=== PATIENT | female | born 1940 | race Hispanic/Latino ===

== ENCOUNTER 2018-04-13 23:03 | Inpatient (IN) | payer MEDICARE, OTHER ==
[2018-04-13] MEDS ORDERED: Morphine 4 mg/ml ISec IVP STA (23:14)
--- NOTE | 2018-04-13 23:22 | ED PDOC ---
"Arrival/HPI - General Chief Complaint: Chest Pain Time Seen by Provider: 04/13/18 23:04 Historian: Patient, EMS - History of Present Illness Narrative History of Present Illness (Text): 04/13/18 23:19 77 year old female, pmh including [place]/CAD with multiple cardiac stents/htn/ hyperlipidemia/dm/copd from chronic smoker which she is on the home oxygen at home, nkda, complaining of chest pressure/tightness and shortness of breath x 20 hours. Pt. stated that she has been having anterior chest pressure, associated with tightness which is exertional, worsening tonight, no palpitation , no leg or calf swelling, no numbness or tingling, no other medical or psychological complaints. Past Medical History - Provider Review Nursing Documentation Reviewed: Yes - Infectious Disease Hx of Infectious Diseases: None - Cardiac Hx Angina: Yes Hx [place]: Yes Hx Hypertension: Yes - Pulmonary Hx Bronchitis: Yes Hx Pneumonia: Yes (presently) - HEENT Hx Cataracts: Yes Hx Glaucoma: Yes - Endocrine/Metabolic Hx Diabetes Mellitus Type 2: Yes - Hematological/Oncological Hx Anemia: Yes - Musculoskeletal/Rheumatological Hx Falls: Yes - Genitourinary/Gynecological Hx Genitourinary Disorders: Yes (incontient) - Psychiatric Hx Emotional Abuse: No Hx Physical Abuse: No Hx Substance Use: No - Surgical History Hx Appendectomy: Yes Hx Cataract Extraction: Yes Hx Coronary Stent: Yes Hx Orthopedic Surgery: Yes (bilateral knee replacement) Other/Comment: micky leblanc - Anesthesia Hx Anesthesia Reactions: No Hx Malignant Hyperthermia: No - Suicidal Assessment Feels Threatened In Home Enviroment: No Family/Social History - Physician Review Nursing Documentation Reviewed: Yes Family/Social History: Unknown Family HX Smoking Status: Former Smoker Hx Alcohol Use: No Hx Substance Use: No Allergies/Home Meds Allergies/Adverse Reactions: Allergies No Known Allergies Allergy (Verified 04/14/18 00:15) Home Medications: Home Meds Medication Instructions Recorded Confirmed Aspirin [Aspir 81] 81 mg PO DAILY 05/20/13 04/14/18 Balsalazide Disodium 1,500 mg PO TID 05/20/13 04/14/18 Calcium Carbonate/Vitamin D 1 tab PO BID 05/20/13 04/14/18 [Calcium + D 600 mg-200 Iu] Cholecalciferol [Vitamin D] 2,000 iu PO DAILY 05/20/13 04/14/18 Colestipol Hydrochloride 2 cap PO BID 05/20/13 04/14/18 [Colestipol] Isosorbide Mononitrate [Imdur] 60 mg PO DAILY 05/20/13 04/14/18 Lansoprazole 30 mg PO DAILY 05/20/13 04/14/18 Lisinopril 10 mg PO DAILY 05/20/13 04/14/18 Metformin HCl [Metformin] 1,000 mg PO BID 05/20/13 04/14/18 Metoprolol Succinate 50 mg PO BID 05/20/13 04/14/18 Multivitamin and Upakzdvn24 0.5 tab PO BID 05/20/13 04/14/18 [Centrum Silver] Simvastatin 40 mg PO DAILY 05/20/13 04/14/18 Timolol Maleate [Timolol Maleate 5 1 drop OU BID 05/20/13 04/14/18 ml] Vitamin E 1,000 cap PO DAILY 05/20/13 04/14/18 Review of Systems - Review of Systems Constitutional: absent: Fatigue, Fevers Eyes: absent: Vision Changes ENT: absent: Hearing Changes Respiratory: SOB. absent: Cough Cardiovascular: Chest Pain Gastrointestinal: absent: Abdominal Pain, Nausea, Vomiting Musculoskeletal: absent: Arthralgias, Back Pain Skin: absent: Rash, Pruritis Neurological: absent: Headache, Dizziness Psychiatric: absent: Anxiety, Depression, Suicidal Ideation Physical Exam Vital Signs Temp Pulse Resp BP Pulse Ox 04/14/18 00:41 128 H 23 146/100 H 99 04/13/18 23:20 98.6 F 130 H 25 H 158/91 H 99 - Systems Exam Head: Present: Atraumatic, Normocephalic Pupils: Present: PERRL Extroacular Muscles: Present: EOMI Conjunctiva: Present: Normal Mouth: Present: Moist Mucous Membranes Neck: Present: Normal Range of Motion Respiratory/Chest: Present: Clear to Auscultation, Good Air Exchange. No: Respiratory Distress, Accessory Muscle Use, Wheezes, Decreased Breath Sounds, Rales, Retracting, Rhonchi, Tachypneic, Tender to Palpation Cardiovascular: Present: Regular Rate and Rhythm, Normal S1, S2, Other (no pedal edema). No: Murmurs Abdomen: No: Tenderness, Distention, Peritoneal Signs, Rebound, Guarding Back: Present: Normal Inspection Upper Extremity: Present: Normal Inspection. No: Cyanosis, Edema Lower Extremity: Present: Normal Inspection. No: Edema Neurological: Present: GCS=15, CN II-XII Intact, Speech Normal Skin: Present: Warm, Dry, Normal Color. No: Rashes Psychiatric: Present: Alert, Oriented x 3, Normal Insight, Normal Concentration Medical Decision Making ED Course and Treatment: 04/13/18 23:21 Differential: ACS vs. Pneumonia vs. CHF vs. 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 Wolff, agreed on the treatment plan. 04/13/18 23:54 -EKG: Sinus Tachycardia @ 129 BPM, no ST elevation but there is ST depression on the lead V2-V4/L1, no T wave inversion. -Chest xray wet read: show there is widened mediastinum with abnormal appearance of the chest xray, CT Dissection study ordered, agreed by Dr. Wolff. -Labs are non-significant except hgb 9.3 from 11.5 which is from 2015, Mg 1.5 ( mgsu IV 1gm ordered) -BNP 1050 with no previous comparison, no pedal edema -Troponin 1st set is negative. -CT Dissection study ordered and pending result. 04/14/18 00:43 -Pt. received 2 doses of xopenex which she appears more comfortable. 04/14/18 01:41 -CT Dissection study show the following: No acute intra-abdominal or pelvic abnormality. Diffuse nodular liver contour, possible cirrhosis. Splenomegaly. Right renal cysts, unchanged. Diverticulosis. No acute diverticulitis. -No central pulmonary embolism. The distal segmental branches are limited by motion and suboptimal enhancement. Pulmonary fibrosis. New diffuse bilateral groundglass opacities which could be secondary to pulmonary edema or pneumonia. Mild nonspecific mediastinal adenopathy. 04/14/18 01:42 -IV lasix 40mg ordered given the fact she has elevated BNP and CT show possible pulmonary edema -IV solumedrol and 3rd xopenex ordered as she responding well -IV rocephine/azithromycin ordered as there is ground grass opacities with CT show possible pneumonia -Blood cultures ordered as well. -Paging Dr. Vogt for admission to telemetry. Dr. Peña is the family service aide. 04/14/18 02:00 -I spoke to Dr. Vogt about the case/labs/radiology results, agreed on the treatment and admission to his service, request to have Dr. Ansari and Dr. Peña on this case for routine consult. -I discussed with Dr. Wolff about this case and he will put in the admission, agreed on the admission and treatment plan. - Critical Care Critical Care Minutes: 45 minutes Critical Care Time: Unstable Narrative Critical Care (Text): 04/14/18 01:46 tachycardia with shortness of breath, xopenex treatment x 3 with IV solumedrol, IV lasix for possible CHF. - Lab Interpretations Lab Results: 04/13/18 23:15 04/13/18 23:15 Lab Results 04/14/18 00:55: Blood Type Pending, Antibody Screen Pending, BBK History Checked No verified bt 04/13/18 23:15: PT 11.2, INR 0.98, APTT 26.3 04/13/18 23:15: WBC 5.1 D, RBC 3.72, Hgb 9.3 L, Hct 30.5 L, MCV 82.0, MCH 25.0 , MCHC 30.5 L, RDW 15.3 H, Plt Count 144, MPV 9.5, Gran % 66.9, Lymph % (Auto) 19.2 L, Granite % (Auto) 8.6 H, Eos % (Auto) 4.9, Baso % (Auto) 0.4, Gran # 3.41, Lymph # (Auto) 1.0 L, Granite # (Auto) 0.4, Eos # (Auto) 0.3, Baso # (Auto) 0.02 04/13/18 23:15: Sodium 144, Potassium 3.9, Chloride 102, Carbon Dioxide 25, Anion Gap 21 H, BUN 15, Creatinine 1.0, Est GFR ( Amer) > 60, Est GFR ( Non-Af Amer) 54, Random Glucose 132 H, Calcium 9.4, Magnesium 1.5 L, Total Bilirubin 0.4, AST 32, ALT 23, Alkaline Phosphatase 44, Lactate Dehydrogenase 530, Total Creatine Kinase 108, Troponin I < 0.01, NT-Pro-B Natriuret Pep 1050 H , Total Protein 7.9, Albumin 4.4, Globulin 3.5, Albumin/Globulin Ratio 1.3 I have reviewed the lab results: Yes Interpretation: Abnormal lab values - RAD Interpretation Radiology Orders: 04/13/18 23:14 CHEST PORTABLE [RAD] Stat 04/13/18 23:52 ANGIOGRAPHY DISECTION PROTOCOL [CT] Stat Chest xray: CT Angiography Disection Protocol: FINDINGS: Pulmonary arteries: The pulmonary arteries are limited by suboptimal enhancement. No central pulmonary embolism. The distal segmental branches are limited by motion and suboptimal enhancement. Aorta: The aorta demonstrates severe atherosclerotic calcification. No thoracic aortic aneurysm. Lungs: Diffuse bilateral ground glass infiltrates are present. There are fibrotic changes noted in the periphery of the lungs bilaterally, unchanged. No mass. Pleural space: Unremarkable. No significant effusion. No pneumothorax. Heart: The heart demonstrates mild diffuse enlargement. Coronary artery calcifications. No significant pericardial effusion. No evidence of RV dysfunction. Bones/joints: No acute fracture. No dislocation. Soft tissues: Unremarkable. Lymph nodes: There are multiple mildly prominent mediastinal nodes. The largest benefits representative node measures 2.5 cm and the right paratracheal area. [facility] | Final Radiology Report Page 2 of 3 IMPRESSION: No central pulmonary embolism. The distal segmental branches are limited by motion and suboptimal enhancement. Pulmonary fibrosis. New diffuse bilateral groundglass opacities which could be secondary to pulmonary edema or pneumonia. Mild nonspecific mediastinal adenopathy. EXAM: CT Abdomen and Pelvis With Intravenous Contrast CLINICAL HISTORY: 77 years old, female; Pain; Abdominal pain; Chest pain; Additional info: R/O dissection TECHNIQUE: Axial computed tomography images of the abdomen and pelvis with intravenous contrast. All CT scans at this facility use one or more dose reduction techniques, viz.: automated exposure control; ma/kV adjustment per patient size (including targeted exams where dose is matched to indication; i.e. head); or iterative reconstruction technique. Coronal and sagittal reformatted images were created and reviewed. CONTRAST: 146 mL of OMNI 350 administered intravenously. COMPARISON: CT - CHEST W/O HIGH RES CHEST 2016-10-03 10:07 FINDINGS: ABDOMEN: Liver: The liver is nodular in contour raising suspicion for cirrhosis. Gallbladder and bile ducts: Mildly distended. No calcified stones. No ductal dilation. Pancreas: Unremarkable. No mass. No ductal dilation. Spleen: The spleen is enlarged measuring 13 cm. Adrenals: Unremarkable. No mass. Kidneys and ureters: The right kidney is atrophic. There are multiple right renal cysts. The left kidney is normal. No hydronephrosis. Stomach and bowel: Mild diverticulosis is present in the sigmoid and descending colon. There is no evidence of diverticulitis. There is no evidence of intestinal obstruction. PELVIS: Appendix: No appendix is specifically identified. There is no evidence of fluid collections or inflammatory stranding in the right lower quadrant. Bladder: Unremarkable. No mass. [facility] | Final Radiology Report CONFIDENTIALITY STATEMENT This report is intended only for use by the referring physician, and only in accordance with law. If you received this in error, call [phone]. Page 3 of 3 Reproductive: Unremarkable as visualized. ABDOMEN and PELVIS: Intraperitoneal space: Unremarkable. No free air. No significant fluid collection. Bones/joints: There is moderate diffuse osteopenia. No acute fracture. No dislocation. Soft tissues: Unremarkable. Vasculature: The vasculature demonstrates diffuse severe atherosclerotic calcification.No abdominal aortic aneurysm. Lymph nodes: Unremarkable. No enlarged lymph nodes. IMPRESSION: No acute intra-abdominal or pelvic abnormality. Diffuse nodular liver contour, possible cirrhosis. Splenomegaly. Right renal cysts, unchanged. Diverticulosis. No acute diverticulitis. Thank you for allowing us to participate in the care of your patient. Dictated and Authenticated by: Ainsley Good MD 04/14/2018 1:28 AM Eastern Time ([place] & [place]) Resident Physician: Radiologist - Medication Orders Current Medication Orders: Sodium Chloride (Sodium Chloride 0.9%) 1,000 mls @ 70 mls/hr IV .[id number] MARIELENA Last Admin: 04/13/18 23:27 Dose: 70 mls/hr eMAR Start Stop Document 04/13/18 23:27 CNR (Rec: 04/13/18 23:27 CNR [id number]) Intravenous Solution Start Date 04/13/18 Start Time 23:27 Ceftriaxone Sodium (Rocephin 1 Gram Ivpb) 1 gm in 100 mls @ 200 mls/hr IVPB STAT STA PRN Reason: Protocol Stop: 04/14/18 02:16 Azithromycin (Zithromax 500mg In Ns) 500 mg in 250 mls @ 167 mls/hr IVPB STAT STA PRN Reason: Protocol Stop: 04/14/18 03:16 Discontinued Medications Aspirin (Aspirin) 325 mg PO STAT STA Stop: 04/13/18 23:15 Last Admin: 04/13/18 23:27 Dose: 325 mg Furosemide (Lasix) 40 mg IVP STAT STA Stop: 04/14/18 01:48 Magnesium Sulfate/Dextrose (Magnesium Sulfate 1 Gm/100 Ml D5w) 1 gm in 100 mls @ 100 mls/hr IVPB ONCE ONE Stop: 04/14/18 00:45 Last Admin: 04/13/18 23:53 Dose: 100 mls/hr eMAR Start Stop Document 04/13/18 23:53 CNR (Rec: 04/13/18 23:55 CNR [id number]) Intravenous Solution Start Date 04/13/18 Start Time 23:55 End Date 04/14/18 End time 00:55 Total Infusion Time 60 Levalbuterol HCl (Xopenex) 1.25 mg IH STAT STA Stop: 04/13/18 23:49 Last Admin: 04/13/18 23:55 Dose: 1.25 mg Levalbuterol HCl (Xopenex) 1.25 mg IH STAT STA Stop: 04/14/18 00:33 Last Admin: 04/14/18 00:34 Dose: 1.25 mg Levalbuterol HCl (Xopenex) 1.25 mg IH STAT STA Stop: 04/14/18 01:40 Methylprednisolone (Solu-Medrol) 125 mg IVP STAT STA Stop: 04/14/18 01:40 Last Admin: 04/14/18 01:50 Dose: 125 mg IVP Administration Document 04/14/18 01:50 CNR (Rec: 04/14/18 01:50 CNR [id number]) Charges for Administration # of IVP Administrations 1 Morphine Sulfate (Morphine) 4 mg IVP STAT STA Stop: 04/13/18 23:15 Last Admin: 04/13/18 23:25 Dose: 4 mg MAR Pain Assessment Document 04/13/18 23:25 CNR (Rec: 04/13/18 23:27 CNR [id number]) Pain Reassessment Is this a pain reassessment? No IVP Administration Document 04/13/18 23:25 CNR (Rec: 04/13/18 23:27 CNR [id number]) Charges for Administration # of IVP Administrations 1 Nitroglycerin (Nitrostat Sl Tab) 0.3 mg SL STAT STA Stop: 04/13/18 23:15 Last Admin: 04/13/18 23:27 Dose: 0.3 mg Nitroglycerin (Nitrostat Sl Tab) 0.3 mg SL STAT STA Stop: 04/13/18 23:49 Last Admin: 04/13/18 23:55 Dose: 0.3 mg - PA / HYGIENE ASSISTANT / Resident Statement / has reviewed & agrees with the documentation as recorded. MD/ has examined the patient and agrees with the treatment plan. Disposition/Present on Arrival - Present on Arrival Any Indicators Present on Arrival: No History of DVT/PE: No History of Uncontrolled Diabetes: Yes Urinary Catheter: No History of Decub. Ulcer: No History Surgical Site Infection Following: None - Disposition Have Diagnosis and Disposition been Completed?: Yes Diagnosis: Pneumonia, Pulmonary fibrosis, unspecified, Chest pain, ST segment depression, Elevated brain natriuretic peptide (BNP) level Disposition: HOSPITALIZED Disposition Time: 01:46 Patient Plan: Admission, Telemetry Condition: GUARDED Discharge Instructions (ExitCare): Chest Pain (ED) Forms: [employer] (Italian)"
[2018-04-13] MEDS ORDERED: Sodium Chloride 0.9% 1,000 ML IV SCH (23:30)
[2018-04-13 23:32] LABS: BASO # 0.02 K/mm3 (0.0-2.0); BASO % 0.4 % (0.0-3.0); EOS # 0.3 (0.0-0.7); EOS % 4.9 % (1.5-5.0); GRAN # 3.41 (1.4-6.5); GRAN % 66.9 % (50.0-68.0); HEMOGLOBIN 9.3 g/dL (12.0-16.0); LYMPH % 19.2 % (22.0-35.0); MEAN CORPUSCULAR HGB CONC 30.5 g/dl (31.0-37.0); MEAN PLATELET VOLUME 9.5 fl (7.0-11.0); MONO # 0.4 (0.1-0.6); MONO % 8.6 % (1.0-6.0); RBC 3.72 10^6/uL (3.5-6.1); RED CELL DISTRIBUTION WIDTH 15.3 % (11.5-14.5); WHITE BLOOD COUNT 5.1 10^3/ul (4.5-11.0)
[2018-04-13 23:39] LABS: ALB/GLOB RATIO 1.3 (1.1-1.8); ALBUMIN 4.4 g/dL (3.0-4.8); ALT/SGPT 23 U/L (7-56); AST/SGOT 32 U/L (14-36); BLOOD UREA NITROGEN 15 mg/dL (7-21); CALCIUM 9.4 mg/dL (8.4-10.5); GFR AFRICAN-AMERICAN > 60; GFR NON-AFRICAN AMERICAN 54
[2018-04-13 23:44] LABS: INR 0.98 (0.93-1.08); PROTHROMBIN TIME 11.2 SECONDS (9.4-12.5)
[2018-04-13 23:45] LABS: PARTIAL THROMBOPLASTIN TIME 26.3 Seconds (25.1-36.5)
[2018-04-13] MEDS ORDERED: Magnesium Sulfate 1 gm in D5W 1 GM/100 ML BAG IVPB ONE (23:46)
[2018-04-13] MEDS ORDERED: Levalbuterol 1.25 MG/3 ML Inhal Soln UD IH STA (23:48)
[2018-04-13 23:50] LABS: B-TYPE NATRIURETIC PEPTIDE 1050 pg/mL (0-450); TROPONIN I < 0.01 ng/mL
--- NOTE | 2018-04-14 00:27 | RAD ---
EXAM: XR Chest, 1 View CLINICAL HISTORY: 77 years old, female; Pain; Chest pain TECHNIQUE: Frontal view of the chest 11:17 PM 04/13/2018 COMPARISON: CR - CHEST TWO VIEWS (PA/LAT) 2016-03-05 15:21 FINDINGS: Lungs: Low lung volumes. Mild bibasilar atelectasis. Pleural space: Unremarkable. No pneumothorax. Heart: Unremarkable. No cardiomegaly. Mediastinum: Unremarkable. IMPRESSION: Hypoventilatory changes with mild bibasilar atelectasis.
[2018-04-14] MEDS ORDERED: Levalbuterol 1.25 MG/3 ML Inhal Soln UD IH STA ×2 (00:32→01:39)
--- NOTE | 2018-04-14 01:28 | CT ---
EXAM: CT Angiography Chest With Intravenous Contrast CLINICAL HISTORY: 77 years old, female; Pain; Abdominal pain; Chest pain; Additional info: R/O dissection TECHNIQUE: Axial computed tomographic angiography images of the chest with intravenous contrast using pulmonary embolism protocol. All CT scans at this facility use one or more dose reduction techniques, viz.: automated exposure control; ma/kV adjustment per patient size (including targeted exams where dose is matched to indication; i.e. head); or iterative reconstruction technique. MIP reconstructed images were created and reviewed. Coronal and sagittal reformatted images were created and reviewed. CONTRAST: 146 mL of OMNI 350 administered intravenously. COMPARISON: No relevant prior studies available. FINDINGS: Pulmonary arteries: The pulmonary arteries are limited by suboptimal enhancement. No central pulmonary embolism. The distal segmental branches are limited by motion and suboptimal enhancement. Aorta: The aorta demonstrates severe atherosclerotic calcification. No thoracic aortic aneurysm. Lungs: Diffuse bilateral ground glass infiltrates are present. There are fibrotic changes noted in the periphery of the lungs bilaterally, unchanged. No mass. Pleural space: Unremarkable. No significant effusion. No pneumothorax. Heart: The heart demonstrates mild diffuse enlargement. Coronary artery calcifications. No significant pericardial effusion. No evidence of RV dysfunction. Bones/joints: No acute fracture. No dislocation. Soft tissues: Unremarkable. Lymph nodes: There are multiple mildly prominent mediastinal nodes. The largest field support representative node measures 2.5 cm and the right paratracheal area. IMPRESSION: No central pulmonary embolism. The distal segmental branches are limited by motion and suboptimal enhancement. Pulmonary fibrosis. New diffuse bilateral groundglass opacities which could be secondary to pulmonary edema or pneumonia. Mild nonspecific mediastinal adenopathy. EXAM: CT Abdomen and Pelvis With Intravenous Contrast CLINICAL HISTORY: 77 years old, female; Pain; Abdominal pain; Chest pain; Additional info: R/O dissection TECHNIQUE: Axial computed tomography images of the abdomen and pelvis with intravenous contrast. All CT scans at this facility use one or more dose reduction techniques, viz.: automated exposure control; ma/kV adjustment per patient size (including targeted exams where dose is matched to indication; i.e. head); or iterative reconstruction technique. Coronal and sagittal reformatted images were created and reviewed. CONTRAST: 146 mL of OMNI 350 administered intravenously. COMPARISON: CT - CHEST W/O HIGH RES CHEST 2016-10-03 10:07 FINDINGS: ABDOMEN: Liver: The liver is nodular in contour raising suspicion for cirrhosis. Gallbladder and bile ducts: Mildly distended. No calcified stones. No ductal dilation. Pancreas: Unremarkable. No mass. No ductal dilation. Spleen: The spleen is enlarged measuring 13 cm. Adrenals: Unremarkable. No mass. Kidneys and ureters: The right kidney is atrophic. There are multiple right renal cysts. The left kidney is normal. No hydronephrosis. Stomach and bowel: Mild diverticulosis is present in the sigmoid and descending colon. There is no evidence of diverticulitis. There is no evidence of intestinal obstruction. PELVIS: Appendix: No appendix is specifically identified. There is no evidence of fluid collections or inflammatory stranding in the right lower quadrant. Bladder: Unremarkable. No mass. Reproductive: Unremarkable as visualized. ABDOMEN and PELVIS: Intraperitoneal space: Unremarkable. No free air. No significant fluid collection. Bones/joints: There is moderate diffuse osteopenia. No acute fracture. No dislocation. Soft tissues: Unremarkable. Vasculature: The vasculature demonstrates diffuse severe atherosclerotic calcification.No abdominal aortic aneurysm. Lymph nodes: Unremarkable. No enlarged lymph nodes. IMPRESSION: No acute intra-abdominal or pelvic abnormality. Diffuse nodular liver contour, possible cirrhosis. Splenomegaly. Right renal cysts, unchanged. Diverticulosis. No acute diverticulitis.
[2018-04-14] MEDS ORDERED: Azithromycin 500MG/NS 250ml 500 MG/250 ML BAG IVPB STA (01:47)
[2018-04-14] MEDS ORDERED: cefTRIAXone 1 gm 1 GM/100 ML BAG IVPB STA (01:47)
[2018-04-14 03:35] VITALS: BMI 34.0
--- NOTE | 2018-04-14 07:51 | CON ---
DATE: PULMONARY CONSULTATION REASON FOR CONSULTATION: Chronic obstructive pulmonary disease. REFERRING PHYSICIAN: Mitchel Sams MD. Case was discussed with the night nurse at length. I have also reviewed the chart at length, and discussed the case with the patient at length. The patient is a 77-year-old female, with past medical history significant for extensive coronary artery disease, status post myocardial infarction in the past, status post multiple cardiac stents; advanced chronic obstructive pulmonary disease, on home oxygen; pulmonary fibrosis/interstitial lung disease (seen on multiple previous CAT scans); obstructive sleep apnea, who presents to [facility] with main complaints of "chest tightness" and shortness of breath for the past one day. The patient also states that her chest tightness does become worse with exertion. DISCUSSION: The patient does state to a chronic minimal cough - unchanged. No sputum production. No history of coughing up of blood. No history of chest discomfort - made worse with deep respirations. There is no history of temperatures, chills or infectious exposure. There is no history of night sweats, weight loss or appetite change prior to the above events. No history of leg or calf pains. No history of syncope or diaphoresis. No history of recent travel or trauma. REVIEW OF SYSTEMS: No history of nausea, vomiting or diarrhea. No acute urinary symptoms. No new neurologic complaints. Rest of the review of systems is negative. ALLERGIES: NO KNOWN ALLERGIES. SOCIAL HISTORY: Positive for extensive tobacco usage, no alcohol. FAMILY HISTORY: Positive for heart disease. HOME MEDICATIONS: Include timolol, simvastatin, promethazine, metoprolol, metformin, lisinopril, Imdur, aspirin. SUBJECTIVE: The patient is not short of breath at rest. She is not using accessory muscles for breathing. PHYSICAL EXAMINATION: VITAL SIGNS: Temperature is 98.2, pulse on the monitor is 108, respiratory rate 18, blood pressure 159/73. Oxygen saturation on nasal cannula is 98%. HEENT: Normocephalic, atraumatic. No JVD. CARDIOVASCULAR: Systolic ejection murmur at the lower left sternal border. Positive S3 gallop. LUNGS: Minimal crackles at both bases. Minimal bilateral rhonchi. No wheezing. EXTREMITIES: Mild edema. No cyanosis, no clubbing. Calves are nontender to palpation. GI: Abdomen is soft, nontender and nondistended. Bowel sounds are positive. SKIN: No acute rash. NEUROLOGIC: Exam limited at the present time. PERTINENT LABORATORY DATA: CAT scan of the chest was done as an angiogram protocol. There is no pulmonary embolism seen. There is underlying chronic pulmonary fibrosis noted. There are also new symmetrical, mild ground-glass changes - most consistent with pulmonary edema. Complete metabolic profile: Anion gap 21, glucose 132, magnesium 1.5. B-type natriuretic peptide 1050. Rest of the metabolic profile is within normal limits. CBC: White count 5.1, hemoglobin 9.3, hematocrit 30.5, platelets of 144,000. IMPRESSION: 1. Chest discomfort. 2. Mild congestive heart failure. 3. Extensive coronary artery disease. 4. Advanced chronic obstructive pulmonary disease, on home oxygen. 5. Pulmonary fibrosis/interstitial lung disease. 6. Obstructive sleep apnea. 7. Mild anemia. PLAN: Again, I did discuss the case with the night nurse at length. I have also reviewed the chart at length, and discussed case with the patient at length. The patient presents to [facility] with a one-day history of worsening "chest tightness", along with shortness of breath. As above, the patient does state that her chest tightness increases with exertion. At the time of my examination, the patient is resting comfortably and not short of breath. She also states that her chest tightness is decreased/improved. She offers no other new or significant pulmonary symptoms. I did review the CAT scan of the chest - done as an angiogram protocol. Again, there is underlying pulmonary fibrosis/interstitial lung disease - seen on multiple previous CAT scans. However, again, there are new symmetrical mild ground glass changes - most consistent with pulmonary edema. I have also reviewed the laboratory data. A significant rise in the B-type nature natriuretic peptide is noted. The patient did receive Lasix in the emergency room. On physical exam, there is no significant bronchospasm noted. In addition, there is no significant alveolar-arterial gradient. Oxygen saturation on nasal cannula is 98%. I will start the patient on Xopenex nebulizer treatments (given the tachycardia) and inhaled steroids. She is on Pulmicort at home. Cardiology evaluation with Dr. Ken has also been ordered. The patient does feel better this morning, and is clinically improved. Additional pulmonary intervention would be based on the clinical status of the patient. I will discuss the above with Dr. Flaquita this morning. Thank you very much for this pulmonary consultation. Luis Carlos Ansari MD [facility]
[2018-04-14] MEDS: Levalbuterol 1.25 MG/3 ML Inhal Soln UD IH SCH ×3 (08:24→20:35)
[2018-04-14] MEDS: Budesonide 0.5 mg/2 ml Inhal Susp UD IH SCH ×2 (08:24→20:35)
[2018-04-14 09:19] LABS: EOS % 0.2 % (1.5-5.0); GRAN # 4.09 (1.4-6.5); GRAN % 92.7 % (50.0-68.0); HEMOGLOBIN 9.1 g/dL (12.0-16.0); LYMPH # 0.3 (1.2-3.4); LYMPH % 5.7 % (22.0-35.0); MEAN CELL VOLUME 81.4 fl (80.0-105.0); MEAN CORPUSCULAR HEMOGLOBIN 24.9 pg (25.0-35.0); MEAN CORPUSCULAR HGB CONC 30.5 g/dl (31.0-37.0); MEAN PLATELET VOLUME 9.9 fl (7.0-11.0); MONO # 0.1 (0.1-0.6); MONO % 1.4 % (1.0-6.0); PLATELET COUNT 136 10^3/uL (120.0-450.0); RBC 3.66 10^6/uL (3.5-6.1); RED CELL DISTRIBUTION WIDTH 15.3 % (11.5-14.5); WHITE BLOOD COUNT 4.4 10^3/ul (4.5-11.0)
[2018-04-14 10:07] LABS: BASOPHIL 1 % (0.0-1.0); LYMPHOCYTE 4 % (22.0-35.0); NEUTROPHIL 95 % (50.0-70.0); PLATELET ESTIMATE NORMAL (NORMAL)
--- NOTE | 2018-04-14 10:10 | CARD ---
APPROVED REPORT EKG Measurement Heart [id number] CT 140P81 [id number] <Conclusion> Sinus tachycardia ST & T wave abnormality, consider anterolateral ischemia, new
[2018-04-14 10:56] LABS: IRON 25 ug/dL (45-180)
[2018-04-14 11:06] LABS: % IRON SATURATION 5 % (20-55); TOTAL IRON BINDING CAPACITY 468 ug/dL (265-497)
[2018-04-14] MEDS: Enoxaparin 100 mg Syringe SC SCH ×2 (11:14→22:41)
--- NOTE | 2018-04-14 11:25 | CARD ---
APPROVED REPORT EKG Measurement Heart [id number] [id number] <Conclusion> Sinus tachycardia ST & T wave abnormality, consider lateral ischemia Abnormal ECG
[2018-04-14 11:53] LABS: BLOOD UREA NITROGEN 16 mg/dL (7-21); CALCIUM 9.5 mg/dL (8.4-10.5); GFR AFRICAN-AMERICAN > 60; GFR NON-AFRICAN AMERICAN > 60
[2018-04-14 11:54] LABS: ALB/GLOB RATIO 1.4 (1.1-1.8); ALBUMIN 4.7 g/dL (3.0-4.8); ALT/SGPT 18 U/L (7-56); AST/SGOT 38 U/L (14-36)
[2018-04-14] MEDS: Insulin Reg-LOW-Coverage SC SCH ×3 (12:16→22:41)
[2018-04-14 12:49] LABS: FREE T4 1.33 ng/dL (0.78-2.19)
[2018-04-14] MEDS: Pantoprazole 40 mg EC Tab PO SCH (13:48)
[2018-04-14 17:04] LABS: FERRITIN 8.2 ng/mL
--- NOTE | 2018-04-14 17:18 | HP ---
CHIEF COMPLAINT AND HISTORY OF PRESENT ILLNESS: This is a 77-year-old female who is coming to the hospital complaining of left-sided chest pain. She said it was underneath her breast. It went across her mid chest towards the left side of the chest. She does have a history of coronary artery disease with stent. She has history of hypertension, dyslipidemia, COPD. She is on home O2. The patient says that she has had difficulty with shortness of breath as well for the past day. She has no nausea, no vomiting. The pain was about 4-5/10, it worsens at night. She denies any abdominal pain. No back pain. No dysuria or frequency. REVIEW OF SYMPTOMS: All other review of symptoms are within normal limits except that was mentioned. ALLERGIES: NO KNOWN DRUG ALLERGIES. HOME MEDICATIONS: Have been reviewed. She is on aspirin, balsalazide, Imdur, lisinopril, metformin, metoprolol, simvastatin, timolol eye drops. SOCIAL HISTORY: She is a former smoker. She denies alcohol or drugs. FAMILY HISTORY: She does have cardiac disease in the family. PHYSICAL EXAMINATION: VITAL SIGNS: Temperature is 98.2, pulse of 127, blood pressure is 159/73, respirations 18, O2 saturation 98%. Height is 5 feet 1. Weight 180 pounds. BMI IS 34. GENERAL: The patient lying in bed, uncomfortable, and in no acute distress. HEENT: Atraumatic and normocephalic. Anicteric sclerae. Moist mucosa. [place] conjunctivae. No oral lesions. NECK: No JVD, anterior and posterior adenopathy, thyromegaly, or bruits. CARDIOVASCULAR: S1 and S2, tachycardia. No murmur, rubs, or gallop. LUNGS: Clear to auscultation bilaterally. No wheezes, rales, or rhonchi. ABDOMEN: Bowel sounds are positive. Soft, nontender and nondistended. No hepatosplenomegaly. No rebound and no guarding EXTREMITIES: No cyanosis, clubbing, or edema. NEUROLOGIC: No facial asymmetry. Tongue is midline. No uvula deviation. Power is 5/5 upper extremity and lower extremity. Sensation intact in upper extremity and lower extremity. PSYCHIATRIC: She is awake, alert and oriented x3. No anxiety or depression. She has normal affect. GENITOURINARY: No CVA tenderness. VASCULAR: 2+ pulses in the carotid pulses and pedal pulses. SKIN: No erythema or nodules. SPINE: Shows normal curvature. CT angio done of the chest, shows no acute intracranial abnormalities. There is diffuse nodular liver contour, possible cirrhosis, splenomegaly, right renal cyst. There is pulmonary fibrosis. There are new diffuse bilateral ground glass opacities. Chest x-ray shows hypoventilatory changes with mild bibasilar atelectasis. ASSESSMENT: 1. Chest pain. 2. Chronic obstructive pulmonary disease, on home O2. 3. Pulmonary fibrosis/interstitial lung disease. 4. Obstructive sleep apnea. 5. Coronary artery disease. 6. Right renal cyst. 7. Splenomegaly. 8. Possible cirrhosis. 9. Dyslipidemia. 10. Diabetes type 2. PLAN : The patient is going to be admitted to hospital. She is tachycardic. Her blood pressure is elevated. The patient is going to be on aspirin for coronary artery disease. She is on isosorbide. She has had chest pains. I will get Cardiology and Pulmonary observation. She is going to be on metoprolol. She is on Lovenox for anticoagulation. She has been started on Plavix by Dr. Duron. The patient is on Pulmicort. The patient is on Xopenex, is on lisinopril for hypertension, is on O2 at home and we will continue here. The patient has an echo that has been ordered. She is going to be on the heart-healthy diet. We will repeat the patient's blood work tomorrow. We will continue to follow closely. Overall prognosis is guarded. Mitchel Sams MD
[2018-04-14 17:34] LABS: FOLATE > 20.0 ng/mL
--- NOTE | 2018-04-14 20:30 | CON ---
DATE: 04/14/2018 INDICATIONS: Chest pain and shortness of breath. HISTORY OF PRESENT ILLNESS: This is a 77-year-old woman known to our practice with extensive coronary and pulmonary disease who was admitted with worsening chest discomfort, described as a tight feeling in the left inframammary area. She has also increased shortness of breath. She had noticed the onset of chest pain in recent few days, but it got worse yesterday and she came to the Emergency Room. This morning, she feels better, but there is still some residual discomfort. There is no orthopnea, PND, syncope, presyncope, lightheadedness, dizziness, vertigo, edema, or claudication. No fever, chills, hemoptysis, abdominal pain, nausea, vomiting, diarrhea, constipation, or melena. PAST MEDICAL HISTORY: Notable for coronary artery disease, myocardial infarction, remote coronary intervention, an occluded vessel, severe COPD with home O2. She is a former smoker. She has pulmonary fibrosis and sleep apnea. She has bilateral knee replacements. MEDICATIONS: At the time of admission include aspirin, calcium plus vitamin D, multivitamin, colestipol, Imdur, lansoprazole, lisinopril, metformin, metoprolol, promethazine, simvastatin, timolol eyedrops, vitamin D, vitamin E, balsalazide disodium. ALLERGIES: THERE WERE NO KNOWN MEDICATION ALLERGIES. SOCIAL HISTORY: She is a former remote smoker. She does not drink alcohol significantly. She lives at home. She is ambulatory. She uses home O2. FAMILY HISTORY: Notable for heart disease. REVIEW OF SYSTEMS: A 10-point review of systems otherwise unremarkable except as noted above. PHYSICAL EXAMINATION: GENERAL: She is a well-developed elderly woman, in no acute distress, sitting on her bed in telemetry. VITAL SIGNS: She is in sinus tachycardia, 100-130 beats per minute. She is afebrile. Blood pressure 159/73, respirations 18-20, O2 sat 97%-98% on nasal cannula. HEENT: Reveals no neck vein distention, thyromegaly, carotid bruit. Mucous membranes moist. Conjunctivae pink. NECK: Supple. LUNGS: Lung quinteros, scattered rhonchi. HEART: Revealed irregular rhythm. Normal first and second heart sounds, soft systolic murmur along the left sternal border. PMI not palpable. ABDOMEN: Soft. Bowel sounds present. No mass, organomegaly, tenderness, rebound, or guarding. No CVA tenderness. No palpable abdominal aortic aneurysm. EXTREMITIES: Revealed no cyanosis, clubbing, or edema. NEUROLOGIC: Awake, alert, and oriented. PSYCHIATRIC: Normal as to mood and affect. SKIN: Warm and dry. No rash or cellulitis. LABORATORY AND IMAGING DATA: Hemoglobin 9.3, hematocrit 30.5, white count normal, platelet count normal. PT, INR, PTT normal. Electrolytes: BUN, creatinine, blood sugar unremarkable. Magnesium 1.5. LFTs unremarkable. CK 108. Troponin less than 0.01. BNP 1050. IMPRESSION: Jaja Krueger is a 77-year-old woman with severe cardiac and pulmonary disease who presents with chest pain. Her EKG demonstrates sinus tachycardia with ST depressions in multiple leads which are new. I believe her symptoms are predominantly cardiac at this time. I will discuss proceeding to cardiac catheterization with Dr. Ken who follows her chronically. She has known severe coronary artery disease with an occluded vessel and a fairly recent nuclear stress test, which I will review. In the meantime, I will continue her current cardiac medications including aspirin, isosorbide, Lasix, Lipitor for simvastatin, metoprolol, lisinopril. I will add Plavix and Lovenox. Magnesium is being replaced. We will get a troponin level this morning. We will repeat her EKG. She will remain on telemetry. She will keep us informed of her symptoms. Cardiac catheterization is anticipated during this admission. She is also having a pulmonary evaluation by Dr. Ansari. She is getting pulmonary treatments and supplemental O2. Mark Duron MD CHRISTINA
--- NOTE | 2018-04-15 07:17 | PN ---
DATE: 04/15/2018 PULMONARY NOTE SUBJECTIVE: The patient appears comfortable this morning. She is not short of breath at rest. OBJECTIVE: VITAL SIGNS: Temperature is 97.8, pulse 88, respirations 18/20, blood pressure 138/83. Oxygen saturation on nasal cannula is 97%. HEENT: Normocephalic, atraumatic. No JVD. CARDIOVASCULAR: Systolic ejection murmur at the lower left sternal border. Positive S3 gallop. LUNGS: Less crackles at the bases. Much less rhonchi. No wheezing. EXTREMITIES: No clubbing, cyanosis or edema. Calves are nontender to palpation. GI: Abdomen is soft, nontender and nondistended. Bowel sounds are positive. SKIN: No acute rash. NEUROLOGIC: Exam limited at the present time. IMPRESSION: 1. Chest discomfort - resolving. 2. Mild congestive heart failure. 3. Extensive coronary artery disease. 4. Advanced chronic obstructive pulmonary disease. 5. Pulmonary fibrosis/interstitial lung disease. 6. Obstructive sleep apnea. 7. Mild anemia. PLAN: The patient appears much more comfortable this morning. She is not short of breath at rest. She does state to feeling much, much better overall. I did discuss the case with the night nurse at length. The night nurse stated that the patient had a very good night. On physical exam, there is certainly less bronchospasm noted. In addition, the alveolar-arterial gradient is also less. I will continue with the current nebulizer treatments and inhaled steroids for now. Input by Cardiology is noted. The patient remains on intravenous Lasix. The patient also remains on therapeutic Lovenox, as well as Plavix. Tentative plan is for cardiac catheterization tomorrow morning. Clinical status of the patient is certainly improved - compared to her initial presentation. However, her future status/prognosis does remain guarded. I will discuss the above with the attending physician. Luis Carlos Ansari MD [facility]
[2018-04-15] MEDS: Insulin Reg-LOW-Coverage SC SCH ×4 (08:25→23:08)
[2018-04-15] MEDS: Levalbuterol 1.25 MG/3 ML Inhal Soln UD IH SCH ×3 (08:34→20:38)
[2018-04-15] MEDS: Budesonide 0.5 mg/2 ml Inhal Susp UD IH SCH ×2 (08:34→20:38)
--- NOTE | 2018-04-15 08:42 | CP.PCM.PN ---
Subjective - Date & Time of Evaluation Date of Evaluation: 04/15/18 Time of Evaluation: 07:00 - Subjective Subjective: Stable on 2R. No CP or SOB. She feels better. V/S noted RSR/S. [place] PE: Lungs: clear Cor.: S1S2 Abd.: soft Ext.: no edema Neuro.: alert I/O= 1840/600 Labs noted: H/H 9.1/29.8, trops neg X 3. ECG 04/14: S. tachy., STTW changes c/w ischemia Echo done: Objective - Vital Signs/Intake and Output Vital Signs (last 24 hours): Temp Pulse Resp BP Pulse Ox 97.8 F 43 L 18 112/40 L 95 04/15/18 06:00 04/15/18 06:00 04/15/18 06:00 04/15/18 06:00 04/15/18 06:00 Intake and Output: 04/15/18 04/15/18 06:59 18:59 Intake Total 120 1840 Output Total 600 Balance 120 1240 - Medications Medications: Current Medications Aspirin (Aspirin Chewable) 81 mg PO DAILY [facility] Last Admin: 04/14/18 11:12 Dose: 81 mg Atorvastatin Calcium (Lipitor) 20 mg PO DIN [facility] Last Admin: 04/14/18 17:34 Dose: 20 mg Balsalazide (Colazal) 750 mg PO TID [facility] Last Admin: 04/14/18 17:33 Dose: 750 mg Budesonide (Pulmicort Respules) 0.5 mg IH [id number] [facility] Last Admin: 04/14/18 20:35 Dose: 0.5 mg Clopidogrel Bisulfate (Plavix) 75 mg PO DAILY [facility] Last Admin: 04/14/18 11:12 Dose: 75 mg Enoxaparin Sodium (Lovenox) 80 mg SC ONCE ONE PRN Reason: Protocol Stop: 04/15/18 09:01 Home Med (Home Med) 0 unit OU DAILY [facility] Magnesium 2 gm/50 ml NS (Magnesium Sulfate 2 Gm/50 Ml Ns) 2 gm in 50 mls @ 50 mls/hr IV ONCE ONE Stop: 04/15/18 09:59 Insulin Human Regular (Humulin R Low) 0 units SC ACHS [facility] PRN Reason: Protocol Last Admin: 04/15/18 08:25 Dose: 1 units Isosorbide Mononitrate (Imdur) 60 mg PO DAILY [facility] Last Admin: 04/14/18 11:12 Dose: 60 mg Levalbuterol HCl (Xopenex) 1.25 mg IH TIDRESP [facility] Last Admin: 04/14/18 20:35 Dose: 1.25 mg Lisinopril (Zestril) 10 mg PO DAILY [facility] Last Admin: 04/14/18 11:12 Dose: 10 mg Magnesium Oxide (Mag-Ox) 400 mg PO BID [facility] Metoprolol Tartrate (Lopressor) 50 mg PO BID [facility] Last Admin: 04/14/18 17:34 Dose: 50 mg Pantoprazole Sodium (Protonix Ec Tab) 40 mg PO DAILY [facility] Last Admin: 04/14/18 13:48 Dose: 40 mg - Labs Labs: 04/14/18 09:15 04/14/18 09:15 PT 11.2 SECONDS (9.4-12.5) 04/13/18 23:15 INR 0.98 (0.93-1.08) 04/13/18 23:15 APTT 26.3 Seconds (25.1-36.5) 04/13/18 23:15 Assessment and Plan - Assessment and Plan (Free Text) Assessment: CP/SOB CAD/Old [place]/Remote PCI COPD/Home O2/Former Smoker Pulm. Fibrosis HBP HLD Possible cirrhosis EDD Bilat THR Hypomag. Plan: Continue cardiac meds Will check echo Cardiac cath/poss. PCI tomorrow AM: Additional recs to follow. Replace mag. As per pulm. and Dr. Sams. Will follow
[2018-04-15] MEDS ORDERED: Magnesium 2 gm/50 ml NS 2 GM/50 ML BAG IV ONE (09:00)
[2018-04-15] MEDS ORDERED: Enoxaparin 80 mg Syringe SC ONE (09:00)
[2018-04-15] MEDS: Pantoprazole 40 mg EC Tab PO SCH (09:20)
[2018-04-15] MEDS: Magnesium Oxide 400 mg Tab UD PO SCH ×2 (09:20→18:22)
--- NOTE | 2018-04-15 09:22 | CARD ---
APPROVED REPORT EXAM: Two-dimensional and M-mode echocardiogram with Doppler and color Doppler. Other Information Quality : FairRhythm : INDICATION Dyspnea Chest Pain 2D DIMENSIONS IVSd0.9 (0.7-1.1cm)LVDd5.5 (3.9-5.9cm) PWd1.1 (0.7-1.1cm)LVDs3.5 (2.5-4.0cm) FS (%) 36.7 %LVEF (%)66.0 (>50%) M-Mode DIMENSIONS Left Atrium (MM)5.70 (2.5-4.0cm)Aortic Root3.60 (2.2-3.7cm) Aortic Cusp Exc.1.90 (1.5-2.0cm) Aortic Valve AoV Peak Fjslqnli442.0cm/s Mitral Valve MV E Aetoqjsc798.0cm/sE/A ratio0.0 TDI Lateral E' Peak V7.60cm/sMedial E' Peak V9.07cm/sE/Lateral E'16.8 E/Medial E'14.1 Tricuspid Valve TR Peak Yobqpmva038zs/sRAP [id number] Peak Gr.50mmHg [id number] LEFT VENTRICLE The left ventricle is normal size. There is normal left ventricular wall thickness. The left ventricular function is normal. The left ventricular ejection fraction is within the normal range. There is normal LV segmental wall motion. RIGHT VENTRICLE The right ventricle is normal size. ATRIA The left atrium is moderately dilated. The right atrium size is normal. AORTIC VALVE The aortic valve is mildly calcified. MITRAL VALVE The mitral valve is normal in structure. Mitral annular calcification is mild to moderate. There is calcification of the papillary muscles. Mitral regurgitation is trace. TRICUSPID VALVE The tricuspid valve is not well visualized. There is mild to moderate tricuspid regurgitation. There is moderate-severe pulmonary hypertension. PULMONIC VALVE The pulmonic valve is not well visualized. GREAT VESSELS The aortic root is normal in size. PERICARDIAL EFFUSION There is no pericardial effusion. <Conclusion> The left ventricle is normal size. There is normal left ventricular wall thickness. The left ventricular function is normal. The aortic valve is mildly calcified. Aortic sclerosis. The mitral valve is normal in structure. Mitral annular calcification is mild to moderate. There is calcification of the papillary muscles. Mitral regurgitation is trace. There is mild to moderate tricuspid regurgitation. There is moderate-severe pulmonary hypertension.
[2018-04-15] MEDS ORDERED: Latanoprost 2.5 ml Opht Soln OU SCH (10:00)
[2018-04-15] MEDS: LUMIGAN 0.01% OU SCH (10:14)
--- NOTE | 2018-04-15 11:50 | PN ---
DATE: 04/15/2018 SUBJECTIVE: The patient has no complaints of any chest pain, no shortness of breath, no headaches or dizziness. PHYSICAL EXAMINATION VITAL SIGNS: Temperature is 97.8, pulse of 43, blood pressure is 112/40, respirations 18. GENERAL: The patient is lying in bed, flat, comfortable. HEENT: No oral lesion. Anicteric sclerae. Moist mucosa. NECK: No JVD, adenopathy, or thyromegaly. CARDIOVASCULAR: S1 and S2, regular. No murmurs, rubs, or gallops. LUNGS: Clear to auscultation bilaterally. No wheeze, rales, or rhonchi. ABDOMEN: Bowel sounds are positive, soft, nontender and nondistended. EXTREMITIES: No cyanosis, clubbing or edema. LABORATORY DATA: White count of 4.4, hemoglobin 9.1, creatinine is 0.9 ASSESSMENT: 1. Chest pain, resolved. 2. Chronic obstructive pulmonary disease, stable on home O2. 3. Pulmonary fibrosis/interstitial lung disease. 4. Obstructive sleep apnea. 5. Coronary artery disease. 6. Right renal cyst. 7. Splenomegaly. 8. Possible cirrhosis. 9. Dyslipidemia. 10. Diabetes type 2. 11. Iron deficiency anemia. PLAN: The patient is currently comfortable. The patient's iron studies showed that she is iron deficient. The patient has a low reticulocyte count. The patient's B12 and folate are normal. We will get GI to evaluate the patient for cirrhosis. The patient is on aspirin. She is going to continue on isosorbide. She is on Lopressor. She is going for cardiac cath tomorrow. The patient also had magnesium that was low. She is on magnesium replacement. She is receiving Pulmicort for breathing. She is on lisinopril. I will add IV iron to her regimen. We will check her magnesium again tomorrow. Mitchel Sams MD
[2018-04-16 06:11] VITALS: O2SAT 99
[2018-04-16] MEDS ORDERED: Phenylephrine 10 mg/ml Inj ONE (07:00)
[2018-04-16] MEDS ORDERED: Nitroglycerin 50mg in D5W 0 MG/0 ML BOTTLE IV ONE (07:01)
[2018-04-16] MEDS ORDERED: Iodixanol 320 MG/ML 200 ML BOTTLE IV ONE (07:01)
[2018-04-16] MEDS ORDERED: Iodixanol 320 MG/ML 100 ML BOTTLE IV ONE (07:01)
[2018-04-16] MEDS ORDERED: Iohexol 350mgl/ml 50 ML ONE (07:01)
[2018-04-16] MEDS ORDERED: Lidocaine 2% Inj (20ml) ONE (07:02)
[2018-04-16 07:11] LABS: HEMOGLOBIN 8.6 g/dL (12.0-16.0); MEAN CELL VOLUME 82.1 fl (80.0-105.0); MEAN CORPUSCULAR HEMOGLOBIN 24.5 pg (25.0-35.0); MEAN CORPUSCULAR HGB CONC 29.9 g/dl (31.0-37.0); MEAN PLATELET VOLUME 9.7 fl (7.0-11.0); RBC 3.51 10^6/uL (3.5-6.1); RED CELL DISTRIBUTION WIDTH 15.3 % (11.5-14.5); WHITE BLOOD COUNT 3.8 10^3/ul (4.5-11.0)
[2018-04-16] MEDS ORDERED: Midazolam 2 MG/2 ML VIAL ONE ×2 (07:26→07:44)
[2018-04-16 07:39] LABS: CALCIUM 9.1 mg/dL (8.4-10.5)
--- NOTE | 2018-04-16 08:04 | CON ---
DATE: 04/15/2018 CONSULTATION GASTROENTEROLOGY REQUESTING PHYSICIAN: Mitchel Sams MD. 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 She denies any rectal bleeding, melena, nausea, vomiting or abdominal pain. She also has a history of pulmonary fibrosis and sleep apnea. The patient recently had an ultrasound of the liver to rule out hepatoma given her longstanding history of cirrhosis. The ultrasound was negative for any mass lesions in the liver. She currently feels better with less chest pain and shortness of breath. She denies any increase in abdominal girth or pedal edema. She denies any rectal bleeding, nausea, vomiting, hematemesis, diarrhea or melena. PAST MEDICAL HISTORY: As above. Again, she has a history of coronary artery disease, [place], severe COPD, pulmonary fibrosis, obstructive sleep apnea. She is on home O2. 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 PAST SURGICAL HISTORY: Notable for bilateral knee replacement. SOCIAL HISTORY: She is a former cigarette smoker, having quit smoking many years ago, but she used to smoke up to two packs of cigarettes per day. FAMILY HISTORY: Noncontributory. MEDICATIONS AT HOME: Includes balsalazide 2250 mg t.i.d., metoprolol, promethazine, metformin, lisinopril, lansoprazole, Imdur, colestipol, vitamin D with calcium, aspirin, timolol eye drops. REVIEW OF SYSTEMS: Fourteen-point review of systems is positive for chest pain and shortness of breath. PHYSICAL EXAMINATION: GENERAL: Elderly female, lying in bed comfortable, in no distress. VITAL SIGNS: Reveal temperature of 97.8, blood pressure 130/68, heart rate of 80. HEENT: Reveals sclerae to be white. Conjunctivae pale. NECK: Supple. CHEST: Reveals lung sounds be distant with scattered wheezing. HEART: Reveals regular rate and rhythm. ABDOMEN: Soft, nontender. EXTREMITIES: Show no edema. LABORATORY DATA: Reveals white blood cell count 4.4, hemoglobin 9.1, reticulocyte count is 1.41. Chemistries reveal AST 38, ALT 18, BUN 16, creatinine 0.9, blood sugar of 249. Iron saturation is 5% with a TIBC of 468. IMPRESSION: A 77-year-old female with known coronary artery disease, chronic obstructive pulmonary disease, obstructive sleep apnea, admitted to the hospital with chest pain and increasing shortness of breath. 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 She also has chronic anemia. She also has a history of inflammatory bowel disease, which has been stable on balsalazide for the last several years. She did have a recent ultrasound of the liver, which did not show any liver mass. RECOMMENDATIONS: Continue treatment for COPD exacerbation and CHF. The patient is to have a cardiac catheterization in the morning. She is stable from a GI standpoint. I would also continue iron infusions and follow serial hematocrits. Brian Timmons MD cc: MD Guillermo (Delete if not dictated.)
--- NOTE | 2018-04-16 08:09 | PN ---
DATE: 04/16/2018 PULMONARY NOTE SUBJECTIVE: The patient appears comfortable this morning. She is not short of breath at rest. PHYSICAL EXAMINATION: VITAL SIGNS: Temperature is 97.6, pulse 80, respirations 18, blood pressure 154/78. Oxygen saturation on nasal cannula is 99%. HEENT: Normocephalic, atraumatic. No JVD. CARDIOVASCULAR: Systolic ejection murmur at the lower left sternal border. Positive S3 gallop. LUNGS: Minimal crackles at the bases. Very minimal rhonchi. No wheezing. EXTREMITIES: No clubbing, cyanosis, or edema. Calves are nontender to palpation. GASTROINTESTINAL: Abdomen is soft, nontender, and nondistended. Bowel sounds are positive. SKIN: No acute rash. NEUROLOGIC: Limited at the present time. IMPRESSION: 1. Chest discomfort - resolved. 2. Mild congestive heart failure. 3. Extensive coronary artery disease. 4. Advanced chronic obstructive pulmonary disease. 5. Pulmonary fibrosis/interstitial lung disease. 6. Obstructive sleep apnea. 7. Mild anemia. PLAN: The patient appears comfortable this morning. She is not short of breath at rest. Her chest discomfort has resolved. She does state to feeling much better overall. I did discuss the case with the night nurse at length. The night nurse stated that the patient had a very good night. On physical exam, her bronchospasm continues to resolve. In addition, the alveolar-arterial gradient also continues to resolve. I will continue with the current nebulizer treatments and inhaled steroids for now. Input by Cardiology is also noted. The patient is for cardiac catheterization later this morning. Clinical status of the patient has certainly improved - compared to the initial presentation. However, again, her future status/prognosis does remain very guarded. I will discuss the above with Dr. Sams. Luis Carlos Ansari MD [facility]
[2018-04-16] MEDS ORDERED: Sodium Chloride 0.9% 1,000 ML IV SCH (08:15)
[2018-04-16] MEDS: Budesonide 0.5 mg/2 ml Inhal Susp UD IH SCH (08:24)
[2018-04-16] MEDS: Levalbuterol 1.25 MG/3 ML Inhal Soln UD IH SCH ×2 (08:24→13:34)
[2018-04-16] MEDS: Insulin Reg-LOW-Coverage SC SCH ×2 (09:21→12:02)
--- NOTE | 2018-04-16 09:25 | PN ---
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 She continues to have persistent left-sided chest pain. She could not identify any relieving or precipitating factors. She is scheduled for a cardiac catheterization this morning. CURRENT MEDICATIONS: Include aspirin, Plavix, insulin coverage, Imdur 60 mg daily, Lipitor 20 mg daily, metoprolol 50 mg b.i.d., Protonix, magnesium, Pulmicort, Xopenex, and Zestril 10 mg daily. PHYSICAL EXAMINATION: GENERAL: She is an elderly woman who appears comfortable at rest. VITAL SIGNS: Her blood pressure is 154/70 with a pulse of 80, in sinus; respirations are 16. She is afebrile. HEENT: No JVD. CHEST: Bilateral scattered rhonchi and faint rales noted at both bases. HEART: PMI displaced laterally with a systolic murmur in the lower left sternal border. ABDOMEN: Soft, nontender, normoactive bowel sounds. EXTREMITIES: No edema. LABORATORY DATA: Potassium is 4.1, BUN and creatinine are 25 and 1.1, glucose is 139. White count is 3.8, hemoglobin and hematocrit 8.6 and 28.8 with a platelet count 142,000. IMPRESSION: 1. Known coronary artery disease with persistent chest pain and borderline EKG changes, awaiting cardiac catheterization this morning. 2. Advanced chronic obstructive pulmonary disease with interstitial lung disease. 3. Obstructive sleep apnea. 4. Moderate anemia. RECOMMENDATIONS: Cardiac catheterization will be performed this morning. The risks and benefits have been discussed in detail with the patient. She is agreeable to proceed. Further recommendations will be made based upon those results. Maximiliano Ken MD
--- NOTE | 2018-04-16 09:47 | CARDCATH ---
PROCEDURE DATE: 04/16/2018 PROCEDURES: 1. Selective left and right coronary angiography. 2. Left ventriculography. 3. Right femoral arteriography. 4. Mynx deployment. HISTORY: This is a 77-year-old woman with known coronary artery disease, admitted with chest pain and borderline EKG changes. Cardiac catheterization was advised. FINDINGS: HEMODYNAMICS: The aortic pressure was 160/70 with left ventricular pressure of 160/20. CORONARY ANATOMY: 1. The left mainstem was moderately calcified. It had mild ostial tapering and 30% distal stenosis. 2. The left anterior descending artery was moderately calcified as well. This had multiple 40-50% stenosis in the proximal and early mid segment of the vessel. The distal vessel was large, wrapped around the apex. The diagonal branches had mild diffuse disease. 3. The left circumflex artery gave rise to one large bifurcating obtuse marginal branch. This had evidence of mild diffuse disease and was moderately calcified as well. 4. The right coronary artery was occluded proximally. This was known to be chronic and collaterals were noted from the left coronary system to the distal RCA. LEFT VENTRICULOGRAPHY: A hand injection was performed in the left ventricle revealing evidence of normal LV systolic function with an ejection fraction of 60%. RIGHT FEMORAL ARTERIOGRAM: A right femoral arteriogram was performed in the QUEZADA projection. This revealed the puncture site to be at the bifurcation of the SMA and profunda branch. No significant disease was noted. The puncture site was then closed with deployment of a Mynx device. CONCLUSION: 1. Chronically occluded right coronary artery, well collateralized. 2. Mild distal left main and moderate left anterior descending disease. 3. Preserved left ventricular systolic function. RECOMMENDATIONS: Given the above findings, continue medical therapy and risk factor control are advised. Maximiliano Ken MD [facility]
[2018-04-16] MEDS: Magnesium Oxide 400 mg Tab UD PO SCH (10:12)
[2018-04-16] MEDS: Pantoprazole 40 mg EC Tab PO SCH (10:13)
[2018-04-16] MEDS: LUMIGAN 0.01% OU SCH (10:55)
--- NOTE | 2018-04-16 15:48 | PN ---
DATE: 04/16/2018 SUBJECTIVE: The patient is lying in bed, comfortable. She is status post cardiac catheterization. She still admits to some chest pain. She denies any rectal bleeding, abdominal pain, nausea, or vomiting. PHYSICAL EXAMINATION VITAL SIGNS: Reveal temperature of 98.2, blood pressure 162/71, heart rate of 77. HEENT: Revealed sclerae to be white. Conjunctivae pale. NECK: Supple. CHEST: Revealed lungs to be clear. HEART: Reveals regular rate and rhythm. ABDOMEN: Soft, nontender. EXTREMITIES: Show no edema. LABORATORY DATA: Revealed white blood cell count down to 3.6, hemoglobin 3.8, BUN 25, creatinine 1.1, blood sugar 139. IMPRESSION: 1. Chest pain with cardiac cath showing chronic stenosis of the right coronary artery with also some mild stenosis of the left anterior descending artery and left main artery. There is good collateralization around the occluded right coronary artery. 2. Anemia. No evidence of gastrointestinal bleeding. She does have a history of chronic anemia, most likely secondary to chronic disease. 3. Severe chronic obstructive pulmonary disease, requiring continuous oxygen. 4. History of cirrhosis secondary to nonalcoholic steatohepatitis. 5. Quiescent ulcerative colitis. RECOMMENDATIONS: 1. Follow serial hematocrits; if her hemoglobin drops any further, she may need blood transfusion. 2. Continue iron replacement. 3. Check stool guaiacs. Brian Timmons MD
[2018-04-16 16:34] VITALS: BP 151/65; PULSE 84; RESP 20; TEMP 98.3
--- NOTE | 2018-04-17 06:48 | DS ---
CHIEF COMPLAINT: The patient has no complaints of any chest pain, no shortness of breath, no headaches,no dizziness. She had a cardiac cath done by Dr. Ken. She has chronically occluded RCA and lipm-ba-swjzhhgn left disease. It was advised that she get medical management by Dr. Ken. The patient is going to be discharged home later today. PHYSICAL EXAMINATION: VITAL SIGNS: Temperature is 97.6, pulse of 80, blood pressure is 154/78, respirations 18. GENERAL: The patient is lying in bed, flat, comfortable. HEENT: No oral lesion. Anicteric sclerae. Moist mucosa. NECK: No JVD, adenopathy, or thyromegaly. CARDIOVASCULAR: S1 and S2, regular. No murmurs, rubs, or gallops. LUNGS: Clear to auscultation bilaterally. No wheeze, rales, or rhonchi. ABDOMEN: Bowel sounds are positive, soft, nontender and nondistended. EXTREMITIES: no cyanosis, clubbing or edema. LABORATORY DATA: White count of 3.8, hemoglobin 8.6, creatinine is 1.1. ASSESSMENT: 1. Chest pain, resolved. 2. Chronic obstructive pulmonary disease, with home O2. 3. Pulmonary fibrosis/interstitial lung disease. 4. Obstructive sleep apnea. 5. Coronary artery disease. 6. Right renal cyst. 7. Splenomegaly. 8. Cirrhosis secondary to nonalcoholic steatohepatitis. 9. Dyslipidemia. 10. Diabetes type 2. 11. Iron deficiency, on iron IV. PLAN: The patient is going to continue with aspirin. She was seen by Dr. Timmons. I did speak to him. Patient does have a history of RICH. The patient is getting IV Venofer. She is going to have received 800 mg as of today. She is going to be on Lipitor for dyslipidemia. The patient is on magnesium replacement. She is on IV fluids. Because of the catheterization contrast, she is on lisinopril. Her creatinine is 1.1 today. The patient has a hemoglobin of 8.6. She had a colonoscopy done in the past. CONDITION: Stable. ACTIVITIES: Increased as tolerated. Mitchel Sams MD [facility] # [id number]
== END 2018-04-16 17:22 | disposition home or self-care (01) | DRG 287 ==
LOC: ED 23:03 → ERH 04-14 02:00 → 2RSO 04-14 02:58 → 2RNO 04-16 08:21
PROVIDERS: ADMIT Internal Medicine Nephrology; ATTEND Internal Medicine Nephrology
PROC: 3E0F7GC Introduction of Other Therapeutic Substance into Respiratory Tract, Via Natural or Artificial Opening (ICD-10-PCS; 2018-04-14)
PROC: 4A023N7 Measurement of Cardiac Sampling and Pressure, Left Heart, Percutaneous Approach (ICD-10-PCS; principal; 2018-04-16)
PROC: B211YZZ Fluoroscopy of Multiple Coronary Arteries using Other Contrast (ICD-10-PCS; 2018-04-16)
PROC: B215YZZ Fluoroscopy of Left Heart using Other Contrast (ICD-10-PCS; 2018-04-16)
DX: R07.9 Chest pain, unspecified (principal); I25.10 Atherosclerotic heart disease of native coronary artery without angina pectoris; I25.82 Chronic total occlusion of coronary artery; J84.10 Pulmonary fibrosis, unspecified; G47.33 Obstructive sleep apnea (adult) (pediatric); K75.81 Nonalcoholic steatohepatitis (NASH); K74.60 Unspecified cirrhosis of liver; K51.90 Ulcerative colitis, unspecified, without complications; I50.9 Heart failure, unspecified; I11.0 Hypertensive heart disease with heart failure; E11.9 Type 2 diabetes mellitus without complications; E83.42 Hypomagnesemia; D50.9 Iron deficiency anemia, unspecified; R00.0 Tachycardia, unspecified; R16.1 Splenomegaly, not elsewhere classified; E78.5 Hyperlipidemia, unspecified; N28.1 Cyst of kidney, acquired; D63.8 Anemia in other chronic diseases classified elsewhere; I25.2 Old myocardial infarction; Z99.81 Dependence on supplemental oxygen; Z95.5 Presence of coronary angioplasty implant and graft; Z96.653 Presence of artificial knee joint, bilateral; Z87.891 Personal history of nicotine dependence

== ENCOUNTER 2018-06-07 16:06 | Inpatient (IN) | payer MEDICARE, OTHER ==
[2018-06-07 16:06] VITALS: BMI 34.0
[2018-06-07] MEDS ORDERED: Morphine 4 mg/ml ISec IVP STA ×2 (16:13→17:35)
--- NOTE | 2018-06-07 16:19 | ED PDOC ---
Arrival/HPI - General Time Seen by Provider: 06/07/18 16:08 Historian: Patient - History of Present Illness Narrative History of Present Illness (Text): 06/07/18 16:16 A 77 year old female, whose past medical history includes PR/CAD with multiple cardiac stents, Hypertension, hyperlipidemia, diabetes, chronic obstructive pulmonary disease, presents to the emergency department with a complaint of right lower extremity pain s/p fall. Patient states that she was dusting her table today when her feet got caught in the dining room chairs and she fell onto her right hip. Patient denies head trauma or LOC. She notes that she is a non- drinker/ ex-smoker. The patient denies fevers, chills, headache, dizziness , sore throat, cough, chest pain, shortness of breath, dyspnea on exertion, palpitations, abdominal pain, nausea, vomiting, diarrhea, neck/back pain, urinary/bowel changes or any other complaint. PMD: Dr. Jacobs Time/Duration: Prior to Arrival Symptom Onset: Sudden Symptom Course: Unchanged Activities at Onset: Rest, Light Context: Home Associated Symptoms (Text): 06/07/18 16:32 Mechanical fall while dusting her table at home injuring her right hip. No head trauma. No loss of consciousness. No chest pain palpitations or dyspnea. No nausea or vomiting. No neck or back pain. No other extremity injury. Past Medical History - Provider Review Nursing Documentation Reviewed: Yes - Infectious Disease Hx of Infectious Diseases: None - Cardiac Hx Cardiac Disorders: Yes Hx Angina: Yes Hx Hypertension: Yes - Pulmonary Hx Respiratory Disorders: Yes Hx Chronic Obstructive Pulmonary Disease (COPD): Yes Hx Pneumonia: Yes - Neurological Hx Neurological Disorder: Yes Hx Vertigo: Yes - HEENT Hx HEENT Disorder: Yes Hx Cataracts: Yes Hx Glaucoma: Yes - Renal Hx Renal Disorder: No - Endocrine/Metabolic Hx Endocrine Disorders: Yes Hx Diabetes Mellitus Type 2: Yes - Hematological/Oncological Hx Blood Disorders: Yes Hx Anemia: Yes - Integumentary Hx Dermatological Disorder: No - Musculoskeletal/Rheumatological Hx Musculoskeletal Disorders: Yes Hx Falls: Yes - Gastrointestinal Hx Gastrointestinal Disorders: No - Genitourinary/Gynecological Hx Genitourinary Disorders: Yes (incontient) - Psychiatric Hx Emotional Abuse: No Hx Physical Abuse: No Hx Substance Use: No - Surgical History Hx Appendectomy: Yes Hx Coronary Stent: Yes - Anesthesia Hx Anesthesia Reactions: No Hx Malignant Hyperthermia: No - Suicidal Assessment Feels Threatened In Home Enviroment: No Family/Social History - Physician Review Nursing Documentation Reviewed: Yes Family/Social History: No Known Family HX Smoking Status: Former Smoker Hx Alcohol Use: No Hx Substance Use: No Allergies/Home Meds Allergies/Adverse Reactions: Allergies No Known Allergies Allergy (Verified 06/07/18 16:09) Home Medications: Home Meds Medication Instructions Recorded Confirmed Aspirin [Aspir 81] 81 mg PO DAILY 05/20/13 04/16/18 Balsalazide Disodium 1,500 mg PO TID 05/20/13 04/14/18 Calcium Carbonate/Vitamin D 1 tab PO BID 05/20/13 04/14/18 [Calcium + D 600 mg-200 Iu] Cholecalciferol [Vitamin D] 2,000 iu PO DAILY 05/20/13 04/14/18 Colestipol Hydrochloride 2 cap PO BID 05/20/13 04/14/18 [Colestipol] Isosorbide Mononitrate [Imdur] 60 mg PO DAILY 05/20/13 04/16/18 Lansoprazole 30 mg PO DAILY 05/20/13 04/14/18 Metformin HCl 1,000 mg PO BID 05/20/13 04/14/18 Metoprolol Succinate 50 mg PO BID 05/20/13 04/14/18 Multivitamin and Urfaqroe64 0.5 tab PO BID 05/20/13 04/14/18 [Centrum Silver] Simvastatin 40 mg PO DAILY 05/20/13 04/16/18 Vitamin E 1,000 cap PO DAILY 05/20/13 04/14/18 Review of Systems - Physician Review All systems were reviewed & negative as marked: Yes - Review of Systems Constitutional: absent: Fatigue, Fevers Respiratory: absent: SOB, Cough Cardiovascular: absent: Chest Pain, Palpitations, FRANKS Gastrointestinal: absent: Abdominal Pain, Stool Changes, Diarrhea, Nausea, Vomiting Genitourinary Female: absent: Urine Output Changes Musculoskeletal: Other (Right lower extremity pain). absent: Back Pain, Neck Pain Neurological: absent: Headache, Dizziness, Focal Weakness Physical Exam Vital Signs Pulse Resp BP Pulse Ox 06/07/18 16:12 87 19 162/83 H 98 Temperature: Afebrile Blood Pressure: Normal Pulse: Regular Respiratory Rate: Normal Appearance: Positive for: Non-Toxic, Uncomfortable Pain Distress: Moderate Mental Status: Positive for: Alert and Oriented X 3 - Systems Exam Head: Present: Atraumatic, Normocephalic Pupils: Present: PERRL Extroacular Muscles: Present: EOMI Conjunctiva: Present: Normal Mouth: Present: Moist Mucous Membranes Pharnyx: No: ERYTHEMA, EXUDATE, TONSILS ENLARGED Neck: Present: Normal Range of Motion Respiratory/Chest: Present: Clear to Auscultation, Good Air Exchange, Decreased Breath Sounds. No: Respiratory Distress, Accessory Muscle Use Cardiovascular: Present: Regular Rate and Rhythm, Normal S1, S2. No: Murmurs Abdomen: No: Tenderness, Distention, Peritoneal Signs Back: Present: Normal Inspection Upper Extremity: Present: Normal Inspection. No: Cyanosis, Edema Lower Extremity: Present: Normal ROM (Limited ROM of right lower extremity), Tenderness (Tenderness to the right lower extremity), Deformity, Other (Right leg shortened and externally rotated. ). No: CALF TENDERNESS, Yris's Sign, Swelling, Erythema Neurological: Present: GCS=15, CN II-XII Intact, Speech Normal, Motor Func Grossly Intact Skin: Present: Warm, Dry, Normal Color. No: Rashes Psychiatric: Present: Alert, Oriented x 3, Normal Insight, Normal Concentration Medical Decision Making ED Course and Treatment: 06/07/18 16:21 Impression: A 77 year old female presents to the emergency department with complaint of right lower extremity pain s/p fall. Plan: -- EKG -- Chest/ Right Hip/ Pelvic X-ray -- Labs -- Urinalysis -- Morphine and Zofran -- Reassess and disposition Progress Notes: 06/07/18 16:34 EKG shows normal sinus rhythm rate approximately [address] or T-wave changes. 06/07/18 16:34 Patient had recent cardiac catheterization in April of this year showing stable coronary artery disease with medical management. 06/07/18 17:25: Case discussed in detail with Dr. Sams. Will admit patient to his service. Requests Dr. Martinez for orhto consult. 06/07/18 17:30: Case discussed in detail with Dr. Martinez who will see the patient on consult. - Lab Interpretations Lab Results: 06/07/18 16:30 06/07/18 16:30 Lab Results 06/07/18 16:47: Urine Color Yellow, Urine Appearance Sl cloudy, Urine pH 6.5, Ur Specific [place] 1.020, Urine Protein 30 H, Urine Glucose (UA) Negative, Urine Ketones Negative, Urine Blood Negative, Urine Nitrate Positive H, Urine Bilirubin Negative, Urine Urobilinogen 0.2, Ur Leukocyte Esterase Small H, Urine RBC Negative, Urine WBC 25 - 30, Ur Epithelial Cells 6 - 8, Urine Bacteria Many 06/07/18 16:30: Sodium 141, Potassium 4.5, Chloride 102, Carbon Dioxide 24, Anion Gap 20, BUN 18, Creatinine 1.0, Est GFR ( Amer) > 60, Est GFR (Non- Af Amer) 54, Random Glucose 133 H, Calcium 9.4, Magnesium 1.6 L, Total Bilirubin 0.6, AST 36, ALT 24, Alkaline Phosphatase 43, Lactate Dehydrogenase 633, Total Creatine Kinase 124, Troponin I < 0.01 D, Total Protein 7.6, Albumin 4.4, Globulin 3.2, Albumin/Globulin Ratio 1.4 06/07/18 16:30: PT 10.8, INR 0.95, APTT 27.0 06/07/18 16:30: WBC 7.2 D, RBC 4.11, Hgb 11.2 L D, Hct 35.7 L, MCV 86.9 D, MCH 27.3, MCHC 31.4, RDW 18.5 H, Plt Count 164, MPV 10.4, Gran % 72.4 H, Lymph % (Auto) 15.1 L, [place] % (Auto) 6.7 H, Eos % (Auto) 5.4 H, Baso % (Auto) 0.4, Gran # 5.22, Lymph # (Auto) 1.1 L, [place] # (Auto) 0.5, Eos # (Auto) 0.4, Baso # ( Auto) 0.03 I have reviewed the lab results: Yes - RAD Interpretation Radiology Orders: 06/07/18 16:13 Hip Right [HIP MIN 2V W/ PELVIS RT] [RAD] Stat 06/07/18 16:14 CHEST ONE VIEW [RAD] Stat Positive for right intertrochanteric hip fracture. Machine Burrer: ED Physician - EKG Interpretation Interpreted by ED Physician: Yes Type: 12 lead EKG - Medication Orders Current Medication Orders: Discontinued Medications Morphine Sulfate (Morphine) 4 mg IVP STAT STA Stop: 06/07/18 16:14 Last Admin: 06/07/18 16:25 Dose: 4 mg MAR Pain Assessment Document 06/07/18 16:25 EWO (Rec: 06/07/18 16:25 [facility] [id number]) Pain Reassessment Is this a pain reassessment? No Sleep Is patient sleeping during reassessment? No Presence of Pain Presence of Pain Yes Pain Scale Used Pain Scale Used Numeric Location Left, Right or Bilateral Right Pain Location Body Site Hip Description Description Constant Intensity of Pain at present 10 IVP Administration Document 06/07/18 16:25 EWO (Rec: 06/07/18 16:25 [facility] [id number]) Charges for Administration # of IVP Administrations 1 Ondansetron HCl (Zofran Inj) 4 mg IVP ONCE ONE Stop: 06/07/18 16:14 Last Admin: 06/07/18 16:25 Dose: 4 mg IVP Administration Document 06/07/18 16:25 EWO (Rec: 06/07/18 16:25 [facility] [id number]) Charges for Administration # of IVP Administrations 1 - Scribe Statement The provider has reviewed the documentation as recorded by the Earnest Frost Provider Scribe Attestation: All medical record entries made by the Scribe were at my direction and personally dictated by me. I have reviewed the chart and agree that the record accurately reflects my personal performance of the history, physical exam, medical decision making, and the department course for this patient. I have also personally directed, reviewed, and agree with the discharge instructions and disposition. Disposition/Present on Arrival - Present on Arrival Any Indicators Present on Arrival: No History of DVT/PE: No History of Uncontrolled Diabetes: No Urinary Catheter: No History of Decub. Ulcer: No History Surgical Site Infection Following: None - Disposition Have Diagnosis and Disposition been Completed?: Yes Diagnosis: Intertrochanteric fracture of right hip Disposition: HOSPITALIZED Disposition Time: 17:28 Patient Plan: Admission Patient Problems: Current Active Problems Problem Status Onset Intertrochanteric fracture of right hip Acute Condition: GOOD
[2018-06-07 16:46] LABS: BASO # 0.03 K/mm3 (0.0-2.0); BASO % 0.4 % (0.0-3.0); EOS # 0.4 (0.0-0.7); EOS % 5.4 % (1.5-5.0); GRAN # 5.22 (1.4-6.5); GRAN % 72.4 % (50.0-68.0); HEMOGLOBIN 11.2 g/dL (12.0-16.0); LYMPH # 1.1 (1.2-3.4); LYMPH % 15.1 % (22.0-35.0); MEAN CELL VOLUME 86.9 fl (80.0-105.0); MEAN CORPUSCULAR HEMOGLOBIN 27.3 pg (25.0-35.0); MEAN CORPUSCULAR HGB CONC 31.4 g/dl (31.0-37.0); MEAN PLATELET VOLUME 10.4 fl (7.0-11.0); MONO # 0.5 (0.1-0.6); MONO % 6.7 % (1.0-6.0); RBC 4.11 10^6/uL (3.5-6.1); RED CELL DISTRIBUTION WIDTH 18.5 % (11.5-14.5); WHITE BLOOD COUNT 7.2 10^3/ul (4.5-11.0)
[2018-06-07 16:47] LABS: ALB/GLOB RATIO 1.4 (1.1-1.8); ALBUMIN 4.4 g/dL (3.0-4.8); BLOOD UREA NITROGEN 18 mg/dL (7-21); CALCIUM 9.4 mg/dL (8.4-10.5); GFR AFRICAN-AMERICAN > 60; GFR NON-AFRICAN AMERICAN 54; INR 0.95; PROTHROMBIN TIME 10.8 SECONDS (9.4-12.5)
[2018-06-07 16:48] LABS: ALT/SGPT 24 U/L (7-56); AST/SGOT 36 U/L (14-36)
[2018-06-07 16:53] LABS: PH,URINE 6.5 (4.7-8.0); URINE BILIRUBIN NEGATIVE (NEGATIVE); URINE BLOOD NEGATIVE (NEGATIVE); URINE GLUCOSE (UA) NEGATIVE (NEGATIVE); URINE LEUKOCYTE ESTERASE SMALL Leu/uL (NEGATIVE); URINE PROTEIN 30 mg/dL (<30 mg/dL); URINE UROBILINOGEN 0.2 E.U./dL (<1 E.U./dL)
[2018-06-07 16:54] LABS: URINE APPEARANCE SL CLOUDY (CLEAR); URINE COLOR YELLOW (YELLOW)
[2018-06-07 16:59] LABS: TROPONIN I < 0.01 ng/mL
[2018-06-07 17:08] LABS: URINE BACTERIA MANY (NEG); URINE RBC NEGATIVE /hpf (0-2); URINE WBC 25 - 30 /hpf (0-6)
[2018-06-07] MEDS ORDERED: Morphine 2 mg/2 mL syringe IVP PRN (18:47)
[2018-06-07] MEDS ORDERED: Morphine 2 mg/ml ISec IVP PRN (18:51)
[2018-06-07] MEDS ORDERED: Enoxaparin 40 mg Syringe SC ONE (20:00)
[2018-06-07] MEDS: Albuterol 0.083% Inhal Sol (2.5 mg/3 mL) UD INH SCH (20:40)
[2018-06-07] MEDS ORDERED: Pneumococcal 23-Valent Vaccine IM ONE (21:37)
[2018-06-08] MEDS: Oxycodone/Acetaminophen 5/325 mg Tab PO PRN ×2 (00:41→21:52)
[2018-06-08] MEDS: Morphine 4 mg/ml ISec IVP PRN ×2 (02:25→06:03)
[2018-06-08] MEDS ORDERED: GlipiZIDE 5 mg SR Tab PO SCH (07:30)
[2018-06-08] MEDS ORDERED: Pantoprazole 40 mg EC Tab PO SCH ×2 (07:30→10:00)
[2018-06-08] MEDS: Albuterol 0.083% Inhal Sol (2.5 mg/3 mL) UD INH SCH (07:32)
[2018-06-08] MEDS ORDERED: Albuterol 0.083% Inhal Sol (2.5 mg/3 mL) UD INH SCH (08:00)
--- NOTE | 2018-06-08 08:22 | CP.PCM.PCO ---
Additional Comments - Additional Comments Additional Comments: Patient well know to me with a long history of CAD, remote VA/PCI, admitted with hip fracture. Had recent cardiac catheterization revealing a chronically occluded RCA and mild -moderate LCA disease. She also has severe pulmonary fibrosis requiring home oxygen therapy. From a cardiac standpoint, she is stable and optimized to proceed with hip repair surgery as planned. Will follow. Full consult dictated. Maximiliano Ken MD
--- NOTE | 2018-06-08 09:15 | RAD ---
Date of service: 06/07/2018 PROCEDURE: CHEST RADIOGRAPH, 1 VIEW HISTORY: OR COMPARISON: 04/13/2018 FINDINGS: LUNGS: Mild chronic interstitial changes are seen consistent with a history of pulmonary fibrosis. There is no focal consolidation. No acute findings PLEURA: No pneumothorax or pleural fluid seen. CARDIOVASCULAR: Mild cardiomegaly OSSEOUS STRUCTURES: No significant abnormalities. VISUALIZED UPPER ABDOMEN: Normal. OTHER FINDINGS: None. IMPRESSION: Mild chronic interstitial changes are seen consistent with a history of pulmonary fibrosis. There is no focal consolidation. No acute findings
[2018-06-08] MEDS ORDERED: Bupivacaine Liposomal Inj 20 ml ONE (09:16)
[2018-06-08] MEDS ORDERED: Bupivacaine 0.5% Inj(30mL) ONE (09:17)
--- NOTE | 2018-06-08 09:28 | RAD ---
Date of service: 06/07/2018 PROCEDURE: Pelvis and right hip HISTORY: trauma COMPARISON: TECHNIQUE: Three views FINDINGS: There is a slightly angulated and displaced intertrochanteric fracture of the right hip. The pelvis is intact IMPRESSION: As above
[2018-06-08] MEDS ORDERED: Propofol 10 mg/ml Inj (20 ML) ONE (09:51)
[2018-06-08] MEDS ORDERED: Vancomycin 1 g Inj ONE (09:56)
[2018-06-08] MEDS ORDERED: Etomidate 20 mg/10ml Inj IV ONE (09:56)
--- NOTE | 2018-06-08 10:12 | PN ---
Copied To: Jose David Martinez DO Attending MD: Jose David Martinez DO DATE: 06/08/2018 A [id number] 77-year-old female came in yesterday, which was 06/07/2018, today's date is 06/08/2018 with a displaced intertrochanteric fracture, right hip. She is being prepared for surgery, which is within a couple of hours, it is 08.30 now and we are going to do a peritrochanteric olu for the right hip to stabilize the intertrochanteric fracture. Dr. Ken saw the patient and cleared her. She does have besides cardiac problems, pulmonary problems, but he has put a good note on the chart and we got a consent for possible blood transfusion and surgical risks which are infection, hardware failure, possible nonunion and possible redo surgery, but the benefits are that she could get out of bed and the pain will be much less after the procedure. There is always a chance she might need blood transfusion. Family was contacted, conversed with daughter and they will be here soon. Jose David Martinez DO
[2018-06-08] MEDS ORDERED: Lidocaine 1% Inj (20ml) ONE (10:18)
[2018-06-08] MEDS ORDERED: Midazolam 2 MG/2 ML VIAL ONE (10:25)
[2018-06-08] MEDS ORDERED: Phenylephrine 10 mg/ml Inj ONE (10:27)
[2018-06-08] MEDS ORDERED: ePHEDrine 50 mg/ml Inj ONE (10:27)
[2018-06-08] MEDS ORDERED: Succinylcholine 200 mg/10 ml Inj IV ONE (10:41)
[2018-06-08] MEDS ORDERED: Vasopressin 20 Units/ml Inj ONE (10:43)
[2018-06-08] MEDS ORDERED: Rocuronium 10 mg/ml (5 ml) ONE (11:59)
[2018-06-08] MEDS ORDERED: Labetalol 5 mg/ml Inj 20ML IVP STA (12:33)
[2018-06-08] MEDS ORDERED: HYDROmorphone 0.5 mg/0.5 ml ISec IVP PRN (12:33)
--- NOTE | 2018-06-08 12:41 | RAD ---
Date of service: 06/08/2018 PROCEDURE: Fluoroscopy up to 1 hour HISTORY: ORIF RT HIP COMPARISON: TECHNIQUE: 63.2 seconds of fluoro time. Cumulative dose 11.17 mGy. Three images were submitted FINDINGS: Internal fixation of a right intertrochanteric fracture. No complicating factors IMPRESSION: As above
[2018-06-08] MEDS ORDERED: Labetalol 5 mg/ml Inj 20ML ONE (12:53)
[2018-06-08] MEDS ORDERED: Metoprolol 1 mg/ml Inj IVP STA (12:54)
[2018-06-08] MEDS ORDERED: Metoprolol 1 mg/ml Inj IVP ONE ×3 (13:00)
[2018-06-08] MEDS ORDERED: Dextrose 5%/Lactated Ringer's 1,000 ML IV SCH (13:00)
--- NOTE | 2018-06-08 13:06 | CP.PCM.CON ---
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 She presented to the ED yesterday after fall with right hip pain after her feet got stuck in the kitchen chair. She denies hitting or head or any loss of consciousness. She is currently done with surgery and denies any complaints. Will be monitored in ICU for 24 hours post procedure. She currently denies CP, SOB, abdominal pain, urinary complaints, leg swelling and back pain. 12 point ROS reviewed here, otherwise negative. PMD: Dr. Jacobs PMH: as above SH: former heavy smoker, quit several years ago. Does not drink alcohol FH: non contributory Surgical history: B/L knee replacement, right hip olu placement Meds: as noted in JAN Allergies: NKDA Past Patient History - Infectious Disease Hx of Infectious Diseases: None - Past Social History Smoking Status: Former Smoker - CARDIAC Hx Cardiac Disorders: Yes (PA,CAD) Hx Angina: Yes Hx Hypercholesterolemia: Yes Hx Hypertension: Yes - PULMONARY Hx Respiratory Disorders: Yes (O2 AT HOME) Hx Chronic Obstructive Pulmonary Disease (COPD): Yes Hx Pneumonia: Yes Hx Sleep Apnea: Yes (CPAP machine used) - NEUROLOGICAL Hx Neurological Disorder: Yes - HEENT Hx HEENT Problems: Yes Hx Cataracts: Yes Hx Glaucoma: Yes - RENAL Hx Chronic Kidney Disease: No - ENDOCRINE/METABOLIC Hx Endocrine Disorders: Yes Hx Diabetes Mellitus Type 2: Yes - HEMATOLOGICAL/ONCOLOGICAL Hx Blood Disorders: Yes Hx Anemia: Yes - INTEGUMENTARY Hx Dermatological Problems: No - MUSCULOSKELETAL/RHEUMATOLOGICAL Hx Musculoskeletal Disorders: Yes (BILATERAL KNEE REPLACEMENT) Hx Falls: Yes (06-07-18) Hx Fractures: Yes (RIGHT HIP FX 06-07-18) Hx Unsteady Gait: Yes - GASTROINTESTINAL Hx Gastrointestinal Disorders: Yes (APPENDECTOMY,COLITIS) Hx Crohn's Disease: Yes - GENITOURINARY/GYNECOLOGICAL Hx Genitourinary Disorders: Yes (incontinent) Hx Incontinence: Yes - PSYCHIATRIC Hx Emotional Abuse: No Hx Physical Abuse: No Hx Substance Use: No - SURGICAL HISTORY Hx Surgeries: Yes (BILATERAL KNEE REPLACEMENT,CARD CATH WITH 4 STENTS,BILA CATARACT SX) Hx Appendectomy: Yes Hx Cardiac Catheterization: Yes Hx Coronary Stent: Yes (4) - ANESTHESIA Hx Anesthesia Reactions: No Hx Malignant Hyperthermia: No Meds Allergies/Adverse Reactions: Allergies Allergy/AdvReac Type Severity Reaction Status Date / Time No Known Allergies Allergy Verified 06/07/18 20:26 - Medications Medications: Current Medications Acetaminophen (Tylenol 325mg Tab) 650 mg PO Q4 PRN PRN Reason: Pain, Mild (1-3) Albuterol Sulfate (Albuterol 0.083% Inhal Mia (2.5 Mg/3 Ml) Ud) 2.5 mg INH TIDRESP [facility] Last Admin: 06/08/18 07:32 Dose: Not Given Atorvastatin Calcium (Lipitor) 20 mg PO HS [facility] Last Admin: 06/07/18 22:12 Dose: 20 mg Balsalazide (Colazal) 1,500 mg PO TID [facility] Enoxaparin Sodium (Lovenox) 30 mg SC Q24H MARIELENA PRN Reason: Protocol Glipizide (Glucotrol) 5 mg PO ACB [facility] Hydromorphone HCl (Dilaudid) 0.5 mg IVP Q15M PRN PRN Reason: Pain, moderate (4-7) Stop: 06/08/18 14:33 Isosorbide Mononitrate (Imdur) 60 mg PO DAILY [facility] Ketorolac Tromethamine (Toradol) 30 mg IVP ONCE ONE Stop: 06/08/18 12:34 Labetalol HCl (Trandate) 5 mg IVP ONCE STA Stop: 06/08/18 12:34 Losartan Potassium (Cozaar) 100 mg PO DAILY [facility] Metformin HCl (Glucophage) 1,000 mg PO BID [facility] Metoprolol Succinate (Toprol Xl) 50 mg PO BID [facility] Morphine Sulfate (Morphine) 2 mg IVP Q4H PRN PRN Reason: Pain, severe (8-10) Stop: 06/10/18 18:52 Last Admin: 06/08/18 06:03 Dose: 2 mg Non-Formulary Medication (Colestipol Hydrochloride [Colestipol]) 2 cap PO BID [facility] Ondansetron HCl (Zofran Inj) 4 mg IVP Q4H PRN PRN Reason: Nausea/Vomiting Last Admin: 06/08/18 07:37 Dose: 4 mg Oxycodone/Acetaminophen (Percocet 5/325 Mg Tab) 1 tab PO Q4 PRN PRN Reason: Pain, moderate (4-7) Stop: 06/10/18 20:01 Last Admin: 06/08/18 00:41 Dose: 1 tab Pantoprazole Sodium (Protonix Ec Tab) 40 mg PO ACB MARIELENA Physical Exam - Head Exam Head Exam: ATRAUMATIC, NORMAL INSPECTION - Eye Exam Eye Exam: EOMI, PERRL - ENT Exam ENT Exam: Mucous Membranes Moist - Neck Exam Neck exam: Positive for: Full Rom, Normal Inspection - Respiratory Exam Respiratory Exam: Clear to Auscultation Bilateral. absent: Wheezes, Respiratory Distress - Cardiovascular Exam Cardiovascular Exam: Tachycardia, REGULAR RHYTHM, +S1, +S2 - GI/Abdominal Exam GI & Abdominal Exam: Normal Bowel Sounds, Soft. absent: Distended, Guarding, Tenderness - Extremities Exam Extremities exam: Positive for: normal inspection, pedal pulses present. Negative for: pedal edema - Back Exam Back exam: NORMAL INSPECTION Additional comments: Right hip dressing present, no gross bleeding or oozing - Neurological Exam Neurological exam: Alert, CN II-XII Intact, Oriented x3 Results - Vital Signs Recent Vital Signs: Last Vital Signs Temp 98.7 F 06/08/18 12:45 Pulse 121 H 06/08/18 12:45 Resp 18 06/08/18 12:45 BP 188/89 H 06/08/18 12:45 Pulse Ox 95 06/08/18 12:45 - Labs Result Diagrams: 06/07/18 16:30 06/07/18 16:30 Labs: Laboratory Results - last 24 hr 06/08/18 08:10 Blood Type A POSITIVE Antibody Screen Negative Crossmatch See Detail BBK History Checked Patient has bt Assessment & Plan - Assessment and Plan (Free Text) Assessment: Assessment : This is a 77 year old female with PMH of severe COPD, pulmonary hypertension, pulmonary fibrosis on home O2, ulcerative colitis, 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 Due to patient's extensive cardiac and pulmonary medical history, patient will be monitored closely for any complications post surgery. Plan: Neuro: -maintain normothermia -AAO x3, moving extremities spontaneously past midline Cardio: -maintain MAP>65 -cardiac cath in 04/2018 showed chronically occluded RCA, well collateralized. Mild distal left main and moderate LAD disease. Preserved left ventricular systolic function of 60%. -HR in the 100-110s, and systolic BP in the 170-180s -will monitor vitals including HR and BP closely Lungs: -SaO2 >90% -supplementary O2 PRN -Bipap at night Renal: -maintain euvolemia -avoid nephrotoxic agents, hypochloremia -replace electrolytes as needed -BUN/Cr is 18/1, WNL Heme: -Hg today is 11.2, no concern at this time. Will monitor -DVT ppx Endo: -maintain euglycemia ID: -WBC is 7.2 today, afebrile. No concern at this time -GI: -GI prophylaxis <Christopher Ramos - Last Filed: 06/08/18 16:42> Meds - Medications Medications: Current Medications Acetaminophen (Tylenol 325mg Tab) 650 mg PO Q4 PRN PRN Reason: Pain, Mild (1-3) Albuterol Sulfate (Albuterol 0.083% Inhal Mia (2.5 Mg/3 Ml) Ud) 2.5 mg INH TIDRESP [facility] Last Admin: 06/08/18 07:32 Dose: Not Given Atorvastatin Calcium (Lipitor) 20 mg PO HS [facility] Last Admin: 06/07/18 22:12 Dose: 20 mg Balsalazide (Colazal) 1,500 mg PO TID [facility] Enoxaparin Sodium (Lovenox) 30 mg SC Q24H MARIELENA PRN Reason: Protocol Glipizide (Glucotrol) 5 mg PO ACB [facility] Isosorbide Mononitrate (Imdur) 60 mg PO DAILY [facility] Losartan Potassium (Cozaar) 100 mg PO DAILY [facility] Metformin HCl (Glucophage) 1,000 mg PO BID [facility] Metoprolol Succinate (Toprol Xl) 50 mg PO BID [facility] Morphine Sulfate (Morphine) 2 mg IVP Q4H PRN PRN Reason: Pain, severe (8-10) Stop: 06/10/18 18:52 Last Admin: 06/08/18 06:03 Dose: 2 mg Non-Formulary Medication (Colestipol Hydrochloride [Colestipol]) 2 cap PO BID [facility]IE[facility]NA Ondansetron HCl (Zofran Inj) 4 mg IVP Q4H PRN PRN Reason: Nausea/Vomiting Last Admin: 06/08/18 07:37 Dose: 4 mg Oxycodone/Acetaminophen (Percocet 5/325 Mg Tab) 1 tab PO Q4 PRN PRN Reason: Pain, moderate (4-7) Stop: 06/10/18 20:01 Last Admin: 06/08/18 00:41 Dose: 1 tab Pantoprazole Sodium (Protonix Ec Tab) 40 mg PO ACB MARIELENA Results - Vital Signs Recent Vital Signs: Last Vital Signs Temp 98.7 F 06/08/18 13:30 Pulse 101 H 06/08/18 16:00 Resp 25 H 06/08/18 16:00 BP 147/72 06/08/18 13:30 Pulse Ox 94 L 06/08/18 16:00 - Labs Result Diagrams: 06/08/18 14:26 06/07/18 16:30 Labs: Laboratory Results - last 24 hr 06/08/18 06/08/18 08:10 14:26 WBC 12.3 H D RBC 3.39 L Hgb 9.1 L D Hct 29.3 L MCV 86.4 MCH 26.8 MCHC 31.1 RDW 18.6 H Plt Count 181 MPV 10.4 Gran % 91.3 H Lymph % (Auto) 3.8 L Hitchcock % (Auto) 4.7 Eos % (Auto) 0.1 L Baso % (Auto) 0.1 Gran # 11.19 H Lymph # (Auto) 0.5 L Hitchcock # (Auto) 0.6 Eos # (Auto) 0.0 Baso # (Auto) 0.01 Neutrophils % (Manual) 93 H Lymphocytes % (Manual) 4 L Monocytes % (Manual) 2 Basophils % (Manual) 1 Platelet Evaluation Normal Blood Type A POSITIVE Antibody Screen Negative Crossmatch See Detail BBK History Checked Patient has bt Assessment & Plan - Assessment and Plan (Free Text) Assessment: Patient seen and examined on rounds with resident, agree with note with following additions/exceptions: Patient is 77yo female with PMH of severe COPD, pulmonary hypertension, pulmonary fibrosis on home O2, ulcerative colitis, cirrhosis of the 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 Procedure went well, EBL 200cc as per anaesthesia, patient extubated to 4LNC. Pt currently awake, alert in NAD, no major complaints. Labs, imaging, chart reviewed Cont with supp o2 as needed. NO ID issues. BP control, resume home meds BIPAP at night IVF hydration monitor HH FS control GI ppx DVT ppx Monitor in MICU
--- NOTE | 2018-06-08 13:39 | RAD ---
Date of service: 06/08/2018 HISTORY: post operative COMPARISON: 06/07/2018 FINDINGS: LUNGS: Chronic interstitial changes. No acute findings PLEURA: No significant pleural effusion identified, no pneumothorax apparent. CARDIOVASCULAR: Mild cardiomegaly OSSEOUS STRUCTURES: No significant abnormalities. VISUALIZED UPPER ABDOMEN: Normal. OTHER FINDINGS: None. IMPRESSION: No acute findings
[2018-06-08 14:36] LABS: BASO # 0.01 K/mm3 (0.0-2.0); BASO % 0.1 % (0.0-3.0); EOS % 0.1 % (1.5-5.0); GRAN # 11.19 (1.4-6.5); GRAN % 91.3 % (50.0-68.0); LYMPH # 0.5 (1.2-3.4); LYMPH % 3.8 % (22.0-35.0); MEAN CELL VOLUME 86.4 fl (80.0-105.0); MEAN CORPUSCULAR HEMOGLOBIN 26.8 pg (25.0-35.0); MEAN CORPUSCULAR HGB CONC 31.1 g/dl (31.0-37.0); MEAN PLATELET VOLUME 10.4 fl (7.0-11.0); MONO # 0.6 (0.1-0.6); MONO % 4.7 % (1.0-6.0); PLATELET COUNT 181 10^3/uL (120.0-450.0); RBC 3.39 10^6/uL (3.5-6.1); RED CELL DISTRIBUTION WIDTH 18.6 % (11.5-14.5); WHITE BLOOD COUNT 12.3 10^3/ul (4.5-11.0)
[2018-06-08 15:01] LABS: HEMOGLOBIN 9.1 g/dL (12.0-16.0)
[2018-06-08 15:18] LABS: BASOPHIL 1 % (0.0-1.0); LYMPHOCYTE 4 % (22.0-35.0); MONOCYTE 2 % (1.0-6.0); NEUTROPHIL 93 % (50.0-70.0); PLATELET ESTIMATE NORMAL (NORMAL)
[2018-06-08] MEDS: Metoprolol Succinate 50 mg XL Tab PO SCH ×2 (17:47→17:55)
[2018-06-08] MEDS: [UNRECOGNIZED DRUG - OTHER] PO SCH (17:54)
--- NOTE | 2018-06-08 22:37 | CON ---
Copied To: Maximiliano Ken MD Attending MD: Maximiliano Ken MD DATE: 06/08/2018 REQUESTING PHYSICIAN: Mitchel Sams MD REASON FOR CONSULTATION: Preoperative cardiac evaluation. HISTORY: This is a 77-year-old woman well-known to me with history of coronary artery disease and pulmonary fibrosis who fell at home and suffered a right hip fracture. Surgical repair is planned for later today. She states that she had a mechanical fall at home where she tripped and lost her balance. She denies any loss of consciousness. She has had no recent chest pain. She does have chronic exertional dyspnea and remains on home oxygen therapy due to her severe pulmonary fibrosis. She has had no recent chest pain. She has known coronary artery disease and underwent PCI of her RCA many years ago. Followup catheterization performed earlier this year for complaints of chest pain and dyspnea revealed mild distal left main disease, [id number] diffuse LAD disease. Mild circumflex system disease and chronically occluded right coronary artery, which filled the [id number] collaterals. Ejection fraction was normal at 60%. PAST MEDICAL HISTORY: Notable for the problems mentioned above. She suffered a prior myocardial infarction and has only had PCI of her RCA, shows to have severe COPD and severe pulmonary fibrosis. She has history of sleep apnea and she has undergone prior bilateral total knee replacements. CURRENT MEDICATIONS: Include albuterol inhaler, colestipol, Cozaar 100 mg daily, Glucophage 1000 mg b.i.d., Glucotrol 5 mg daily, Imdur 60 mg daily, Lipitor 20 mg daily, Protonix 40 mg daily, Toprol-XL 50 mg b.i.d. ALLERGIES: NONE. SOCIAL HISTORY: She is a former smoker. She does not drink. She is . She lives at home. FAMILY HISTORY: Both parents . There is some family history of premature heart disease. REVIEW OF SYSTEMS: A 10-point review of systems is normal and problems as mentioned above. PHYSICAL EXAMINATION: GENERAL: She is an overweight elderly woman. VITAL SIGNS: Her blood pressure is 136/60 with a pulse of 90, respirations are 16. She is afebrile. HEENT: Normocephalic, atraumatic. NECK: Supple. No JVD noted. CHEST: Bibasilar dry crackles heard. No rales noted. HEART: PMI displaced laterally with systolic murmur at left sternal border. ABDOMEN: Soft, nontender, obese with normoactive bowel sounds. EXTREMITIES: No edema. SKIN: Warm, dry. PSYCHIATRIC: Normal mood and affect. NEUROLOGIC: Alert and oriented x3. EXTREMITIES: Lower-extremity range of motion limited due to pain. DIAGNOSTIC DATA: White count 7.2, hemoglobin and hematocrit 11.2 and 35.7 with platelet count of 164,000. PT/PTT are normal. Potassium 4.5, BUN and creatinine are 18 and 1. CK 124 with a negative troponin. Electrocardiogram reveals sinus rhythm with nonspecific ST-T abnormalities. Chest x-ray reveals bilateral chronic interstitial changes. IMPRESSION: 1. Known coronary artery disease with chronically occluded right coronary artery and normal left ventricular function, appears stable and optimized at the present time to proceed with surgery as planned. 2. Severe chronic obstructive pulmonary disease with pulmonary fibrosis. 3. Rest of problems as noted. RECOMMENDATIONS: From a cardiac standpoint, she appears optimized and can proceed with surgery as planned. No specific precautions appear necessary. Beta-cortney therapy will be continued throughout the perioperative phase. Thank you for this consultation. We will be happy to follow along throughout her hospital course. Maximiliano Ken MD DD 06/08/2018 10:29:44
[2018-06-09 06:39] LABS: BASO # 0.06 K/mm3 (0.0-2.0); BASO % 0.7 % (0.0-3.0); EOS # 0.8 (0.0-0.7); EOS % 9.7 % (1.5-5.0); GRAN # 5.3 (1.4-6.5); GRAN % 65.6 % (50.0-68.0); HEMOGLOBIN 8.4 g/dL (12.0-16.0); LYMPH # 1.3 (1.2-3.4); LYMPH % 15.5 % (22.0-35.0); MEAN CELL VOLUME 88.7 fl (80.0-105.0); MEAN CORPUSCULAR HEMOGLOBIN 27.8 pg (25.0-35.0); MEAN CORPUSCULAR HGB CONC 31.3 g/dl (31.0-37.0); MEAN PLATELET VOLUME 10.3 fl (7.0-11.0); MONO # 0.7 (0.1-0.6); MONO % 8.5 % (1.0-6.0); RBC 3.02 10^6/uL (3.5-6.1); RED CELL DISTRIBUTION WIDTH 19.2 % (11.5-14.5); WHITE BLOOD COUNT 8.1 10^3/ul (4.5-11.0)
--- NOTE | 2018-06-09 06:53 | CARD ---
APPROVED REPORT Date of service: 06/08/2018 EKG Measurement Heart [id number] <Conclusion> Sinus tachycardia Nonspecific ST abnormality Abnormal ECG
--- NOTE | 2018-06-09 07:00 | CARD ---
APPROVED REPORT Date of service: 06/07/2018 EKG Measurement Heart [id number] <Conclusion> Normal sinus rhythm Nonspecific ST abnormality Abnormal ECG
[2018-06-09 07:05] LABS: ALB/GLOB RATIO 1.2 (1.1-1.8); ALBUMIN 3.6 g/dL (3.0-4.8); CALCIUM 7.9 mg/dL (8.4-10.5)
--- NOTE | 2018-06-09 07:31 | OP ---
Copied To: Jose David Martinez DO Attending MD: Jose David Martinez DO PROCEDURE DATE: 06/08/2018 PREOPERATIVE DIAGNOSIS: Comminuted intertrochanteric fracture, right hip. POSTOPERATIVE DIAGNOSIS: Comminuted intertrochanteric fracture, right hip. PROCEDURE: Open reduction and internal fixation with [employer] intramedullary nail peritrochanteric type. FILTER HELPER SURGEON: Dr. Luque TYPE OF ANESTHESIA: General endotracheal tube. DESCRIPTION OF PROCEDURE: The patient was taken to the OR, right hip was prepped and draped, traction applied, the skin traction and we were able to reduce the fracture, was in a little varus constitutional and we made a 2-inch incision proximal to the great trochanter going through the fascia entering the great trochanter that was comminuted making it much more difficult and we put in the guidewire through the great trochanter through the fracture into distal fragment, then over-reamed approximately 16 mm and we put the olu over the guidewire to insert it through the great trochanter through the fracture into the distal fragment. The olu measured 11 mm wide x 180 mm long, set at 125-degree angle. Then, the traction was taken off and we locked the nail proximally with a lag screw that was 100 mm long and 10.8 mm wide and then x-ray showed good position of the fracture and the hardware a 5 mm wide and 35 mm long corical screw was used to lock the olu in place. The wound was irrigated with normal saline and closed in layers starting with 0 Vicryl in deep fascia, 2-0 Vicryl subcutaneous tissue, and skin with a combination of nylon and rashad. The patient was taken to the recovery room in good condition. Jose David Martinez DO CHRISTINA
--- NOTE | 2018-06-09 07:34 | CON ---
Copied To: Jose David Martinez DO Attending MD: Jose David Martinez DO DATE: 06/07/2018 ORTHOPEDIC CONSULTATION REPORT HISTORY OF PRESENT ILLNESS: Ms. Jaja Krueger is a 77-year-old female in Room 577, bed 2, seen for consult for right hip fracture. X-ray shows intertrochanteric fracture, right hip, displaced. She lives with her son and daughter and great grandchild. She will need internal fixation of the right hip before she could get out of bed and go for therapy for ambulation. She does not need a prosthesis, just a peritrochanteric olu, and hopefully we could do this when she is cleared medically and cardiac-montalvo. We will give her blood thinners today and none tomorrow in case she is cleared and if she is not cleared, we will continue 30 mg of Lovenox and they will stop it a day before the planned surgery and then start her up again for 3 to 4 weeks. FINAL DIAGNOSIS: Intertrochanteric fracture of right hip, displaced, being prepared for open reduction internal fixation by medicine and cardiac consult. We will give her prophylactic blood thinners to minimize the chance for blood clot. Jose David Martinez DO
[2018-06-09] MEDS: Budesonide 0.5 mg/2 ml Inhal Susp UD IH SCH ×2 (07:38→20:29)
[2018-06-09] MEDS: Oxycodone/Acetaminophen 5/325 mg Tab PO PRN ×4 (08:35→21:18)
--- NOTE | 2018-06-09 08:45 | CON ---
Copied To: Luis Carlos Ansari MD Attending MD: Luis Carlos Ansari MD DATE: 06/09/2018 PULMONARY CONSULTATION HISTORY OF PRESENT ILLNESS: The patient is a 77-year-old female, with past medical history significant for advanced chronic obstructive pulmonary disease, on home oxygen; pulmonary fibrosis; ulcerative colitis; extensive coronary artery disease; status post multiple cardiac stents; status post myocardial infarction in the past; hypertension; hyperlipidemia; diabetes mellitus; who presented to [facility] with right hip pain, status post fall at home. Subsequent evaluation revealed a right hip fracture. I did discuss the case with the night nurse at length. The patient did undergo surgery yesterday. We are thus asked to evaluate this patient and give a perioperative plan. The patient is not short of breath at rest. She does have chronic dyspnea on exertion - unchanged. She also has a chronic cough with occasional sputum production - also unchanged. There is no history of chest pain, coughing up of blood or chest pain - made worse with deep respirations. There is no history of temperatures, chills or infectious exposure. There is no history of night sweats, weight loss or appetite change prior to the above events. No history of calf pains. No history of syncope or diaphoresis. No history of recent travel. REVIEW OF SYSTEMS: No history of nausea, vomiting or diarrhea. No acute urinary symptoms. No new neurologic complaints. Rest of the review of systems is negative. ALLERGIES: NO KNOWN ALLERGIES. SOCIAL HISTORY: Positive for extensive tobacco usage. No alcohol. FAMILY HISTORY: Positive for heart disease. HOME MEDICATIONS: Include Zocor, Imdur, Toprol, glipizide, metformin, losartan and lansoprazole. PHYSICAL EXAMINATION: GENERAL: The patient appears comfortable at rest. She is not short of breath. VITAL SIGNS: Temperature is 98.7, pulse of 92, respirations 16, blood pressure 106/48. Oxygen saturation on nasal cannula is 95%. HEENT: Normocephalic, atraumatic. No JVD. CARDIOVASCULAR: Systolic ejection murmur at the lower left sternal border. No S3 gallop. LUNGS: Minimal crackles at the bases. No rhonchi. No wheezing. EXTREMITIES: Mild edema. No cyanosis or clubbing. Calves are nontender to palpation. The patient is status post right hip surgery. GI: Abdomen is soft, nontender and nondistended. Bowel sounds are positive. SKIN: No acute rash. NEUROLOGIC: Limited at the present time. PERTINENT LABORATORY DATA: Chest x-ray was done yesterday and reviewed. There are chronic interstitial changes noted. There are no acute findings. CBC: White count 12.3K, hemoglobin 9.1, hematocrit 29.3, platelets of 181,000. Complete metabolic profile: Glucose 133, magnesium 1.6. Rest of the metabolic profiles is within normal limits. IMPRESSION: 1. Right hip fracture, status post fall. 2. Advanced chronic obstructive pulmonary disease, on home oxygen. 3. Pulmonary fibrosis. 4. Extensive coronary artery disease. 5. Anemia. PLAN: I did discuss the case with the night nurse at length. I have also reviewed the chart at length. I have also discussed the case with the patient at length. The patient presents to [facility] - after falling at home. After the fall, the patient did experience severe right hip pain. The patient was thus evaluated at [facility]. Subsequent evaluation revealed a right hip fracture. The patient did undergo hip surgery yesterday. I am seeing this patient for a perioperative evaluation. I did review the chest x-ray as above. There is no acute disease noted. I have also questioned the patient at length. The patient offers no new pulmonary symptoms. The patient does state to being followed by a band saw operator (Dr. Allen) in [place]. Currently, she is on albuterol nebulizers three times a day. I will add inhaled Pulmicort - given the above history. There is no significant bronchospasm on physical exam. There is no significant alveolar-arterial gradient. Consultation By Dr. Ken (Cardiology) is noted. Repeat a.m. labs are also pending. I will discuss the above with the entire ICU team in the next few moments. I will also discuss the above with the attending physician. Thank you very much for this pulmonary consultation. Luis Carlos Ansari MD MTDElbert
--- NOTE | 2018-06-09 09:49 | PN ---
Copied To: Maximiliano Ken MD Attending MD: Maximiliano Ken MD DATE: 06/09/2018 SUBJECTIVE: The patient is seen lying in bed in the ICU. She underwent successful hip repair surgery yesterday. She has some mild postop pain. She denies any chest pain. Her current medications include albuterol inhaler, Colazal, colestipol, Cozaar, metformin, Glucotrol, Imdur, Lipitor, Lovenox, Percocet, Protonix, Pulmicort, Toprol 50 mg b.i.d. OBJECTIVE: GENERAL: She is an elderly woman who appears fairly comfortable at the present time. VITAL SIGNS: Blood pressure 104/76 with pulse of 90 in sinus, respirations 16. She is afebrile. HEENT: No JVD. CHEST: Few scattered rhonchi heard. HEART: PMI displaced laterally. Systolic murmurs present in left sternal border. ABDOMEN: Soft, obese, nontender with bowel sounds. EXTREMITIES: No edema. DIAGNOSTIC DATA: Potassium 4.4, BUN and creatinine 23 and 1.2. White count 8.1, hemoglobin and hematocrit are 8.4 and 26.8 with platelet count 133,000. IMPRESSION: 1. Status post fall with resultant right hip fracture, postoperative day #1 following successful surgical repair. 2. Coronary artery disease, status post remote myocardial infarction and percutaneous coronary intervention, clinically stable. 3. Severe pulmonary fibrosis. 4. History of diabetes. 5. Postoperative anemia. RECOMMENDATIONS: Her current cardiac medications should continue. Followup CBC is planned. The patient should be gotten out of bed. Gastrointestinal and deep venous thrombosis prophylaxis should continue. Early ambulation as tolerated would be advised. No further change to her cardiac regimen is planned at this time. I will be happy to follow and make further recommendations as appropriate. Maximiliano Ken MD
[2018-06-09] MEDS: [UNRECOGNIZED DRUG - OTHER] PO SCH ×2 (09:50→18:27)
[2018-06-09] MEDS: Metoprolol Succinate 50 mg XL Tab PO SCH ×2 (09:50→17:48)
--- NOTE | 2018-06-09 11:40 | PN ---
Copied To: Jose David Martinez DO Attending MD: Jose David Martinez DO DATE: 06/09/2018 FIRST DAY POSTOPERATIVE REPORT SUBJECTIVE: A 77-year-old female. She is in room 129, bed 7, for postop recovery because of cardiac plus pulmonary problems, which are improving. Patient has been extubated and she wants to get up out of bed. She will start physical therapy. No undue pain in her right hip and we will plan to go to [facility] for subacute rehab when that time comes. The wound is dry. There is no fever. Jose David Martinez DO
--- NOTE | 2018-06-09 11:40 | CP.CCUPN ---
<Maury Lima - Last Filed: 06/09/18 11:32> CCU Subjective - Physician Review Events Since Last Encounter (Free Text): Maury Lima, PGY-1 ICU Progress Note Patient seen and examined at bedside this morning. No acute events overnight. Patient states she slept well and has good appetite. Will transfer today. Denies chest pain, SOB, abdominal pain, urinary complaints and hip pain. 12 point ROS reviewed here, otherwise negative. CCU Objective - Vital Signs / Intake & Output Vital Signs (Last 4 hours): Vital Signs Temp Pulse Resp BP Pulse Ox 06/09/18 10:10 98 H 20 106/55 L 97 06/09/18 10:00 95/62 L 06/09/18 09:54 106/55 L 06/09/18 09:50 98 H 155/80 H 06/09/18 09:44 90 L 06/09/18 09:42 104 H 63 H 06/09/18 09:40 105 H 23 87 L 06/09/18 09:30 98 H 24 99 06/09/18 09:20 98 H 17 98 06/09/18 09:10 100 H 95 06/09/18 09:00 98 H 20 94 L 06/09/18 08:50 99 H 24 88 L 06/09/18 08:40 101 H 18 90 L 06/09/18 08:30 100 H 18 91 L 06/09/18 08:20 99 H 21 92 L 06/09/18 08:10 108 H 33 H 91 L 06/09/18 08:00 98 F 97 H 26 H 104/77 87 L 06/09/18 07:50 101 H 20 91 L 06/09/18 07:40 98 H 28 H 96 06/09/18 07:34 101 H Intake and Output (Last 8hrs): Intake & Output 06/08/18 06/09/18 06/09/18 22:59 06:59 14:59 Intake Total 580 Output Total 225 200 Balance 355 -200 Intake: IV 100 Left Antecubital 100 Oral 480 Output: Urine 225 200 Urethral (Fitch) 225 200 Other: # Bowel Movements 0 - Physical Exam Head: Positive for: Atraumatic, Normocephalic Pupils: Positive for: PERRL Extroacular Muscles: Positive for: EOMI Conjunctiva: Positive for: Normal Mouth: Positive for: Moist Mucous Membranes Pharnyx: Negative for: ERYTHEMA, EXUDATE, TONSILS ENLARGED Neck: Positive for: Normal Range of Motion Respiratory/Chest: Positive for: Clear to Auscultation, Good Air Exchange, Decreased Breath Sounds. Negative for: Respiratory Distress, Accessory Muscle Use Cardiovascular: Positive for: Regular Rate and Rhythm, Normal S1, S2. Negative for: Murmurs Abdomen: Negative for: Tenderness, Distention, Peritoneal Signs Back: Positive for: Normal Inspection Upper Extremity: Positive for: Normal Inspection. Negative for: Cyanosis, Edema Lower Extremity: Positive for: Normal ROM (Limited ROM of right lower extremity) , Tenderness (Tenderness to the right lower extremity), Deformity, Other (Right leg shortened and externally rotated. ). Negative for: CALF TENDERNESS, Yris' s Sign, Swelling, Erythema Neurological: Positive for: GCS=15, CN II-XII Intact, Speech Normal, Motor Func Grossly Intact Skin: Positive for: Warm, Dry, Normal Color. Negative for: Rashes Psychiatric: Positive for: Alert, Oriented x 3, Normal Insight, Normal Concentration - Medications Active Medications: Active Medications Generic Name Dose Route Start Last Admin Trade Name Freq PRN Reason Stop Dose Admin Acetaminophen 650 mg 06/07/18 18:42 Tylenol 325mg Tab PO Q4 PRN Pain, Mild (1-3) Albuterol Sulfate 2.5 mg 06/07/18 20:15 06/08/18 07:32 Albuterol 0.083% Inhal Mia (2.5 Mg/3 Ml) Ud INH Not Given TIDRESP MARIELENA Atorvastatin Calcium 20 mg 06/07/18 22:00 06/07/18 22:12 Lipitor PO 20 mg HS MARIELENA Administration Balsalazide 1,500 mg 06/08/18 10:00 06/09/18 09:49 Colazal PO 1,500 mg TID MARIELENA Administration Budesonide 0.5 mg 06/09/18 08:00 06/09/18 07:38 Pulmicort Respules IH 0.5 mg [id number] MARIELENA Administration Enoxaparin Sodium 30 mg 06/09/18 12:45 Lovenox SC Q24H [facility] Protocol Glipizide 5 mg 06/08/18 07:30 06/08/18 17:55 Glucotrol PO Not Given ACB MARIELENA Isosorbide Mononitrate 60 mg 06/08/18 10:00 06/09/18 09:51 Imdur PO 60 mg DAILY MARIELENA Administration Losartan Potassium 100 mg 06/08/18 10:00 06/09/18 09:57 Cozaar PO Not Given DAILY [facility] Metformin HCl 1,000 mg 06/08/18 10:00 06/09/18 09:50 Glucophage PO 1,000 mg BID MARIELENA Administration Metoprolol Succinate 50 mg 06/08/18 10:00 06/09/18 09:50 Toprol Xl PO 50 mg BID MARIELENA Administration Non-Formulary Medication 2 cap 06/08/18 10:00 06/09/18 09:50 Colestipol Hydrochloride [Colestipol] PO Not Given BID [facility] Ondansetron HCl 4 mg 06/08/18 07:28 06/08/18 07:37 Zofran Inj IVP 4 mg Q4H PRN Administration Nausea/Vomiting Oxycodone/Acetaminophen 1 tab 06/07/18 20:00 06/09/18 08:35 Percocet 5/325 Mg Tab PO 06/10/18 20:01 1 tab Q4 PRN Administration Pain, moderate (4-7) Pantoprazole Sodium 40 mg 06/08/18 07:30 Protonix Ec Tab PO ACB [facility] - Patient Studies Lab Studies: Lab Studies 06/09/18 06/09/18 06/08/18 Range/Units 06:10 06:10 22:10 WBC 8.1 D (4.5-11.0) 10^3/ul RBC 3.02 L (3.5-6.1) 10^6/uL Hgb 8.4 L (12.0-16.0) g/dL Hct 26.8 L (36.0-48.0) % MCV 88.7 (80.0-105.0) fl MCH 27.8 (25.0-35.0) pg MCHC 31.3 (31.0-37.0) g/dl RDW 19.2 H (11.5-14.5) % Plt Count 133 (120.0-450.0) 10^3/uL MPV 10.3 (7.0-11.0) fl Gran % 65.6 (50.0-68.0) % Lymph % (Auto) 15.5 L (22.0-35.0) % Sebastian % (Auto) 8.5 H (1.0-6.0) % Eos % (Auto) 9.7 H (1.5-5.0) % Baso % (Auto) 0.7 (0.0-3.0) % Gran # 5.30 (1.4-6.5) Lymph # (Auto) 1.3 (1.2-3.4) Sebastian # (Auto) 0.7 H (0.1-0.6) Eos # (Auto) 0.8 H (0.0-0.7) Baso # (Auto) 0.06 (0.0-2.0) K/mm3 Neutrophils % (Manual) (50.0-70.0) % Lymphocytes % (Manual) (22.0-35.0) % Monocytes % (Manual) (1.0-6.0) % Basophils % (Manual) (0.0-1.0) % Platelet Evaluation (NORMAL) Sodium 138 (132-148) mmol/L Potassium 4.4 (3.6-5.0) mmol/L Chloride 101 (98-107) mmol/L Carbon Dioxide 25 (21-33) mmol/L Anion Gap 16 (10-20) BUN 23 H (7-21) mg/dL Creatinine 1.2 (0.7-1.2) mg/dl Est GFR ( Amer) 53 Est GFR (Non-Af Amer) 44 POC Glucose (mg/dL) 91 (65-110) mg/dL Random Glucose 125 H (70-110) mg/dL Calcium 7.9 L (8.4-10.5) mg/dL Total Bilirubin 0.6 (0.2-1.3) mg/dL AST 36 (14-36) U/L ALT 23 (7-56) U/L Alkaline Phosphatase 34 L D (38-126) U/L Total Protein 6.5 (5.8-8.3) g/dL Albumin 3.6 (3.0-4.8) g/dL Globulin 2.9 gm/dL Albumin/Globulin Ratio 1.2 (1.1-1.8) 06/08/18 06/08/18 06/08/18 Range/Units 16:10 14:54 14:26 WBC 12.3 H D (4.5-11.0) 10^3/ul RBC 3.39 L (3.5-6.1) 10^6/uL Hgb 9.1 L D (12.0-16.0) g/dL Hct 29.3 L (36.0-48.0) % MCV 86.4 (80.0-105.0) fl MCH 26.8 (25.0-35.0) pg MCHC 31.1 (31.0-37.0) g/dl RDW 18.6 H (11.5-14.5) % Plt Count 181 (120.0-450.0) 10^3/uL MPV 10.4 (7.0-11.0) fl Gran % 91.3 H (50.0-68.0) % Lymph % (Auto) 3.8 L (22.0-35.0) % Sebastian % (Auto) 4.7 (1.0-6.0) % Eos % (Auto) 0.1 L (1.5-5.0) % Baso % (Auto) 0.1 (0.0-3.0) % Gran # 11.19 H (1.4-6.5) Lymph # (Auto) 0.5 L (1.2-3.4) Sebastian # (Auto) 0.6 (0.1-0.6) Eos # (Auto) 0.0 (0.0-0.7) Baso # (Auto) 0.01 (0.0-2.0) K/mm3 Neutrophils % (Manual) 93 H (50.0-70.0) % Lymphocytes % (Manual) 4 L (22.0-35.0) % Monocytes % (Manual) 2 (1.0-6.0) % Basophils % (Manual) 1 (0.0-1.0) % Platelet Evaluation Normal (NORMAL) Sodium (132-148) mmol/L Potassium (3.6-5.0) mmol/L Chloride (98-107) mmol/L Carbon Dioxide (21-33) mmol/L Anion Gap (10-20) BUN (7-21) mg/dL Creatinine (0.7-1.2) mg/dl Est GFR ( Amer) Est GFR (Non-Af Amer) POC Glucose (mg/dL) 175 H 202 H (65-110) mg/dL Random Glucose (70-110) mg/dL Calcium (8.4-10.5) mg/dL Total Bilirubin (0.2-1.3) mg/dL AST (14-36) U/L ALT (7-56) U/L Alkaline Phosphatase (38-126) U/L Total Protein (5.8-8.3) g/dL Albumin (3.0-4.8) g/dL Globulin gm/dL Albumin/Globulin Ratio (1.1-1.8) 06/08/18 06/07/18 Range/Units 06:31 21:41 WBC (4.5-11.0) 10^3/ul RBC (3.5-6.1) 10^6/uL Hgb (12.0-16.0) g/dL Hct (36.0-48.0) % MCV (80.0-105.0) fl MCH (25.0-35.0) pg MCHC (31.0-37.0) g/dl RDW (11.5-14.5) % Plt Count (120.0-450.0) 10^3/uL MPV (7.0-11.0) fl Gran % (50.0-68.0) % Lymph % (Auto) (22.0-35.0) % Sebastian % (Auto) (1.0-6.0) % Eos % (Auto) (1.5-5.0) % Baso % (Auto) (0.0-3.0) % Gran # (1.4-6.5) Lymph # (Auto) (1.2-3.4) Sebastian # (Auto) (0.1-0.6) Eos # (Auto) (0.0-0.7) Baso # (Auto) (0.0-2.0) K/mm3 Neutrophils % (Manual) (50.0-70.0) % Lymphocytes % (Manual) (22.0-35.0) % Monocytes % (Manual) (1.0-6.0) % Basophils % (Manual) (0.0-1.0) % Platelet Evaluation (NORMAL) Sodium (132-148) mmol/L Potassium (3.6-5.0) mmol/L Chloride (98-107) mmol/L Carbon Dioxide (21-33) mmol/L Anion Gap (10-20) BUN (7-21) mg/dL Creatinine (0.7-1.2) mg/dl Est GFR ( Amer) Est GFR (Non-Af Amer) POC Glucose (mg/dL) 143 H 153 H (65-110) mg/dL Random Glucose (70-110) mg/dL Calcium (8.4-10.5) mg/dL Total Bilirubin (0.2-1.3) mg/dL AST (14-36) U/L ALT (7-56) U/L Alkaline Phosphatase (38-126) U/L Total Protein (5.8-8.3) g/dL Albumin (3.0-4.8) g/dL Globulin gm/dL Albumin/Globulin Ratio (1.1-1.8) Laboratory Results - last 24 hr 06/07/18 06/08/18 06/08/18 21:41 06:31 14:26 WBC 12.3 H D RBC 3.39 L Hgb 9.1 L D Hct 29.3 L MCV 86.4 MCH 26.8 MCHC 31.1 RDW 18.6 H Plt Count 181 MPV 10.4 Gran % 91.3 H Lymph % (Auto) 3.8 L Sebastian % (Auto) 4.7 Eos % (Auto) 0.1 L Baso % (Auto) 0.1 Gran # 11.19 H Lymph # (Auto) 0.5 L Sebastian # (Auto) 0.6 Eos # (Auto) 0.0 Baso # (Auto) 0.01 Neutrophils % (Manual) 93 H Lymphocytes % (Manual) 4 L Monocytes % (Manual) 2 Basophils % (Manual) 1 Platelet Evaluation Normal Sodium Potassium Chloride Carbon Dioxide Anion Gap BUN Creatinine Est GFR ( Amer) Est GFR (Non-Af Amer) POC Glucose (mg/dL) 153 H 143 H Random Glucose Calcium Total Bilirubin AST ALT Alkaline Phosphatase Total Protein Albumin Globulin Albumin/Globulin Ratio 06/08/18 06/08/18 06/08/18 14:54 16:10 22:10 WBC RBC Hgb Hct MCV MCH MCHC RDW Plt Count MPV Gran % Lymph % (Auto) Sebastian % (Auto) Eos % (Auto) Baso % (Auto) Gran # Lymph # (Auto) Sebastian # (Auto) Eos # (Auto) Baso # (Auto) Neutrophils % (Manual) Lymphocytes % (Manual) Monocytes % (Manual) Basophils % (Manual) Platelet Evaluation Sodium Potassium Chloride Carbon Dioxide Anion Gap BUN Creatinine Est GFR ( Amer) Est GFR (Non-Af Amer) POC Glucose (mg/dL) 202 H 175 H 91 Random Glucose Calcium Total Bilirubin AST ALT Alkaline Phosphatase Total Protein Albumin Globulin Albumin/Globulin Ratio 06/09/18 06/09/18 06:10 06:10 WBC 8.1 D RBC 3.02 L Hgb 8.4 L Hct 26.8 L MCV 88.7 MCH 27.8 MCHC 31.3 RDW 19.2 H Plt Count 133 MPV 10.3 Gran % 65.6 Lymph % (Auto) 15.5 L Sebastian % (Auto) 8.5 H Eos % (Auto) 9.7 H Baso % (Auto) 0.7 Gran # 5.30 Lymph # (Auto) 1.3 Sebastian # (Auto) 0.7 H Eos # (Auto) 0.8 H Baso # (Auto) 0.06 Neutrophils % (Manual) Lymphocytes % (Manual) Monocytes % (Manual) Basophils % (Manual) Platelet Evaluation Sodium 138 Potassium 4.4 Chloride 101 Carbon Dioxide 25 Anion Gap 16 BUN 23 H Creatinine 1.2 Est GFR ( Amer) 53 Est GFR (Non-Af Amer) 44 POC Glucose (mg/dL) Random Glucose 125 H Calcium 7.9 L Total Bilirubin 0.6 AST 36 ALT 23 Alkaline Phosphatase 34 L D Total Protein 6.5 Albumin 3.6 Globulin 2.9 Albumin/Globulin Ratio 1.2 Fingerstick Blood Sugar Results: 166 Critical Care Progress Note - Nutrition Nutrition: Nutrition Category Date Time Status Heart Healthy Diet [DIET] Diets 06/08/18 Dinner Active Assessment/Plan - Assessment and Plan (Free Text) Assessment: Assessment : This is a 77 year old female with PMH of severe COPD, pulmonary hypertension, pulmonary fibrosis on home O2, ulcerative colitis, 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 Due to patient's extensive cardiac and pulmonary medical history, patient will be monitored closely for any complications post surgery. She is expected to be transferred out today. Plan: Neuro: -maintain normothermia -AAO x3, moving extremities spontaneously past midline Cardio: -maintain MAP>65 -cardiac cath in 04/2018 showed chronically occluded RCA, well collateralized. Mild distal left main and moderate LAD disease. Preserved left ventricular systolic function of 60%. -HR and BP stable overnight Lungs: -SaO2 >90% -supplementary O2 PRN -Bipap at night, tolerating well Renal: -maintain euvolemia -avoid nephrotoxic agents, hypochloremia -replace electrolytes as needed MSK: -no gross bleeding or pus draining from site. Patient denies pain or symptoms -ortho following - Dr. Martinez Heme: -DVT ppx - lovenox 30mg SC Endo: -maintain euglycemia ID: -WBC is 8.1 today, afebrile. No concern at this time -GI: -protonix prophylaxis <Olivier Roger - Last Filed: 06/09/18 14:33> CCU Objective - Vital Signs / Intake & Output Vital Signs (Last 4 hours): Vital Signs Temp Pulse Resp BP Pulse Ox 06/09/18 11:25 98.7 F 95 H 20 120/51 L 88 L Intake and Output (Last 8hrs): Intake & Output 06/08/18 06/09/18 06/09/18 22:59 06:59 14:59 Intake Total 580 Output Total 225 200 Balance 355 -200 Intake: IV 100 Left Antecubital 100 Oral 480 Output: Urine 225 200 Urethral (Fitch) 225 200 Other: # Bowel Movements 0 - Medications Active Medications: Active Medications Generic Name Dose Route Start Last Admin Trade Name Freq PRN Reason Stop Dose Admin Acetaminophen 650 mg 06/07/18 18:42 Tylenol 325mg Tab PO Q4 PRN Pain, Mild (1-3) Albuterol Sulfate 2.5 mg 06/07/18 20:15 06/09/18 13:23 Albuterol 0.083% Inhal Mia (2.5 Mg/3 Ml) Ud INH Not Given TIDRESP MARIELENA Atorvastatin Calcium 20 mg 06/07/18 22:00 06/07/18 22:12 Lipitor PO 20 mg HS MARIELEAN Administration Balsalazide 1,500 mg 06/08/18 10:00 06/09/18 14:11 Colazal PO 1,500 mg TID MARIELENA Administration Budesonide 0.5 mg 06/09/18 08:00 06/09/18 07:38 Pulmicort Respules IH 0.5 mg [id number] MARIELENA Administration Enoxaparin Sodium 30 mg 06/09/18 12:45 06/09/18 13:55 Lovenox SC 30 mg Q24H MARIELENA Administration Protocol Glipizide 5 mg 06/08/18 07:30 06/08/18 17:55 Glucotrol PO Not Given ACB MARIELENA Isosorbide Mononitrate 60 mg 06/08/18 10:00 06/09/18 09:51 Imdur PO 60 mg DAILY MARIELENA Administration Losartan Potassium 100 mg 06/08/18 10:00 06/09/18 09:57 Cozaar PO Not Given DAILY [facility] Metformin HCl 1,000 mg 06/08/18 10:00 06/09/18 09:50 Glucophage PO 1,000 mg BID MARIELENA Administration Metoprolol Succinate 50 mg 06/08/18 10:00 06/09/18 09:50 Toprol Xl PO 50 mg BID MARIELENA Administration Non-Formulary Medication 2 cap 06/08/18 10:00 06/09/18 09:50 Colestipol Hydrochloride [Colestipol] PO Not Given BID [facility] Ondansetron HCl 4 mg 06/08/18 07:28 06/08/18 07:37 Zofran Inj IVP 4 mg Q4H PRN Administration Nausea/Vomiting Oxycodone/Acetaminophen 1 tab 06/07/18 20:00 06/09/18 13:55 Percocet 5/325 Mg Tab PO 06/10/18 20:01 1 tab Q4 PRN Administration Pain, moderate (4-7) Pantoprazole Sodium 40 mg 06/08/18 07:30 Protonix Ec Tab PO ACB [facility] - Patient Studies Lab Studies: Lab Studies 06/09/18 06/09/18 06/08/18 Range/Units 06:10 06:10 22:10 WBC 8.1 D (4.5-11.0) 10^3/ul RBC 3.02 L (3.5-6.1) 10^6/uL Hgb 8.4 L (12.0-16.0) g/dL Hct 26.8 L (36.0-48.0) % MCV 88.7 (80.0-105.0) fl MCH 27.8 (25.0-35.0) pg MCHC 31.3 (31.0-37.0) g/dl RDW 19.2 H (11.5-14.5) % Plt Count 133 (120.0-450.0) 10^3/uL MPV 10.3 (7.0-11.0) fl Gran % 65.6 (50.0-68.0) % Lymph % (Auto) 15.5 L (22.0-35.0) % Sebastian % (Auto) 8.5 H (1.0-6.0) % Eos % (Auto) 9.7 H (1.5-5.0) % Baso % (Auto) 0.7 (0.0-3.0) % Gran # 5.30 (1.4-6.5) Lymph # (Auto) 1.3 (1.2-3.4) Sebastian # (Auto) 0.7 H (0.1-0.6) Eos # (Auto) 0.8 H (0.0-0.7) Baso # (Auto) 0.06 (0.0-2.0) K/mm3 Neutrophils % (Manual) (50.0-70.0) % Lymphocytes % (Manual) (22.0-35.0) % Monocytes % (Manual) (1.0-6.0) % Basophils % (Manual) (0.0-1.0) % Platelet Evaluation (NORMAL) Sodium 138 (132-148) mmol/L Potassium 4.4 (3.6-5.0) mmol/L Chloride 101 (98-107) mmol/L Carbon Dioxide 25 (21-33) mmol/L Anion Gap 16 (10-20) BUN 23 H (7-21) mg/dL Creatinine 1.2 (0.7-1.2) mg/dl Est GFR ( Amer) 53 Est GFR (Non-Af Amer) 44 POC Glucose (mg/dL) 91 (65-110) mg/dL Random Glucose 125 H (70-110) mg/dL Calcium 7.9 L (8.4-10.5) mg/dL Total Bilirubin 0.6 (0.2-1.3) mg/dL AST 36 (14-36) U/L ALT 23 (7-56) U/L Alkaline Phosphatase 34 L D (38-126) U/L Total Protein 6.5 (5.8-8.3) g/dL Albumin 3.6 (3.0-4.8) g/dL Globulin 2.9 gm/dL Albumin/Globulin Ratio 1.2 (1.1-1.8) 06/08/18 06/08/18 06/08/18 Range/Units 16:10 14:54 14:26 WBC 12.3 H D (4.5-11.0) 10^3/ul RBC 3.39 L (3.5-6.1) 10^6/uL Hgb 9.1 L D (12.0-16.0) g/dL Hct 29.3 L (36.0-48.0) % MCV 86.4 (80.0-105.0) fl MCH 26.8 (25.0-35.0) pg MCHC 31.1 (31.0-37.0) g/dl RDW 18.6 H (11.5-14.5) % Plt Count 181 (120.0-450.0) 10^3/uL MPV 10.4 (7.0-11.0) fl Gran % 91.3 H (50.0-68.0) % Lymph % (Auto) 3.8 L (22.0-35.0) % Sebastian % (Auto) 4.7 (1.0-6.0) % Eos % (Auto) 0.1 L (1.5-5.0) % Baso % (Auto) 0.1 (0.0-3.0) % Gran # 11.19 H (1.4-6.5) Lymph # (Auto) 0.5 L (1.2-3.4) Sebastian # (Auto) 0.6 (0.1-0.6) Eos # (Auto) 0.0 (0.0-0.7) Baso # (Auto) 0.01 (0.0-2.0) K/mm3 Neutrophils % (Manual) 93 H (50.0-70.0) % Lymphocytes % (Manual) 4 L (22.0-35.0) % Monocytes % (Manual) 2 (1.0-6.0) % Basophils % (Manual) 1 (0.0-1.0) % Platelet Evaluation Normal (NORMAL) Sodium (132-148) mmol/L Potassium (3.6-5.0) mmol/L Chloride (98-107) mmol/L Carbon Dioxide (21-33) mmol/L Anion Gap (10-20) BUN (7-21) mg/dL Creatinine (0.7-1.2) mg/dl Est GFR ( Amer) Est GFR (Non-Af Amer) POC Glucose (mg/dL) 175 H 202 H (65-110) mg/dL Random Glucose (70-110) mg/dL Calcium (8.4-10.5) mg/dL Total Bilirubin (0.2-1.3) mg/dL AST (14-36) U/L ALT (7-56) U/L Alkaline Phosphatase (38-126) U/L Total Protein (5.8-8.3) g/dL Albumin (3.0-4.8) g/dL Globulin gm/dL Albumin/Globulin Ratio (1.1-1.8) 06/08/18 06/07/18 Range/Units 06:31 21:41 WBC (4.5-11.0) 10^3/ul RBC (3.5-6.1) 10^6/uL Hgb (12.0-16.0) g/dL Hct (36.0-48.0) % MCV (80.0-105.0) fl MCH (25.0-35.0) pg MCHC (31.0-37.0) g/dl RDW (11.5-14.5) % Plt Count (120.0-450.0) 10^3/uL MPV (7.0-11.0) fl Gran % (50.0-68.0) % Lymph % (Auto) (22.0-35.0) % Sebastian % (Auto) (1.0-6.0) % Eos % (Auto) (1.5-5.0) % Baso % (Auto) (0.0-3.0) % Gran # (1.4-6.5) Lymph # (Auto) (1.2-3.4) Sebastian # (Auto) (0.1-0.6) Eos # (Auto) (0.0-0.7) Baso # (Auto) (0.0-2.0) K/mm3 Neutrophils % (Manual) (50.0-70.0) % Lymphocytes % (Manual) (22.0-35.0) % Monocytes % (Manual) (1.0-6.0) % Basophils % (Manual) (0.0-1.0) % Platelet Evaluation (NORMAL) Sodium (132-148) mmol/L Potassium (3.6-5.0) mmol/L Chloride (98-107) mmol/L Carbon Dioxide (21-33) mmol/L Anion Gap (10-20) BUN (7-21) mg/dL Creatinine (0.7-1.2) mg/dl Est GFR ( Amer) Est GFR (Non-Af Amer) POC Glucose (mg/dL) 143 H 153 H (65-110) mg/dL Random Glucose (70-110) mg/dL Calcium (8.4-10.5) mg/dL Total Bilirubin (0.2-1.3) mg/dL AST (14-36) U/L ALT (7-56) U/L Alkaline Phosphatase (38-126) U/L Total Protein (5.8-8.3) g/dL Albumin (3.0-4.8) g/dL Globulin gm/dL Albumin/Globulin Ratio (1.1-1.8) Laboratory Results - last 24 hr 06/07/18 06/08/18 06/08/18 21:41 06:31 14:26 WBC 12.3 H D RBC 3.39 L Hgb 9.1 L D Hct 29.3 L MCV 86.4 MCH 26.8 MCHC 31.1 RDW 18.6 H Plt Count 181 MPV 10.4 Gran % 91.3 H Lymph % (Auto) 3.8 L Sebastian % (Auto) 4.7 Eos % (Auto) 0.1 L Baso % (Auto) 0.1 Gran # 11.19 H Lymph # (Auto) 0.5 L Sebastian # (Auto) 0.6 Eos # (Auto) 0.0 Baso # (Auto) 0.01 Neutrophils % (Manual) 93 H Lymphocytes % (Manual) 4 L Monocytes % (Manual) 2 Basophils % (Manual) 1 Platelet Evaluation Normal Sodium Potassium Chloride Carbon Dioxide Anion Gap BUN Creatinine Est GFR ( Amer) Est GFR (Non-Af Amer) POC Glucose (mg/dL) 153 H 143 H Random Glucose Calcium Total Bilirubin AST ALT Alkaline Phosphatase Total Protein Albumin Globulin Albumin/Globulin Ratio 06/08/18 06/08/18 06/08/18 14:54 16:10 22:10 WBC RBC Hgb Hct MCV MCH MCHC RDW Plt Count MPV Gran % Lymph % (Auto) Sebastian % (Auto) Eos % (Auto) Baso % (Auto) Gran # Lymph # (Auto) Sebastian # (Auto) Eos # (Auto) Baso # (Auto) Neutrophils % (Manual) Lymphocytes % (Manual) Monocytes % (Manual) Basophils % (Manual) Platelet Evaluation Sodium Potassium Chloride Carbon Dioxide Anion Gap BUN Creatinine Est GFR ( Amer) Est GFR (Non-Af Amer) POC Glucose (mg/dL) 202 H 175 H 91 Random Glucose Calcium Total Bilirubin AST ALT Alkaline Phosphatase Total Protein Albumin Globulin Albumin/Globulin Ratio 06/09/18 06/09/18 06:10 06:10 WBC 8.1 D RBC 3.02 L Hgb 8.4 L Hct 26.8 L MCV 88.7 MCH 27.8 MCHC 31.3 RDW 19.2 H Plt Count 133 MPV 10.3 Gran % 65.6 Lymph % (Auto) 15.5 L Sebastian % (Auto) 8.5 H Eos % (Auto) 9.7 H Baso % (Auto) 0.7 Gran # 5.30 Lymph # (Auto) 1.3 Sebastian # (Auto) 0.7 H Eos # (Auto) 0.8 H Baso # (Auto) 0.06 Neutrophils % (Manual) Lymphocytes % (Manual) Monocytes % (Manual) Basophils % (Manual) Platelet Evaluation Sodium 138 Potassium 4.4 Chloride 101 Carbon Dioxide 25 Anion Gap 16 BUN 23 H Creatinine 1.2 Est GFR ( Amer) 53 Est GFR (Non-Af Amer) 44 POC Glucose (mg/dL) Random Glucose 125 H Calcium 7.9 L Total Bilirubin 0.6 AST 36 ALT 23 Alkaline Phosphatase 34 L D Total Protein 6.5 Albumin 3.6 Globulin 2.9 Albumin/Globulin Ratio 1.2 Critical Care Progress Note - Nutrition Nutrition: Nutrition Category Date Time Status Heart Healthy Diet [DIET] Diets 06/09/18 Lunch Active Attending/Attestation - Attestation I have personally seen and examined this patient.: Yes I have fully participated in the care of the patient.: Yes I have reviewed all pertinent clinical information: Yes Notes (Text): 06/09/18 14:31 77 yo female with multuiple cardiovascular and pulmonary comorbidities, who spent overnight ICU due to high risk nature of her orthopedic procedure. Uneventful night, VSS, alert, awake and oriented, no respiratory distress . DVT/GI prophylaxis. [facility]
[2018-06-09] MEDS: Albuterol 0.083% Inhal Sol (2.5 mg/3 mL) UD INH SCH ×3 (12:17→20:29)
[2018-06-09] MEDS: Enoxaparin 30 mg Syringe SC SCH (13:55)
[2018-06-10 07:09] LABS: HEMOGLOBIN 7.7 g/dL (12.0-16.0); MEAN CELL VOLUME 85.7 fl (80.0-105.0); MEAN CORPUSCULAR HEMOGLOBIN 28.2 pg (25.0-35.0); MEAN CORPUSCULAR HGB CONC 32.9 g/dl (31.0-37.0); RBC 2.73 10^6/uL (3.5-6.1); RED CELL DISTRIBUTION WIDTH 18.9 % (11.5-14.5)
--- NOTE | 2018-06-10 07:11 | HP ---
Copied To: Mitchel Sams MD Attending MD: Mitchel Sams MD HISTORY OF PRESENT ILLNESS: This is a 77-year-old female who has come in to the hospital with the past medical history of coronary artery disease with stents, hypertension, diabetes type 2, COPD, presenting with right-sided leg pain after a fall. The patient was found to have a hip fracture. I was not able to see the patient yesterday, she was in the OR. She does have a history of pulmonary fibrosis. She does use home O2. The patient was recently admitted to the hospital in 04/2018. The patient has no fevers or chills. No nausea. No vomiting. No abdominal pain. No back pain. No dysuria or frequency. No nocturia. She states she does have cane when she moves in her right leg after she has had the procedure and she does require pain medications. She said the pain is about 4/10. REVIEW OF SYSTEMS: All other review of symptoms are within normal limits except that was mentioned. ALLERGIES: NO KNOWN DRUG ALLERGIES. HOME MEDICATIONS: Has been reviewed on the [facility]. SOCIAL HISTORY: She is a former smoker, but not smoking anymore. She denies alcohol or drugs. FAMILY HISTORY: Noncontributory. PHYSICAL EXAMINATION: VITAL SIGNS: Patient has a temperature of 98.1, pulse of 93, blood pressure 114/48, respirations 20, O2 saturation 93%. GENERAL: The patient lying in bed, uncomfortable, and in no acute distress. HEENT: Atraumatic and normocephalic. Anicteric sclerae. Moist mucosa. [place] conjunctivae. No oral lesions. NECK: No JVD, anterior and posterior adenopathy, thyromegaly, or bruits. CARDIOVASCULAR: S1 and S2 regular. No murmur, rubs, or gallop. LUNGS: Clear to auscultation bilaterally. No wheezes, rales, or rhonchi. ABDOMEN: Bowel sounds are positive. Soft, nontender and nondistended. No hepatosplenomegaly. No rebound and no guarding EXTREMITIES: Right leg has limited range of motion because of the patient's difficulty in moving after being postop. NEUROLOGIC: No facial asymmetry. Tongue is midline. No uvula deviation. Power is 5/5 upper extremity and lower extremity. Sensation intact in upper extremity and lower extremity. PSYCHIATRIC: She is awake, alert and oriented x3. No anxiety or depression. She has normal affect. GENITOURINARY: No CVA tenderness. VASCULAR: 2+ pulses in the carotid pulses and pedal pulses. SKIN: No erythema or nodules SPINE: Shows normal curvature. LABORATORY DATA: White count 8.1, hemoglobin 8.4 Rest of the labs have been reviewed. Creatinine is 1.2. Patient has urine culture that shows E. coli. DIAGNOSTIC DATA: Patient has the EKG showed sinus rhythm, nonspecific ST-T changes. Hip x-ray done shows that there is a displaced intertrochanteric fracture in the right hip. ASSESSMENT: 1. Right intertrochanteric fracture, status post open reduction and internal fixation. 2. Urinary tract infection secondary to Escherichia coli. 3. Chronic obstructive pulmonary disease. 4. Pulmonary fibrosis/interstitial lung disease. 5. Obstructive sleep apnea. 6. Coronary artery disease. 7. Right renal cyst. 8. Splenomegaly. 9. Dyslipidemia. 10. Diabetes type 2. PLAN: The patient is currently comfortable. She is going to be transferred out of the ICU. She is on losartan for hypertension. She is on metformin for diabetes. She is on Lipitor for dyslipidemia. She is on Lovenox for DVT prophylaxis. The patient is on her metoprolol for coronary artery disease. She is receiving Tylenol as needed. She gets BiPAP. She is being followed by Pulmonary as well as Cardiology. We will repeat her blood work tomorrow. Mitchel Sams MD
[2018-06-10 07:52] LABS: ALB/GLOB RATIO 1.2 (1.1-1.8); ALBUMIN 3.6 g/dL (3.0-4.8); CALCIUM 8.1 mg/dL (8.4-10.5)
[2018-06-10] MEDS: Oxycodone/Acetaminophen 5/325 mg Tab PO PRN ×3 (07:53→18:13)
[2018-06-10] MEDS: Albuterol 0.083% Inhal Sol (2.5 mg/3 mL) UD INH SCH ×3 (08:39→20:07)
[2018-06-10] MEDS: Budesonide 0.5 mg/2 ml Inhal Susp UD IH SCH ×2 (08:39→20:07)
--- NOTE | 2018-06-10 09:04 | CP.PCM.PN ---
<Sarah Hernandez - Last Filed: 06/10/18 09:01> Subjective - Date & Time of Evaluation Date of Evaluation: 06/10/18 Time of Evaluation: 09:01 - Subjective Subjective: PGY-[address] Sams Pt sat comfortably in bed for breakfast. pain controlled. Denies CP, dizziness, SOB Objective - Vital Signs/Intake and Output Vital Signs (last 24 hours): Temp Pulse Resp BP Pulse Ox 98.9 F 89 20 135/59 L 94 L 06/09/18 22:10 06/09/18 22:10 06/09/18 22:10 06/09/18 22:10 06/09/18 22:10 - Medications Medications: Current Medications Acetaminophen (Tylenol 325mg Tab) 650 mg PO Q4 PRN PRN Reason: Pain, Mild (1-3) Albuterol Sulfate (Albuterol 0.083% Inhal Mia (2.5 Mg/3 Ml) Ud) 2.5 mg INH TIDRESP [facility] Last Admin: 06/10/18 08:39 Dose: 2.5 mg Atorvastatin Calcium (Lipitor) 20 mg PO HS [facility] Last Admin: 06/09/18 22:07 Dose: 20 mg Balsalazide (Colazal) 1,500 mg PO TID [facility] Last Admin: 06/09/18 18:26 Dose: 1,500 mg Budesonide (Pulmicort Respules) 0.5 mg IH [id number] [facility] Last Admin: 06/10/18 08:39 Dose: 0.5 mg Enoxaparin Sodium (Lovenox) 30 mg SC Q24H MARIELENA PRN Reason: Protocol Last Admin: 06/09/18 13:55 Dose: 30 mg Glipizide (Glucotrol) 5 mg PO ACB [facility] Last Admin: 06/08/18 17:55 Dose: Not Given Isosorbide Mononitrate (Imdur) 60 mg PO DAILY [facility] Last Admin: 06/09/18 09:51 Dose: 60 mg Losartan Potassium (Cozaar) 100 mg PO DAILY [facility] Last Admin: 06/09/18 09:57 Dose: Not Given Metformin HCl (Glucophage) 1,000 mg PO BID [facility] Last Admin: 06/09/18 17:47 Dose: 1,000 mg Metoprolol Succinate (Toprol Xl) 50 mg PO BID [facility] Last Admin: 06/09/18 17:48 Dose: 50 mg Non-Formulary Medication (Colestipol Hydrochloride [Colestipol]) 2 cap PO BID MARIELENA Ondansetron HCl (Zofran Inj) 4 mg IVP Q4H PRN PRN Reason: Nausea/Vomiting Last Admin: 06/08/18 07:37 Dose: 4 mg Oxycodone/Acetaminophen (Percocet 5/325 Mg Tab) 1 tab PO Q4 PRN PRN Reason: Pain, moderate (4-7) Stop: 06/10/18 20:01 Last Admin: 06/10/18 07:53 Dose: 1 tab Pantoprazole Sodium (Protonix Ec Tab) 40 mg PO ACB MARIELENA - Labs Labs: 06/10/18 06:45 06/10/18 06:45 PT 10.8 SECONDS (9.4-12.5) 06/07/18 16:30 INR 0.95 06/07/18 16:30 APTT 27.0 Seconds (25.1-36.5) 06/07/18 16:30 - Constitutional Appears: No Acute Distress - Head Exam Head Exam: ATRAUMATIC, NORMAL INSPECTION, NORMOCEPHALIC - Eye Exam Eye Exam: EOMI, Normal appearance, PERRL. absent: Scleral icterus Pupil Exam: NORMAL ACCOMODATION - ENT Exam ENT Exam: Mucous Membranes Moist - Neck Exam Additional comments: moist - Respiratory Exam Respiratory Exam: Decreased Breath Sounds (lung bases), Clear to Ausculation Bilateral. absent: Rales, Rhonchi, Wheezes - Cardiovascular Exam Cardiovascular Exam: REGULAR RHYTHM, +S1, +S2 - GI/Abdominal Exam GI & Abdominal Exam: Soft, Normal Bowel Sounds. absent: Tenderness - Extremities Exam Extremities Exam: Normal Capillary Refill, Pedal Edema (slight b/l) Additional comments: R hip dressing c/d/i - Back Exam Back Exam: absent: CVA tenderness (L), CVA tenderness (R) - Neurological Exam Neurological Exam: Alert, Awake, Oriented x3 - Psychiatric Exam Psychiatric exam: Normal Affect, Normal Mood - Skin Skin Exam: Dry, Warm Assessment and Plan - Assessment and Plan (Free Text) Plan: Ms Krueger, 77 F, PMH CAD with stents, HTN, DM2, COPD/pulm fibrosis/on Home O2, presentes with R leg pain s/p fall. She had R hip ORIF on 06/08. R intertrochanteric fracture, displaced, s/p ORIF, POD # 2. 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 percocet PRN for pain control. Continue PT/ OT For CAD, cozaar, toprol xl, imdur, cholestipol, Lipitor For COPD, duoneb, budesonide For DM, metformin, hold glipizide Hold protonix For EDD, Bipap HS For ulcerative colitis, maintained on balsalazide Discharge plan: [facility] Dr Sams <Mitchel Sams S - Last Filed: 06/10/18 22:18> Objective - Vital Signs/Intake and Output Vital Signs (last 24 hours): Temp Pulse Resp BP Pulse Ox 98.1 F 100 H 18 144/65 100 06/10/18 16:29 06/10/18 16:29 06/10/18 16:29 06/10/18 17:45 06/10/18 13:35 Intake and Output: 06/10/18 06/11/18 18:59 06:59 Intake Total 360 480 Output Total 225 Balance 360 255 - Medications Medications: Current Medications Acetaminophen (Tylenol 325mg Tab) 650 mg PO Q4 PRN PRN Reason: Pain, Mild (1-3) Last Admin: 06/10/18 20:16 Dose: 650 mg Albuterol Sulfate (Albuterol 0.083% Inhal Mia (2.5 Mg/3 Ml) Ud) 2.5 mg INH TIDRESP [facility] Last Admin: 06/10/18 20:07 Dose: 2.5 mg Atorvastatin Calcium (Lipitor) 20 mg PO HS [facility] Last Admin: 06/10/18 21:44 Dose: 20 mg Balsalazide (Colazal) 1,500 mg PO TID MARIELENA Last Admin: 06/10/18 17:45 Dose: 1,500 mg Budesonide (Pulmicort Respules) 0.5 mg IH [id number] [facility] Last Admin: 06/10/18 20:07 Dose: 0.5 mg Enoxaparin Sodium (Lovenox) 30 mg SC Q24H [facility] PRN Reason: Protocol Last Admin: 06/09/18 13:55 Dose: 30 mg Glipizide (Glucotrol) 5 mg PO ACB [facility] Last Admin: 06/08/18 17:55 Dose: Not Given Isosorbide Mononitrate (Imdur) 60 mg PO DAILY [facility] Last Admin: 06/10/18 10:59 Dose: Not Given Losartan Potassium (Cozaar) 100 mg PO DAILY [facility] Last Admin: 06/10/18 10:59 Dose: Not Given Metformin HCl (Glucophage) 1,000 mg PO BID [facility] Last Admin: 06/10/18 17:45 Dose: 1,000 mg Metoprolol Succinate (Toprol Xl) 50 mg PO BID [facility] Last Admin: 06/10/18 17:45 Dose: 50 mg Non-Formulary Medication (Colestipol Hydrochloride [Colestipol]) 2 cap PO BID [facility] Last Admin: 06/10/18 17:46 Dose: 2 cap Ondansetron HCl (Zofran Inj) 4 mg IVP Q4H PRN PRN Reason: Nausea/Vomiting Last Admin: 06/08/18 07:37 Dose: 4 mg Pantoprazole Sodium (Protonix Ec Tab) 40 mg PO ACB [facility] - Labs Labs: 06/10/18 08:47 06/10/18 06:45 PT 10.8 SECONDS (9.4-12.5) 06/07/18 16:30 INR 0.95 06/07/18 16:30 APTT 27.0 Seconds (25.1-36.5) 06/07/18 16:30 Assessment and Plan - Assessment and Plan (Free Text) Plan: Pt seen and examined. I have reviewed the note of the ophthalmic medical technologist and agree with it. I have discussed the assessment and plan with the resident. I have reviewed the patient's labs and medications. Pt s/p intertrochanteric fx. Pt with anemia due to blood loss. Pt will need LAYO. No SOB. DM- controlled.
[2018-06-10 09:51] LABS: HEMOGLOBIN 7.5 g/dL (12.0-16.0); MEAN CELL VOLUME 85.4 fl (80.0-105.0); MEAN CORPUSCULAR HGB CONC 32.8 g/dl (31.0-37.0); MEAN PLATELET VOLUME 9.7 fl (7.0-11.0); RBC 2.68 10^6/uL (3.5-6.1); RED CELL DISTRIBUTION WIDTH 18.7 % (11.5-14.5); WHITE BLOOD COUNT 8.8 10^3/ul (4.5-11.0)
--- NOTE | 2018-06-10 10:11 | PN ---
Copied To: Luis Carlos Ansari MD Attending MD: Luis Carlos Ansari MD DATE: 06/10/2018 PULMONARY NOTE SUBJECTIVE: The patient appears comfortable this morning. She is not short of breath at rest. PHYSICAL EXAMINATION: VITAL SIGNS: (Last noted in the computer): Temperature is 98.9, pulse 89, respirations 18/20, blood pressure 135/59. Oxygen saturation on nasal cannula is 94%. HEENT: Normocephalic, atraumatic. No JVD. CARDIOVASCULAR: Systolic ejection murmur at the lower left sternal border. No S3 gallop. LUNGS: Minimal crackles at both bases. No rhonchi. No wheezing. EXTREMITIES: Mild edema. No cyanosis. No clubbing. Calves are nontender to palpation. The patient is status post right hip surgery. GI: Abdomen is soft, nontender and nondistended. Bowel sounds are positive. SKIN: No acute rash. NEUROLOGIC: Limited at the present time. IMPRESSION: 1. Right hip fracture, status post fall. 2. Advanced chronic obstructive pulmonary disease, on home oxygen. 3. Pulmonary fibrosis. 4. Extensive coronary artery disease. 5. Anemia. PLAN: The patient appears comfortable this morning. She is not short of breath at rest. She does state to feeling better overall. On physical exam, there is no significant bronchospasm noted. In addition, there is no significant alveolar-arterial gradient. I will continue with the current nebulizer treatments and inhaled steroids for now. Inputs by Cardiology and Orthopedics are also noted. Repeat a.m. labs are pending. Clinical status of the patient is certainly improved - compared to her initial presentation. I will discuss the above with Dr. Sams. Luis Carlos Ansari MD MTDElbert
--- NOTE | 2018-06-10 10:21 | PN ---
Copied To: Maximiliano Ken MD Attending MD: Maximiliano Ken MD DATE: 06/10/2018 SUBJECTIVE: The patient is seen lying in bed on 5R. She has some hip pain, but otherwise feels well. She denies any chest pain or dyspnea. MEDICATIONS: Her current medications include albuterol inhaler, Colazal, Colestipol, Cozaar, metformin, glipizide, Imdur, Lipitor, Lovenox, Percocet, Protonix, Pulmicort inhaler, Toprol XL. OBJECTIVE: GENERAL: She is a overweight elderly woman. VITAL SIGNS: Blood pressure is 136/60 with a pulse of 88, respirations are 16. She is afebrile. HEENT: No JVD. CHEST: Few scattered rhonchi heard. Bibasilar crackles noted. HEART: PMI displaced laterally with systolic murmur at left sternal border. ABDOMEN: Soft, nontender with bowel sounds. EXTREMITIES: No edema. DIAGNOSTIC DATA: Potassium is 4.9, BUN and creatinine 33 and 1.3, glucose 158, hemoglobin and hematocrit 7.7 and 23.4 with a white count of 9, platelet count 158,000. IMPRESSION: 1. The recent mechanical fall with resultant right hip fracture status post surgical repair, stable at present. 2. Coronary disease status post remote myocardial infraction, percutaneous coronary intervention, clinically stable. 3. Severe pulmonary fibrosis. 4. History of diabetes. 5. Postoperative anemia, somewhat worsened. RECOMMENDATIONS: Her current cardiac medications will continue for now. She may benefit from blood transfusion given degree of anemia. Currently noted from a cardiac standpoint that she appears stable for transfer to a rehabilitation center once medically cleared. We will be happy to follow along as needed and arrange for continued outpatient followup upon discharge. Maximiliano Ken MD
[2018-06-10] MEDS: Metoprolol Succinate 50 mg XL Tab PO SCH ×2 (10:59→17:45)
--- NOTE | 2018-06-10 11:33 | PN ---
Copied To: Jose David Martinez DO Attending MD: Jose David Martinez DO DATE: 06/10/2018 POSTOPERATIVE REPORT A 77-year-old female in room 577, bed 2. She is presently 2 days postop from her right intertroch fracture with a peritroch olu. Her hemoglobin today is 7.7 and 23 g. I am sure the medical doctors will evaluate her to see if she can get some blood, but she did get up yesterday, looked fine. The hip is not contributing to too much pains, it is her back that hurts the most and change of dressing underneath the silver impregnated dressing, the wound is dry and new dressing applied. When she is stable medically, she can go to [facility] for subacute rehab. Ambulate with a walker. Weightbearing to tolerance and to avoid stairs until the fracture is healed in two months. Jose David Martinez DO MTDElebrt
[2018-06-10] MEDS: [UNRECOGNIZED DRUG - OTHER] PO SCH ×2 (16:03→17:46)
[2018-06-11] MEDS ORDERED: Oxycodone/Acetaminophen 5/325 mg Tab PO STA (01:45)
[2018-06-11 07:05] LABS: HEMOGLOBIN 8.9 g/dL (12.0-16.0); MEAN CELL VOLUME 85.3 fl (80.0-105.0); MEAN CORPUSCULAR HEMOGLOBIN 27.9 pg (25.0-35.0); MEAN CORPUSCULAR HGB CONC 32.7 g/dl (31.0-37.0); MEAN PLATELET VOLUME 10.1 fl (7.0-11.0); RBC 3.19 10^6/uL (3.5-6.1); RED CELL DISTRIBUTION WIDTH 17.8 % (11.5-14.5); WHITE BLOOD COUNT 6.6 10^3/ul (4.5-11.0)
[2018-06-11 07:23] VITALS: RESP 20
--- NOTE | 2018-06-11 08:04 | PN ---
Copied To: Luis Carlos Ansari MD Attending MD: Luis Carlos Ansari MD DATE: 06/11/2018 PULMONARY NOTE SUBJECTIVE: The patient appears comfortable this morning. She is not short of breath at rest. PHYSICAL EXAMINATION: VITAL SIGNS: Temperature is 98, pulse 101, respirations 18/20, blood pressure 166/81. Oxygen saturation on nasal cannula is 96%. HEENT: Normocephalic, atraumatic. No JVD. CARDIOVASCULAR: Systolic ejection murmur at the lower left sternal border. No S3 gallop. LUNGS: Minimal crackles at both bases. No rhonchi. No wheezing. EXTREMITIES: Mild edema. No cyanosis. No clubbing. Calves are nontender to palpation. The patient is status post right hip surgery. GI: Abdomen is soft, nontender and nondistended. Bowel sounds are positive. SKIN: No acute rash. NEUROLOGIC: Limited at the present time. IMPRESSION: 1. Right hip fracture, status post fall. 2. Advanced chronic obstructive pulmonary disease, on home oxygen. 3. Pulmonary fibrosis. 4. Extensive coronary artery disease. 5. Anemia. PLAN: The patient appears comfortable this morning. She is not short of breath at rest. She does state to feeling better overall. On physical exam, no significant bronchospasm is noted. In addition, the alveolar-arterial gradient is less. I will continue with the current nebulizer treatments and inhaled steroids for now. Inputs by Cardiology and Orthopedics are noted. Repeat a.m. labs are pending. Clinical status of the patient is certainly improved - compared to her initial status. I will discuss the above with Dr. Sams. Luis Carlos Ansari MD MTDElbert
[2018-06-11] MEDS: Budesonide 0.5 mg/2 ml Inhal Susp UD IH SCH (08:42)
[2018-06-11] MEDS: Albuterol 0.083% Inhal Sol (2.5 mg/3 mL) UD INH SCH (08:42)
[2018-06-11] MEDS: Amoxicillin-Clav 500-125 mg Tab PO SCH ×2 (09:56→13:17)
[2018-06-11] MEDS: Metoprolol Succinate 50 mg XL Tab PO SCH (09:56)
[2018-06-11] MEDS: [UNRECOGNIZED DRUG - OTHER] PO SCH (09:57)
[2018-06-11] MEDS ORDERED: Oxycodone/Acetaminophen 5/325 mg Tab PO PRN (10:19)
--- NOTE | 2018-06-11 11:12 | CP.PCM.DIS ---
<Sarah Hernandez - Last Filed: 06/11/18 15:30> Provider - Provider Date of Admission: 06/07/18 17:27 Attending physician: Mitchel Sams MD Time Spent in preparation of Discharge (in minutes): 30 Diagnosis - Discharge Diagnosis (1) UTI (urinary tract infection) Status: Acute (2) Acute anemia Status: Acute (3) Intertrochanteric fracture of right hip Status: Acute (4) Pulmonary fibrosis, unspecified Status: Acute Hospital Course - Lab Results Lab Results: Micro Results 06/08/18 14:41 Naris MRSA Culture (Admit) - Final MRSA NOT DETECTED Most Recent Lab Values WBC 6.6 10^3/ul (4.5-11.0) D 06/11/18 06:30 RBC 3.19 10^6/uL (3.5-6.1) L 06/11/18 06:30 Hgb 8.9 g/dL (12.0-16.0) L 06/11/18 06:30 Hct 27.2 % (36.0-48.0) L 06/11/18 06:30 MCV 85.3 fl (80.0-105.0) 06/11/18 06:30 MCH 27.9 pg (25.0-35.0) 06/11/18 06:30 MCHC 32.7 g/dl (31.0-37.0) 06/11/18 06:30 RDW 17.8 % (11.5-14.5) H 06/11/18 06:30 Plt Count 117 10^3/uL (120.0-450.0) L 06/11/18 06:30 MPV 10.1 fl (7.0-11.0) 06/11/18 06:30 Gran % 65.6 % (50.0-68.0) 06/09/18 06:10 Lymph % (Auto) 15.5 % (22.0-35.0) L 06/09/18 06:10 Gray % (Auto) 8.5 % (1.0-6.0) H 06/09/18 06:10 Eos % (Auto) 9.7 % (1.5-5.0) H 06/09/18 06:10 Baso % (Auto) 0.7 % (0.0-3.0) 06/09/18 06:10 Gran # 5.30 (1.4-6.5) 06/09/18 06:10 Lymph # (Auto) 1.3 (1.2-3.4) 06/09/18 06:10 Gray # (Auto) 0.7 (0.1-0.6) H 06/09/18 06:10 Eos # (Auto) 0.8 (0.0-0.7) H 06/09/18 06:10 Baso # (Auto) 0.06 K/mm3 (0.0-2.0) 06/09/18 06:10 Neutrophils % (Manual) 93 % (50.0-70.0) H 06/08/18 14:26 Lymphocytes % (Manual) 4 % (22.0-35.0) L 06/08/18 14:26 Monocytes % (Manual) 2 % (1.0-6.0) 06/08/18 14:26 Basophils % (Manual) 1 % (0.0-1.0) 06/08/18 14:26 Platelet Evaluation Normal (NORMAL) 06/08/18 14:26 PT 10.8 SECONDS (9.4-12.5) 06/07/18 16:30 INR 0.95 06/07/18 16:30 APTT 27.0 Seconds (25.1-36.5) 06/07/18 16:30 Sodium 133 mmol/L (132-148) 06/10/18 06:45 Potassium 4.9 mmol/L (3.6-5.0) 06/10/18 06:45 Chloride 98 mmol/L (98-107) 06/10/18 06:45 Carbon Dioxide 24 mmol/L (21-33) 06/10/18 06:45 Anion Gap 16 (10-20) 06/10/18 06:45 BUN 33 mg/dL (7-21) H 06/10/18 06:45 Creatinine 1.3 mg/dl (0.7-1.2) H 06/10/18 06:45 Est GFR ( Amer) 48 06/10/18 06:45 Est GFR (Non-Af Amer) 40 06/10/18 06:45 POC Glucose (mg/dL) 187 mg/dL (65-110) H 06/11/18 06:32 Random Glucose 158 mg/dL (70-110) H 06/10/18 06:45 Calcium 8.1 mg/dL (8.4-10.5) L 06/10/18 06:45 Magnesium 1.6 mg/dL (1.7-2.2) L 06/07/18 16:30 Total Bilirubin 0.9 mg/dL (0.2-1.3) 06/10/18 06:45 AST 89 U/L (14-36) H D 06/10/18 06:45 ALT 43 U/L (7-56) 06/10/18 06:45 Alkaline Phosphatase 38 U/L (38-126) 06/10/18 06:45 Lactate Dehydrogenase 633 U/L (333-699) 06/07/18 16:30 Total Creatine Kinase 124 U/L (35-230) 06/07/18 16:30 Troponin I < 0.01 ng/mL D 06/07/18 16:30 Total Protein 6.5 g/dL (5.8-8.3) 06/10/18 06:45 Albumin 3.6 g/dL (3.0-4.8) 06/10/18 06:45 Globulin 2.9 gm/dL 06/10/18 06:45 Albumin/Globulin Ratio 1.2 (1.1-1.8) 06/10/18 06:45 Urine Color Yellow (YELLOW) 06/07/18 16:47 Urine Appearance Sl cloudy (CLEAR) 06/07/18 16:47 Urine pH 6.5 (4.7-8.0) 06/07/18 16:47 Ur Specific [place] 1.020 (1.005-1.035) 06/07/18 16:47 Urine Protein 30 mg/dL (<30 mg/dL) H 06/07/18 16:47 Urine Glucose (UA) Negative mg/dL (NEGATIVE) 06/07/18 16:47 Urine Ketones Negative mg/dL (NEGATIVE) 06/07/18 16:47 Urine Blood Negative (NEGATIVE) 06/07/18 16:47 Urine Nitrate Positive (NEGATIVE) H 06/07/18 16:47 Urine Bilirubin Negative (NEGATIVE) 06/07/18 16:47 Urine Urobilinogen 0.2 E.U./dL (<1 E.U./dL) 06/07/18 16:47 Ur Leukocyte Esterase Small Andrew/uL (NEGATIVE) H 06/07/18 16:47 Urine RBC Negative /hpf (0-2) 06/07/18 16:47 Urine WBC 25 - 30 /hpf (0-6) 06/07/18 16:47 Ur Epithelial Cells 6 - 8 /hpf (0-5) 06/07/18 16:47 Urine Bacteria Many (NEG) 06/07/18 16:47 Blood Type A POSITIVE 06/08/18 08:10 Antibody Screen Negative 06/08/18 08:10 Crossmatch See Detail 06/08/18 08:10 BBK History Checked Patient has bt 06/08/18 08:10 - Hospital Course Hospital Course: Ms Krueger, 77 F, former smoker, with PMH CAD s/p stents, HTN, DM2, COPD/ pulmonary fibrosis/on Home O2, admitted to ED s/p mechanical fall and had a right sided leg pain. She was found to have R displaced intertrochanteric fracture. She underwent surgery ORIF on 06/08. After surgery, she requirs percocet for pain control and She required a cane to ambulate. She developed Acute anemia day 2 post-op. Hb dropped from 11.2 to 7.7, asymptomatic, likely blood loss from surgery, no hematoma. She was transfused 1u prbc. Therapeutic lovenox was temporarily held. On discharge, clinically pt is stable. her VS stable. Hb stable at 8.9. Lovenox was resumed. Urine culture grew e coli and she was precribed augmentin Discharge Exam - Head Exam Head Exam: ATRAUMATIC, NORMAL INSPECTION, NORMOCEPHALIC - Eye Exam Eye Exam: EOMI, Normal appearance, PERRL Pupil Exam: NORMAL ACCOMODATION - ENT Exam ENT Exam: Mucous Membranes Moist - Neck Exam Additional comments: supple - Respiratory Exam Respiratory Exam: Decreased Breath Sounds (bl lung bases), NORMAL BREATHING PATTERN. absent: Rales, Rhonchi, Wheezes - Cardiovascular Exam Cardiovascular Exam: REGULAR RHYTHM, +S1, +S2 - GI/Abdominal Exam GI & Abdominal Exam: Soft. absent: Distended, Rigid, Tenderness - Extremities Exam Extremities exam: normal capillary refill, pedal edema (slight b/l. Dressing on R hip d/c/i), pedal pulses present - Back Exam Back exam: absent: CVA tenderness (L), CVA tenderness (R) - Neurological Exam Neurological exam: Alert, Oriented x3 - Psychiatric Exam Psychiatric exam: Normal Affect, Normal Mood - Skin Skin Exam: Dry, Normal Color Discharge Plan - Follow Up Plan Condition: GOOD Disposition: TRANSF TO SNF Instructions: Heart Healthy Diet, Hip Fracture (DC), Why Vaccines Are Important for Everyone Additional Instructions: Patient discharged to [facility] Follow up with Dr Magaña in 2-4 weeks Referrals: Maximiliano Jacobs [Family Provider] - 2 Week Jose David Martinez DO [Staff Provider] - 2 Week <Mitchel Sams - Last Filed: 06/11/18 22:03> Provider - Provider Date of Admission: 06/07/18 17:27 Attending physician: Mitchel Sams MD Hospital Course - Lab Results Lab Results: Micro Results 06/08/18 14:41 Naris MRSA Culture (Admit) - Final MRSA NOT DETECTED Most Recent Lab Values WBC 6.6 10^3/ul (4.5-11.0) D 06/11/18 06:30 RBC 3.19 10^6/uL (3.5-6.1) L 06/11/18 06:30 Hgb 8.9 g/dL (12.0-16.0) L 06/11/18 06:30 Hct 27.2 % (36.0-48.0) L 06/11/18 06:30 MCV 85.3 fl (80.0-105.0) 06/11/18 06:30 MCH 27.9 pg (25.0-35.0) 06/11/18 06:30 MCHC 32.7 g/dl (31.0-37.0) 06/11/18 06:30 RDW 17.8 % (11.5-14.5) H 06/11/18 06:30 Plt Count 117 10^3/uL (120.0-450.0) L 06/11/18 06:30 MPV 10.1 fl (7.0-11.0) 06/11/18 06:30 Gran % 65.6 % (50.0-68.0) 06/09/18 06:10 Lymph % (Auto) 15.5 % (22.0-35.0) L 06/09/18 06:10 Gray % (Auto) 8.5 % (1.0-6.0) H 06/09/18 06:10 Eos % (Auto) 9.7 % (1.5-5.0) H 06/09/18 06:10 Baso % (Auto) 0.7 % (0.0-3.0) 06/09/18 06:10 Gran # 5.30 (1.4-6.5) 06/09/18 06:10 Lymph # (Auto) 1.3 (1.2-3.4) 06/09/18 06:10 Gray # (Auto) 0.7 (0.1-0.6) H 06/09/18 06:10 Eos # (Auto) 0.8 (0.0-0.7) H 06/09/18 06:10 Baso # (Auto) 0.06 K/mm3 (0.0-2.0) 06/09/18 06:10 Neutrophils % (Manual) 93 % (50.0-70.0) H 06/08/18 14:26 Lymphocytes % (Manual) 4 % (22.0-35.0) L 06/08/18 14:26 Monocytes % (Manual) 2 % (1.0-6.0) 06/08/18 14:26 Basophils % (Manual) 1 % (0.0-1.0) 06/08/18 14:26 Platelet Evaluation Normal (NORMAL) 06/08/18 14:26 PT 10.8 SECONDS (9.4-12.5) 06/07/18 16:30 INR 0.95 06/07/18 16:30 APTT 27.0 Seconds (25.1-36.5) 06/07/18 16:30 Sodium 133 mmol/L (132-148) 06/10/18 06:45 Potassium 4.9 mmol/L (3.6-5.0) 06/10/18 06:45 Chloride 98 mmol/L (98-107) 06/10/18 06:45 Carbon Dioxide 24 mmol/L (21-33) 06/10/18 06:45 Anion Gap 16 (10-20) 06/10/18 06:45 BUN 33 mg/dL (7-21) H 06/10/18 06:45 Creatinine 1.3 mg/dl (0.7-1.2) H 06/10/18 06:45 Est GFR ( Amer) 48 06/10/18 06:45 Est GFR (Non-Af Amer) 40 06/10/18 06:45 POC Glucose (mg/dL) 237 mg/dL (65-110) H 06/11/18 11:02 Random Glucose 158 mg/dL (70-110) H 06/10/18 06:45 Calcium 8.1 mg/dL (8.4-10.5) L 06/10/18 06:45 Magnesium 1.6 mg/dL (1.7-2.2) L 06/07/18 16:30 Total Bilirubin 0.9 mg/dL (0.2-1.3) 06/10/18 06:45 AST 89 U/L (14-36) H D 06/10/18 06:45 ALT 43 U/L (7-56) 06/10/18 06:45 Alkaline Phosphatase 38 U/L (38-126) 06/10/18 06:45 Lactate Dehydrogenase 633 U/L (333-699) 06/07/18 16:30 Total Creatine Kinase 124 U/L (35-230) 06/07/18 16:30 Troponin I < 0.01 ng/mL D 06/07/18 16:30 Total Protein 6.5 g/dL (5.8-8.3) 06/10/18 06:45 Albumin 3.6 g/dL (3.0-4.8) 06/10/18 06:45 Globulin 2.9 gm/dL 06/10/18 06:45 Albumin/Globulin Ratio 1.2 (1.1-1.8) 06/10/18 06:45 Urine Color Yellow (YELLOW) 06/07/18 16:47 Urine Appearance Sl cloudy (CLEAR) 06/07/18 16:47 Urine pH 6.5 (4.7-8.0) 06/07/18 16:47 Ur Specific [place] 1.020 (1.005-1.035) 06/07/18 16:47 Urine Protein 30 mg/dL (<30 mg/dL) H 06/07/18 16:47 Urine Glucose (UA) Negative mg/dL (NEGATIVE) 06/07/18 16:47 Urine Ketones Negative mg/dL (NEGATIVE) 06/07/18 16:47 Urine Blood Negative (NEGATIVE) 06/07/18 16:47 Urine Nitrate Positive (NEGATIVE) H 06/07/18 16:47 Urine Bilirubin Negative (NEGATIVE) 06/07/18 16:47 Urine Urobilinogen 0.2 E.U./dL (<1 E.U./dL) 06/07/18 16:47 Ur Leukocyte Esterase Small Andrew/uL (NEGATIVE) H 06/07/18 16:47 Urine RBC Negative /hpf (0-2) 06/07/18 16:47 Urine WBC 25 - 30 /hpf (0-6) 06/07/18 16:47 Ur Epithelial Cells 6 - 8 /hpf (0-5) 06/07/18 16:47 Urine Bacteria Many (NEG) 06/07/18 16:47 Blood Type A POSITIVE 06/08/18 08:10 Antibody Screen Negative 06/08/18 08:10 Crossmatch See Detail 06/08/18 08:10 BBK History Checked Patient has bt 06/08/18 08:10 - Hospital Course Hospital Course: Pt seen and examined. I have reviewed the note of the director biomedical engineering and agree with it. I have discussed the assessment and plan with the resident. I have reviewed the patient's labs and medications. Pt with R hip fx with ORIF. She was given PRBC transfusion yesterday. She is going to be d/c to [facility].
[2018-06-11] MEDS: Enoxaparin 30 mg Syringe SC SCH (12:33)
--- NOTE | 2018-06-11 12:49 | PN ---
Copied To: Maximiliano Ken MD Attending MD: Maximiliano Ken MD DATE: 06/11/2018 SUBJECTIVE: The patient is seen lying in bed on 5R. She feels somewhat weak and comfortable. She received blood transfusion yesterday. Repeat hemoglobin is 8.9 this morning. Her current medications include albuterol inhaler, Colazal, colestipol, Cozaar, Glucophage, Glucotrol, Imdur, Lipitor, Lovenox, Protonix, Pulmicort inhaler, Toprol-XL. OBJECTIVE: GENERAL: She is an overweight elderly woman. VITAL SIGNS: Blood pressure is 166/80 with a pulse of 100, respirations are 14. She is afebrile. HEENT: No JVD. CHEST: Bibasilar crackles. HEART: PMI displaced laterally with systolic murmur, left sternal border. ABDOMEN: Soft, obese, nontender. Normoactive bowel sounds. EXTREMITIES: No edema. DIAGNOSTIC DATA: White count 6.6, hematocrit 8.9 and 27.2 with platelet count of 117,000. IMPRESSION: 1. Status post recent fall with hip fracture, successfully repaired surgically, postoperative day 3. 2. Postoperative anemia, improved after transfusion. 3. Thrombocytopenia. We need to repeat evaluation. If it drops further, evaluation for heparin-induced thrombocytopenia should be considered. 4. Coronary artery disease, status post remote myocardial infarction and percutaneous coronary intervention, clinically stable at present. 5. History of hypertension and diabetes. RECOMMENDATIONS: Her current cardiac medications should be continued. Ambulation and physical therapy should be proceeded. Followup CBC has been ordered. Eventual transfer to rehabilitation facility would be appropriate. We will continue to follow and make further recommendations as needed. Maximiliano Ken MD
[2018-06-11 14:37] VITALS: BP 135/60; PULSE 103; TEMP 98.8; O2SAT 92
[2018-06-12] MEDS ORDERED: Metoprolol Succinate 50 mg XL Tab PO SCH (10:00)
== END 2018-06-11 14:38 | DRG 481 ==
LOC: ED 16:06 → ERH 17:27 → 5RSO 18:55 → CCU 06-08 13:43 → 5RSO 06-09 11:29 → UNDODISIN 06-11 14:28
PROVIDERS: ADMIT Internal Medicine Nephrology; ATTEND Internal Medicine Nephrology
PROC: 0QS606Z Reposition Right Upper Femur with Intramedullary Internal Fixation Device, Open Approach (ICD-10-PCS; principal; 2018-06-08 09:00)
PROC: 3E0F7GC Introduction of Other Therapeutic Substance into Respiratory Tract, Via Natural or Artificial Opening (ICD-10-PCS; 2018-06-09)
PROC: 30233N1 Transfusion of Nonautologous Red Blood Cells into Peripheral Vein, Percutaneous Approach (ICD-10-PCS; 2018-06-10)
DX: S72.141A Displaced intertrochanteric fracture of right femur, initial encounter for closed fracture (principal); N39.0 Urinary tract infection, site not specified; D62 Acute posthemorrhagic anemia; K51.90 Ulcerative colitis, unspecified, without complications; I25.10 Atherosclerotic heart disease of native coronary artery without angina pectoris; I10 Essential (primary) hypertension; E78.5 Hyperlipidemia, unspecified; E11.9 Type 2 diabetes mellitus without complications; J44.9 Chronic obstructive pulmonary disease, unspecified; J84.10 Pulmonary fibrosis, unspecified; Z99.81 Dependence on supplemental oxygen; B96.20 Unspecified Escherichia coli [E. coli] as the cause of diseases classified elsewhere; I27.20 Pulmonary hypertension, unspecified; K75.81 Nonalcoholic steatohepatitis (NASH); G47.33 Obstructive sleep apnea (adult) (pediatric); N28.1 Cyst of kidney, acquired; R16.1 Splenomegaly, not elsewhere classified; W18.39XA Other fall on same level, initial encounter; K74.60 Unspecified cirrhosis of liver; I25.2 Old myocardial infarction; D69.6 Thrombocytopenia, unspecified; Z95.5 Presence of coronary angioplasty implant and graft; Y93.E9 Activity, other interior property and clothing maintenance; Y92.000 Kitchen of unspecified non-institutional (private) residence as the place of occurrence of the external cause; Z96.653 Presence of artificial knee joint, bilateral; Z87.891 Personal history of nicotine dependence

== ENCOUNTER 2018-06-15 12:04 | Inpatient (IN) | payer MEDICARE, OTHER ==
--- NOTE | 2018-06-15 12:25 | ED PDOC ---
Arrival/HPI - General Chief Complaint: Altered Mental Status Time Seen by Provider: 06/15/18 12:06 Historian: Patient, Family, EMS - Critical Care Critical Care Minutes: 45 minutes Critical Care Time: Other - History of Present Illness Narrative History of Present Illness (Text): 06/15/18 12:20 77 y/o w/ h/o HTN, COPD, DM, & anemia, who presents to the emergency department via EMS complaining of shortness of breath since prior to arrival. Family reports patient had fluctuating periods of confusion today with complaint of mouth dryness. Patient was noted to be tachycardic and tacypneic to house staff. Of note, she recently had right hip surgery last week that required one unit of blood. Patient was able to answer questions when asked. Per family, she had a recent diagnosis of heart failure, but denies use of diuretics or being on Lovenox. Patient denies chest pain, fever, n/v/d, dysuria, abdominal pain, dizziness, or other complaints. She reports being on supplemental O2 around the clock while at the rehabilitation facility([facility]) and using BiPap at night. PCP: Dr. Jacobs Regional Controller: Dr. Montoya Time/Duration: Prior to Arrival Symptom Onset: Sudden Symptom Course: Unchanged Severity Level: Moderate Activities at Onset: Rest Context: Home Associated Symptoms (Text): Myalgias, mouth dryness Past Medical History - Provider Review Nursing Documentation Reviewed: Yes - Infectious Disease Hx of Infectious Diseases: None - Cardiac Hx Cardiac Disorders: Yes Hx Hypertension: Yes - Pulmonary Hx Chronic Obstructive Pulmonary Disease (COPD): Yes - Neurological Hx Neurological Disorder: Yes - HEENT Hx HEENT Disorder: Yes Hx Cataracts: Yes Hx Glaucoma: Yes - Renal Hx Renal Disorder: No - Endocrine/Metabolic Hx Diabetes Mellitus Type 2: Yes - Hematological/Oncological Hx Blood Disorders: Yes Hx Anemia: Yes - Integumentary Hx Dermatological Disorder: No - Musculoskeletal/Rheumatological Hx Arthritis: Yes - Gastrointestinal Hx Gastrointestinal Disorders: Yes (APPENDECTOMY,COLITIS) Hx Crohn's Disease: Yes - Genitourinary/Gynecological Hx Genitourinary Disorders: Yes (incontinent) Hx Incontinence: Yes - Psychiatric Hx Emotional Abuse: No Hx Physical Abuse: No Hx Substance Use: No - Surgical History Hx Appendectomy: Yes Other/Comment: Right Hip Surgery - Anesthesia Hx Anesthesia Reactions: No Hx Malignant Hyperthermia: No - Suicidal Assessment Feels Threatened In Home Enviroment: No Family/Social History - Physician Review Nursing Documentation Reviewed: Yes Family/Social History: Unknown Family HX Smoking Status: Former Smoker Hx Alcohol Use: No Hx Substance Use: No Allergies/Home Meds Allergies/Adverse Reactions: Allergies No Known Allergies Allergy (Verified 06/15/18 12:14) Home Medications: Home Meds Medication Instructions Recorded Confirmed Balsalazide Disodium 1,500 mg PO TID 05/20/13 06/15/18 Metformin HCl 1,000 mg PO BID 05/20/13 06/15/18 Losartan Potassium 100 mg PO DAILY 06/07/18 06/15/18 oxyCODONE/Acetaminophen [Percocet 5 - 325 tab PO Q8H PRN 06/15/18 06/15/18 5/325 mg Tab] Review of Systems - Review of Systems Constitutional: absent: Fevers ENT: absent: Sinus Congestion Respiratory: SOB. absent: Cough Cardiovascular: absent: Chest Pain Gastrointestinal: absent: Abdominal Pain Genitourinary Female: absent: Dysuria Musculoskeletal: absent: Back Pain Skin: absent: Rash Neurological: Other (periods of confusion ). absent: Headache, Dizziness Endocrine: absent: Diaphoresis Hemo/Lymphatic: Easy Bruising Physical Exam Vital Signs Reviewed: Yes Vital Signs Temp Pulse Resp BP Pulse Ox 06/15/18 15:42 140/60 06/15/18 15:00 99.7 F H 127 H 18 140/60 96 06/15/18 12:22 98.8 F 118 H 17 137/93 H 99 Temperature: Afebrile Blood Pressure: Hypertensive Pulse: Tachycardic Respiratory Rate: Normal Appearance: Positive for: Well-Appearing, Non-Toxic, Uncomfortable Pain Distress: None Mental Status: Positive for: Alert and Oriented X 3 - Systems Exam Head: Present: Atraumatic, Normocephalic Pupils: Present: PERRL Extroacular Muscles: Present: EOMI Conjunctiva: Present: Normal Mouth: Present: Dry Respiratory/Chest: Present: Clear to Auscultation, Good Air Exchange, Tachypneic. No: Respiratory Distress, Accessory Muscle Use, Wheezes, Rales, Retracting, Rhonchi Cardiovascular: Present: Peripheal Pulses Present, Tachycardic. No: Regular Rate and Rhythm, Murmurs Abdomen: Present: Normal Bowel Sounds. No: Tenderness, Distention, Peritoneal Signs, Rebound, Guarding Lower Extremity: Present: Normal ROM, Tenderness (slight tenderness to palpation on right thigh), Neurovascularly Intact, Other (surgical dressing noted on right hip with ecchymosis tracking down thigh ). No: Cyanosis, Deformity Neurological: Present: GCS=15, CN II-XII Intact, Speech Normal, Normal Sensory Function, Memory Normal Skin: Present: Warm, Dry, Normal Color, Other (ecchymoses noted on R hip extending down to lateral R thigh). No: Rashes Psychiatric: Present: Alert, Oriented x 3, Normal Insight, Normal Concentration Medical Decision Making ED Course and Treatment: 06/15/18 12:24 Impression: 77 year old female with tachycardia and tachypneic rate, who had recent surgery on right hip that is slightly tender to palpation complaining of shortness of breath and intermittent period of confusion. Upon immediate evaluation, patient is not noted to have respiratory distress, appears non-toxic, and did not require immediate intervention. Given the patient's recent history of surgery and prolonged immobility, the patient is at moderate risk of PE(Well's Score of 3.0). She meets SIRS criteria , however, patient does not have clinical signs of sepsis and is more likely to have an underlying cardiopulmonary phenomena. Patient's EKG does not show ST elevations/ reciprocal changes & patient denies chest pain at this time, ruling out STEMI, however may have demand ischemia due to cardiac insult. The patient was noted to be mentating well with adequate memory recall upon initial bedside encounter despite family reporting periods of fluctuation, however low threshhold for signs of CVA will be maintained. Differential Diagnoses Include But is not Limited to: PE CHF exacerbation PNA ACS TIA/CVA Sepsis 06/15/18 EKG: Ordered, reviewed, and independently interpreted the EKG. Rate : 119 BPM Rhythm : sinus tachycardia Interpretation : T-wave inversion in precordial. ST depression V1-V5. No ST elevations. 06/15/18 14:12 Plan: -- EKG -- Labs -- Duplex lower extremity ultrasound --CTPE --CTH --Consultation to PCP, ICU & cardiology -- Reassess and disposition Prior Visits: Notes and results from previous visits were reviewed. Progress Notes: 06/15/18 13:06 Surgical dressing removed. Surgical sutures in place, clean and dry. Analgesics ordered. VBG canceled. EKG reveals ST depression in precordial leads with T wave inversions diffusely, no S1Q3T3 visualized with RV deviation. Call placed to Dr. Rodas 06/15/18 13:19 Labs reviewed. No leukocytosis noted. BNP 2800 suspicious of HF. Lasix ordered. 06/15/18 13:[address] chest. Spoke to Dr. Bustamante(covering for Dr. Robb) and updated her on patient's condition. Will call back once troponin is resulted. 06/15/18 13:38 Troponin noted to be 0.152. Patient currently out of department at imaging studies. Will perform bedside cardiac ultrasound upon patient's return. Awaiting call back from Dr. Ratliff(Dr. Rodas covering). 06/15/18 13:55 Updated family on findings. Discussion with retread technician who states patient has R DVT(posterior tibial and peroneal) which is new from previous. Spoke to Dr. Aman Villa(PCP) and updated her on patient. CT chest ordered reveals bibasiar patchy opacities with cardiomegaly. Discussion with heavy truck technician states CTPE can be done at a later time. Heparin will be started based on clinical suspicion. 06/15/18 15:18 CODE STROKE WAS CALLED AT 15:18. NIHSS 1. Spoke to Dr. Fox(neurology) who does not think patient meets eligibility for tPA at this time. He agrees with plan of managment for heparinization. ICU team consulted. Bedside cardiac ultrasound reveals RV enlargement with no obvious RV strain. Updated family on plan of management. CXR reveals cardiomegaly and bibasilar atelectasis. 1649 Dr. Miner(box sealing machine operator) accepts patient to ICU for further monitoring. Spoke to Dr. Rodas who does not think patient requires aspirin at this time due to demand ischemia. Spoke to Dr. Hooks who accepts patient under her care. 06/15/18 15:[address]: Creator : Zev Abraham MD FINDINGS: HEMORRHAGE: No acute parenchymal, subarachnoid or extra-axial BRAIN: Moderate to fairly significant diffuse and confluent chronic periventricular white matter ischemic changes are seen extending peripherally into the deep and subcortical white matter both cerebral hemispheres. There is extension of these changes into the white matter tracts of both basal nuclei. Few more discrete scattered chronic bilateral basal nuclei lacunar type infarcts also present. No obvious parenchymal nor extra-axial mass or collection seen on this noncontrast study. Moderate generalized volume loss.Vascular calcifications both carotid siphons and vertebral arteries. VENTRICLES: No obstructive hydrocephalus. CALVARIUM: There are no acute calvarial fractures. PARANASAL SINUSES: Mild mucosal thickening seen within the left chamber sphenoid sinus. MASTOID AIR CELLS: Unremarkable as visualized. No inflammatory changes. OTHER FINDINGS :Changes of bilateral cataract surgery present. IMPRESSION: No acute intracranial hemorrhage. Moderate -significant chronic white matter ischemic changes with scattered chronic bilateral basal nuclei lacunar typeinfarcts. Moderate generalized volume loss. 06/15/18 16:00 Chest X-ray: Creator : Zev Abraham MD COMPARISON: Correlation made with concurrent CT chest. Comparison chest 2017 FINDINGS: LUNGS: Poor inspiration with low lung volumes, crowded bronchovascular markings and mild bibasilar atelectasis. Extensive interstitial fibrosis less well seen compared to high-resolution CT scan. The central pulmonary vasculature is slightly increased likely due to a semi-erect patient positioning and low lung volumes. Elevation right hemidiaphragm mild may in part be due to scalloping however eventration not excluded. . PLEURA: No significant pleural effusion identified, no pneumothorax apparent. CARDIOVASCULAR: Cardiomegaly. OSSEOUS STRUCTURES: No significant abnormalities. VISUALIZED UPPER ABDOMEN: Normal. OTHER FINDINGS: None. IMPRESSION: Poor inspiration with low lung volumes, crowded bronchovascular markings and mild bibasilar atelectasis. Extensive interstitial fibrosis less well seen compared to high-resolution CT scan. The central pulmonary vasculature is slightly increased likely due to a semi-erect patient positioning and low lung volumes. Elevation right hemidiaphragm mild may in part be due to scalloping however eventration not excluded. . 06/15/18 16:[address]: Creator : Zev Abraham MD FINDINGS: LUNGS: Fairly extensive interstitial fibrosis is present in the upper and lower lobes. There are small peripheral honeycombing changes present bilaterally. . Patchy more dense opacities are also seen in the posterior lower lung zones. MEDIASTINUM: Heart is enlarged. No significant pericardial effusion. Ascending thoracic aorta measures approximately 3.56 cm and descending thoracic aorta measures approximately 2.75 cm. Pulmonary trunk measures approximately 3.6 cm. . There are a few small nonspecific mediastinal lymph nodes. No significant hilar adenopathy. Central airways midline and patent. No large central endoluminal lesions. There is a small hiatal hernia with slight wall thickening of distal esophagus likely due to protrusion gastric mucosa. Esophagitis not excluded. PLEURA: No evidence of pleural effusion or pneumothorax. BONES: Multilevel degenerative spondylosis of the thoracic and upper lumbar spine. UPPER ABDOMEN: There is a elliptical shaped approximately 2.8 x 2.2 cm low- attenuation lesion within the splenicparenchyma of uncertain etiology. Hounsfield units register in the low 30s excluding simple cyst. This could represent hemangioma however other etiologies not excluded. Followup interval recommended to assess stability.The pancreas appears slightly atrophic and fatty replacedThe liver exhibits a very slight nodular appearance petechial along its anterior margin. Clinical correlation recommended. There is a tiny calcified granuloma in the posterior aspect right lobe liver. Small bilateral renal cysts are felt to be present. OTHER FINDINGS: Note is made of low-attenuation lesions within the right and left lobe of the thyroid gland the largest on the right exhibiting peripheral calcification. There is another calcification in the posterior aspect of the right lobe. Thyroid ultrasound follow-up is recommended. IMPRESSION: Extensive interstitial fibrosis small peripheral honeycombing changes present bilaterally . Patchy opacities present in the posterior lower lung zones. Cardiomegaly. Low-attenuation lesions seen both lobes of the thyroid gland the largest on the right exhibiting peripheral calcification. Thyroid ultrasound followup recommended. Low-attenuation lesion within the splenic parenchyma of uncertain etiology. Followup interval recommended. Bilateral renal cysts. Liver exhibits a slightly nodular contour surface on; clinical correlation recommended. Rule out cirrhosis. - Critical Care Critical Care Minutes: 60 minutes - Lab Interpretations Microbiology Results: Microbiology Results 06/15/18 13:16 Blood Blood Culture - Preliminary NO GROWTH AFTER 24 HOURS 06/15/18 13:16 Blood Blood Culture - Preliminary NO GROWTH AFTER 24 HOURS 06/15/18 13:16 Urine,Clean Catch Urine Culture - Final No Growth (<1,000 CFU/ML) Lab Results: 06/15/18 12:30 06/15/18 12:30 Lab Results 06/15/18 15:00: Blood Type A POSITIVE, Antibody Screen Negative, BBK History Checked Patient has bt 06/15/18 13:16: Urine Color Yellow, Urine Appearance Clear, Urine pH 6.0, Ur Specific [place] 1.010, Urine Protein Trace H, Urine Glucose (UA) Negative, Urine Ketones Negative, Urine Blood Trace-intact H, Urine Nitrate Negative, Urine Bilirubin Negative, Urine Urobilinogen 0.2, Ur Leukocyte Esterase Negative , Urine RBC 0 - 2, Urine WBC 0 - 2, Ur Epithelial Cells 1 - 3, Urine Bacteria Neg 06/15/18 12:30: Sodium 131 L, Potassium 4.7, Chloride 96 L, Carbon Dioxide 25, Anion Gap 14, BUN 28 H, Creatinine 1.2, Est GFR ( Amer) 53, Est GFR (Non- Af Amer) 44, Random Glucose 176 H, Calcium 8.7, Total Bilirubin 1.6 H, AST 51 H D, ALT 71 H, Alkaline Phosphatase 63, Troponin I 0.15 H* D, NT-Pro-B Natriuret Pep 2800 H, Total Protein 6.6, Albumin 3.5, Globulin 3.1, Albumin/Globulin Ratio 1.1 06/15/18 12:30: PT 11.9, INR 1.03, APTT 27.1 06/15/18 12:30: WBC 8.4 D, RBC 2.97 L, Hgb 8.5 L, Hct 26.1 L, MCV 87.9, MCH 28.6, MCHC 32.6, RDW 19.0 H, Plt Count 164, MPV 9.9, Gran % 78.6 H, Lymph % ( Auto) 8.6 L, [place] % (Auto) 8.2 H, Eos % (Auto) 4.4, Baso % (Auto) 0.2, Gran # 6.57 H, Lymph # (Auto) 0.7 L, [place] # (Auto) 0.7 H, Eos # (Auto) 0.4, Baso # ( Auto) 0.02 I have reviewed the lab results: Yes - RAD Interpretation Radiology Orders: 06/15/18 12:31 DUPLEX LOWER EXTRM VEIN BILAT [US] Stat 06/15/18 12:34 CHEST W/CONTRAST [CT] Stat 06/15/18 14:31 HEAD W/O CONTRAST [CT] Stat 06/15/18 15:23 CHEST PORTABLE [RAD] Stat Sales Agent Business Services: Radiologist - EKG Interpretation Interpreted by ED Physician: Yes Type: 12 lead EKG - Medication Orders Current Medication Orders: Aspirin (Aspirin Supp) 300 mg RC DAILY MARIELENA Last Admin: 06/16/18 10:56 Dose: 300 mg MAR Pain/Vitals Document 06/16/18 10:56 OYELO (Rec: 06/16/18 10:57 OYELO [id number]) Pain Reassessment Is This A Pain ReAssessment? No Sleep Is patient sleeping during reassessment? No Presence of Pain Presence of Pain No Re-Assess: MAR Pain/Vitals Document 06/16/18 11:56 OYELO (Rec: 06/16/18 13:06 OYELO [facility] [place]) Pain Reassessment Is This A Pain ReAssessment? No Sleep Is patient sleeping during reassessment? No Presence of Pain Presence of Pain No Atorvastatin Calcium (Lipitor) 40 mg PO DIN [facility] Last Admin: 06/15/18 18:42 Dose: Not Given Non-Admin Reason: NPO Home Med (Home Med) 1 unit OU HS MARIELENA Heparin Sodium/Sodium Chloride (Heparin 20719 Units/250ml 1/2 Normal Saline) 25 ,000 units in 250 mls @ 13.254 mls/hr IV .[id number] PRN; Protocol; 15 UNITS/KG/HR PRN Reason: ADJUST RATE PER PROTOCOL Insulin Human Regular (Humulin R Med) 0 units SC ACHS [facility] PRN Reason: Protocol Last Admin: 06/16/18 13:16 Dose: Not Given Non-Admin Reason: BP Parameters Not Met [facility] Blood Glucose Document 06/16/18 13:16 OYELO (Rec: 06/16/18 13:16 [facility] Blood Glucose Finger Stick Blood Glucose (70-120) 88 Levalbuterol HCl (Xopenex) 1.25 mg IH [id number] PRN PRN Reason: Shortness of Breath Discontinued Medications Albuterol/Ipratropium (Duoneb 3 Mg/0.5 Mg (3 Ml) Ud) 3 ml IH [id number] [facility] Last Admin: 06/16/18 07:26 Dose: 3 ml Aspirin (Aspirin Supp) 81 mg RC DAILY [facility] Furosemide (Lasix) 40 mg IVP STAT STA Stop: 06/15/18 14:22 Last Admin: 06/15/18 15:42 Dose: 40 mg [facility] Blood Pressure Document 06/15/18 15:42 EWO (Rec: 06/15/18 15:42 EWO [id number]) Blood Pressure Blood Pressure (100/60-150/90) 140/60 IVP Administration Document 06/15/18 15:42 EWO (Rec: 06/15/18 15:42 EWO [id number]) Charges for Administration # of IVP Administrations 1 Heparin Sodium (Porcine) (Heparin) 7,100 units 80 units/kg (7100 units) IV ONCE ONE PRN Reason: Protocol Stop: 06/15/18 16:16 Last Admin: 06/15/18 16:24 Dose: 7,100 units eMAR Start Stop Document 06/15/18 16:24 EWO (Rec: 06/15/18 16:25 EWO [id number]) Intravenous Solution Start Date 06/15/18 Start Time 16:23 End Date 06/15/18 End time 16:24 Total Infusion Time 1 JAN aPTT Document 06/15/18 16:24 EWO (Rec: 06/15/18 16:25 EW [id number]) aPTT aPTT (secs) 27.1 Heparin Sodium/Sodium Chloride (Heparin 95871 Units/250ml 1/2 Normal Saline) 25 ,000 units in 250 mls @ 15.905 mls/hr IV .[id number] PRN; Protocol; 18 UNITS/KG/HR PRN Reason: ADJUST RATE PER PROTOCOL Last Admin: 06/15/18 16:23 Dose: 15.905 mls/hr eMAR Start Stop Document 06/15/18 16:23 EWO (Rec: 06/15/18 16:24 EWO [id number]) Intravenous Solution Start Date 06/15/18 Start Time 16:24 JAN aPTT Document 06/15/18 16:23 EWO (Rec: 06/15/18 16:24 EWO [id number]) aPTT aPTT (secs) 27.1 Morphine Sulfate (Morphine) 4 mg IVP STAT STA Stop: 06/15/18 16:27 Last Admin: 06/15/18 16:35 Dose: 4 mg MAR Pain Assessment Document 06/15/18 16:35 EWO (Rec: 06/15/18 16:37 EWO [id number]) Pain Reassessment Is this a pain reassessment? No Sleep Is patient sleeping during reassessment? No Presence of Pain Presence of Pain Yes Pain Scale Used Pain Scale Used Numeric Location Left, Right or Bilateral Right Pain Location Body Site Hip Description Description Constant Intensity of Pain at present 7 Pain Behavior Guarding IVP Administration Document 06/15/18 16:35 EWO (Rec: 06/15/18 16:37 EWO [id number]) Charges for Administration # of IVP Administrations 1 Morphine Sulfate (Morphine) 0.5 mg IVP STAT STA Stop: 06/16/18 08:30 Last Admin: 06/16/18 08:44 Dose: 0.5 mg MAR Pain Assessment Document 06/16/18 08:44 OYELO (Rec: 06/16/18 08:45 OYELO [id number]) Pain Reassessment Is this a pain reassessment? Yes Sleep Is patient sleeping during reassessment? No Presence of Pain Presence of Pain Yes Pain Scale Used Pain Scale Used Numeric Location Left, Right or Bilateral Right Pain Location Body Site Hip Description Description Constant Intensity of Pain at present 8 Pain Behavior Moaning Guarding Aggravating Factors Contant Alleviating Factors Medication IVP Administration Document 06/16/18 08:44 OYELO (Rec: 06/16/18 08:45 OYELO [id number]) Charges for Administration # of IVP Administrations 1 Re-Assess: MAR Pain Assessment Document 06/16/18 09:44 OYELO (Rec: 06/16/18 10:08 OYELO [id number]) Pain Reassessment Is this a pain reassessment? Yes Location Left, Right or Bilateral Right Pain Location Body Site Hip Morphine Sulfate (Morphine) 0.5 mg IVP STAT STA Stop: 06/16/18 13:57 Last Admin: 06/16/18 14:27 Dose: 0.5 mg MAR Pain Assessment Document 06/16/18 14:27 OYELO (Rec: 06/16/18 14:28 OYELO [id number]) Pain Reassessment Is this a pain reassessment? Yes Sleep Is patient sleeping during reassessment? No Presence of Pain Presence of Pain Yes Pain Scale Used Pain Scale Used Numeric Location Left, Right or Bilateral Right Pain Location Body Site Hip Description Description Constant Intensity of Pain at present 8 Pain Behavior Moaning IVP Administration Document 06/16/18 14:27 OYELO (Rec: 06/16/18 14:28 OYELO [id number]) Charges for Administration # of IVP Administrations 1 - Scribe Statement The provider has reviewed the documentation as recorded by the Scribe Scribe Attestation: Zenobia Werner MD Scribe Attestation: All medical record entries made by the Scribe were at my direction and personally dictated by me. I have reviewed the chart and agree that the record accurately reflects my personal performance of the history, physical exam, medical decision making, and the department course for this patient. I have also personally directed, reviewed, and agree with the discharge instructions and disposition. Disposition/Present on Arrival - Present on Arrival Any Indicators Present on Arrival: No History of DVT/PE: No History of Uncontrolled Diabetes: No Urinary Catheter: No History of Decub. Ulcer: No History Surgical Site Infection Following: None - Disposition Have Diagnosis and Disposition been Completed?: Yes Diagnosis: ST segment depression, Elevated brain natriuretic peptide (BNP) level Disposition: HOSPITALIZED Disposition Time: 15:20 Patient Plan: ICU Patient Problems: Current Active Problems Problem Status Onset ST segment depression Acute Elevated brain natriuretic peptide (BNP) level Acute Condition: FAIR
[2018-06-15 12:48] LABS: BASO # 0.02 K/mm3 (0.0-2.0); BASO % 0.2 % (0.0-3.0); EOS # 0.4 (0.0-0.7); EOS % 4.4 % (1.5-5.0); GRAN # 6.57 (1.4-6.5); GRAN % 78.6 % (50.0-68.0); HEMOGLOBIN 8.5 g/dL (12.0-16.0); LYMPH # 0.7 (1.2-3.4); LYMPH % 8.6 % (22.0-35.0); MEAN CELL VOLUME 87.9 fl (80.0-105.0); MEAN CORPUSCULAR HEMOGLOBIN 28.6 pg (25.0-35.0); MEAN CORPUSCULAR HGB CONC 32.6 g/dl (31.0-37.0); MEAN PLATELET VOLUME 9.9 fl (7.0-11.0); MONO # 0.7 (0.1-0.6); MONO % 8.2 % (1.0-6.0); RBC 2.97 10^6/uL (3.5-6.1); WHITE BLOOD COUNT 8.4 10^3/ul (4.5-11.0)
[2018-06-15 12:53] LABS: INR 1.03; PARTIAL THROMBOPLASTIN TIME 27.1 Seconds (25.1-36.5); PROTHROMBIN TIME 11.9 SECONDS (9.4-12.5)
[2018-06-15 12:59] LABS: ALB/GLOB RATIO 1.1 (1.1-1.8); ALBUMIN 3.5 g/dL (3.0-4.8); CALCIUM 8.7 mg/dL (8.4-10.5)
[2018-06-15] MEDS ORDERED: Iohexol 350 MG/100 ML VIAL ONE (13:26)
[2018-06-15] MEDS ORDERED: Oxycodone/Acetaminophen 5/325 mg Tab PO STA (13:32)
[2018-06-15 13:37] LABS: TROPONIN I 0.15 ng/mL
[2018-06-15 14:00] LABS: URINE APPEARANCE CLEAR (CLEAR); URINE BILIRUBIN NEGATIVE (NEGATIVE); URINE BLOOD TRACE-INTACT (NEGATIVE); URINE COLOR YELLOW (YELLOW); URINE GLUCOSE (UA) NEGATIVE (NEGATIVE); URINE LEUKOCYTE ESTERASE NEGATIVE Leu/uL (NEGATIVE); URINE PROTEIN TRACE mg/dL (<30 mg/dL); URINE UROBILINOGEN 0.2 E.U./dL (<1 E.U./dL)
[2018-06-15 14:25] LABS: URINE BACTERIA NEG (NEG); URINE RBC 0 - 2 /hpf (0-2); URINE WBC 0 - 2 /hpf (0-6)
--- NOTE | 2018-06-15 15:25 | CT ---
Date of service: 06/15/2018 PROCEDURE: CT HEAD WITHOUT CONTRAST. HISTORY: AMS COMPARISON: None available. TECHNIQUE: Axial computed tomography images were obtained through the head/brain without intravenous contrast. Radiation dose: Total exam DLP = 1152.96 mGy-cm. This CT exam was performed using one or more of the following dose reduction techniques: Automated exposure control, adjustment of the mA and/or kV according to patient size, and/or use of iterative reconstruction technique. FINDINGS: HEMORRHAGE: No acute parenchymal, subarachnoid or extra-axial BRAIN: Moderate to fairly significant diffuse and confluent chronic periventricular white matter ischemic changes are seen extending peripherally into the deep and subcortical white matter both cerebral hemispheres. There is extension of these changes into the white matter tracts of both basal nuclei. Few more discrete scattered chronic bilateral basal nuclei lacunar type infarcts also present. No obvious parenchymal nor extra-axial mass or collection seen on this noncontrast study. Moderate generalized volume loss. Vascular calcifications both carotid siphons and vertebral arteries. VENTRICLES: No obstructive hydrocephalus. CALVARIUM: There are no acute calvarial fractures. PARANASAL SINUSES: Mild mucosal thickening seen within the left chamber sphenoid sinus. MASTOID AIR CELLS: Unremarkable as visualized. No inflammatory changes. OTHER FINDINGS: Changes of bilateral cataract surgery present. IMPRESSION: No acute intracranial hemorrhage. Moderate -significant chronic white matter ischemic changes with scattered chronic bilateral basal nuclei lacunar type infarcts. Moderate generalized volume loss.
--- NOTE | 2018-06-15 15:26 | CARD ---
APPROVED REPORT Date of service: 06/15/2018 EKG Measurement Heart [id number] <Conclusion> Sinus tachycardia ST & T wave abnormality, consider anterolateral ischemia Abnormal ECG
[2018-06-15] MEDS ORDERED: Heparin25000 units/250ml 1/2NS 25,000 UNITS/250 ML BAG IV PRN ×2 (15:28→16:15)
--- NOTE | 2018-06-15 15:54 | CT ---
Date of service: 06/15/2018 PROCEDURE: CT Chest with contrast HISTORY: SOB the the the the the COMPARISON: None available. TECHNIQUE: Contiguous axial images were obtained through the chest with intravenous contrast enhancement. Sagittal and coronal reconstructions were performed. IV contrast: Radiation dose (DLP): mGy-cm. This CT exam was performed using one or more of the following dose reduction techniques: Automated exposure control, adjustment of the mA and/or kV according to patient size, and/or use of iterative reconstruction technique. FINDINGS: LUNGS: Fairly extensive interstitial fibrosis is present in the upper and lower lobes. There are small peripheral honeycombing changes present bilaterally. . Patchy more dense opacities are also seen in the posterior lower lung zones. MEDIASTINUM: Heart is enlarged. No significant pericardial effusion. Ascending thoracic aorta measures approximately 3.56 cm and descending thoracic aorta measures approximately 2.75 cm. Pulmonary trunk measures approximately 3.6 cm. . There are a few small nonspecific mediastinal lymph nodes. No significant hilar adenopathy. Central airways midline and patent. No large central endoluminal lesions. There is a small hiatal hernia with slight wall thickening of distal esophagus likely due to protrusion gastric mucosa. Esophagitis not excluded. PLEURA: No evidence of pleural effusion or pneumothorax. BONES: Multilevel degenerative spondylosis of the thoracic and upper lumbar spine. UPPER ABDOMEN: There is a elliptical shaped approximately 2.8 x 2.2 cm low-attenuation lesion within the splenic parenchyma of uncertain etiology. Hounsfield units register in the low 30s excluding simple cyst. This could represent hemangioma however other etiologies not excluded. Followup interval recommended to assess stability. The pancreas appears slightly atrophic and fatty replaced. The liver exhibits a very slight nodular appearance petechial along its anterior margin. Clinical correlation recommended. There is a tiny calcified granuloma in the posterior aspect right lobe liver. Small bilateral renal cysts are felt to be present. OTHER FINDINGS: Note is made of low-attenuation lesions within the right and left lobe of the thyroid gland the largest on the right exhibiting peripheral calcification. There is another calcification in the posterior aspect of the right lobe. Thyroid ultrasound follow-up is recommended. IMPRESSION: Extensive interstitial fibrosis small peripheral honeycombing changes present bilaterally . Patchy opacities present in the posterior lower lung zones. Cardiomegaly. Low-attenuation lesions seen both lobes of the thyroid gland the largest on the right exhibiting peripheral calcification. Thyroid ultrasound followup recommended. . Low-attenuation lesion within the splenic parenchyma of uncertain etiology. Followup interval recommended. Bilateral renal cysts. Liver exhibits a slightly nodular contour surface on; clinical correlation recommended. Rule out cirrhosis.
--- NOTE | 2018-06-15 15:58 | RAD ---
Date of service: 06/15/2018 HISTORY: SOB. COMPARISON: Correlation made with concurrent CT chest. Comparison chest 06/08/2018 FINDINGS: LUNGS: Poor inspiration with low lung volumes, crowded bronchovascular markings and mild bibasilar atelectasis. Extensive interstitial fibrosis less well seen compared to high-resolution CT scan. The central pulmonary vasculature is slightly increased likely due to a semi-erect patient positioning and low lung volumes. Elevation right hemidiaphragm mild may in part be due to scalloping however eventration not excluded. . PLEURA: No significant pleural effusion identified, no pneumothorax apparent. CARDIOVASCULAR: Cardiomegaly. OSSEOUS STRUCTURES: No significant abnormalities. VISUALIZED UPPER ABDOMEN: Normal. OTHER FINDINGS: None. IMPRESSION: Poor inspiration with low lung volumes, crowded bronchovascular markings and mild bibasilar atelectasis. Extensive interstitial fibrosis less well seen compared to high-resolution CT scan. The central pulmonary vasculature is slightly increased likely due to a semi-erect patient positioning and low lung volumes. Elevation right hemidiaphragm mild may in part be due to scalloping however eventration not excluded. .
[2018-06-15] MEDS ORDERED: Morphine 4 mg/ml ISec IVP STA (16:26)
--- NOTE | 2018-06-15 17:47 | CP.PCM.CON ---
<BrendaAugusto - Last Filed: 06/15/18 18:30> History of Present Illness - History of Present Illness History of Present Illness: ICU Consult Note: Brenda PGY - 2 Reason for consult: NSTEMI vs PE needing heparin drip HPI: 77 year old female with pertinent medical history of HTN presented to [facility] ED with slurred speech. Patient recently had knee replacement and was transferred to [facility], where patient started having difficulty with her speech. Per son, at [facility], labs were drawn which were abnormal and patient was sent to [facility] ED. In the course of the ED, EKG shows some right sided heart strain as well as ischemia; troponins were elevated; and ultrasound LE showed DVT. ICU was consulted for management of PE in setting of possible stroke; neuro was consulted, no tPA could be given because symptoms started the night before admission. REview of Systems: 12 point ROS obtained nad negative except as per HPI Surgical Hx: ORIF R Hip; B/l Knee replacement; R hip olu replacement Medical Hx: AD s/p stents, HTN, DM2, COPD/pulmonary fibrosis/on Home O2 Allergies: NKDA Social Hx: Quit smoking several years ago; No aclochol, no illicits Home Meds: Reviewed, as per MAR Family Hx: HTN Past Patient History - Infectious Disease Hx of Infectious Diseases: None - Past Social History Smoking Status: Former Smoker - CARDIAC Hx Cardiac Disorders: Yes Hx Hypertension: Yes - PULMONARY Hx Chronic Obstructive Pulmonary Disease (COPD): Yes - NEUROLOGICAL Hx Neurological Disorder: Yes - HEENT Hx HEENT Problems: Yes Hx Cataracts: Yes Hx Glaucoma: Yes - RENAL Hx Chronic Kidney Disease: No - ENDOCRINE/METABOLIC Hx Diabetes Mellitus Type 2: Yes - HEMATOLOGICAL/ONCOLOGICAL Hx Blood Disorders: Yes Hx Anemia: Yes - INTEGUMENTARY Hx Dermatological Problems: No - MUSCULOSKELETAL/RHEUMATOLOGICAL Hx Arthritis: Yes - GASTROINTESTINAL Hx Gastrointestinal Disorders: Yes (APPENDECTOMY,COLITIS) Hx Crohn's Disease: Yes - GENITOURINARY/GYNECOLOGICAL Hx Genitourinary Disorders: Yes (incontinent) Hx Incontinence: Yes - PSYCHIATRIC Hx Emotional Abuse: No Hx Physical Abuse: No Hx Substance Use: No - SURGICAL HISTORY Hx Appendectomy: Yes Other/Comment: Right Hip Surgery - ANESTHESIA Hx Anesthesia Reactions: No Hx Malignant Hyperthermia: No Meds Allergies/Adverse Reactions: Allergies Allergy/AdvReac Type Severity Reaction Status Date / Time No Known Allergies Allergy Verified 06/15/18 12:14 - Medications Medications: Current Medications Heparin Sodium/Sodium Chloride (Heparin 95953 Units/250ml 1/2 Normal Saline) 25 ,000 units in 250 mls @ 15.905 mls/hr IV .[id number] PRN; Protocol; 18 UNITS/KG/HR PRN Reason: ADJUST RATE PER PROTOCOL Last Admin: 06/15/18 16:23 Dose: 15.905 mls/hr Physical Exam - Constitutional Appears: Non-toxic, No Acute Distress, Chronically Ill - Head Exam Head Exam: ATRAUMATIC, NORMAL INSPECTION, NORMOCEPHALIC - Eye Exam Eye Exam: EOMI, Normal appearance, PERRL Pupil Exam: NORMAL ACCOMODATION, PERRL - ENT Exam ENT Exam: Mucous Membranes Moist, Normal Exam - Neck Exam Neck exam: Positive for: Normal Inspection - Respiratory Exam Respiratory Exam: Clear to Auscultation Bilateral, NORMAL BREATHING PATTERN - Cardiovascular Exam Cardiovascular Exam: REGULAR RHYTHM. absent: Diastolic murmur, Gallop, Rubs - GI/Abdominal Exam GI & Abdominal Exam: Normal Bowel Sounds - Extremities Exam Extremities exam: Positive for: normal inspection - Back Exam Back exam: NORMAL INSPECTION - Neurological Exam Neurological exam: Alert, CN II-XII Intact, Normal Gait, Oriented x3, Reflexes Normal Additional comments: Slurred speech - Psychiatric Exam Psychiatric exam: Normal Affect, Normal Mood - Skin Skin Exam: Dry, Intact, Normal Color, Warm Results - Vital Signs Recent Vital Signs: Last Vital Signs Temp 98.6 F 06/15/18 17:01 Pulse 122 H 06/15/18 17:01 Resp 18 06/15/18 17:01 BP 135/79 06/15/18 17:01 Pulse Ox 95 06/15/18 17:01 - Labs Result Diagrams: 06/15/18 12:30 06/15/18 12:30 Assessment & Plan - Assessment and Plan (Free Text) Assessment: 77 year old female under ICU management for possible CVA in the setting of possible PE vs NSTEMI, necessitating heparin drip. 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 Hx EDD Hx CAD with stents Hx Hypothyroidism Hx HLD Hx DM Hx Chronic anemia Recommend: - Admit to MICU - Maintain sats > 92%, Maintain normothermia, Maintain euvolemia, Maintain MAP > 65, Maintain euglycemia - Duonebs PRN for COPD - Allow permissive HTN; 220/110 (no TPA given) - Neurochecks q1h - Obtain blood and urine cultures - COMMUNITY DEVELOPMENT OFFICER evaluation - Lipitor, A1C, TSH, Lipid panel for code stroke - Heparin gtt - NPO - RISS Medium Scale with FS ACHS - Neurology is on consult - May obtain MRI Head vs CT Head in the am - Neuro checks q1h <Marysol Santana - Last Filed: 06/15/18 19:07> Meds - Medications Medications: Current Medications Albuterol/Ipratropium (Duoneb 3 Mg/0.5 Mg (3 Ml) Ud) 3 ml IH [id number] MARIELENA Albuterol/Ipratropium (Duoneb 3 Mg/0.5 Mg (3 Ml) Ud) 3 ml IH Q2H PRN PRN Reason: Shortness of Breath Atorvastatin Calcium (Lipitor) 40 mg PO DIN MARIELEAN Last Admin: 06/15/18 18:42 Dose: Not Given Heparin Sodium/Sodium Chloride (Heparin 51643 Units/250ml 1/2 Normal Saline) 25 ,000 units in 250 mls @ 15.905 mls/hr IV .[id number] PRN; Protocol; 18 UNITS/KG/HR PRN Reason: ADJUST RATE PER PROTOCOL Last Admin: 06/15/18 16:23 Dose: 15.905 mls/hr Insulin Human Regular (Humulin R Med) 0 units SC ACHS MARIELENA PRN Reason: Protocol Results - Vital Signs Recent Vital Signs: Last Vital Signs Temp 97.1 F L 06/15/18 18:07 Pulse 127 H 06/15/18 18:30 Resp 14 06/15/18 18:10 BP 108/82 06/15/18 18:00 Pulse Ox 97 06/15/18 18:30 - Labs Result Diagrams: 06/15/18 12:30 06/15/18 12:30 Addendum Addendum: 06/15/18 19:04 ICU Attending Addendum: Patient seen and examined. Case reviewed on round with housestaff. Agree with resident note above with the following additions/exceptions: This is a 77F with a hx of HTN, COPD, DM, chronic anemia who present with sob and leg pain. She as recent knee surgery and was briefly on lovenox for DVT ppx however family reports that it was eventually stopped. No report of bleeding. She comes in today with right thigh/leg pain (opposite of surgical leg) found to have a DVT ( right posterior tibial and peroneal). In addition she is tachycardic with elevated TNI and ST depressions on her EKG. Of note, she recently had a cardiac cath which showed mod disease vessels but no critical lesions. Ef 60%. Normal RV size. I suspect she developed a DVT from her recent surgery and immobilization which emobilized and now she likely has a submassive PE. Of note, she had a CT with contrast of the chest in the ED however it was not a PE Protocol study so we are restricted on performing another contrast study. We did a bedside echo in the ED which shows enlarged RV but NEG for mcconnels sign. Her BNP is also elevated, and significantly increased from 1050 -> 2800 over 2 months. These findings supports PE and secondaryv cardiac strain. Heparin has been started. She is normotensive and given her age will hold off on TPA. In addition, in the ED she had slurred speech and CODE STROKE was called. These symptoms were waxing and waning since the wine and spirits clerk. Given her age and being out of the window, no TPA for stroke was advised. At this point, we will monitor her with stroke standard measures including q- 1hr neuro checks. Will closely monitor for as she is at risk for hemmorhagic conversion as well. Neuro on board. It is possible that the DVT clot embolized across an existing PFO. She has previous ECHO done but I do not see a bubble study which would be the first line measure to dx. Her cardio service was notified by the ED. Summary Dx: DVT (RIGHT) NSTEMI Probable submassive PE Slurred speech / acute stroke recent knee surgery Summary of plan: Heparin for DVT and presumed PE CTA tomorrow PE Protocol 2D Echo with bubble study to r/o PFO Stroke protocol Repeat neuro imaging (likely MRI/MRA ) Marysol Santana MD Contract Forester
[2018-06-15 18:16] VITALS: BMI 26.4
--- NOTE | 2018-06-15 18:44 | US ---
HISTORY: Leg pain and swelling. Evaluate for DVT PHYSICIAN(S): Tylor Archibald MD. TECHNIQUE: Duplex sonography and color-flow Doppler with graded compression were used to evaluate the deep venous systems of both lower extremities. FINDINGS: Occlusive thrombus is noted in the right peroneal and posterior tibial veins. The right popliteal vein, femoral vein, and common femoral vein are patent and compressible. There is no sonographic evidence deep venous thrombosis in the visualized segments of left lower extremity IMPRESSION: Isolated right tibial DVT. A followup ultrasound in 7-10 days is recommended.
[2018-06-15] MEDS ORDERED: Albuterol-Ipratrop 3 mg / 0.5 (3 ml) UD IH PRN (18:54)
[2018-06-15 20:07] LABS: TROPONIN I 0.17 ng/mL
[2018-06-15] MEDS: Albuterol-Ipratrop 3 mg / 0.5 (3 ml) UD IH SCH ×2 (20:17→23:17)
--- NOTE | 2018-06-15 23:19 | CP.PCM.PCO ---
Physician Communication Note - Physician Communication Note Physician Communication Note: May use own CPAP from home
[2018-06-16] MEDS: Insulin Reg-MEDIUM-Coverage SC SCH ×4 (00:55→21:12)
[2018-06-16] MEDS: Albuterol-Ipratrop 3 mg / 0.5 (3 ml) UD IH SCH ×2 (04:04→07:26)
[2018-06-16 07:25] LABS: TROPONIN I 0.14 ng/mL
[2018-06-16 08:14] LABS: BASO # 0.04 K/mm3 (0.0-2.0); BASO % 0.5 % (0.0-3.0); EOS # 0.4 (0.0-0.7); EOS % 5.3 % (1.5-5.0); GRAN # 5.81 (1.4-6.5); GRAN % 72.3 % (50.0-68.0); HEMOGLOBIN 8.9 g/dL (12.0-16.0); LYMPH # 0.9 (1.2-3.4); LYMPH % 11.7 % (22.0-35.0); MEAN CELL VOLUME 89.4 fl (80.0-105.0); MEAN CORPUSCULAR HEMOGLOBIN 28.6 pg (25.0-35.0); MEAN PLATELET VOLUME 10.2 fl (7.0-11.0); MONO # 0.8 (0.1-0.6); MONO % 10.2 % (1.0-6.0); RBC 3.11 10^6/uL (3.5-6.1); RED CELL DISTRIBUTION WIDTH 19.4 % (11.5-14.5)
[2018-06-16 08:21] LABS: ALB/GLOB RATIO 1.1 (1.1-1.8); ALBUMIN 3.5 g/dL (3.0-4.8); CALCIUM 8.7 mg/dL (8.4-10.5)
[2018-06-16] MEDS ORDERED: Morphine 2 mg/ml ISec IVP STA ×2 (08:29→13:56)
--- NOTE | 2018-06-16 10:12 | CP.PCM.HP ---
<Sarah Hernandez - Last Filed: 06/16/18 11:44> History of Present Illness - History of Present Illness History of Present Illness: PGY-[address] Sams Ms Krueger, 77F, with PMH of HTN, COPD, DM2, and anemia, who presents to the emergency department via EMS complaining of slurred speech and shortness of breath. Family reports patient had fluctuating periods of confusion today with complaint of mouth dryness. Pt had right hip surgery last week that required one unit of blood. Lovonex therapeutic was temporarily held but resumed. [place] Dr Sams, [place] [facility] [place] last [place], and pt continue to receive lovenox at [facility]. Denies chest pain, fever, n/v/d, dysuria, abdominal pain, dizziness, or other complaints. (+) on supplemental O2 around the clock and using BiPap at night. ED course: T 99.7. HR 127. 140/60. 96NC Hb 8.5 Na 131. Trop 0.15/0.17/0.15 BNP 2800 EKG (06/15): Sinus tachycardia. ST/Tw abnormality anterolateral leads. [id number] LE U/S (06/15): isolated R tibial DVT, follow up u/x in 7-[address] (06/15): extensive interstitial fibrosis, small peripheral honeycombing. patchy opacity in b/l lower lung. thyroid with peripheral calcification (f/u u/s), low-attenuation spelenic parenchyma (f/u), bilateral renal cysts. liver nodular contour Pt was transferred to ICU for PE, stroke, and DVT PCP: Dr. Jacobs [place] Tender: Dr. 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 Chronic anemia Hx inflammatory bowel disease on balsalazide PSH Bilateral total knee replacmenets ORIF R Hip (pinning and screw fixation, 06/08/2018) R hip olu replacement Appendectomy FH NS SH Former smoker, does not drink, lives at home All NKDA Med Reviewed Present on Admission - Present on Admission Any Indicators Present on Admission: No Past Patient History - Infectious Disease Hx of Infectious Diseases: None - Past Social History Smoking Status: Former Smoker - CARDIAC Hx Cardiac Disorders: Yes Hx Hypertension: Yes - PULMONARY Hx Chronic Obstructive Pulmonary Disease (COPD): Yes - NEUROLOGICAL Hx Neurological Disorder: Yes - HEENT Hx HEENT Problems: Yes Hx Cataracts: Yes Hx Glaucoma: Yes - RENAL Hx Chronic Kidney Disease: No - ENDOCRINE/METABOLIC Hx Diabetes Mellitus Type 2: Yes - HEMATOLOGICAL/ONCOLOGICAL Hx Blood Disorders: Yes Hx Anemia: Yes - INTEGUMENTARY Hx Dermatological Problems: No - MUSCULOSKELETAL/RHEUMATOLOGICAL Hx Arthritis: Yes - GASTROINTESTINAL Hx Gastrointestinal Disorders: Yes (APPENDECTOMY,COLITIS) Hx Crohn's Disease: Yes - GENITOURINARY/GYNECOLOGICAL Hx Genitourinary Disorders: Yes (incontinent) Hx Incontinence: Yes - PSYCHIATRIC Hx Emotional Abuse: No Hx Physical Abuse: No Hx Substance Use: No - SURGICAL HISTORY Hx Appendectomy: Yes Other/Comment: Right Hip Surgery - ANESTHESIA Hx Anesthesia Reactions: No Hx Malignant Hyperthermia: No Meds Allergies/Adverse Reactions: Allergies Allergy/AdvReac Type Severity Reaction Status Date / Time No Known Allergies Allergy Verified 06/15/18 12:14 Physical Exam - Constitutional Appears: No Acute Distress - Head Exam Head Exam: ATRAUMATIC, NORMAL INSPECTION, NORMOCEPHALIC - Eye Exam Eye Exam: EOMI, Normal appearance, PERRL. absent: Scleral icterus Pupil Exam: NORMAL ACCOMODATION - ENT Exam ENT Exam: Mucous Membranes Moist - Neck Exam Additional comments: supple - Respiratory Exam Respiratory Exam: Decreased Breath Sounds (b/l lung bases), Clear to Auscultation Bilateral. absent: Rales, Rhonchi, Wheezes - Cardiovascular Exam Cardiovascular Exam: Tachycardia, REGULAR RHYTHM, +S1, +S2 - GI/Abdominal Exam GI & Abdominal Exam: Normal Bowel Sounds, Soft. absent: Distended, Rigid, Tenderness - Extremities Exam Extremities exam: Positive for: calf tenderness (R calf), pedal edema (slight R > L), pedal pulses present - Neurological Exam Neurological exam: Alert, Oriented x3 - Psychiatric Exam Psychiatric exam: Normal Affect, Normal Mood - Skin Skin Exam: Dry, Warm Results - Vital Signs Recent Vital Signs: Last Vital Signs Temp 97.8 F 06/16/18 04:00 Pulse 118 H 06/15/18 23:40 Resp 15 06/15/18 23:40 BP 98/34 L 06/15/18 23:00 Pulse Ox 91 L 06/15/18 23:40 - Labs Result Diagrams: 06/16/18 05:30 06/16/18 05:30 Labs: Laboratory Results - last 24 hr 06/15/18 06/15/18 06/16/18 19:15 22:20 01:05 WBC RBC Hgb Hct MCV MCH MCHC RDW Plt Count MPV Gran % Lymph % (Auto) [place] % (Auto) Eos % (Auto) Baso % (Auto) Gran # Lymph # (Auto) [place] # (Auto) Eos # (Auto) Baso # (Auto) APTT 128.5 H* Sodium Potassium Chloride Carbon Dioxide Anion Gap BUN Creatinine Est GFR ( Amer) Est GFR (Non-Af Amer) Random Glucose Calcium Phosphorus 3.0 Magnesium 1.9 Total Bilirubin AST ALT Alkaline Phosphatase Troponin I 0.17 H* 0.15 H* Total Protein Albumin Globulin Albumin/Globulin Ratio Triglycerides Cholesterol LDL Cholesterol Direct HDL Cholesterol TSH 3rd Generation 06/16/18 06/16/18 06/16/18 05:30 05:30 06:00 WBC 8.0 RBC 3.11 L Hgb 8.9 L Hct 27.8 L MCV 89.4 MCH 28.6 MCHC 32.0 RDW 19.4 H Plt Count 170 MPV 10.2 Gran % 72.3 H Lymph % (Auto) 11.7 L [place] % (Auto) 10.2 H Eos % (Auto) 5.3 H Baso % (Auto) 0.5 Gran # 5.81 Lymph # (Auto) 0.9 L [place] # (Auto) 0.8 H Eos # (Auto) 0.4 Baso # (Auto) 0.04 APTT Sodium 133 Potassium 4.6 Chloride 96 L Carbon Dioxide 27 Anion Gap 15 BUN 30 H Creatinine 1.3 H Est GFR ( Amer) 48 Est GFR (Non-Af Amer) 40 Random Glucose 157 H Calcium 8.7 Phosphorus Magnesium Total Bilirubin 1.2 AST 50 H ALT 60 H Alkaline Phosphatase 63 Troponin I 0.14 H* Total Protein 6.7 Albumin 3.5 Globulin 3.2 Albumin/Globulin Ratio 1.1 Triglycerides 141 Cholesterol 136 LDL Cholesterol Direct 71 HDL Cholesterol 37 TSH 3rd Generation 06/16/18 06/16/18 06:00 06:00 WBC RBC Hgb Hct MCV MCH MCHC RDW Plt Count MPV Gran % Lymph % (Auto) [place] % (Auto) Eos % (Auto) Baso % (Auto) Gran # Lymph # (Auto) [place] # (Auto) Eos # (Auto) Baso # (Auto) APTT 73.3 H Sodium Potassium Chloride Carbon Dioxide Anion Gap BUN Creatinine Est GFR ( Amer) Est GFR (Non-Af Amer) Random Glucose Calcium Phosphorus Magnesium Total Bilirubin AST ALT Alkaline Phosphatase Troponin I Total Protein Albumin Globulin Albumin/Globulin Ratio Triglycerides Cholesterol LDL Cholesterol Direct HDL Cholesterol TSH 3rd Generation 0.93 Assessment & Plan - Assessment and Plan (Free Text) Plan: Ms Krueger, 77F with a hx of HTN, COPD, DM, chronic anemia who present with slurr speech, sob, and leg pain. She has recent knee surgery and was on lovenox. During last hospital stay, her Hb dropped which required transfusion of 1uprbc and lovenox was temporarily held. After the transfusion, the lovenox was resumed. Pt continue to receive lovenox at [facility]. During this hospitalization, she was found to have a DVT ( right posterior tibial and peroneal). She is tachycardic with elevated TNI and ST depressions on her EKG. Of note, she recently had a cardiac cath which showed mod disease vessels but no critical lesions. Ef 60%. Normal RV size. CT with contrast of the chest in the ED however it was not a PE Protocol study so we are restricted on performing another contrast study. For slurred speech, CODE STROKE was called. These symptoms were waxing and waning since the instructor physical education. DVT R leg likely from her recent surgery and immobilization which emobilized and now she likely has a submassive PE. Possible submassive PE - BNP 1050 -> 2800 in 2 months, ED which shows enlarged RV but NEG for mcconnels sign Acute stroke, no TPA due to out of windows, NSTEMI likely type II demand/ischemia Slurred speech recent knee surgery Chest CT (06/15): thyroid with peripheral calcification (f/u u/s) P: Heparin for DVT and presumed PE follow CTA with PE Protocol today 2D Echo with bubble study to r/o PFO Heparin gtt per DVT/PE protocol Stroke protocol; neuro check Repeat neuro imaging; carotid/vertebral U/S Per neuro, ASA supp, Lipitor PO Dysphagia diet PT/OT/ST Permissive hypertension in acute period ISSS-Med Xopenex PRN Thyroid u/s s/r/d/w Dr. Sams <Mitchel Sams S - Last Filed: 06/16/18 21:02> Results - Vital Signs Recent Vital Signs: Last Vital Signs Temp 98.9 F 06/16/18 14:00 Pulse 110 H 06/16/18 17:01 Resp 19 06/16/18 17:01 BP 97/70 L 06/16/18 17:01 Pulse Ox 98 06/16/18 17:01 - Labs Result Diagrams: 06/16/18 05:30 06/16/18 05:30 Labs: Laboratory Results - last 24 hr 06/15/18 06/15/18 06/16/18 22:05 22:20 01:05 WBC RBC Hgb Hct MCV MCH MCHC RDW Plt Count MPV Gran % Lymph % (Auto) [place] % (Auto) Eos % (Auto) Baso % (Auto) Gran # Lymph # (Auto) [place] # (Auto) Eos # (Auto) Baso # (Auto) APTT 128.5 H* Sodium Potassium Chloride Carbon Dioxide Anion Gap BUN Creatinine Est GFR ( Amer) Est GFR (Non-Af Amer) POC Glucose (mg/dL) 159 H Random Glucose Hemoglobin A1c Calcium Total Bilirubin AST ALT Alkaline Phosphatase Troponin I 0.15 H* Total Protein Albumin Globulin Albumin/Globulin Ratio Triglycerides Cholesterol LDL Cholesterol Direct HDL Cholesterol TSH 3rd Generation 06/16/18 06/16/18 06/16/18 05:30 05:30 06:00 WBC 8.0 RBC 3.11 L Hgb 8.9 L Hct 27.8 L MCV 89.4 MCH 28.6 MCHC 32.0 RDW 19.4 H Plt Count 170 MPV 10.2 Gran % 72.3 H Lymph % (Auto) 11.7 L [place] % (Auto) 10.2 H Eos % (Auto) 5.3 H Baso % (Auto) 0.5 Gran # 5.81 Lymph # (Auto) 0.9 L [place] # (Auto) 0.8 H Eos # (Auto) 0.4 Baso # (Auto) 0.04 APTT Sodium 133 Potassium 4.6 Chloride 96 L Carbon Dioxide 27 Anion Gap 15 BUN 30 H Creatinine 1.3 H Est GFR ( Amer) 48 Est GFR (Non-Af Amer) 40 POC Glucose (mg/dL) Random Glucose 157 H Hemoglobin A1c Calcium 8.7 Total Bilirubin 1.2 AST 50 H ALT 60 H Alkaline Phosphatase 63 Troponin I 0.14 H* Total Protein 6.7 Albumin 3.5 Globulin 3.2 Albumin/Globulin Ratio 1.1 Triglycerides 141 Cholesterol 136 LDL Cholesterol Direct 71 HDL Cholesterol 37 TSH 3rd Generation 06/16/18 06/16/18 06/16/18 06:00 06:00 06:00 WBC RBC Hgb Hct MCV MCH MCHC RDW Plt Count MPV Gran % Lymph % (Auto) [place] % (Auto) Eos % (Auto) Baso % (Auto) Gran # Lymph # (Auto) [place] # (Auto) Eos # (Auto) Baso # (Auto) APTT 73.3 H Sodium Potassium Chloride Carbon Dioxide Anion Gap BUN Creatinine Est GFR ( Amer) Est GFR (Non-Af Amer) POC Glucose (mg/dL) Random Glucose Hemoglobin A1c 5.8 Calcium Total Bilirubin AST ALT Alkaline Phosphatase Troponin I Total Protein Albumin Globulin Albumin/Globulin Ratio Triglycerides Cholesterol LDL Cholesterol Direct HDL Cholesterol TSH 3rd Generation 0.93 06/16/18 06/16/18 06/16/18 07:35 11:08 12:45 WBC RBC Hgb Hct MCV MCH MCHC RDW Plt Count MPV Gran % Lymph % (Auto) [place] % (Auto) Eos % (Auto) Baso % (Auto) Gran # Lymph # (Auto) [place] # (Auto) Eos # (Auto) Baso # (Auto) APTT 68.1 H Sodium Potassium Chloride Carbon Dioxide Anion Gap BUN Creatinine Est GFR ( Amer) Est GFR (Non-Af Amer) POC Glucose (mg/dL) 128 H 131 H Random Glucose Hemoglobin A1c Calcium Total Bilirubin AST ALT Alkaline Phosphatase Troponin I Total Protein Albumin Globulin Albumin/Globulin Ratio Triglycerides Cholesterol LDL Cholesterol Direct HDL Cholesterol TSH 3rd Generation 06/16/18 16:23 WBC RBC Hgb Hct MCV MCH MCHC RDW Plt Count MPV Gran % Lymph % (Auto) [place] % (Auto) Eos % (Auto) Baso % (Auto) Gran # Lymph # (Auto) [place] # (Auto) Eos # (Auto) Baso # (Auto) APTT Sodium Potassium Chloride Carbon Dioxide Anion Gap BUN Creatinine Est GFR ( Amer) Est GFR (Non-Af Amer) POC Glucose (mg/dL) 185 H Random Glucose Hemoglobin A1c Calcium Total Bilirubin AST ALT Alkaline Phosphatase Troponin I Total Protein Albumin Globulin Albumin/Globulin Ratio Triglycerides Cholesterol LDL Cholesterol Direct HDL Cholesterol TSH 3rd Generation Assessment & Plan - Assessment and Plan (Free Text) Plan: Pt seen and examined. I have reviewed the note of the medical delivery technician and agree with it. I have discussed the assessment and plan with the resident. I have reviewed the patient's labs and medications. Pt with NSTEMI and DVT of R leg. She was on Lovenox at [facility]. Spoke to pt's family at the bedside. Pt is going to be seen by Sanchez due to confusion. Pt is on ASA and Lipitor.
[2018-06-16] MEDS ORDERED: Levalbuterol 1.25 MG/3 ML Inhal Soln UD IH PRN (10:20)
--- NOTE | 2018-06-16 11:09 | CP.PCM.CON ---
History of Present Illness - History of Present Illness History of Present Illness: Jaya Melisa PGY 2 Neurology Consult Note for Dr. Rubalcava Ms. Krueger is a 77-year-old female with a PMH of DM 2, HTN, CAD s/p stents, COPD/ pulmonary fibrosis on home O2 and right hip IT fracture s/p R hip ORIF on with Dr. Martinez who presents from [facility] due to onset of confusion and slurring of speech x1 day. The patient was also noted to be short of breath, tachycardic and tachypneic at the correction and in the ED. In the ED, RV deviation was noted on EKG, and cardiology was consulted; BNP was noted to be elevated and Lasix was given. Lower extremity ultrasound showed right DVT, but CT/PE was not done. Heparin GTT was started. Code stroke was called, the patient did not meet eligibility for tPA. Bedside cardiac ultrasound showed RV enlargement. Patient was transferred to ICU for monitoring , cardiology attributed troponin elevation due to demand ischemia. Head CT showed no acute intracranial hemorrhage, with moderate significant chronic white matter ischemic changes with scattered chronic bilateral basal nuclei lacunar type infarcts and moderate generalized volume loss. Chest CT showed extensive interstitial fibrosis small peripheral honeycombing changes present bilaterally. Patchy opacities present in the posterior lower lung zones. Cardiomegaly. Low attenuation lesion seen in both lobes of thyroid gland the largest on the right exhibiting peripheral calcification. Bilateral renal cysts. Liver exhibits a slightly nodular contour surface. When seen in the ICU, the patient continues to have slurring of her speech, but is alert and oriented 3 with no focal deficits. She is unable to move her right leg due to pain associated with the surgery, but moves her foot fine. She denies any prior history of strokes, or any current headaches, chest pain, fevers/chills, dizziness. 12 point ROS was reviewed and is otherwise unremarkable PMH: As above PSH: ORIF R hip, B/L knee replacements Meds: As per MAR Allergies: NKDA SHx: Former smoker, denies EtOH or drug use FHx: HTN Review of Systems - Review of Systems All systems: reviewed and no additional remarkable complaints except (as per HPI ) Past Patient History - Infectious Disease Hx of Infectious Diseases: None - Past Medical History & Family History Past Medical History?: Yes Past Family History: Reviewed and not pertinent - Past Social History Smoking Status: Former Smoker Alcohol: None Drugs: Denies - CARDIAC Hx Cardiac Disorders: Yes Hx Hypertension: Yes - PULMONARY Hx Chronic Obstructive Pulmonary Disease (COPD): Yes - NEUROLOGICAL Hx Neurological Disorder: No - HEENT Hx HEENT Problems: Yes Hx Cataracts: Yes Hx Glaucoma: Yes - RENAL Hx Chronic Kidney Disease: No - ENDOCRINE/METABOLIC Hx Diabetes Mellitus Type 2: Yes - HEMATOLOGICAL/ONCOLOGICAL Hx Blood Disorders: Yes Hx Anemia: Yes - INTEGUMENTARY Hx Dermatological Problems: No - MUSCULOSKELETAL/RHEUMATOLOGICAL Hx Arthritis: Yes - GASTROINTESTINAL Hx Gastrointestinal Disorders: Yes (APPENDECTOMY,COLITIS) Hx Crohn's Disease: Yes - GENITOURINARY/GYNECOLOGICAL Hx Genitourinary Disorders: Yes (incontinent) Hx Incontinence: Yes - PSYCHIATRIC Hx Emotional Abuse: No Hx Physical Abuse: No Hx Substance Use: No - SURGICAL HISTORY Hx Appendectomy: Yes Hx Open Reduction Internal Fixation: Yes (right hip 06/08/18) Other/Comment: Right Hip Surgery - ANESTHESIA Hx Anesthesia Reactions: No Hx Malignant Hyperthermia: No Meds Allergies/Adverse Reactions: Allergies Allergy/AdvReac Type Severity Reaction Status Date / Time No Known Allergies Allergy Verified 06/15/18 12:14 - Medications Medications: Current Medications Aspirin (Aspirin Supp) 300 mg RC DAILY [facility] Last Admin: 06/16/18 10:56 Dose: 300 mg Atorvastatin Calcium (Lipitor) 40 mg PO DIN [facility] Last Admin: 06/15/18 18:42 Dose: Not Given Heparin Sodium/Sodium Chloride (Heparin 40676 Units/250ml 1/2 Normal Saline) 25 ,000 units in 250 mls @ 13.254 mls/hr IV .[id number] PRN; Protocol; 15 UNITS/KG/HR PRN Reason: ADJUST RATE PER PROTOCOL Insulin Human Regular (Humulin R Med) 0 units SC ACHS [facility] PRN Reason: Protocol Last Admin: 06/16/18 08:48 Dose: Not Given Levalbuterol HCl (Xopenex) 1.25 mg IH [id number] PRN PRN Reason: Shortness of Breath Physical Exam - Constitutional Appears: Well, Non-toxic, No Acute Distress - Head Exam Head Exam: ATRAUMATIC, NORMAL INSPECTION - Eye Exam Eye Exam: EOMI, Normal appearance, PERRL. absent: Nystagmus Pupil Exam: NORMAL ACCOMODATION - ENT Exam ENT Exam: Mucous Membranes Dry, Normal Exam - Neck Exam Neck exam: Positive for: Normal Inspection - Respiratory Exam Respiratory Exam: NORMAL BREATHING PATTERN. absent: Respiratory Distress - Cardiovascular Exam Cardiovascular Exam: Tachycardia, +S1, +S2 - GI/Abdominal Exam GI & Abdominal Exam: Normal Bowel Sounds, Soft. absent: Distended, Tenderness - Extremities Exam Extremities exam: Positive for: normal inspection. Negative for: full ROM (RLE limited due to pain) - Neurological Exam Neurological exam: Alert, CN II-XII Intact, Oriented x3 - Expanded Neurological Exam Expanded Speech: Slurred Speech Cranial nerves: EOM's Intact: Normal, Facial Palsey w/Forehead Movement: Normal , Facial [place] w/o Forehead Movement: Normal, Facial Sensation: Normal Sensory exam: Lower Extremity Light Touch: Normal, Upper Extremity Light Touch: Normal - Psychiatric Exam Psychiatric exam: Normal Mood - Skin Skin Exam: Normal Color, Warm Results - Vital Signs Recent Vital Signs: Last Vital Signs Temp 97.8 F 06/16/18 04:00 Pulse 118 H 06/15/18 23:40 Resp 15 06/15/18 23:40 BP 98/34 L 06/15/18 23:00 Pulse Ox 91 L 06/15/18 23:40 - Labs Result Diagrams: 06/16/18 05:30 06/16/18 05:30 Labs: Laboratory Results - last 24 hr 06/15/18 06/15/18 06/16/18 19:15 22:20 01:05 WBC RBC Hgb Hct MCV MCH MCHC RDW Plt Count MPV Gran % Lymph % (Auto) [place] % (Auto) Eos % (Auto) Baso % (Auto) Gran # Lymph # (Auto) [place] # (Auto) Eos # (Auto) Baso # (Auto) APTT 128.5 H* Sodium Potassium Chloride Carbon Dioxide Anion Gap BUN Creatinine Est GFR ( Amer) Est GFR (Non-Af Amer) Random Glucose Calcium Phosphorus 3.0 Magnesium 1.9 Total Bilirubin AST ALT Alkaline Phosphatase Troponin I 0.17 H* 0.15 H* Total Protein Albumin Globulin Albumin/Globulin Ratio Triglycerides Cholesterol LDL Cholesterol Direct HDL Cholesterol TSH 3rd Generation 06/16/18 06/16/18 06/16/18 05:30 05:30 06:00 WBC 8.0 RBC 3.11 L Hgb 8.9 L Hct 27.8 L MCV 89.4 MCH 28.6 MCHC 32.0 RDW 19.4 H Plt Count 170 MPV 10.2 Gran % 72.3 H Lymph % (Auto) 11.7 L [place] % (Auto) 10.2 H Eos % (Auto) 5.3 H Baso % (Auto) 0.5 Gran # 5.81 Lymph # (Auto) 0.9 L [place] # (Auto) 0.8 H Eos # (Auto) 0.4 Baso # (Auto) 0.04 APTT Sodium 133 Potassium 4.6 Chloride 96 L Carbon Dioxide 27 Anion Gap 15 BUN 30 H Creatinine 1.3 H Est GFR ( Amer) 48 Est GFR (Non-Af Amer) 40 Random Glucose 157 H Calcium 8.7 Phosphorus Magnesium Total Bilirubin 1.2 AST 50 H ALT 60 H Alkaline Phosphatase 63 Troponin I 0.14 H* Total Protein 6.7 Albumin 3.5 Globulin 3.2 Albumin/Globulin Ratio 1.1 Triglycerides 141 Cholesterol 136 LDL Cholesterol Direct 71 HDL Cholesterol 37 TSH 3rd Generation 06/16/18 06/16/18 06:00 06:00 WBC RBC Hgb Hct MCV MCH MCHC RDW Plt Count MPV Gran % Lymph % (Auto) [place] % (Auto) Eos % (Auto) Baso % (Auto) Gran # Lymph # (Auto) [place] # (Auto) Eos # (Auto) Baso # (Auto) APTT 73.3 H Sodium Potassium Chloride Carbon Dioxide Anion Gap BUN Creatinine Est GFR ( Amer) Est GFR (Non-Af Amer) Random Glucose Calcium Phosphorus Magnesium Total Bilirubin AST ALT Alkaline Phosphatase Troponin I Total Protein Albumin Globulin Albumin/Globulin Ratio Triglycerides Cholesterol LDL Cholesterol Direct HDL Cholesterol TSH 3rd Generation 0.93 Assessment & Plan - Assessment and Plan (Free Text) Assessment: 77-year-old female with extensive PMH and multiple risk factors for DVT/PE who presents from correction with symptoms of intermittent confusion and new onset slurring of her speech. Patient was not a candidate for tPA due to late presentation from onset of symptoms. Patient currently on heparin GTT due to confirmed RLE DVT and suspected PE. Stroke has not been ruled out by negative CT, will consider follow-up CT vs MRI. Plan: Possible stroke, in setting of DVT/?PE - cont heparin drip - MRI brain ordered to r/o CVA - Echo ordered - Lipid panel ordered - Cardio consulted, recs appreciated - diet per swallow eval - PT eval - ICU monitoring - Troponin likely due to demand ischemia - further recs per Dr. Rubalcava Case was reviewed and discussed with attending, Dr. Khadar Vincent PGY2
--- NOTE | 2018-06-16 11:48 | CT ---
Date of service: 06/16/2018 PROCEDURE: CT HEAD WITHOUT CONTRAST. HISTORY: code stroke COMPARISON: 06/15/2018. CT head TECHNIQUE: Axial computed tomography images were obtained through the head/brain without intravenous contrast. Coronal and sagittal reconstructed images. Radiation dose: Total exam DLP = 908.93 mGy-cm. This CT exam was performed using one or more of the following dose reduction techniques: Automated exposure control, adjustment of the mA and/or kV according to patient size, and/or use of iterative reconstruction technique. FINDINGS: HEMORRHAGE: No intracranial hemorrhage. BRAIN: No mass effect or edema. Cortical cerebellar atrophy, periventricular small vessel disease. Bilateral punctate lacune or infarcts identified bilaterally VENTRICLES: Unremarkable. No hydrocephalus. CALVARIUM: Unremarkable. . PARANASAL SINUSES: Unremarkable as visualized. No significant inflammatory changes. MASTOID AIR CELLS: Unremarkable as visualized. No inflammatory changes. OTHER FINDINGS: None. IMPRESSION: No acute intracranial abnormalities. No significant findings to account for the clinical presentation. No significant interval change compared to the prior examination(s). Code stroke protocol: Study completed 11:27. Radiologist notified 11:38 Results conveyed verbally at 11:45. I discussed findings directly with the physician involved in the care and management of this individual, Dr. Janie Mendiola Interpretation finalized and available for review 11:46. June 16, 2018.
--- NOTE | 2018-06-16 12:37 | US ---
Date of service: 06/16/2018 HISTORY: eval thyroid lesions TECHNIQUE: Sonographic evaluation of the thyroid gland. COMPARISON: June 15, 2018. CT thorax documenting thyroid lesions FINDINGS: RIGHT LOBE: Measures 2.4 x 2.8 x 6.1 cm. Enlarged heterogeneous right lobe Nodules: Midpole solid isoechoic nodule 2 x 2.2 x 2.0 cm Exophytic lower pole solid nodule with areas of calcifications/colloid 2.3 x 2.7 x 3.0 cm. LEFT LOBE: Measures 1.9 x 2.3 x 4.6 cm. Heterogenous echotexture, normal vascularity Nodules: Solid nodule with areas of calcifications/colloid midpole region 6 x 8 x 10 mm. Solid isoechoic nodule mid pole region 8 x 12 x 13 mm. ISTHMUS: Measures 0.31 cm. Nodules: None OTHER FINDINGS: None . IMPRESSION: Enlarged right lobe, heterogeneous gland bilaterally. Multiple (4) bilateral solid thyroid nodules. Recommendations for follow-up: 1. Radionuclide Scan to assess Thyroid function and to evaluate the thyroid for the presence of hot or cold nodules. 2. Fine needle aspiration (FNA) should also be considered as an invasive diagnostic tool in the assessment of findings described above.
--- NOTE | 2018-06-16 15:52 | US ---
PROCEDURE: Bilateral carotiid US HISTORY: Carotid stenosis CVA PHYSICIAN(S): Tylor Archibald MD. TECHNIQUE: Duplex sonography and color-flow Doppler were used to evaluate the carotid bifurcations and limited segments of the vertebral arteries bilaterally. FINDINGS: There is mild to moderate smooth diffuse heterogeneous plaque noted at the carotid bifurcations bilaterally. The peak systolic velocity in the proximal right internal carotid artery is 91 cm/sec. This corresponds to a 20 to 39% proximal right ICA stenosis. Normal systolic velocities are noted in the proximal right external carotid artery. There is antegrade flow in the right vertebral artery. The peak systolic velocity in the proximal left internal carotid artery is 96 cm/sec. This corresponds to a 20 to 39% proximal left ICA stenosis. Normal systolic velocities are noted in the proximal left external carotid artery. There is antegrade flow in the left vertebral artery. IMPRESSION: 1. Bilateral 20-39% proximal ICA stenoses. 2. Antegrade flow in both vertebral arteries.
--- NOTE | 2018-06-16 15:59 | CP.CCUPN ---
<Maury Lima - Last Filed: 06/16/18 16:03> CCU Subjective - Physician Review Events Since Last Encounter (Free Text): Maury Lima, PGY-1 ICU Progress Note Patient seen and examined at bedside. No acute events overnight. Patient's neurological status is improved with some slurring in speech but is AO x3. She denies any complaints at this time. She denies CP, SOB, abdominal pain, urinary complaints, headaches and back pain. 12 point ROS noted here, otherwise negative. CCU Objective - Vital Signs / Intake & Output Vital Signs (Last 4 hours): Vital Signs Temp Pulse Resp BP Pulse Ox 06/16/18 14:00 98.9 F 105 H 06/16/18 13:30 105 H 36 H 99 06/16/18 13:20 100 H 23 99 06/16/18 13:10 117 H 147 H 97 06/16/18 13:01 114 H 75 H 73/42 L 96 06/16/18 13:00 115 H 30 H 92 L 06/16/18 12:50 111 H 19 97 06/16/18 12:40 112 H 46 H 98 06/16/18 12:30 110 H 16 100 06/16/18 12:20 110 H 97 06/16/18 12:10 103 H 28 H 98 06/16/18 12:05 107 H 49 H 98 Intake and Output (Last 8hrs): Intake & Output 06/16/18 06/16/18 06/16/18 06:59 14:59 22:59 Intake Total 168 Output Total 650 Balance -482 Weight 183 lb 3.2 oz 183 lb Intake: IV 168 Left Antecubital 168 Output: Urine 650 Urine, Voided 650 Other: # Bowel Movements 0 - Physical Exam Head: Positive for: Atraumatic, Normocephalic Pupils: Positive for: PERRL Extroacular Muscles: Positive for: EOMI Conjunctiva: Positive for: Normal Mouth: Positive for: Dry Respiratory/Chest: Positive for: Clear to Auscultation, Good Air Exchange, Tachypneic. Negative for: Respiratory Distress, Accessory Muscle Use, Wheezes, Rales, Retracting, Rhonchi Cardiovascular: Positive for: Peripheal Pulses Present, Tachycardic. Negative for: Regular Rate and Rhythm, Murmurs Abdomen: Positive for: Normal Bowel Sounds. Negative for: Tenderness, Distention, Peritoneal Signs, Rebound, Guarding Lower Extremity: Positive for: Normal ROM, Neurovascularly Intact, Other ( surgical dressing noted on right hip with ecchymosis tracking down thigh ). Negative for: Cyanosis, Deformity Neurological: Positive for: GCS=15, CN II-XII Intact, Speech Normal Skin: Positive for: Warm, Dry, Normal Color. Negative for: Rashes Psychiatric: Positive for: Alert, Oriented x 3, Normal Insight, Normal Concentration - Medications Active Medications: Active Medications Generic Name Dose Route Start Last Admin Trade Name Freq PRN Reason Stop Dose Admin Aspirin 300 mg 06/16/18 10:40 06/16/18 10:56 Aspirin Supp RC 300 mg DAILY MARIELENA Administration Atorvastatin Calcium 40 mg 06/15/18 18:30 06/15/18 18:42 Lipitor PO Not Given DIN MARIELENA Home Med 1 unit 06/16/18 22:00 Home Med OU HS [facility] Heparin Sodium/Sodium Chloride 25,000 units in 250 mls @ 13.254 mls/hr 01:09 Heparin 80014 Units/250ml 1/2 Normal Saline IV .[id number] PRN ADJUST RATE PER PROTOCOL Protocol 15 UNITS/KG/HR Insulin Human Regular 0 units 06/15/18 22:00 06/16/18 13:16 Humulin R Med SC Not Given ACHS [facility] Protocol Levalbuterol HCl 1.25 mg 06/16/18 10:20 Xopenex IH [id number] PRN Shortness of Breath - Patient Studies Lab Studies: Lab Studies 06/16/18 06/16/18 06/16/18 Range/Units 12:45 11:08 07:35 WBC (4.5-11.0) 10^3/ul RBC (3.5-6.1) 10^6/uL Hgb (12.0-16.0) g/dL Hct (36.0-48.0) % MCV (80.0-105.0) fl MCH (25.0-35.0) pg MCHC (31.0-37.0) g/dl RDW (11.5-14.5) % Plt Count (120.0-450.0) 10^3/uL MPV (7.0-11.0) fl Gran % (50.0-68.0) % Lymph % (Auto) (22.0-35.0) % [place] % (Auto) (1.0-6.0) % Eos % (Auto) (1.5-5.0) % Baso % (Auto) (0.0-3.0) % Gran # (1.4-6.5) Lymph # (Auto) (1.2-3.4) [place] # (Auto) (0.1-0.6) Eos # (Auto) (0.0-0.7) Baso # (Auto) (0.0-2.0) K/mm3 APTT 68.1 H (25.1-36.5) Seconds Sodium (132-148) mmol/L Potassium (3.6-5.0) mmol/L Chloride (98-107) mmol/L Carbon Dioxide (21-33) mmol/L Anion Gap (10-20) BUN (7-21) mg/dL Creatinine (0.7-1.2) mg/dl Est GFR ( Amer) Est GFR (Non-Af Amer) POC Glucose (mg/dL) 131 H 128 H (65-110) mg/dL Random Glucose (70-110) mg/dL Hemoglobin A1c (4.2-6.5) % Calcium (8.4-10.5) mg/dL Phosphorus (2.5-4.5) mg/dL Magnesium (1.7-2.2) mg/dL Total Bilirubin (0.2-1.3) mg/dL AST (14-36) U/L ALT (7-56) U/L Alkaline Phosphatase (38-126) U/L Troponin I ng/mL Total Protein (5.8-8.3) g/dL Albumin (3.0-4.8) g/dL Globulin gm/dL Albumin/Globulin Ratio (1.1-1.8) Triglycerides (35-160) mg/dL Cholesterol (130-200) mg/dL LDL Cholesterol Direct (0-129) mg/dL HDL Cholesterol (29-60) mg/dL TSH 3rd Generation (0.46-4.68) mIU/mL 06/16/18 06/16/18 06/16/18 Range/Units 06:00 06:00 06:00 WBC (4.5-11.0) 10^3/ul RBC (3.5-6.1) 10^6/uL Hgb (12.0-16.0) g/dL Hct (36.0-48.0) % MCV (80.0-105.0) fl MCH (25.0-35.0) pg MCHC (31.0-37.0) g/dl RDW (11.5-14.5) % Plt Count (120.0-450.0) 10^3/uL MPV (7.0-11.0) fl Gran % (50.0-68.0) % Lymph % (Auto) (22.0-35.0) % [place] % (Auto) (1.0-6.0) % Eos % (Auto) (1.5-5.0) % Baso % (Auto) (0.0-3.0) % Gran # (1.4-6.5) Lymph # (Auto) (1.2-3.4) [place] # (Auto) (0.1-0.6) Eos # (Auto) (0.0-0.7) Baso # (Auto) (0.0-2.0) K/mm3 APTT 73.3 H (25.1-36.5) Seconds Sodium (132-148) mmol/L Potassium (3.6-5.0) mmol/L Chloride (98-107) mmol/L Carbon Dioxide (21-33) mmol/L Anion Gap (10-20) BUN (7-21) mg/dL Creatinine (0.7-1.2) mg/dl Est GFR ( Amer) Est GFR (Non-Af Amer) POC Glucose (mg/dL) (65-110) mg/dL Random Glucose (70-110) mg/dL Hemoglobin A1c 5.8 (4.2-6.5) % Calcium (8.4-10.5) mg/dL Phosphorus (2.5-4.5) mg/dL Magnesium (1.7-2.2) mg/dL Total Bilirubin (0.2-1.3) mg/dL AST (14-36) U/L ALT (7-56) U/L Alkaline Phosphatase (38-126) U/L Troponin I ng/mL Total Protein (5.8-8.3) g/dL Albumin (3.0-4.8) g/dL Globulin gm/dL Albumin/Globulin Ratio (1.1-1.8) Triglycerides (35-160) mg/dL Cholesterol (130-200) mg/dL LDL Cholesterol Direct (0-129) mg/dL HDL Cholesterol (29-60) mg/dL TSH 3rd Generation 0.93 (0.46-4.68) mIU/mL 06/16/18 06/16/18 06/16/18 Range/Units 06:00 05:30 05:30 WBC 8.0 (4.5-11.0) 10^3/ul RBC 3.11 L (3.5-6.1) 10^6/uL Hgb 8.9 L (12.0-16.0) g/dL Hct 27.8 L (36.0-48.0) % MCV 89.4 (80.0-105.0) fl MCH 28.6 (25.0-35.0) pg MCHC 32.0 (31.0-37.0) g/dl RDW 19.4 H (11.5-14.5) % Plt Count 170 (120.0-450.0) 10^3/uL MPV 10.2 (7.0-11.0) fl Gran % 72.3 H (50.0-68.0) % Lymph % (Auto) 11.7 L (22.0-35.0) % [place] % (Auto) 10.2 H (1.0-6.0) % Eos % (Auto) 5.3 H (1.5-5.0) % Baso % (Auto) 0.5 (0.0-3.0) % Gran # 5.81 (1.4-6.5) Lymph # (Auto) 0.9 L (1.2-3.4) [place] # (Auto) 0.8 H (0.1-0.6) Eos # (Auto) 0.4 (0.0-0.7) Baso # (Auto) 0.04 (0.0-2.0) K/mm3 APTT (25.1-36.5) Seconds Sodium 133 (132-148) mmol/L Potassium 4.6 (3.6-5.0) mmol/L Chloride 96 L (98-107) mmol/L Carbon Dioxide 27 (21-33) mmol/L Anion Gap 15 (10-20) BUN 30 H (7-21) mg/dL Creatinine 1.3 H (0.7-1.2) mg/dl Est GFR ( Amer) 48 Est GFR (Non-Af Amer) 40 POC Glucose (mg/dL) (65-110) mg/dL Random Glucose 157 H (70-110) mg/dL Hemoglobin A1c (4.2-6.5) % Calcium 8.7 (8.4-10.5) mg/dL Phosphorus (2.5-4.5) mg/dL Magnesium (1.7-2.2) mg/dL Total Bilirubin 1.2 (0.2-1.3) mg/dL AST 50 H (14-36) U/L ALT 60 H (7-56) U/L Alkaline Phosphatase 63 (38-126) U/L Troponin I 0.14 H* ng/mL Total Protein 6.7 (5.8-8.3) g/dL Albumin 3.5 (3.0-4.8) g/dL Globulin 3.2 gm/dL Albumin/Globulin Ratio 1.1 (1.1-1.8) Triglycerides 141 (35-160) mg/dL Cholesterol 136 (130-200) mg/dL LDL Cholesterol Direct 71 (0-129) mg/dL HDL Cholesterol 37 (29-60) mg/dL TSH 3rd Generation (0.46-4.68) mIU/mL 06/16/18 06/15/18 06/15/18 Range/Units 01:05 22:20 22:05 WBC (4.5-11.0) 10^3/ul RBC (3.5-6.1) 10^6/uL Hgb (12.0-16.0) g/dL Hct (36.0-48.0) % MCV (80.0-105.0) fl MCH (25.0-35.0) pg MCHC (31.0-37.0) g/dl RDW (11.5-14.5) % Plt Count (120.0-450.0) 10^3/uL MPV (7.0-11.0) fl Gran % (50.0-68.0) % Lymph % (Auto) (22.0-35.0) % [place] % (Auto) (1.0-6.0) % Eos % (Auto) (1.5-5.0) % Baso % (Auto) (0.0-3.0) % Gran # (1.4-6.5) Lymph # (Auto) (1.2-3.4) [place] # (Auto) (0.1-0.6) Eos # (Auto) (0.0-0.7) Baso # (Auto) (0.0-2.0) K/mm3 APTT 128.5 H* (25.1-36.5) Seconds Sodium (132-148) mmol/L Potassium (3.6-5.0) mmol/L Chloride (98-107) mmol/L Carbon Dioxide (21-33) mmol/L Anion Gap (10-20) BUN (7-21) mg/dL Creatinine (0.7-1.2) mg/dl Est GFR ( Amer) Est GFR (Non-Af Amer) POC Glucose (mg/dL) 159 H (65-110) mg/dL Random Glucose (70-110) mg/dL Hemoglobin A1c (4.2-6.5) % Calcium (8.4-10.5) mg/dL Phosphorus (2.5-4.5) mg/dL Magnesium (1.7-2.2) mg/dL Total Bilirubin (0.2-1.3) mg/dL AST (14-36) U/L ALT (7-56) U/L Alkaline Phosphatase (38-126) U/L Troponin I 0.15 H* ng/mL Total Protein (5.8-8.3) g/dL Albumin (3.0-4.8) g/dL Globulin gm/dL Albumin/Globulin Ratio (1.1-1.8) Triglycerides (35-160) mg/dL Cholesterol (130-200) mg/dL LDL Cholesterol Direct (0-129) mg/dL HDL Cholesterol (29-60) mg/dL TSH 3rd Generation (0.46-4.68) mIU/mL 06/15/18 Range/Units 19:15 WBC (4.5-11.0) 10^3/ul RBC (3.5-6.1) 10^6/uL Hgb (12.0-16.0) g/dL Hct (36.0-48.0) % MCV (80.0-105.0) fl MCH (25.0-35.0) pg MCHC (31.0-37.0) g/dl RDW (11.5-14.5) % Plt Count (120.0-450.0) 10^3/uL MPV (7.0-11.0) fl Gran % (50.0-68.0) % Lymph % (Auto) (22.0-35.0) % [place] % (Auto) (1.0-6.0) % Eos % (Auto) (1.5-5.0) % Baso % (Auto) (0.0-3.0) % Gran # (1.4-6.5) Lymph # (Auto) (1.2-3.4) [place] # (Auto) (0.1-0.6) Eos # (Auto) (0.0-0.7) Baso # (Auto) (0.0-2.0) K/mm3 APTT (25.1-36.5) Seconds Sodium (132-148) mmol/L Potassium (3.6-5.0) mmol/L Chloride (98-107) mmol/L Carbon Dioxide (21-33) mmol/L Anion Gap (10-20) BUN (7-21) mg/dL Creatinine (0.7-1.2) mg/dl Est GFR ( Amer) Est GFR (Non-Af Amer) POC Glucose (mg/dL) (65-110) mg/dL Random Glucose (70-110) mg/dL Hemoglobin A1c (4.2-6.5) % Calcium (8.4-10.5) mg/dL Phosphorus 3.0 (2.5-4.5) mg/dL Magnesium 1.9 (1.7-2.2) mg/dL Total Bilirubin (0.2-1.3) mg/dL AST (14-36) U/L ALT (7-56) U/L Alkaline Phosphatase (38-126) U/L Troponin I 0.17 H* ng/mL Total Protein (5.8-8.3) g/dL Albumin (3.0-4.8) g/dL Globulin gm/dL Albumin/Globulin Ratio (1.1-1.8) Triglycerides (35-160) mg/dL Cholesterol (130-200) mg/dL LDL Cholesterol Direct (0-129) mg/dL HDL Cholesterol (29-60) mg/dL TSH 3rd Generation (0.46-4.68) mIU/mL Laboratory Results - last 24 hr 06/15/18 06/15/18 06/15/18 19:15 22:05 22:20 WBC RBC Hgb Hct MCV MCH MCHC RDW Plt Count MPV Gran % Lymph % (Auto) [place] % (Auto) Eos % (Auto) Baso % (Auto) Gran # Lymph # (Auto) [place] # (Auto) Eos # (Auto) Baso # (Auto) APTT 128.5 H* Sodium Potassium Chloride Carbon Dioxide Anion Gap BUN Creatinine Est GFR ( Amer) Est GFR (Non-Af Amer) POC Glucose (mg/dL) 159 H Random Glucose Hemoglobin A1c Calcium Phosphorus 3.0 Magnesium 1.9 Total Bilirubin AST ALT Alkaline Phosphatase Troponin I 0.17 H* Total Protein Albumin Globulin Albumin/Globulin Ratio Triglycerides Cholesterol LDL Cholesterol Direct HDL Cholesterol TSH 3rd Generation 06/16/18 06/16/18 06/16/18 01:05 05:30 05:30 WBC 8.0 RBC 3.11 L Hgb 8.9 L Hct 27.8 L MCV 89.4 MCH 28.6 MCHC 32.0 RDW 19.4 H Plt Count 170 MPV 10.2 Gran % 72.3 H Lymph % (Auto) 11.7 L [place] % (Auto) 10.2 H Eos % (Auto) 5.3 H Baso % (Auto) 0.5 Gran # 5.81 Lymph # (Auto) 0.9 L [place] # (Auto) 0.8 H Eos # (Auto) 0.4 Baso # (Auto) 0.04 APTT Sodium 133 Potassium 4.6 Chloride 96 L Carbon Dioxide 27 Anion Gap 15 BUN 30 H Creatinine 1.3 H Est GFR ( Amer) 48 Est GFR (Non-Af Amer) 40 POC Glucose (mg/dL) Random Glucose 157 H Hemoglobin A1c Calcium 8.7 Phosphorus Magnesium Total Bilirubin 1.2 AST 50 H ALT 60 H Alkaline Phosphatase 63 Troponin I 0.15 H* Total Protein 6.7 Albumin 3.5 Globulin 3.2 Albumin/Globulin Ratio 1.1 Triglycerides Cholesterol LDL Cholesterol Direct HDL Cholesterol TSH 3rd Generation 06/16/18 06/16/18 06/16/18 06:00 06:00 06:00 WBC RBC Hgb Hct MCV MCH MCHC RDW Plt Count MPV Gran % Lymph % (Auto) [place] % (Auto) Eos % (Auto) Baso % (Auto) Gran # Lymph # (Auto) [place] # (Auto) Eos # (Auto) Baso # (Auto) APTT Sodium Potassium Chloride Carbon Dioxide Anion Gap BUN Creatinine Est GFR ( Amer) Est GFR (Non-Af Amer) POC Glucose (mg/dL) Random Glucose Hemoglobin A1c 5.8 Calcium Phosphorus Magnesium Total Bilirubin AST ALT Alkaline Phosphatase Troponin I 0.14 H* Total Protein Albumin Globulin Albumin/Globulin Ratio Triglycerides 141 Cholesterol 136 LDL Cholesterol Direct 71 HDL Cholesterol 37 TSH 3rd Generation 0.93 06/16/18 06/16/18 06/16/18 06:00 07:35 11:08 WBC RBC Hgb Hct MCV MCH MCHC RDW Plt Count MPV Gran % Lymph % (Auto) [place] % (Auto) Eos % (Auto) Baso % (Auto) Gran # Lymph # (Auto) [place] # (Auto) Eos # (Auto) Baso # (Auto) APTT 73.3 H Sodium Potassium Chloride Carbon Dioxide Anion Gap BUN Creatinine Est GFR ( Amer) Est GFR (Non-Af Amer) POC Glucose (mg/dL) 128 H 131 H Random Glucose Hemoglobin A1c Calcium Phosphorus Magnesium Total Bilirubin AST ALT Alkaline Phosphatase Troponin I Total Protein Albumin Globulin Albumin/Globulin Ratio Triglycerides Cholesterol LDL Cholesterol Direct HDL Cholesterol TSH 3rd Generation 06/16/18 12:45 WBC RBC Hgb Hct MCV MCH MCHC RDW Plt Count MPV Gran % Lymph % (Auto) [place] % (Auto) Eos % (Auto) Baso % (Auto) Gran # Lymph # (Auto) [place] # (Auto) Eos # (Auto) Baso # (Auto) APTT 68.1 H Sodium Potassium Chloride Carbon Dioxide Anion Gap BUN Creatinine Est GFR ( Amer) Est GFR (Non-Af Amer) POC Glucose (mg/dL) Random Glucose Hemoglobin A1c Calcium Phosphorus Magnesium Total Bilirubin AST ALT Alkaline Phosphatase Troponin I Total Protein Albumin Globulin Albumin/Globulin Ratio Triglycerides Cholesterol LDL Cholesterol Direct HDL Cholesterol TSH 3rd Generation Fingerstick Blood Sugar Results: 88 Critical Care Progress Note - Nutrition Nutrition: Nutrition Category Date Time Status Pureed [Dysphagia/Modified Consistency Diet] [DIET] Diets 06/16/18 Lunch Ordered Assessment/Plan - Assessment and Plan (Free Text) Assessment: This is a 77 year old female with PMH of HTN, DM, COPD, history of anemia and EDD presenting to the ICU for management of stroke, PE and DVT. Plan: Neuro: -maintain normothermia -AAO x3, moving extremities spontaneously past midline -Head CT today shows no significant interval change, no acute intracranial abnormality -neuro check q1 -Neuro on consult, Dr. Rubalcava Cardio: -maintain MAP>65 -will monitor vitals including HR and BP closely -echo final read pending -carotid US: B/L 20-39% proximal ICA stenosis -Cardio on consult, Dr Ken Lungs: -SaO2 >90% -supplementary O2 PRN -xopenex prn -CT chest: interstitial fibrosis, lesions in thyroid, cardiomegaly -Duplex LE: isolated right tibial DVT Renal: -maintain euvolemia -avoid nephrotoxic agents, hypochloremia -replace electrolytes as needed -BUN/Cr is 30/1.3, will monitor Heme: -Hg today is 8.9 from 8.5, will monitor -On heparin drip -DVT ppx Endo: -maintain euglycemia -Insulin human regular ACHS -Thyroid US today shows enlarged right lobe, heterogenous gland B/L and multiple solid thyroid nodules. Recommend FNA ID: -WBC is 8 today, afebrile -blood culture, urine culture pending -GI: - pureed dysphagia diet <Dao Wilcox - Last Filed: 06/16/18 16:58> CCU Objective - Vital Signs / Intake & Output Vital Signs (Last 4 hours): Vital Signs Temp Pulse Resp BP Pulse Ox 06/16/18 14:00 98.9 F 105 H 06/16/18 13:30 105 H 36 H 99 06/16/18 13:20 100 H 23 99 06/16/18 13:10 117 H 147 H 97 06/16/18 13:01 114 H 75 H 73/42 L 96 06/16/18 13:00 115 H 30 H 92 L Intake and Output (Last 8hrs): Intake & Output 06/16/18 06/16/18 06/16/18 06:59 14:59 22:59 Intake Total 168 Output Total 650 Balance -482 Weight 183 lb 3.2 oz 183 lb Intake: IV 168 Left Antecubital 168 Output: Urine 650 Urine, Voided 650 Other: # Bowel Movements 0 - Medications Active Medications: Active Medications Generic Name Dose Route Start Last Admin Trade Name Freq PRN Reason Stop Dose Admin Aspirin 300 mg 06/16/18 10:40 06/16/18 10:56 Aspirin Supp RC 300 mg DAILY [facility] Administration Atorvastatin Calcium 40 mg 06/15/18 18:30 06/15/18 18:42 Lipitor PO Not Given DIN MARIELENA Home Med 1 unit 06/16/18 22:00 Home Med OU HS [facility] Heparin Sodium/Sodium Chloride 25,000 units in 250 mls @ 13.254 mls/hr 01:09 Heparin 11345 Units/250ml 1/2 Normal Saline IV .[id number] PRN ADJUST RATE PER PROTOCOL Protocol 15 UNITS/KG/HR Insulin Human Regular 0 units 06/15/18 22:00 06/16/18 13:16 Humulin R Med SC Not Given ACHS [facility] Protocol Levalbuterol HCl 1.25 mg 06/16/18 10:20 Xopenex IH [id number] PRN Shortness of Breath - Patient Studies Lab Studies: Lab Studies 06/16/18 06/16/18 06/16/18 Range/Units 16:23 12:45 11:08 WBC (4.5-11.0) 10^3/ul RBC (3.5-6.1) 10^6/uL Hgb (12.0-16.0) g/dL Hct (36.0-48.0) % MCV (80.0-105.0) fl MCH (25.0-35.0) pg MCHC (31.0-37.0) g/dl RDW (11.5-14.5) % Plt Count (120.0-450.0) 10^3/uL MPV (7.0-11.0) fl Gran % (50.0-68.0) % Lymph % (Auto) (22.0-35.0) % [place] % (Auto) (1.0-6.0) % Eos % (Auto) (1.5-5.0) % Baso % (Auto) (0.0-3.0) % Gran # (1.4-6.5) Lymph # (Auto) (1.2-3.4) [place] # (Auto) (0.1-0.6) Eos # (Auto) (0.0-0.7) Baso # (Auto) (0.0-2.0) K/mm3 APTT 68.1 H (25.1-36.5) Seconds Sodium (132-148) mmol/L Potassium (3.6-5.0) mmol/L Chloride (98-107) mmol/L Carbon Dioxide (21-33) mmol/L Anion Gap (10-20) BUN (7-21) mg/dL Creatinine (0.7-1.2) mg/dl Est GFR ( Amer) Est GFR (Non-Af Amer) POC Glucose (mg/dL) 185 H 131 H (65-110) mg/dL Random Glucose (70-110) mg/dL Hemoglobin A1c (4.2-6.5) % Calcium (8.4-10.5) mg/dL Phosphorus (2.5-4.5) mg/dL Magnesium (1.7-2.2) mg/dL Total Bilirubin (0.2-1.3) mg/dL AST (14-36) U/L ALT (7-56) U/L Alkaline Phosphatase (38-126) U/L Troponin I ng/mL Total Protein (5.8-8.3) g/dL Albumin (3.0-4.8) g/dL Globulin gm/dL Albumin/Globulin Ratio (1.1-1.8) Triglycerides (35-160) mg/dL Cholesterol (130-200) mg/dL LDL Cholesterol Direct (0-129) mg/dL HDL Cholesterol (29-60) mg/dL TSH 3rd Generation (0.46-4.68) mIU/mL 06/16/18 06/16/18 06/16/18 Range/Units 07:35 06:00 06:00 WBC (4.5-11.0) 10^3/ul RBC (3.5-6.1) 10^6/uL Hgb (12.0-16.0) g/dL Hct (36.0-48.0) % MCV (80.0-105.0) fl MCH (25.0-35.0) pg MCHC (31.0-37.0) g/dl RDW (11.5-14.5) % Plt Count (120.0-450.0) 10^3/uL MPV (7.0-11.0) fl Gran % (50.0-68.0) % Lymph % (Auto) (22.0-35.0) % [place] % (Auto) (1.0-6.0) % Eos % (Auto) (1.5-5.0) % Baso % (Auto) (0.0-3.0) % Gran # (1.4-6.5) Lymph # (Auto) (1.2-3.4) [place] # (Auto) (0.1-0.6) Eos # (Auto) (0.0-0.7) Baso # (Auto) (0.0-2.0) K/mm3 APTT 73.3 H (25.1-36.5) Seconds Sodium (132-148) mmol/L Potassium (3.6-5.0) mmol/L Chloride (98-107) mmol/L Carbon Dioxide (21-33) mmol/L Anion Gap (10-20) BUN (7-21) mg/dL Creatinine (0.7-1.2) mg/dl Est GFR ( Amer) Est GFR (Non-Af Amer) POC Glucose (mg/dL) 128 H (65-110) mg/dL Random Glucose (70-110) mg/dL Hemoglobin A1c (4.2-6.5) % Calcium (8.4-10.5) mg/dL Phosphorus (2.5-4.5) mg/dL Magnesium (1.7-2.2) mg/dL Total Bilirubin (0.2-1.3) mg/dL AST (14-36) U/L ALT (7-56) U/L Alkaline Phosphatase (38-126) U/L Troponin I ng/mL Total Protein (5.8-8.3) g/dL Albumin (3.0-4.8) g/dL Globulin gm/dL Albumin/Globulin Ratio (1.1-1.8) Triglycerides (35-160) mg/dL Cholesterol (130-200) mg/dL LDL Cholesterol Direct (0-129) mg/dL HDL Cholesterol (29-60) mg/dL TSH 3rd Generation 0.93 (0.46-4.68) mIU/mL 06/16/18 06/16/18 06/16/18 Range/Units 06:00 06:00 05:30 WBC (4.5-11.0) 10^3/ul RBC (3.5-6.1) 10^6/uL Hgb (12.0-16.0) g/dL Hct (36.0-48.0) % MCV (80.0-105.0) fl MCH (25.0-35.0) pg MCHC (31.0-37.0) g/dl RDW (11.5-14.5) % Plt Count (120.0-450.0) 10^3/uL MPV (7.0-11.0) fl Gran % (50.0-68.0) % Lymph % (Auto) (22.0-35.0) % [place] % (Auto) (1.0-6.0) % Eos % (Auto) (1.5-5.0) % Baso % (Auto) (0.0-3.0) % Gran # (1.4-6.5) Lymph # (Auto) (1.2-3.4) [place] # (Auto) (0.1-0.6) Eos # (Auto) (0.0-0.7) Baso # (Auto) (0.0-2.0) K/mm3 APTT (25.1-36.5) Seconds Sodium 133 (132-148) mmol/L Potassium 4.6 (3.6-5.0) mmol/L Chloride 96 L (98-107) mmol/L Carbon Dioxide 27 (21-33) mmol/L Anion Gap 15 (10-20) BUN 30 H (7-21) mg/dL Creatinine 1.3 H (0.7-1.2) mg/dl Est GFR ( Amer) 48 Est GFR (Non-Af Amer) 40 POC Glucose (mg/dL) (65-110) mg/dL Random Glucose 157 H (70-110) mg/dL Hemoglobin A1c 5.8 (4.2-6.5) % Calcium 8.7 (8.4-10.5) mg/dL Phosphorus (2.5-4.5) mg/dL Magnesium (1.7-2.2) mg/dL Total Bilirubin 1.2 (0.2-1.3) mg/dL AST 50 H (14-36) U/L ALT 60 H (7-56) U/L Alkaline Phosphatase 63 (38-126) U/L Troponin I 0.14 H* ng/mL Total Protein 6.7 (5.8-8.3) g/dL Albumin 3.5 (3.0-4.8) g/dL Globulin 3.2 gm/dL Albumin/Globulin Ratio 1.1 (1.1-1.8) Triglycerides 141 (35-160) mg/dL Cholesterol 136 (130-200) mg/dL LDL Cholesterol Direct 71 (0-129) mg/dL HDL Cholesterol 37 (29-60) mg/dL TSH 3rd Generation (0.46-4.68) mIU/mL 06/16/18 06/16/18 06/15/18 Range/Units 05:30 01:05 22:20 WBC 8.0 (4.5-11.0) 10^3/ul RBC 3.11 L (3.5-6.1) 10^6/uL Hgb 8.9 L (12.0-16.0) g/dL Hct 27.8 L (36.0-48.0) % MCV 89.4 (80.0-105.0) fl MCH 28.6 (25.0-35.0) pg MCHC 32.0 (31.0-37.0) g/dl RDW 19.4 H (11.5-14.5) % Plt Count 170 (120.0-450.0) 10^3/uL MPV 10.2 (7.0-11.0) fl Gran % 72.3 H (50.0-68.0) % Lymph % (Auto) 11.7 L (22.0-35.0) % [place] % (Auto) 10.2 H (1.0-6.0) % Eos % (Auto) 5.3 H (1.5-5.0) % Baso % (Auto) 0.5 (0.0-3.0) % Gran # 5.81 (1.4-6.5) Lymph # (Auto) 0.9 L (1.2-3.4) [place] # (Auto) 0.8 H (0.1-0.6) Eos # (Auto) 0.4 (0.0-0.7) Baso # (Auto) 0.04 (0.0-2.0) K/mm3 APTT 128.5 H* (25.1-36.5) Seconds Sodium (132-148) mmol/L Potassium (3.6-5.0) mmol/L Chloride (98-107) mmol/L Carbon Dioxide (21-33) mmol/L Anion Gap (10-20) BUN (7-21) mg/dL Creatinine (0.7-1.2) mg/dl Est GFR ( Amer) Est GFR (Non-Af Amer) POC Glucose (mg/dL) (65-110) mg/dL Random Glucose (70-110) mg/dL Hemoglobin A1c (4.2-6.5) % Calcium (8.4-10.5) mg/dL Phosphorus (2.5-4.5) mg/dL Magnesium (1.7-2.2) mg/dL Total Bilirubin (0.2-1.3) mg/dL AST (14-36) U/L ALT (7-56) U/L Alkaline Phosphatase (38-126) U/L Troponin I 0.15 H* ng/mL Total Protein (5.8-8.3) g/dL Albumin (3.0-4.8) g/dL Globulin gm/dL Albumin/Globulin Ratio (1.1-1.8) Triglycerides (35-160) mg/dL Cholesterol (130-200) mg/dL LDL Cholesterol Direct (0-129) mg/dL HDL Cholesterol (29-60) mg/dL TSH 3rd Generation (0.46-4.68) mIU/mL 06/15/18 06/15/18 Range/Units 22:05 19:15 WBC (4.5-11.0) 10^3/ul RBC (3.5-6.1) 10^6/uL Hgb (12.0-16.0) g/dL Hct (36.0-48.0) % MCV (80.0-105.0) fl MCH (25.0-35.0) pg MCHC (31.0-37.0) g/dl RDW (11.5-14.5) % Plt Count (120.0-450.0) 10^3/uL MPV (7.0-11.0) fl Gran % (50.0-68.0) % Lymph % (Auto) (22.0-35.0) % [place] % (Auto) (1.0-6.0) % Eos % (Auto) (1.5-5.0) % Baso % (Auto) (0.0-3.0) % Gran # (1.4-6.5) Lymph # (Auto) (1.2-3.4) [place] # (Auto) (0.1-0.6) Eos # (Auto) (0.0-0.7) Baso # (Auto) (0.0-2.0) K/mm3 APTT (25.1-36.5) Seconds Sodium (132-148) mmol/L Potassium (3.6-5.0) mmol/L Chloride (98-107) mmol/L Carbon Dioxide (21-33) mmol/L Anion Gap (10-20) BUN (7-21) mg/dL Creatinine (0.7-1.2) mg/dl Est GFR ( Amer) Est GFR (Non-Af Amer) POC Glucose (mg/dL) 159 H (65-110) mg/dL Random Glucose (70-110) mg/dL Hemoglobin A1c (4.2-6.5) % Calcium (8.4-10.5) mg/dL Phosphorus 3.0 (2.5-4.5) mg/dL Magnesium 1.9 (1.7-2.2) mg/dL Total Bilirubin (0.2-1.3) mg/dL AST (14-36) U/L ALT (7-56) U/L Alkaline Phosphatase (38-126) U/L Troponin I 0.17 H* ng/mL Total Protein (5.8-8.3) g/dL Albumin (3.0-4.8) g/dL Globulin gm/dL Albumin/Globulin Ratio (1.1-1.8) Triglycerides (35-160) mg/dL Cholesterol (130-200) mg/dL LDL Cholesterol Direct (0-129) mg/dL HDL Cholesterol (29-60) mg/dL TSH 3rd Generation (0.46-4.68) mIU/mL Laboratory Results - last 24 hr 06/15/18 06/15/18 06/15/18 19:15 22:05 22:20 WBC RBC Hgb Hct MCV MCH MCHC RDW Plt Count MPV Gran % Lymph % (Auto) [place] % (Auto) Eos % (Auto) Baso % (Auto) Gran # Lymph # (Auto) [place] # (Auto) Eos # (Auto) Baso # (Auto) APTT 128.5 H* Sodium Potassium Chloride Carbon Dioxide Anion Gap BUN Creatinine Est GFR ( Amer) Est GFR (Non-Af Amer) POC Glucose (mg/dL) 159 H Random Glucose Hemoglobin A1c Calcium Phosphorus 3.0 Magnesium 1.9 Total Bilirubin AST ALT Alkaline Phosphatase Troponin I 0.17 H* Total Protein Albumin Globulin Albumin/Globulin Ratio Triglycerides Cholesterol LDL Cholesterol Direct HDL Cholesterol TSH 3rd Generation 06/16/18 06/16/18 06/16/18 01:05 05:30 05:30 WBC 8.0 RBC 3.11 L Hgb 8.9 L Hct 27.8 L MCV 89.4 MCH 28.6 MCHC 32.0 RDW 19.4 H Plt Count 170 MPV 10.2 Gran % 72.3 H Lymph % (Auto) 11.7 L [place] % (Auto) 10.2 H Eos % (Auto) 5.3 H Baso % (Auto) 0.5 Gran # 5.81 Lymph # (Auto) 0.9 L [place] # (Auto) 0.8 H Eos # (Auto) 0.4 Baso # (Auto) 0.04 APTT Sodium 133 Potassium 4.6 Chloride 96 L Carbon Dioxide 27 Anion Gap 15 BUN 30 H Creatinine 1.3 H Est GFR ( Amer) 48 Est GFR (Non-Af Amer) 40 POC Glucose (mg/dL) Random Glucose 157 H Hemoglobin A1c Calcium 8.7 Phosphorus Magnesium Total Bilirubin 1.2 AST 50 H ALT 60 H Alkaline Phosphatase 63 Troponin I 0.15 H* Total Protein 6.7 Albumin 3.5 Globulin 3.2 Albumin/Globulin Ratio 1.1 Triglycerides Cholesterol LDL Cholesterol Direct HDL Cholesterol TSH 3rd Generation 06/16/18 06/16/18 06/16/18 06:00 06:00 06:00 WBC RBC Hgb Hct MCV MCH MCHC RDW Plt Count MPV Gran % Lymph % (Auto) [place] % (Auto) Eos % (Auto) Baso % (Auto) Gran # Lymph # (Auto) [place] # (Auto) Eos # (Auto) Baso # (Auto) APTT Sodium Potassium Chloride Carbon Dioxide Anion Gap BUN Creatinine Est GFR ( Amer) Est GFR (Non-Af Amer) POC Glucose (mg/dL) Random Glucose Hemoglobin A1c 5.8 Calcium Phosphorus Magnesium Total Bilirubin AST ALT Alkaline Phosphatase Troponin I 0.14 H* Total Protein Albumin Globulin Albumin/Globulin Ratio Triglycerides 141 Cholesterol 136 LDL Cholesterol Direct 71 HDL Cholesterol 37 TSH 3rd Generation 0.93 06/16/18 06/16/18 06/16/18 06:00 07:35 11:08 WBC RBC Hgb Hct MCV MCH MCHC RDW Plt Count MPV Gran % Lymph % (Auto) [place] % (Auto) Eos % (Auto) Baso % (Auto) Gran # Lymph # (Auto) [place] # (Auto) Eos # (Auto) Baso # (Auto) APTT 73.3 H Sodium Potassium Chloride Carbon Dioxide Anion Gap BUN Creatinine Est GFR ( Amer) Est GFR (Non-Af Amer) POC Glucose (mg/dL) 128 H 131 H Random Glucose Hemoglobin A1c Calcium Phosphorus Magnesium Total Bilirubin AST ALT Alkaline Phosphatase Troponin I Total Protein Albumin Globulin Albumin/Globulin Ratio Triglycerides Cholesterol LDL Cholesterol Direct HDL Cholesterol TSH 3rd Generation 06/16/18 06/16/18 12:45 16:23 WBC RBC Hgb Hct MCV MCH MCHC RDW Plt Count MPV Gran % Lymph % (Auto) [place] % (Auto) Eos % (Auto) Baso % (Auto) Gran # Lymph # (Auto) [place] # (Auto) Eos # (Auto) Baso # (Auto) APTT 68.1 H Sodium Potassium Chloride Carbon Dioxide Anion Gap BUN Creatinine Est GFR ( Amer) Est GFR (Non-Af Amer) POC Glucose (mg/dL) 185 H Random Glucose Hemoglobin A1c Calcium Phosphorus Magnesium Total Bilirubin AST ALT Alkaline Phosphatase Troponin I Total Protein Albumin Globulin Albumin/Globulin Ratio Triglycerides Cholesterol LDL Cholesterol Direct HDL Cholesterol TSH 3rd Generation Critical Care Progress Note - Nutrition Nutrition: Nutrition Category Date Time Status Pureed [Dysphagia/Modified Consistency Diet] [DIET] Diets 06/16/18 Lunch Ordered Attending/Attestation - Attestation I have personally seen and examined this patient.: Yes I have fully participated in the care of the patient.: Yes I have reviewed all pertinent clinical information: Yes Notes (Text): 06/16/18 16:53 The patient was seen and examined at the bedside. Patient care was discussed with resident Medical records, lab studies, and imaging were reviewed and management issues were discussed and formulated. Agree with above treatment plans as outlined in 's note with addition of the following: DVT \ NSTEMI \ CVA \ COPD \ DM 2 -hemodynamic monitoring to maintain MAP>65 -f\u serial CE and ECG;f\u Echo -cardiology team eval -continue ASA and Statin -o2 supplementation to maintain Spo2>90 Pao2>60; currently comfortable on NC -continue nebs PRN -CT head shows no acute infarct or bleed -neurology team f\u -f\u Bun\Cr and U\o -NPO diet and aspiration precautions; dysphagia eval -ISS and BGM monitoring to maintain euglycemia -continue neuro checks as per Stroke protocol -f\u carotid US -f\u thyroid US -PT\OT eval -DVT prophylaxis CCM time 31min
[2018-06-16] MEDS: Heparin25000 units/250ml 1/2NS 25,000 UNITS/250 ML BAG IV PRN (19:00)
[2018-06-16] MEDS ORDERED: Morphine 2 mg/ml ISec IVP PRN (20:57)
[2018-06-16] MEDS: LUMIGAN OU SCH (21:00)
[2018-06-17] MEDS: Heparin25000 units/250ml 1/2NS 25,000 UNITS/250 ML BAG IV PRN (05:38)
[2018-06-17] MEDS ORDERED: Insulin Detemir 100 units/ml Vial (Levemir) SC SCH (07:30)
[2018-06-17] MEDS: Insulin Reg-MEDIUM-Coverage SC SCH ×4 (08:25→22:10)
--- NOTE | 2018-06-17 08:25 | CARD ---
APPROVED REPORT Date of service: 06/16/2018 EXAM: Two-dimensional and M-mode echocardiogram with Doppler and color Doppler. Other Information Quality : GoodRhythm : INDICATION slurred speech, R/O stroke 2D DIMENSIONS Left Atrium (2D)4.8 (1.6-4.0cm)IVSd1.4 (0.7-1.1cm) LVDd3.4 (3.9-5.9cm)PWd1.3 (0.7-1.1cm) LVDs2.4 (2.5-4.0cm)FS (%) 29.8 % LVEF (%)58.0 (>50%) Aortic Valve AoV Peak Ovijmjan739.0cm/s Mitral Valve MV E Wxwesyxo308.0cm/sMV A Tthzygoz18.2cm/sE/A ratio1.1 TDI E/Lateral E'0.0E/Medial E'0.0 Tricuspid Valve TR Peak [id number]/sRAP [id number] Peak Gr.52mmHg [id number] LEFT VENTRICLE The left ventricle is normal size. There is mild concentric left ventricular hypertrophy. The left ventricular function is normal. The left ventricular ejection fraction is within the normal range. There is normal LV segmental wall motion. RIGHT VENTRICLE The right ventricle is normal size. AORTIC VALVE The aortic valve is normal in structure. MITRAL VALVE The mitral valve is moderately thickened. Mitral annular calcification is mild. Mitral regurgitation is trace. TRICUSPID VALVE The tricuspid valve is normal in structure. There is moderate tricuspid regurgitation. There is moderate-severe pulmonary hypertension. PULMONIC VALVE The pulmonary valve is normal in structure. There is mild pulmonic valvular regurgitation. GREAT VESSELS The aortic root is normal in size. PERICARDIAL EFFUSION There is no pericardial effusion. <Conclusion> The left ventricle is normal size. There is mild concentric left ventricular hypertrophy. The left ventricular function is normal. Mitral annular calcification is mild. Mitral regurgitation is trace. There is moderate tricuspid regurgitation. There is mild pulmonic valvular regurgitation. There is moderate-severe pulmonary hypertension.
[2018-06-17 08:36] LABS: BASO # 0.03 K/mm3 (0.0-2.0); BASO % 0.5 % (0.0-3.0); EOS # 0.6 (0.0-0.7); EOS % 10.4 % (1.5-5.0); GRAN # 3.66 (1.4-6.5); GRAN % 64.9 % (50.0-68.0); HEMOGLOBIN 8.6 g/dL (12.0-16.0); LYMPH # 0.8 (1.2-3.4); LYMPH % 13.6 % (22.0-35.0); MEAN CELL VOLUME 89.4 fl (80.0-105.0); MEAN CORPUSCULAR HEMOGLOBIN 28.5 pg (25.0-35.0); MEAN CORPUSCULAR HGB CONC 31.9 g/dl (31.0-37.0); MEAN PLATELET VOLUME 9.7 fl (7.0-11.0); MONO # 0.6 (0.1-0.6); MONO % 10.6 % (1.0-6.0); RBC 3.02 10^6/uL (3.5-6.1); RED CELL DISTRIBUTION WIDTH 19.4 % (11.5-14.5); WHITE BLOOD COUNT 5.7 10^3/ul (4.5-11.0)
--- NOTE | 2018-06-17 09:11 | CON ---
Copied To: Mark Duron MD Attending MD: Mark Duron MD DATE: 06/17/2018 HISTORY OF PRESENT ILLNESS: This is a 77-year-old woman, known to me, admitted on 06/15/2018 with shortness of breath, altered mental status in the setting of recent fall, fractured right hip and surgical repair. She has slurred speech. She was admitted to the Intensive Care Unit with presumed diagnosis of stroke, which was not, however, seen on the CT scan and possible pulmonary embolus. She has been treated with heparin. Today, she is resting in bed in the Intensive Care Unit. She still has some slurred speech, but apparently it has improved. She is less short of breath. There is no chest pain, orthopnea, PND, syncope, presyncope, lightheadedness, dizziness, vertigo, palpitation, fever, chills, cough, sputum production, hemoptysis, abdominal pain, nausea, vomiting, diarrhea, constipation, melena. PAST MEDICAL HISTORY: Very complex. She has coronary artery disease, remote coronary intervention, and a chronically occluded right coronary artery. A cardiac catheterization in April revealed medical disease with diffuse moderate coronary artery disease and an occluded right coronary with normal left ventricular function. She has severe COPD, pulmonary fibrosis. She uses oxygen at home. She is a former smoker. She has sleep apnea. She has bilateral total knee replacements. An echocardiogram in April showed normal LV function with aortic sclerosis. Mild to moderate tricuspid regurgitation and moderate to severe pulmonary hypertension. CURRENT MEDICATIONS: Include aspirin, heparin IV, insulin, Lipitor, Motrin, Xopenex. ALLERGIES: THERE ARE NO KNOWN MEDICATION ALLERGIES. SOCIAL HISTORY: She lives at home. She was in [facility], recovering from recent hip surgery. She no longer smokes. She does not drink alcohol significantly. REVIEW OF SYSTEMS: Ten-point review of systems is otherwise unremarkable except noted above. FAMILY HISTORY: Noncontributory. PHYSICAL EXAMINATION: GENERAL: She is a well-developed, elderly woman, resting in bed in the CCU, in no acute distress. VITAL SIGNS: She is afebrile, blood pressure 128/59, O2 sat 96-98% on nasal cannula. HEENT: Reveals no neck vein distention, thyromegaly, carotid bruit. Mucous membranes moist. Conjunctivae pink. NECK: Supple. LUNGS: Lungs quinteros, scattered rhonchi. HEART: Examination of the heart revealed normal first and second heart sounds. There is soft systolic murmur along the left sternal border. PMI was not palpable. ABDOMEN: Benign. Bowel sounds were present. No mass, organomegaly, tenderness, rebound or guarding. No CVA tenderness. No palpable abdominal aortic aneurysm. EXTREMITIES: Revealed no cyanosis, clubbing or edema. NEUROLOGICAL: She was awake and alert with slurred speech. PSYCHIATRIC: Normal as to mood and affect. SKIN: Warm and dry. No rash or cellulitis. LABORATORY DATA AND IMAGING: A CT scan of the chest, which was not done with a pulmonary embolus protocol revealed extensive interstitial fibrosis, etc. A CT scan of the head revealed no acute intracranial hemorrhage, etc. The EKG demonstrates sinus tachycardia, ST-T-wave changes consistent with ischemia, which were new. Chest x-ray revealed poor inspiration with low lung volumes, crowded bronchovesicular markings, etc. The carotid artery ultrasound reveals bilateral 20-39% internal carotid artery stenosis. Thyroid ultrasound reveals enlarged right lobe, multiple solid thyroid nodules. Repeat head CT yesterday revealed no acute intracranial abnormality. See full report. White count normal, hemoglobin 8.9, hematocrit 27.8, platelet count 170,000. PT, INR, PTT initially normal, subsequently consistent with heparin therapy, today PTT 74.1. Electrolytes, BUN and creatinine noted, unremarkable. Mild hyponatremia initially. Magnesium 1.9. Blood sugars noted. Mild elevation of LFTs. Troponins mildly elevated at 0.15, 0.17, 0.15, 0.14. Blood cultures x2, no growth at 24 hours. Urine culture, no growth. IMPRESSION: Jaja Krueger is a 77-year-old woman, who appears to have suffered a stroke in the postoperative period following right hip surgery for a fall and fractured right hip. While at [facility], she developed slurred speech, also shortness of breath. She is being treated for stroke and possible pulmonary embolus. Lower extremity ultrasound revealed isolated right tibial deep venous thrombosis. there are mild troponin elevations most c/w demand ischemia rather than acute myocardial infarction. I suggested a pulmonary consultation, and a CT angiogram to rule in or rule out acute pulmonary embolus. We will follow up lower extremity ultrasound as suggested by Dr. Archibald. I will review an echocardiogram with bubble study that was done yesterday. I have spoken with Dr. Santana, outboard motors experimental mechanic. We will monitor inputs and outputs. Check stool for occult blood. Monitor labs, O2 saturations, PTTs while on heparin drip. She is having a Neurology consultation. I will follow along with you. I will make additional recommendations based on her clinical course. Mark Duron MD MTDD
--- NOTE | 2018-06-17 09:28 | CP.PCM.PN ---
<Sarah Hernandez - Last Filed: 06/17/18 16:13> Subjective - Date & Time of Evaluation Date of Evaluation: 06/17/18 Time of Evaluation: 07:00 - Subjective Subjective: PGY-[address] Sams Pt said slurring has much improves. In good mood. Denies CP, SOB Objective - Vital Signs/Intake and Output Vital Signs (last 24 hours): Temp Pulse Resp BP Pulse Ox 98.9 F 112 H 25 H 157/70 H 97 06/16/18 14:00 06/17/18 08:50 06/17/18 08:50 06/17/18 08:00 06/17/18 08:50 Intake and Output: 06/17/18 06/17/18 06:59 18:59 Intake Total 250 Balance 250 - Medications Medications: Current Medications Aspirin (Aspirin Supp) 300 mg RC DAILY [facility] Last Admin: 06/16/18 10:56 Dose: 300 mg Atorvastatin Calcium (Lipitor) 40 mg PO DIN [facility] Last Admin: 06/16/18 21:03 Dose: 40 mg Budesonide (Pulmicort Respules) 0.5 mg IH [id number] [facility] Home Med (Home Med) 1 unit OU HS [facility] Last Admin: 06/16/18 21:00 Dose: 1 unit Heparin Sodium/Sodium Chloride (Heparin 28225 Units/250ml 1/2 Normal Saline) 25 ,000 units in 250 mls @ 13.254 mls/hr IV .[id number] PRN; Protocol; 15 UNITS/KG/HR PRN Reason: ADJUST RATE PER PROTOCOL Last Admin: 06/17/18 05:38 Dose: 15 units/kg/hr, 13.254 mls/hr Ibuprofen (Motrin Oral Susp) 100 mg PO Q6H PRN PRN Reason: Pain, moderate (4-7) Last Admin: 06/16/18 22:40 Dose: 100 mg Insulin Detemir (Levemir) 10 unit SC HS [facility] Insulin Human Regular (Humulin R Med) 0 units SC ACHS [facility] PRN Reason: Protocol Last Admin: 06/17/18 08:25 Dose: 1 unit Levalbuterol HCl (Xopenex) 1.25 mg IH [id number] [facility] - Labs Labs: 06/17/18 08:20 06/16/18 05:30 PT 11.9 SECONDS (9.4-12.5) 06/15/18 12:30 INR 1.03 06/15/18 12:30 APTT 74.1 Seconds (25.1-36.5) H 06/17/18 06:46 - Constitutional Appears: No Acute Distress - Head Exam Head Exam: ATRAUMATIC, NORMAL INSPECTION, NORMOCEPHALIC - Eye Exam Eye Exam: EOMI, Normal appearance. absent: Scleral icterus Pupil Exam: NORMAL ACCOMODATION - ENT Exam ENT Exam: Mucous Membranes Moist - Neck Exam Additional comments: supple - Respiratory Exam Respiratory Exam: Clear to Ausculation Bilateral. absent: Rales, Rhonchi, Wheezes, Respiratory Distress - Cardiovascular Exam Cardiovascular Exam: REGULAR RHYTHM, +S1, +S2 - GI/Abdominal Exam GI & Abdominal Exam: Soft, Normal Bowel Sounds. absent: Guarding, Rigid, Tenderness - Extremities Exam Extremities Exam: Normal Capillary Refill, Pedal Edema (R > L). absent: Calf Tenderness, Tenderness - Neurological Exam Neurological Exam: Alert, Awake, CN II-XII Intact (mild R nasal-labile fold deepening), Oriented x3 Additional comments: motor/sensory grossly intact - Psychiatric Exam Psychiatric exam: Normal Affect, Normal Mood - Skin Skin Exam: Dry, Warm Assessment and Plan - Assessment and Plan (Free Text) Plan: Ms Krueger, 77F with a hx of HTN, COPD, DM, chronic anemia who present with slurr speech, sob, and leg pain. She had slurred speech at rehab s/p R hip ORIF from mechanical fall. Code stroke was called. She was found to have acute stroke, RLE DVT. Due to elevated trops and tachycardia, she was treated for presumed PE vs r/o ACS. She recently had a cardiac cath which showed mod disease vessels but no critical lesions. Ef 60%. Normal RV size. CTA chest (06/17): no evidence of pulmonary embolism. diffuse subpleural fibrosis. Pt is admitted to ICU for tachycardia, ACS, DVT, poss PE. Pt slurring improves, tachycardia improves, hemodynamically stable, and downgraded to telemetry. Acute cerebrovascular accident, no TPA due to recent surgery and questionable out of 3-hr windows Slurred speech - resolved - Head CT shows no significant interval change, no acute intracranial abnormality - Echo bubble study: mild LVH, EF of 58%, moderate TR, mild pulmonic vascular regurgitation, moderate to severe pulmonary hypertension with RVSP of 62 - carotid US: B/L 20-39% proximal ICA stenosis - MRI/MRA cannot be obtained due to her prosthetic metal - ASA, lipitor - puree, nectar thickener - PT/OT/ST. LAYO when ready DVT R leg likely provoked, from her recent surgery and immobilization Questionable Concurrent symptomatic pulmonary embolism Questionable small subsegmental PE - CTA-chest negative; BNP 1050 -> 2800 in 2 months, ED bedside echo shows enlarged RV but NEG for mcconnels sign - Duplex LE: isolated right tibial DVT - on heparin gtt for both DVT and ?PE - before consider transit to PO anticoagulant x 3-6 weeks: - Just had contrast, need to monitor bun/cre/urine output - Is the PE still giving symptoms? - Lovenox with warfarin? labor intensive - Lovenox then Pradaxa? Avoid if CrCl < 30 - Xarelto? Avoid if CrCl < 30 - Maybe Eliquis? - renal dose ok - Pulm consult NSTEMI likely type II demand/ischemia Positive troponin, R/O PE, R/O RI - cardio consult COPD, on home O2, advanced Pulmonary fibrosis, advanced EDD - Budesonide, xopenex DM2 - levemir 10 units HS; ISSS-med Thyroid nodule - Chest CT (06/15): thyroid with peripheral calcification (f/u U/ S outpatient) Prophylaxis - protonix, hep gtt s/r/d/w Dr. Sams <Mitchel Sams S - Last Filed: 06/17/18 19:12> Objective - Vital Signs/Intake and Output Vital Signs (last 24 hours): Temp Pulse Resp BP Pulse Ox 98.1 F 112 H 25 H 157/70 H 97 06/17/18 12:15 06/17/18 08:50 06/17/18 08:50 06/17/18 08:00 06/17/18 08:50 - Medications Medications: Current Medications Aspirin (Aspirin Chewable) 81 mg PO DAILY [facility] Last Admin: 06/17/18 13:49 Dose: Not Given Atorvastatin Calcium (Lipitor) 40 mg PO DIN [facility] Last Admin: 06/17/18 17:20 Dose: 40 mg Budesonide (Pulmicort Respules) 0.5 mg IH [id number] [facility] Home Med (Home Med) 1 unit OU HS [facility] Last Admin: 06/16/18 21:00 Dose: 1 unit Heparin Sodium/Sodium Chloride (Heparin 63999 Units/250ml 1/2 Normal Saline) 25 ,000 units in 250 mls @ 13.254 mls/hr IV .[id number] PRN; Protocol; 15 UNITS/KG/HR PRN Reason: ADJUST RATE PER PROTOCOL Last Admin: 06/17/18 05:38 Dose: 15 units/kg/hr, 13.254 mls/hr Ibuprofen (Motrin Oral Susp) 100 mg PO Q6H PRN PRN Reason: Pain, moderate (4-7) Last Admin: 06/16/18 22:40 Dose: 100 mg Insulin Detemir (Levemir) 10 unit SC HS [facility] Insulin Human Regular (Humulin R Med) 0 units SC ACHS [facility] PRN Reason: Protocol Last Admin: 06/17/18 17:19 Dose: 1 unit Levalbuterol HCl (Xopenex) 1.25 mg IH [id number] [facility] Last Admin: 06/17/18 13:07 Dose: Not Given Pantoprazole Sodium (Protonix Susp) 40 mg PO 0600 [facility] - Labs Labs: 06/17/18 08:20 06/17/18 08:20 PT 11.9 SECONDS (9.4-12.5) 06/15/18 12:30 INR 1.03 06/15/18 12:30 APTT 74.1 Seconds (25.1-36.5) H 06/17/18 06:46 Assessment and Plan - Assessment and Plan (Free Text) Plan: Pt seen and examined. I have reviewed the note of the biomedical engineering director and agree with it. I have discussed the assessment and plan with the resident. I have reviewed the patient's labs and medications. Pt with acute DVT. She is on anticoagulation. She has pain but is comfortable. Repeat CT was reviewed, no acute changes.
[2018-06-17 09:50] LABS: ALB/GLOB RATIO 1.2 (1.1-1.8); ALBUMIN 3.3 g/dL (3.0-4.8); CALCIUM 9.2 mg/dL (8.4-10.5)
--- NOTE | 2018-06-17 10:46 | CON ---
Copied To: Luis Carlos Ansari MD Attending MD: Luis Carlos Ansari MD DATE: 06/17/2018 PULMONARY CONSULTATION PULMONARY CONSULTATION IS REQUESTED BY: Mitchel Sams MD. REASON FOR PULMONARY CONSULTATION: Rule out pulmonary embolism. HISTORY OF PRESENT ILLNESS: History is obtained via extensive discussion with the family. I have also spoken with the patient at length, and reviewed the chart at length. I have also discussed the case with Dr. Santana (paper products machine operator). The patient is a 77-year-old female, with past medical history significant for advanced chronic obstructive pulmonary disease, on home oxygen; advanced pulmonary fibrosis; ulcerative colitis; extensive coronary artery disease; status post multiple cardiac stents; status post myocardial infarction in the past; hypertension; hyperlipidemia; diabetes mellitus; status post recent right hip fracture; who presented to [facility] on 06/15/2018 with main complaints of increasing right-sided weakness, confusion and right facial droop. In the emergency room, the patient was diagnosed with an acute cerebrovascular accident. She was thus admitted for additional evaluation. Again, I did discuss the case with the patient/family at length. The patient is not short of breath at rest. She does have chronic dyspnea on exertion - unchanged. She also has an occasional chronic cough with occasional sputum production - also unchanged. There is no history of chest pain, coughing up of blood or chest pain - made worse with deep respirations. There is no history of temperatures, chills or infectious exposure. There is no history of night sweats, weight loss or appetite change prior to the above events. During the admission process, the patient did state to right calf pain. No history of syncope or diaphoresis. No history of recent travel. REVIEW OF SYSTEMS: No history of nausea, vomiting, diarrhea. No acute urinary symptoms. Rest of the review of systems is negative. ALLERGIES: NO KNOWN ALLERGIES. SOCIAL HISTORY: Positive for extensive tobacco usage. Negative for alcohol. FAMILY HISTORY: No inheritable diseases. HOME MEDICATIONS: Include Percocet, metformin, losartan, Amaryl and Augmentin. PHYSICAL EXAMINATION: GENERAL: The patient is not short of breath at rest. She is not using accessory muscles for breathing. VITAL SIGNS: Temperature is 97.8, pulse on the monitor is 95, respirations 14/16, blood pressure 112/46. Oxygen saturation on nasal cannula is 97%. HEENT: Normocephalic, atraumatic. No JVD. CARDIOVASCULAR: Systolic ejection murmur at the lower left sternal border. No S3 gallop. LUNGS: Minimal crackles at the bases (probably chronic). Minimal rhonchi. No wheezing. EXTREMITIES: Mild edema is noted in both lower extremities. No cyanosis or clubbing. Calves are nontender to palpation. GI: Abdomen is soft, nontender and nondistended. Bowel sounds are positive. SKIN: No acute rash. NEUROLOGIC: Limited at the present time. PERTINENT LABORATORY DATA: CAT scan of the chest was done on 06/15/2018. The CAT scan was done with contrast, but not the pulmonary embolism protocol. There is extensive interstitial fibrosis noted, with honeycombing peripherally. The central airways are midline and patent. There is no significant lymphadenopathy. CBC: White count 5.7K, hemoglobin 8.6, hematocrit 27, platelets of 151,000. PTT this morning - 74.1. Complete metabolic profile: Chloride 96, BUN 30, creatinine 1.3, glucose 157, AST 50, ALT 60, troponin 0.15. Rest of the metabolic profile is within normal limits. Extremity ultrasound was done on 06/15/2018. There is an isolated right tibial vein deep venous thrombosis noted. IMPRESSION: 1. Acute cerebrovascular accident. 2. Advanced chronic obstructive pulmonary disease, on home oxygen. 3. Advanced pulmonary fibrosis. 4. Extensive coronary artery disease. 5. Obstructive sleep apnea. 6. Right tibial deep venous thrombosis. 7. Positive troponin. Rule out pulmonary embolism. Rule out myocardial infarction. PLAN: Again, I did discuss the case with the family at length. I have also discussed the case with the nurse at length, and the paper products machine operator at length. I have also reviewed the chart at length. The patient presented to [facility] on 06/15/2018 - transferred from [facility] - with main complaints of confusion, right-sided weakness and right-sided facial droop. She was thus admitted for an acute cerebrovascular accident. I did review the CAT scan of the chest. Again, the CAT scan of the chest was done with contrast, but not the pulmonary embolism protocol. There is extensive pulmonary fibrosis noted. There is no significant lymphadenopathy. I have also reviewed the laboratory data. A positive troponin is noted. The patient does have a history of extensive coronary artery disease and myocardial infarction. However, given the above clinical setting, we will evaluate the positive troponin further with a CT angiogram (if the BUN/creatinine normalizes). Again, I did discuss the case at length with Dr. Santana (paper products machine operator). On physical exam, there is only mild bronchospasm noted. I will change the nebulizer treatments to scheduled Xopenex [id number] and add inhaled Pulmicort. The patient does have an extensive history of lung disease. Again, additional repeat a.m. labs are pending. Clinical status of the patient is significantly improved - compared to her initial presentation. Additional pulmonary intervention will be based on the clinical status of the patient, as well as the above results. I will discuss the above with the attending physician. Thank you very much for this pulmonary consultation. Luis Carlos Ansari MD MTDElbert
[2018-06-17] MEDS ORDERED: Iodixanol 320 MG/ML 100 ML BOTTLE IV ONE (12:46)
--- NOTE | 2018-06-17 13:06 | CP.CCUPN ---
<MasonMaury ijmenez - Last Filed: 06/17/18 13:00> CCU Subjective - Physician Review Events Since Last Encounter (Free Text): Maury Lima, PGY-1 ICU Progress Note Patient seen and examined at bedside this morning. No acute events overnight. Patient has no complaints at this time and reports good appetite. Patient is at baseline neurologically per family present in room. Scheduled to get CTA today. Currently denies CP, SOB, headaches, abdominal pain, back pain and urinary complaints. 12 point ROS noted here, otherwise unremarkable. CCU Objective - Vital Signs / Intake & Output Intake and Output (Last 8hrs): Intake & Output 06/16/18 06/17/18 06/17/18 22:59 06:59 14:59 Intake Total 512 250 Output Total 300 Balance 212 250 Weight 190 lb Intake: IV 162 250 Left Antecubital 162 Oral 350 Output: Urine 300 Urine, Voided 300 Stool 0 Emesis 0 - Physical Exam Head: Positive for: Atraumatic, Normocephalic Pupils: Positive for: PERRL Extroacular Muscles: Positive for: EOMI Conjunctiva: Positive for: Normal Mouth: Positive for: Dry Respiratory/Chest: Positive for: Clear to Auscultation, Good Air Exchange, Tachypneic. Negative for: Respiratory Distress, Accessory Muscle Use, Wheezes, Rales, Retracting, Rhonchi Cardiovascular: Positive for: Peripheal Pulses Present, Tachycardic. Negative for: Regular Rate and Rhythm, Murmurs Abdomen: Positive for: Normal Bowel Sounds. Negative for: Tenderness, Distention, Peritoneal Signs, Rebound, Guarding Lower Extremity: Positive for: Normal ROM, Neurovascularly Intact, Other ( dressing noted on right thigh with no gross bleeding or pus). Negative for: Cyanosis, Deformity Neurological: Positive for: GCS=15, CN II-XII Intact, Speech Normal, Normal Sensory Function, Memory Normal Skin: Positive for: Warm, Dry, Normal Color. Negative for: Rashes Psychiatric: Positive for: Alert, Oriented x 3, Normal Insight, Normal Concentration - Medications Active Medications: Active Medications Generic Name Dose Route Start Last Admin Trade Name Freq PRN Reason Stop Dose Admin Aspirin 81 mg 06/17/18 12:30 Aspirin Chewable PO DAILY [facility] [place] Atorvastatin Calcium 40 mg 06/15/18 18:30 06/17/18 09:21 Lipitor PO Not Given DIN [facility] Budesonide 0.5 mg 06/17/18 20:00 Pulmicort Respules IH [id number] MARIELENA Home Med 1 unit 06/16/18 22:00 06/16/18 21:00 Home Med OU 1 unit HS [facility] Administration Heparin Sodium/Sodium Chloride 25,000 units in 250 mls @ 13.254 mls/hr 01:09 06/17/18 05:38 Heparin 49343 Units/250ml 1/2 Normal Saline IV 15 units/kg/hr .[id number] PRN 13.254 mls/hr ADJUST RATE PER PROTOCOL Administration Protocol 15 UNITS/KG/HR Ibuprofen 100 mg 06/16/18 21:23 06/16/18 22:40 Motrin Oral Susp PO 100 mg Q6H PRN Administration Pain, moderate (4-7) Insulin Detemir 10 unit 06/17/18 22:00 Levemir SC HS [facility] Insulin Human Regular 0 units 06/15/18 22:00 06/17/18 11:57 Humulin R Med SC 3 unit ACHS [facility] Administration Protocol Levalbuterol HCl 1.25 mg 06/17/18 14:00 Xopenex IH [id number] MARIELENA Pantoprazole Sodium 40 mg 06/18/18 06:00 Protonix Susp PO 0600 [facility] - Patient Studies Lab Studies: Microbiology Studies 06/15/18 17:28 MRSA Culture (Admit) - Final Naris MRSA NOT DETECTED Lab Studies 06/17/18 06/17/18 06/17/18 Range/Units 11:37 08:20 08:20 WBC 5.7 D (4.5-11.0) 10^3/ul RBC 3.02 L (3.5-6.1) 10^6/uL Hgb 8.6 L (12.0-16.0) g/dL Hct 27.0 L (36.0-48.0) % MCV 89.4 (80.0-105.0) fl MCH 28.5 (25.0-35.0) pg MCHC 31.9 (31.0-37.0) g/dl RDW 19.4 H (11.5-14.5) % Plt Count 151 (120.0-450.0) 10^3/uL MPV 9.7 (7.0-11.0) fl Gran % 64.9 (50.0-68.0) % Lymph % (Auto) 13.6 L (22.0-35.0) % [place] % (Auto) 10.6 H (1.0-6.0) % Eos % (Auto) 10.4 H (1.5-5.0) % Baso % (Auto) 0.5 (0.0-3.0) % Gran # 3.66 (1.4-6.5) Lymph # (Auto) 0.8 L (1.2-3.4) [place] # (Auto) 0.6 (0.1-0.6) Eos # (Auto) 0.6 (0.0-0.7) Baso # (Auto) 0.03 (0.0-2.0) K/mm3 APTT (25.1-36.5) Seconds Sodium 136 (132-148) mmol/L Potassium 4.6 (3.6-5.0) mmol/L Chloride 98 (98-107) mmol/L Carbon Dioxide 27 (21-33) mmol/L Anion Gap 15 (10-20) BUN 29 H (7-21) mg/dL Creatinine 1.2 (0.7-1.2) mg/dl Est GFR ( Amer) 53 Est GFR (Non-Af Amer) 44 POC Glucose (mg/dL) 228 H (65-110) mg/dL Random Glucose 153 H (70-110) mg/dL Calcium 9.2 (8.4-10.5) mg/dL Total Bilirubin 1.2 (0.2-1.3) mg/dL AST 36 D (14-36) U/L ALT 53 (7-56) U/L Alkaline Phosphatase 68 (38-126) U/L Total Protein 6.1 (5.8-8.3) g/dL Albumin 3.3 (3.0-4.8) g/dL Globulin 2.8 gm/dL Albumin/Globulin Ratio 1.2 (1.1-1.8) 06/17/18 06/17/18 06/16/18 Range/Units 07:36 06:46 21:08 WBC (4.5-11.0) 10^3/ul RBC (3.5-6.1) 10^6/uL Hgb (12.0-16.0) g/dL Hct (36.0-48.0) % MCV (80.0-105.0) fl MCH (25.0-35.0) pg MCHC (31.0-37.0) g/dl RDW (11.5-14.5) % Plt Count (120.0-450.0) 10^3/uL MPV (7.0-11.0) fl Gran % (50.0-68.0) % Lymph % (Auto) (22.0-35.0) % [place] % (Auto) (1.0-6.0) % Eos % (Auto) (1.5-5.0) % Baso % (Auto) (0.0-3.0) % Gran # (1.4-6.5) Lymph # (Auto) (1.2-3.4) [place] # (Auto) (0.1-0.6) Eos # (Auto) (0.0-0.7) Baso # (Auto) (0.0-2.0) K/mm3 APTT 74.1 H (25.1-36.5) Seconds Sodium (132-148) mmol/L Potassium (3.6-5.0) mmol/L Chloride (98-107) mmol/L Carbon Dioxide (21-33) mmol/L Anion Gap (10-20) BUN (7-21) mg/dL Creatinine (0.7-1.2) mg/dl Est GFR ( Amer) Est GFR (Non-Af Amer) POC Glucose (mg/dL) 170 H 301 H (65-110) mg/dL Random Glucose (70-110) mg/dL Calcium (8.4-10.5) mg/dL Total Bilirubin (0.2-1.3) mg/dL AST (14-36) U/L ALT (7-56) U/L Alkaline Phosphatase (38-126) U/L Total Protein (5.8-8.3) g/dL Albumin (3.0-4.8) g/dL Globulin gm/dL Albumin/Globulin Ratio (1.1-1.8) 06/16/18 06/16/18 06/16/18 Range/Units 16:23 12:45 11:08 WBC (4.5-11.0) 10^3/ul RBC (3.5-6.1) 10^6/uL Hgb (12.0-16.0) g/dL Hct (36.0-48.0) % MCV (80.0-105.0) fl MCH (25.0-35.0) pg MCHC (31.0-37.0) g/dl RDW (11.5-14.5) % Plt Count (120.0-450.0) 10^3/uL MPV (7.0-11.0) fl Gran % (50.0-68.0) % Lymph % (Auto) (22.0-35.0) % [place] % (Auto) (1.0-6.0) % Eos % (Auto) (1.5-5.0) % Baso % (Auto) (0.0-3.0) % Gran # (1.4-6.5) Lymph # (Auto) (1.2-3.4) [place] # (Auto) (0.1-0.6) Eos # (Auto) (0.0-0.7) Baso # (Auto) (0.0-2.0) K/mm3 APTT 68.1 H (25.1-36.5) Seconds Sodium (132-148) mmol/L Potassium (3.6-5.0) mmol/L Chloride (98-107) mmol/L Carbon Dioxide (21-33) mmol/L Anion Gap (10-20) BUN (7-21) mg/dL Creatinine (0.7-1.2) mg/dl Est GFR ( Amer) Est GFR (Non-Af Amer) POC Glucose (mg/dL) 185 H 131 H (65-110) mg/dL Random Glucose (70-110) mg/dL Calcium (8.4-10.5) mg/dL Total Bilirubin (0.2-1.3) mg/dL AST (14-36) U/L ALT (7-56) U/L Alkaline Phosphatase (38-126) U/L Total Protein (5.8-8.3) g/dL Albumin (3.0-4.8) g/dL Globulin gm/dL Albumin/Globulin Ratio (1.1-1.8) 06/16/18 06/15/18 Range/Units 07:35 22:05 WBC (4.5-11.0) 10^3/ul RBC (3.5-6.1) 10^6/uL Hgb (12.0-16.0) g/dL Hct (36.0-48.0) % MCV (80.0-105.0) fl MCH (25.0-35.0) pg MCHC (31.0-37.0) g/dl RDW (11.5-14.5) % Plt Count (120.0-450.0) 10^3/uL MPV (7.0-11.0) fl Gran % (50.0-68.0) % Lymph % (Auto) (22.0-35.0) % [place] % (Auto) (1.0-6.0) % Eos % (Auto) (1.5-5.0) % Baso % (Auto) (0.0-3.0) % Gran # (1.4-6.5) Lymph # (Auto) (1.2-3.4) [place] # (Auto) (0.1-0.6) Eos # (Auto) (0.0-0.7) Baso # (Auto) (0.0-2.0) K/mm3 APTT (25.1-36.5) Seconds Sodium (132-148) mmol/L Potassium (3.6-5.0) mmol/L Chloride (98-107) mmol/L Carbon Dioxide (21-33) mmol/L Anion Gap (10-20) BUN (7-21) mg/dL Creatinine (0.7-1.2) mg/dl Est GFR ( Amer) Est GFR (Non-Af Amer) POC Glucose (mg/dL) 128 H 159 H (65-110) mg/dL Random Glucose (70-110) mg/dL Calcium (8.4-10.5) mg/dL Total Bilirubin (0.2-1.3) mg/dL AST (14-36) U/L ALT (7-56) U/L Alkaline Phosphatase (38-126) U/L Total Protein (5.8-8.3) g/dL Albumin (3.0-4.8) g/dL Globulin gm/dL Albumin/Globulin Ratio (1.1-1.8) Laboratory Results - last 24 hr 06/15/18 06/16/18 06/16/18 22:05 07:35 11:08 WBC RBC Hgb Hct MCV MCH MCHC RDW Plt Count MPV Gran % Lymph % (Auto) [place] % (Auto) Eos % (Auto) Baso % (Auto) Gran # Lymph # (Auto) [place] # (Auto) Eos # (Auto) Baso # (Auto) APTT Sodium Potassium Chloride Carbon Dioxide Anion Gap BUN Creatinine Est GFR ( Amer) Est GFR (Non-Af Amer) POC Glucose (mg/dL) 159 H 128 H 131 H Random Glucose Calcium Total Bilirubin AST ALT Alkaline Phosphatase Total Protein Albumin Globulin Albumin/Globulin Ratio 06/16/18 06/16/18 06/16/18 12:45 16:23 21:08 WBC RBC Hgb Hct MCV MCH MCHC RDW Plt Count MPV Gran % Lymph % (Auto) [place] % (Auto) Eos % (Auto) Baso % (Auto) Gran # Lymph # (Auto) [place] # (Auto) Eos # (Auto) Baso # (Auto) APTT 68.1 H Sodium Potassium Chloride Carbon Dioxide Anion Gap BUN Creatinine Est GFR ( Amer) Est GFR (Non-Af Amer) POC Glucose (mg/dL) 185 H 301 H Random Glucose Calcium Total Bilirubin AST ALT Alkaline Phosphatase Total Protein Albumin Globulin Albumin/Globulin Ratio 06/17/18 06/17/18 06/17/18 06:46 07:36 08:20 WBC 5.7 D RBC 3.02 L Hgb 8.6 L Hct 27.0 L MCV 89.4 MCH 28.5 MCHC 31.9 RDW 19.4 H Plt Count 151 MPV 9.7 Gran % 64.9 Lymph % (Auto) 13.6 L [place] % (Auto) 10.6 H Eos % (Auto) 10.4 H Baso % (Auto) 0.5 Gran # 3.66 Lymph # (Auto) 0.8 L [place] # (Auto) 0.6 Eos # (Auto) 0.6 Baso # (Auto) 0.03 APTT 74.1 H Sodium Potassium Chloride Carbon Dioxide Anion Gap BUN Creatinine Est GFR ( Amer) Est GFR (Non-Af Amer) POC Glucose (mg/dL) 170 H Random Glucose Calcium Total Bilirubin AST ALT Alkaline Phosphatase Total Protein Albumin Globulin Albumin/Globulin Ratio 06/17/18 06/17/18 08:20 11:37 WBC RBC Hgb Hct MCV MCH MCHC RDW Plt Count MPV Gran % Lymph % (Auto) [place] % (Auto) Eos % (Auto) Baso % (Auto) Gran # Lymph # (Auto) [place] # (Auto) Eos # (Auto) Baso # (Auto) APTT Sodium 136 Potassium 4.6 Chloride 98 Carbon Dioxide 27 Anion Gap 15 BUN 29 H Creatinine 1.2 Est GFR ( Amer) 53 Est GFR (Non-Af Amer) 44 POC Glucose (mg/dL) 228 H Random Glucose 153 H Calcium 9.2 Total Bilirubin 1.2 AST 36 D ALT 53 Alkaline Phosphatase 68 Total Protein 6.1 Albumin 3.3 Globulin 2.8 Albumin/Globulin Ratio 1.2 Fingerstick Blood Sugar Results: 228 Critical Care Progress Note - Nutrition Nutrition: Nutrition Category Date Time Status Pureed [Dysphagia/Modified Consistency Diet] [DIET] Diets 06/16/18 Lunch Ordered Assessment/Plan - Assessment and Plan (Free Text) Assessment: This is a 77 year old female with PMH of HTN, DM, COPD, history of anemia and EDD presenting to the ICU for management of stroke, concern for PE and DVT. Plan: Neuro: -maintain normothermia -AAO x3, moving extremities spontaneously past midline -Head CT shows no significant interval change, no acute intracranial abnormality -neuro check q1 -Neuro on consult, Dr. Rubalcava Cardio: -maintain MAP>65 -will monitor vitals including HR and BP closely -echo shows mild LVH, EF of 58%, moderate TR, mild pulmonic vascular regurgitation, moderate to severe pulmonary hypertension with RVSP of 62 -carotid US: B/L 20-39% proximal ICA stenosis -Cardio on consult, Dr Ken Lungs: -SaO2 >90% -supplementary O2 PRN -xopenex prn -CT chest: interstitial fibrosis, lesions in thyroid, cardiomegaly -Duplex LE: isolated right tibial DVT -CTA pending -Dr Ansari on consult for pulmonology Renal: -maintain euvolemia -avoid nephrotoxic agents, hypochloremia -replace electrolytes as needed -BUN/Cr is 29/1.2, will monitor Heme: -Hg today is 8.6 WNL -PTT today is 74.1 from previous high of 128.5 -On heparin drip -DVT ppx Endo: -maintain euglycemia -Insulin human regular ACHS -levemir 10 units HS -Thyroid US today shows enlarged right lobe, heterogenous gland B/L and multiple solid thyroid nodules. Recommend FNA ID: -WBC is 5.7 today, afebrile -blood culture no growth after 48 hours , urine culture no growth -GI: -pureed dysphagia diet -protonix ppx <Santana,Bilal - Last Filed: 06/17/18 13:40> CCU Objective - Vital Signs / Intake & Output Intake and Output (Last 8hrs): Intake & Output 06/16/18 06/17/18 06/17/18 22:59 06:59 14:59 Intake Total 512 250 Output Total 300 Balance 212 250 Weight 190 lb Intake: IV 162 250 Left Antecubital 162 Oral 350 Output: Urine 300 Urine, Voided 300 Stool 0 Emesis 0 - Medications Active Medications: Active Medications Generic Name Dose Route Start Last Admin Trade Name Freq PRN Reason Stop Dose Admin Aspirin 81 mg 06/17/18 12:30 Aspirin Chewable PO DAILY [facility] Atorvastatin Calcium 40 mg 06/15/18 18:30 06/17/18 09:21 Lipitor PO Not Given DIN [facility] Budesonide 0.5 mg 06/17/18 20:00 Pulmicort Respules IH [id number] [facility] Home Med 1 unit 06/16/18 22:00 06/16/18 21:00 Home Med OU 1 unit HS [facility] [place] Administration Heparin Sodium/Sodium Chloride 25,000 units in 250 mls @ 13.254 mls/hr 01:09 06/17/18 05:38 Heparin [id number] Units/250ml 1/2 Normal Saline IV 15 units/kg/hr .[id number] PRN 13.254 mls/hr ADJUST RATE PER PROTOCOL Administration Protocol 15 UNITS/KG/HR Ibuprofen 100 mg 06/16/18 21:23 06/16/18 22:40 Motrin Oral Susp PO 100 mg Q6H PRN Administration Pain, moderate (4-7) Insulin Detemir 10 unit 06/17/18 22:00 Levemir SC [facility] Insulin Human Regular 0 units 06/15/18 22:00 06/17/18 11:57 Humulin R Med SC 3 unit ACHS [facility] Administration Protocol Levalbuterol HCl 1.25 mg 06/17/18 14:00 06/17/18 13:07 Xopenex IH Not Given [id number] [facility] Pantoprazole Sodium 40 mg 06/18/18 06:00 Protonix Susp PO 0600 [facility] - Patient Studies Lab Studies: Microbiology Studies 06/15/18 17:28 MRSA Culture (Admit) - Final Naris MRSA NOT DETECTED Lab Studies 06/17/18 06/17/18 06/17/18 Range/Units 11:37 08:20 08:20 WBC 5.7 D (4.5-11.0) 10^3/ul RBC 3.02 L (3.5-6.1) 10^6/uL Hgb 8.6 L (12.0-16.0) g/dL Hct 27.0 L (36.0-48.0) % MCV 89.4 (80.0-105.0) fl MCH 28.5 (25.0-35.0) pg MCHC 31.9 (31.0-37.0) g/dl RDW 19.4 H (11.5-14.5) % Plt Count 151 (120.0-450.0) 10^3/uL MPV 9.7 (7.0-11.0) fl Gran % 64.9 (50.0-68.0) % Lymph % (Auto) 13.6 L (22.0-35.0) % [place] % (Auto) 10.6 H (1.0-6.0) % Eos % (Auto) 10.4 H (1.5-5.0) % Baso % (Auto) 0.5 (0.0-3.0) % Gran # 3.66 (1.4-6.5) Lymph # (Auto) 0.8 L (1.2-3.4) [place] # (Auto) 0.6 (0.1-0.6) Eos # (Auto) 0.6 (0.0-0.7) Baso # (Auto) 0.03 (0.0-2.0) K/mm3 APTT (25.1-36.5) Seconds Sodium 136 (132-148) mmol/L Potassium 4.6 (3.6-5.0) mmol/L Chloride 98 (98-107) mmol/L Carbon Dioxide 27 (21-33) mmol/L Anion Gap 15 (10-20) BUN 29 H (7-21) mg/dL Creatinine 1.2 (0.7-1.2) mg/dl Est GFR ( Amer) 53 Est GFR (Non-Af Amer) 44 POC Glucose (mg/dL) 228 H (65-110) mg/dL Random Glucose 153 H (70-110) mg/dL Calcium 9.2 (8.4-10.5) mg/dL Total Bilirubin 1.2 (0.2-1.3) mg/dL AST 36 D (14-36) U/L ALT 53 (7-56) U/L Alkaline Phosphatase 68 (38-126) U/L Total Protein 6.1 (5.8-8.3) g/dL Albumin 3.3 (3.0-4.8) g/dL Globulin 2.8 gm/dL Albumin/Globulin Ratio 1.2 (1.1-1.8) 06/17/18 06/17/18 06/16/18 Range/Units 07:36 06:46 21:08 WBC (4.5-11.0) 10^3/ul RBC (3.5-6.1) 10^6/uL Hgb (12.0-16.0) g/dL Hct (36.0-48.0) % MCV (80.0-105.0) fl MCH (25.0-35.0) pg MCHC (31.0-37.0) g/dl RDW (11.5-14.5) % Plt Count (120.0-450.0) 10^3/uL MPV (7.0-11.0) fl Gran % (50.0-68.0) % Lymph % (Auto) (22.0-35.0) % [place] % (Auto) (1.0-6.0) % Eos % (Auto) (1.5-5.0) % Baso % (Auto) (0.0-3.0) % Gran # (1.4-6.5) Lymph # (Auto) (1.2-3.4) [place] # (Auto) (0.1-0.6) Eos # (Auto) (0.0-0.7) Baso # (Auto) (0.0-2.0) K/mm3 APTT 74.1 H (25.1-36.5) Seconds Sodium (132-148) mmol/L Potassium (3.6-5.0) mmol/L Chloride (98-107) mmol/L Carbon Dioxide (21-33) mmol/L Anion Gap (10-20) BUN (7-21) mg/dL Creatinine (0.7-1.2) mg/dl Est GFR ( Amer) Est GFR (Non-Af Amer) POC Glucose (mg/dL) 170 H 301 H (65-110) mg/dL Random Glucose (70-110) mg/dL Calcium (8.4-10.5) mg/dL Total Bilirubin (0.2-1.3) mg/dL AST (14-36) U/L ALT (7-56) U/L Alkaline Phosphatase (38-126) U/L Total Protein (5.8-8.3) g/dL Albumin (3.0-4.8) g/dL Globulin gm/dL Albumin/Globulin Ratio (1.1-1.8) 06/16/ Range/Units 16:23 WBC (4.5-11.0) 10^3/ul RBC (3.5-6.1) 10^6/uL Hgb (12.0-16.0) g/dL Hct (36.0-48.0) % MCV (80.0-105.0) fl MCH (25.0-35.0) pg MCHC (31.0-37.0) g/dl RDW (11.5-14.5) % Plt Count (120.0-450.0) 10^3/uL MPV (7.0-11.0) fl Gran % (50.0-68.0) % Lymph % (Auto) (22.0-35.0) % [place] % (Auto) (1.0-6.0) % Eos % (Auto) (1.5-5.0) % Baso % (Auto) (0.0-3.0) % Gran # (1.4-6.5) Lymph # (Auto) (1.2-3.4) [place] # (Auto) (0.1-0.6) Eos # (Auto) (0.0-0.7) Baso # (Auto) (0.0-2.0) K/mm3 APTT (25.1-36.5) Seconds Sodium (132-148) mmol/L Potassium (3.6-5.0) mmol/L Chloride (98-107) mmol/L Carbon Dioxide (21-33) mmol/L Anion Gap (10-20) BUN (7-21) mg/dL Creatinine (0.7-1.2) mg/dl Est GFR ( Amer) Est GFR (Non-Af Amer) POC Glucose (mg/dL) 185 H (65-110) mg/dL Random Glucose (70-110) mg/dL Calcium (8.4-10.5) mg/dL Total Bilirubin (0.2-1.3) mg/dL AST (14-36) U/L ALT (7-56) U/L Alkaline Phosphatase (38-126) U/L Total Protein (5.8-8.3) g/dL Albumin (3.0-4.8) g/dL Globulin gm/dL Albumin/Globulin Ratio (1.1-1.8) Laboratory Results - last 24 hr 06/16/18 06/16/18 06/17/18 16:23 21:08 06:46 WBC RBC Hgb Hct MCV MCH MCHC RDW Plt Count MPV Gran % Lymph % (Auto) [place] % (Auto) Eos % (Auto) Baso % (Auto) Gran # Lymph # (Auto) [place] # (Auto) Eos # (Auto) Baso # (Auto) APTT 74.1 H Sodium Potassium Chloride Carbon Dioxide Anion Gap BUN Creatinine Est GFR ( Amer) Est GFR (Non-Af Amer) POC Glucose (mg/dL) 185 H 301 H Random Glucose Calcium Total Bilirubin AST ALT Alkaline Phosphatase Total Protein Albumin Globulin Albumin/Globulin Ratio 06/17/18 06/17/18 06/17/18 07:36 08:20 08:20 WBC 5.7 D RBC 3.02 L Hgb 8.6 L Hct 27.0 L MCV 89.4 MCH 28.5 MCHC 31.9 RDW 19.4 H Plt Count 151 MPV 9.7 Gran % 64.9 Lymph % (Auto) 13.6 L [place] % (Auto) 10.6 H Eos % (Auto) 10.4 H Baso % (Auto) 0.5 Gran # 3.66 Lymph # (Auto) 0.8 L [place] # (Auto) 0.6 Eos # (Auto) 0.6 Baso # (Auto) 0.03 APTT Sodium 136 Potassium 4.6 Chloride 98 Carbon Dioxide 27 Anion Gap 15 BUN 29 H Creatinine 1.2 Est GFR ( Amer) 53 Est GFR (Non-Af Amer) 44 POC Glucose (mg/dL) 170 H Random Glucose 153 H Calcium 9.2 Total Bilirubin 1.2 AST 36 D ALT 53 Alkaline Phosphatase 68 Total Protein 6.1 Albumin 3.3 Globulin 2.8 Albumin/Globulin Ratio 1.2 06/17/18 11:37 WBC RBC Hgb Hct MCV MCH MCHC RDW Plt Count MPV Gran % Lymph % (Auto) [place] % (Auto) Eos % (Auto) Baso % (Auto) Gran # Lymph # (Auto) [place] # (Auto) Eos # (Auto) Baso # (Auto) APTT Sodium Potassium Chloride Carbon Dioxide Anion Gap BUN Creatinine Est GFR ( Amer) Est GFR (Non-Af Amer) POC Glucose (mg/dL) 228 H Random Glucose Calcium Total Bilirubin AST ALT Alkaline Phosphatase Total Protein Albumin Globulin Albumin/Globulin Ratio Critical Care Progress Note - Nutrition Nutrition: Nutrition Category Date Time Status Pureed [Dysphagia/Modified Consistency Diet] [DIET] Diets 06/16/18 Lunch Ordered Addendum Addendum: 06/17/18 13:40 ICU Attending Addendum: Patient seen and examined. Case reviewed on round with housestaff. Agree with resident note above with the following additions/exceptions: Dx: DVT / NSTEMI / Stroke, TIA / recent surgery / COPD / DM / HTN Ms Krueger is doing much better. We empirically treated with heparin for presumed PE and confirmed DVT seen on LE doppler. Will get CTA chest today to evalaute for PE. Either way she will need anticoagulation. I would consider this a provoked event (recent surgery) and tx for 3-6months with oral AC. In regards to her neuro status, resolved slurred speech. No evid of stroke on CT however would need MRI/MRA but cannot obtain due to her prosthetic metal. F/u neuro recs. I would recommend she remain on secondary stroke ppx with ASA. From a cardiac perspective, unclear if EKG changes and +TNI are from PE or primary cardiac however with her recent cath showing no critical lesions, I suspect it is the former. Cards on board. Otherwise, she is stable to be transferred out of the MICU. Rest of care as noted above. Marysol Santana MD [facility] time : 30 mins
[2018-06-17] MEDS: Levalbuterol 1.25 MG/3 ML Inhal Soln UD IH SCH ×2 (13:07→20:00)
--- NOTE | 2018-06-17 14:04 | CT ---
Date of service: 06/17/2018 PROCEDURE: CT Chest with contrast (Pulmonary Angiogram) HISTORY: r/o PE COMPARISON: 06/15/2028 TECHNIQUE: Axial computed tomography images were obtained of the chest in the pulmonary arterial phase of enhancement. Coronal and sagittal reformatted images were created and reviewed. Intravenous contrast dose: 100 mL Visipaque 320 Radiation dose: Total exam DLP = 422.57 mGy-cm. This CT exam was performed using one or more of the following dose reduction techniques: Automated exposure control, adjustment of the mA and/or kV according to patient size, and/or use of iterative reconstruction technique. FINDINGS: PULMONARY ARTERIES: Unremarkable. No pulmonary embolism. AORTA: No acute findings. No thoracic aortic aneurysm. LUNGS: Diffuse subpleural fibrosis. No generalized pulmonary parenchymal disease. No acute infiltrate. No pulmonary mass identified. PLEURAL SPACES: Unremarkable. No effusion or pneumothorax. HEART: Mild cardiomegaly. LYMPH NODES: No lymphadenopathy. BONES, CHEST WALL: Unremarkable. No fracture or destructive lesion heterogeneous enlarged right lobe of the thyroid with coarse calcification. Possible multinodular thyroid. Recommend correlation with thyroid ultrasound examination. OTHER FINDINGS: Previously identified low-density lesion/lesions in spleen are correspond to ill-defined low-attenuation region, due to the early arterial phase of enhancement during imaging of the upper abdomen on the current examination. Stable right upper pole renal cortical cyst, 3.0 cm diameter. This measures 3 Hounsfield units attenuation. Nodular hepatic contour suspicious for hepatic cirrhosis. Borderline splenomegaly. IMPRESSION: No evidence of pulmonary embolism. Diffuse subpleural fibrosis. Mild cardiomegaly. No acute infiltrate. Probable hepatic cirrhosis. Possible multinodular goiter. Correlate with thyroid ultrasound examination.
[2018-06-17] MEDS: Budesonide 0.5 mg/2 ml Inhal Susp UD IH SCH (20:00)
[2018-06-17] MEDS: LUMIGAN OU SCH (22:00)
[2018-06-17] MEDS: Insulin Detemir 100 units/ml Vial (Levemir) SC SCH (22:45)
[2018-06-18] MEDS: Heparin25000 units/250ml 1/2NS 25,000 UNITS/250 ML BAG IV PRN ×2 (00:15→22:10)
[2018-06-18] MEDS: Levalbuterol 1.25 MG/3 ML Inhal Soln UD IH SCH ×4 (02:20→20:40)
[2018-06-18] MEDS: Pantoprazole 40 mg Susp UD PO SCH (05:19)
[2018-06-18] MEDS: Budesonide 0.5 mg/2 ml Inhal Susp UD IH SCH ×2 (07:43→20:40)
[2018-06-18] MEDS: Insulin Reg-MEDIUM-Coverage SC SCH ×4 (08:00→21:28)
--- NOTE | 2018-06-18 08:03 | CP.PCM.PN ---
Subjective - Date & Time of Evaluation Date of Evaluation: 06/18/18 Time of Evaluation: 07:00 - Subjective Subjective: Stable in CCU. No CP or SOB. Speech is better. V/S noted. PE: Lungs: clear Cor.: S1S2 Abd.: soft Ext.: no edema Neuro: alert I/O: 766/400 recorded Labs noted: PTT = 61 BC X2 NG at 48 hrs. Objective - Vital Signs/Intake and Output Vital Signs (last 24 hours): Temp Pulse Resp BP Pulse Ox 98.1 F 105 H 25 H 157/70 H 97 06/17/18 17:00 06/18/18 02:00 06/17/18 08:50 06/17/18 08:00 06/17/18 08:50 Intake and Output: 06/18/18 06/18/18 06:59 18:59 Intake Total 250 Balance 250 - Medications Medications: Current Medications Aspirin (Aspirin Chewable) 81 mg PO DAILY [facility] Last Admin: 06/17/18 13:49 Dose: Not Given Atorvastatin Calcium (Lipitor) 40 mg PO DIN [facility] Last Admin: 06/17/18 17:20 Dose: 40 mg Budesonide (Pulmicort Respules) 0.5 mg IH [id number] [facility] Last Admin: 06/18/18 07:43 Dose: 0.5 mg Home Med (Home Med) 1 unit OU [facility] Last Admin: 06/17/18 22:00 Dose: Not Given Heparin Sodium/Sodium Chloride (Heparin 35653 Units/250ml 1/2 Normal Saline) 25 ,000 units in 250 mls @ 13.254 mls/hr IV .[id number] PRN; Protocol; 15 UNITS/KG/HR PRN Reason: ADJUST RATE PER PROTOCOL Last Admin: 06/18/18 00:15 Dose: 15 units/kg/hr, 13.254 mls/hr Ibuprofen (Motrin Oral Susp) 100 mg PO Q6H PRN PRN Reason: Pain, moderate (4-7) Last Admin: 06/18/18 00:44 Dose: 100 mg Insulin Detemir (Levemir) 10 unit SC [facility] Last Admin: 06/17/18 22:45 Dose: 10 unit Insulin Human Regular (Humulin R Med) 0 units SC [facility] PRN Reason: Protocol Last Admin: 06/17/18 22:10 Dose: Not Given Levalbuterol HCl (Xopenex) 1.25 mg IH [id number] [facility] Last Admin: 06/18/18 07:43 Dose: 1.25 mg Pantoprazole Sodium (Protonix Susp) 40 mg PO 0600 [facility] Last Admin: 06/18/18 05:19 Dose: 40 mg - Labs Labs: 06/17/18 08:20 06/17/18 08:20 PT 11.9 SECONDS (9.4-12.5) 06/15/18 12:30 INR 1.03 06/15/18 12:30 APTT 61.1 Seconds (25.1-36.5) H 06/18/18 06:00 Assessment and Plan - Assessment and Plan (Free Text) Assessment: Slurred speech/R/O CVA R/O PE: CTA neg for PE Mild + trops: probably demand ischemia S/P fall with hip fx. and repair DVT CAD/Remote PCI/occluded RCA and diffuse CAD on recent cath COPD/Pulmonary fibrosis/Former Smoker/Home O2 EDD Bilateral TKR Echo 04/21: NL LV, Mild MR, Mild/mod TR, Mod/sev. PH Plan: As per Neuro., Pulmonary, Dr. Sams Tel bed F/U LE Duplex U/S for DVT OOB as suraj. Will follow.
--- NOTE | 2018-06-18 09:18 | PN ---
Copied To: Luis Carlos Ansari MD Attending MD: Luis Carlos Ansari MD DATE: 06/18/2018 PULMONARY NOTE SUBJECTIVE: The patient appears comfortable this morning. She is not short of breath at rest. OBJECTIVE: VITAL SIGNS: Last temperature recorded is 98.1, pulse this morning is 94, respiratory rate 18, last blood pressure recorded is 111/64. Oxygen saturation on nasal cannula is 100%. HEENT: Normocephalic, atraumatic. No JVD. CARDIOVASCULAR: Systolic ejection murmur at the lower left sternal border. No S3 gallop. LUNGS: Minimal crackles at the bases (chronic). Less rhonchi. No wheezing. EXTREMITIES: Mild edema is noted in both lower extremities. No cyanosis or clubbing. Calves are nontender to palpation. GI: Abdomen is soft, nontender and nondistended. Bowel sounds are positive. SKIN: No acute rash. NEUROLOGIC: Exam limited at the present time. PERTINENT LABORATORY DATA: CAT scan of the chest was done as an angiogram protocol. There is no evidence of pulmonary embolism. There is diffuse subpleural fibrosis. There are no acute infiltrates. There is no lymphadenopathy. IMPRESSION: 1. Acute cerebrovascular accident. 2. Advanced chronic obstructive pulmonary disease. 3. Advanced pulmonary fibrosis. 4. Extensive coronary artery disease. 5. Obstructive sleep apnea. 6. Right tibial deep venous thrombosis. 7. Positive troponin. Rule out myocardial infarction. PLAN: The patient appears comfortable this morning. She is not short of breath at rest. She does state to feeling much better overall. I did discuss the case with the night nurse at length. The night nurse stated the patient had a good night. I did review the CAT scan of the chest - done as an angiogram protocol. The CAT scan is negative for pulmonary embolism. Thus, we have to consider non-ST elevation myocardial infarction as a source for the troponin. Input by Cardiology is noted. On physical exam, there is less bronchospasm noted. In addition, there is less alveolar-arterial gradient. I will continue with the current nebulizer treatments and inhaled steroids for now. Clinical status of the patient is significantly improved - compared to her initial presentation. However, again, the future status/prognosis for this patient does remain guarded. I will discuss the above with the entire ICU team in the next few moments. I will also discuss the above with Dr. Sams later this morning. Luis Carlos Ansari MD MTDElbert
--- NOTE | 2018-06-18 12:32 | CP.PCM.PN ---
Addendum entered and electronically signed by Sarah Hernandez DO 06/18/18 13:27 : Add BB to max cardiac status Addendum entered and electronically signed by Sarah Hernandez DO 06/18/18 12:40 : Fe deficient anemia. Add Fe pill PO Original Note: <Sarah Hernandez - Last Filed: 06/18/18 12:29> Subjective - Date & Time of Evaluation Date of Evaluation: 06/18/18 Time of Evaluation: 07:00 - Subjective Subjective: PGY-[address] Sams Pt states she feels better. Sleeping ok. No pain issue except around R hip. No other acute complaint Objective - Vital Signs/Intake and Output Vital Signs (last 24 hours): Temp Pulse Resp BP Pulse Ox 98.1 F 104 H 25 H 121/64 97 06/17/18 17:00 06/18/18 10:24 06/17/18 08:50 06/18/18 10:24 06/17/18 08:50 Intake and Output: 06/18/18 06/18/18 06:59 18:59 Intake Total 395 Output Total 450 Balance -55 - Medications Medications: Current Medications Aspirin (Aspirin Chewable) 81 mg PO DAILY [facility] Last Admin: 06/18/18 10:24 Dose: 81 mg Atorvastatin Calcium (Lipitor) 40 mg PO DIN [facility] Last Admin: 06/17/18 17:20 Dose: 40 mg Budesonide (Pulmicort Respules) 0.5 mg IH [id number] [facility] Last Admin: 06/18/18 07:43 Dose: 0.5 mg Home Med (Home Med) 1 unit OU [facility] Last Admin: 06/17/18 22:00 Dose: Not Given Heparin Sodium/Sodium Chloride (Heparin 39628 Units/250ml 1/2 Normal Saline) 25 ,000 units in 250 mls @ 13.254 mls/hr IV .[id number] PRN; Protocol; 15 UNITS/KG/HR PRN Reason: ADJUST RATE PER PROTOCOL Last Admin: 06/18/18 00:15 Dose: 15 units/kg/hr, 13.254 mls/hr Ibuprofen (Motrin Oral Susp) 100 mg PO Q6H PRN PRN Reason: Pain, moderate (4-7) Last Admin: 06/18/18 00:44 Dose: 100 mg Insulin Detemir (Levemir) 10 unit SC [facility] Last Admin: 06/17/18 22:45 Dose: 10 unit Insulin Human Regular (Humulin R Med) 0 units SC [facility] PRN Reason: Protocol Last Admin: 06/18/18 08:00 Dose: 1 unit Levalbuterol HCl (Xopenex) 1.25 mg IH [id number] [facility] Last Admin: 06/18/18 07:43 Dose: 1.25 mg Metoprolol Tartrate (Lopressor) 25 mg PO BID [facility] Last Admin: 06/18/18 10:24 Dose: 25 mg Pantoprazole Sodium (Protonix Susp) 40 mg PO 0600 [facility] Last Admin: 06/18/18 05:19 Dose: 40 mg - Labs Labs: 06/17/18 08:20 06/17/18 08:20 PT 11.9 SECONDS (9.4-12.5) 06/15/18 12:30 INR 1.03 06/15/18 12:30 APTT 61.1 Seconds (25.1-36.5) H 06/18/18 06:00 - Constitutional Appears: No Acute Distress - Head Exam Head Exam: ATRAUMATIC, NORMAL INSPECTION, NORMOCEPHALIC - Eye Exam Eye Exam: EOMI, Normal appearance, PERRL Pupil Exam: NORMAL ACCOMODATION - ENT Exam ENT Exam: Mucous Membranes Moist - Neck Exam Additional comments: supple - Respiratory Exam Respiratory Exam: Decreased Breath Sounds (decrease in b/l bases), Clear to Ausculation Bilateral. absent: Rales, Rhonchi, Wheezes - Cardiovascular Exam Cardiovascular Exam: Tachycardia (100s), REGULAR RHYTHM, +S1, +S2 - GI/Abdominal Exam GI & Abdominal Exam: Soft, Normal Bowel Sounds. absent: Guarding, Rigid, Tenderness - Extremities Exam Extremities Exam: Normal Capillary Refill, Pedal Edema (slight). absent: Calf Tenderness - Neurological Exam Neurological Exam: Alert, Awake, Oriented x3 - Psychiatric Exam Psychiatric exam: Normal Affect, Normal Mood - Skin Skin Exam: Dry, Warm Assessment and Plan - Assessment and Plan (Free Text) Plan: Ms Krueger, 77F with a hx of HTN, COPD, DM, chronic anemia who present with slurr speech, sob, and leg pain. She had slurred speech at rehab s/p R hip ORIF from mechanical fall. Code stroke was called. She was found to have acute stroke, RLE DVT. Due to elevated trops and tachycardia, she was treated for presumed PE vs r/o ACS. She recently had a cardiac cath which showed mod disease vessels but no critical lesions. Ef 60%. Normal RV size. CTA chest (06/17): no evidence of pulmonary embolism. diffuse subpleural fibrosis. PE had been ruled out. Pt is admitted to ICU for tachycardia, ACS, DVT. Pt slurring improves, tachycardia improves, hemodynamically stable, and downgraded to telemetry. Acute cerebrovascular accident, no TPA due to recent surgery and questionable out of 3-hr windows Slurred speech - resolved - Head CT shows no significant interval change, no acute intracranial abnormality - Echo bubble study: mild LVH, EF of 58%, moderate TR, mild pulmonic vascular regurgitation, moderate to severe pulmonary hypertension with RVSP of 62 - carotid US: B/L 20-39% proximal ICA stenosis - MRI/MRA cannot be obtained due to her prosthetic metal - ASA, lipitor - puree, nectar thickener - PT/OT/ST. LAYO when ready DVT R leg likely provoked, from her recent surgery and immobilization HAD RULED OUT pulmonary embolism - Duplex LE: isolated right tibial DVT - on heparin gtt for both DVT and ?PE - before consider transit to PO anticoagulant x 3-6 weeks: - Just had contrast, need to monitor bun/cre/urine output - Lovenox with warfarin? labor intensive - Lovenox then Pradaxa? Avoid if CrCl < 30 - Xarelto? Avoid if CrCl < 30 - Maybe Eliquis? - renal dose ok - Pulm consult NSTEMI likely type II demand ischemia Positive troponin, R/O OH Persistant sinus tachycardia - cardio consult - Any plan to cath? COPD, on home O2, advanced Pulmonary fibrosis, advanced EDD - Budesonide, xopenex Recent ORIF - Ortho on consult for dressing change. follow up on hip x-ray DM2 - levemir 10 units HS; ISSS-med Thyroid nodule - Chest CT (06/15): thyroid with peripheral calcification (f/u U/ S outpatient) Prophylaxis - protonix, hep gtt Discharge planning: If no plan to cath, and renal function ok, will switch to eliquis. s/r/d/w Dr. Sams <Mitchel Sams S - Last Filed: 06/18/18 21:28> Objective - Vital Signs/Intake and Output Vital Signs (last 24 hours): Temp Pulse Resp BP Pulse Ox 98.2 F 83 35 H 131/75 95 06/18/18 12:00 06/18/18 20:40 06/18/18 20:40 06/18/18 20:01 06/18/18 20:40 Intake and Output: 06/18/18 06/19/18 18:59 06:59 Intake Total 600 Output Total 450 Balance 150 - Medications Medications: Current Medications Acetaminophen (Tylenol 325mg Tab) 650 mg PO Q6H PRN PRN Reason: Pain, moderate (4-7) Aspirin (Aspirin Chewable) 81 mg PO DAILY [facility] Last Admin: 06/18/18 10:24 Dose: 81 mg Atorvastatin Calcium (Lipitor) 40 mg PO DIN [facility] Last Admin: 06/17/18 17:20 Dose: 40 mg Budesonide (Pulmicort Respules) 0.5 mg IH [id number] [facility] Last Admin: 06/18/18 20:40 Dose: 0.5 mg Ferrous Sulfate (Feosol) 324 mg PO DAILY [facility] Home Med (Home Med) 1 unit OU [facility] Last Admin: 06/17/18 22:00 Dose: Not Given Heparin Sodium/Sodium Chloride (Heparin 77432 Units/250ml 1/2 Normal Saline) 25 ,000 units in 250 mls @ 13.254 mls/hr IV .[id number] PRN; Protocol; 15 UNITS/KG/HR PRN Reason: ADJUST RATE PER PROTOCOL Last Admin: 06/18/18 00:15 Dose: 15 units/kg/hr, 13.254 mls/hr Insulin Detemir (Levemir) 10 unit SC [facility] Last Admin: 06/17/18 22:45 Dose: 10 unit Insulin Human Regular (Humulin R Med) 0 units SC [facility] PRN Reason: Protocol Last Admin: 06/18/18 16:34 Dose: 3 unit Levalbuterol HCl (Xopenex) 1.25 mg IH [id number] [facility] Last Admin: 06/18/18 20:40 Dose: 1.25 mg Metoprolol Tartrate (Lopressor) 25 mg PO BID [facility] Last Admin: 06/18/18 18:39 Dose: 25 mg Pantoprazole Sodium (Protonix Susp) 40 mg PO 0600 [facility] Last Admin: 06/18/18 05:19 Dose: 40 mg Polyethylene Glycol (Miralax) 17 gm PO BID PRN PRN Reason: Constipation - Labs Labs: 06/17/18 08:20 06/17/18 08:20 PT 11.9 SECONDS (9.4-12.5) 06/15/18 12:30 INR 1.03 06/15/18 12:30 APTT 61.1 Seconds (25.1-36.5) H 06/18/18 06:00 Assessment and Plan - Assessment and Plan (Free Text) Plan: Pt seen and examined. I have reviewed the note of the medical device sales representative and agree with it. I have discussed the assessment and plan with the resident. I have reviewed the patient's labs and medications. Pt on anticoagulation. Will need to go to [facility] for rehab.
[2018-06-18] MEDS ORDERED: POLYETHYLENE GLYCOL 3350 17 GM/Dose PACKET PO PRN (12:40)
--- NOTE | 2018-06-18 12:40 | RAD ---
Date of service: 06/18/2018 PROCEDURE: Pelvis right hip HISTORY: s/p orif, DVT COMPARISON: Preoperative study 06/07/2018. TECHNIQUE: Standard protocol for this study/examination. FINDINGS: Satisfactory position alignment of major fracture fragments proximal right femur. Satisfactory position of orthopedic hardware. IMPRESSION: Satisfactory postoperative status.
[2018-06-18] MEDS: LUMIGAN OU SCH (21:28)
[2018-06-18] MEDS: Insulin Detemir 100 units/ml Vial (Levemir) SC SCH (21:34)
[2018-06-19] MEDS: Levalbuterol 1.25 MG/3 ML Inhal Soln UD IH SCH ×3 (03:00→13:39)
[2018-06-19] MEDS: Pantoprazole 40 mg Susp UD PO SCH (06:41)
[2018-06-19 06:55] LABS: BASO # 0.02 K/mm3 (0.0-2.0); BASO % 0.4 % (0.0-3.0); EOS # 0.4 (0.0-0.7); EOS % 7.3 % (1.5-5.0); GRAN # 3.27 (1.4-6.5); GRAN % 64.4 % (50.0-68.0); HEMOGLOBIN 8.6 g/dL (12.0-16.0); LYMPH # 0.9 (1.2-3.4); LYMPH % 17.3 % (22.0-35.0); MEAN CORPUSCULAR HEMOGLOBIN 28.7 pg (25.0-35.0); MEAN CORPUSCULAR HGB CONC 31.9 g/dl (31.0-37.0); MEAN PLATELET VOLUME 10.1 fl (7.0-11.0); MONO # 0.5 (0.1-0.6); MONO % 10.6 % (1.0-6.0); RED CELL DISTRIBUTION WIDTH 19.1 % (11.5-14.5); WHITE BLOOD COUNT 5.1 10^3/ul (4.5-11.0)
[2018-06-19 07:14] LABS: ALB/GLOB RATIO 1.1 (1.1-1.8); ALBUMIN 3.6 g/dL (3.0-4.8); CALCIUM 8.9 mg/dL (8.4-10.5)
--- NOTE | 2018-06-19 07:36 | CP.PCM.PN ---
Subjective - Date & Time of Evaluation Date of Evaluation: 06/19/18 Time of Evaluation: 07:00 - Subjective Subjective: Stable on 2R now. No CP or SOB. Speech is normal now. V/S noted. RSR PE: Lungs: clear Cor.: S1S2 Abd.: soft Ext.: no edema Neuro: alert I/O: 1116/650 recorded Labs noted: PTT = 81.4, H/H 8.6/27, CMP OK BC X2 NG at 3 days Objective - Vital Signs/Intake and Output Vital Signs (last 24 hours): Temp Pulse Resp BP Pulse Ox 98.0 F 85 20 149/58 L 100 06/19/18 06:00 06/19/18 06:00 06/19/18 06:00 06/19/18 06:00 06/19/18 06:00 Intake and Output: 06/19/18 06/19/18 06:59 18:59 Intake Total 1116 Output Total 650 Balance 466 - Medications Medications: Current Medications Acetaminophen (Tylenol 325mg Tab) 650 mg PO Q6H PRN PRN Reason: Pain, moderate (4-7) Last Admin: 06/18/18 22:10 Dose: 650 mg Aspirin (Aspirin Chewable) 81 mg PO DAILY [facility] Last Admin: 06/18/18 10:24 Dose: 81 mg Atorvastatin Calcium (Lipitor) 40 mg PO DIN [facility] Last Admin: 06/17/18 17:20 Dose: 40 mg Budesonide (Pulmicort Respules) 0.5 mg IH [id number] [facility] Last Admin: 06/18/18 20:40 Dose: 0.5 mg Ferrous Sulfate (Feosol) 324 mg PO DAILY [facility] Home Med (Home Med) 1 unit OU [facility] Last Admin: 06/18/18 21:28 Dose: Not Given Heparin Sodium/Sodium Chloride (Heparin 71896 Units/250ml 1/2 Normal Saline) 25 ,000 units in 250 mls @ 13.254 mls/hr IV .[id number] PRN; Protocol; 15 UNITS/KG/HR PRN Reason: ADJUST RATE PER PROTOCOL Last Admin: 06/18/18 22:10 Dose: 15 units/kg/hr, 13.254 mls/hr Insulin Detemir (Levemir) 10 unit SC [facility] Last Admin: 06/18/18 21:34 Dose: 10 unit Insulin Human Regular (Humulin R Med) 0 units SC A[facility] PRN Reason: Protocol Last Admin: 06/18/18 21:28 Dose: Not Given Levalbuterol HCl (Xopenex) 1.25 mg IH [id number] [facility] Last Admin: 06/19/18 03:00 Dose: 1.25 mg Metoprolol Tartrate (Lopressor) 25 mg PO BID [facility] Last Admin: 06/18/18 18:39 Dose: 25 mg Pantoprazole Sodium (Protonix Susp) 40 mg PO 0600 [facility] Last Admin: 06/19/18 06:41 Dose: 40 mg Polyethylene Glycol (Miralax) 17 gm PO BID PRN PRN Reason: Constipation - Labs Labs: 06/19/18 06:00 06/19/18 06:00 PT 11.9 SECONDS (9.4-12.5) 06/15/18 12:30 INR 1.03 06/15/18 12:30 APTT 81.4 Seconds (25.1-36.5) H 06/19/18 06:00 Assessment and Plan - Assessment and Plan (Free Text) Assessment: Slurred speech/R/O CVA R/O PE: CTA neg for PE Mild + trops: probably demand ischemia S/P fall with hip fx. and repair DVT CAD/Remote PCI/occluded RCA and diffuse CAD on recent cath COPD/Pulmonary fibrosis/Former Smoker/Home O2 EDD Bilateral TKR Echo 04/21: NL LV, Mild MR, Mild/mod TR, Mod/sev. PH Plan: As per Neuro., Pulmonary, Dr. Sams F/U LE Duplex U/S for DVT: IV heparin to oral A/C soon? OOB as suraj./PT/Rehab Will follow.
[2018-06-19] MEDS: Budesonide 0.5 mg/2 ml Inhal Susp UD IH SCH (07:43)
--- NOTE | 2018-06-19 07:47 | CP.PCM.DIS ---
<DavidSarah - Last Filed: 06/19/18 09:47> Provider - Provider Date of Admission: 06/15/18 16:01 Attending physician: Mitchel Sams MD Primary care physician: Latisha Jacobs MD Consults: Dr Jesus Manuel Martinez Time Spent in preparation of Discharge (in minutes): 30 Diagnosis - Discharge Diagnosis (1) Stroke (cerebrum) Status: Acute (2) DVT (deep venous thrombosis) Status: Acute (3) Tachycardia Status: Acute (4) ST segment depression Status: Acute Hospital Course - Lab Results Lab Results: Micro Results 06/15/18 17:28 Naris MRSA Culture (Admit) - Final MRSA NOT DETECTED Most Recent Lab Values WBC 5.1 10^3/ul (4.5-11.0) 06/19/18 06:00 RBC 3.00 10^6/uL (3.5-6.1) L 06/19/18 06:00 Hgb 8.6 g/dL (12.0-16.0) L 06/19/18 06:00 Hct 27.0 % (36.0-48.0) L 06/19/18 06:00 MCV 90.0 fl (80.0-105.0) 06/19/18 06:00 MCH 28.7 pg (25.0-35.0) 06/19/18 06:00 MCHC 31.9 g/dl (31.0-37.0) 06/19/18 06:00 RDW 19.1 % (11.5-14.5) H 06/19/18 06:00 Plt Count 151 10^3/uL (120.0-450.0) 06/19/18 06:00 MPV 10.1 fl (7.0-11.0) 06/19/18 06:00 Gran % 64.4 % (50.0-68.0) 06/19/18 06:00 Lymph % (Auto) 17.3 % (22.0-35.0) L 06/19/18 06:00 Craig % (Auto) 10.6 % (1.0-6.0) H 06/19/18 06:00 Eos % (Auto) 7.3 % (1.5-5.0) H 06/19/18 06:00 Baso % (Auto) 0.4 % (0.0-3.0) 06/19/18 06:00 Gran # 3.27 (1.4-6.5) 06/19/18 06:00 Lymph # (Auto) 0.9 (1.2-3.4) L 06/19/18 06:00 Craig # (Auto) 0.5 (0.1-0.6) 06/19/18 06:00 Eos # (Auto) 0.4 (0.0-0.7) 06/19/18 06:00 Baso # (Auto) 0.02 K/mm3 (0.0-2.0) 06/19/18 06:00 PT 11.9 SECONDS (9.4-12.5) 06/15/18 12:30 INR 1.03 06/15/18 12:30 APTT 81.4 Seconds (25.1-36.5) H 06/19/18 06:00 Sodium 138 mmol/L (132-148) 06/19/18 06:00 Potassium 4.0 mmol/L (3.6-5.0) 06/19/18 06:00 Chloride 100 mmol/L (98-107) 06/19/18 06:00 Carbon Dioxide 29 mmol/L (21-33) 06/19/18 06:00 Anion Gap 13 (10-20) 06/19/18 06:00 BUN 18 mg/dL (7-21) 06/19/18 06:00 Creatinine 1.1 mg/dl (0.7-1.2) 06/19/18 06:00 Est GFR ( Amer) 58 06/19/18 06:00 Est GFR (Non-Af Amer) 48 06/19/18 06:00 POC Glucose (mg/dL) 186 mg/dL (65-110) H 06/18/18 21:20 Random Glucose 152 mg/dL (70-110) H 06/19/18 06:00 Hemoglobin A1c 5.8 % (4.2-6.5) 06/16/18 06:00 Calcium 8.9 mg/dL (8.4-10.5) 06/19/18 06:00 Phosphorus 3.0 mg/dL (2.5-4.5) 06/15/18 19:15 Magnesium 1.8 mg/dL (1.7-2.2) 06/19/18 06:00 Total Bilirubin 1.1 mg/dL (0.2-1.3) 06/19/18 06:00 AST 45 U/L (14-36) H D 06/19/18 06:00 ALT 49 U/L (7-56) 06/19/18 06:00 Alkaline Phosphatase 78 U/L (38-126) 06/19/18 06:00 Troponin I 0.14 ng/mL H* 06/16/18 06:00 NT-Pro-B Natriuret Pep 2800 pg/mL (0-450) H 06/15/18 12:30 Total Protein 6.7 g/dL (5.8-8.3) 06/19/18 06:00 Albumin 3.6 g/dL (3.0-4.8) 06/19/18 06:00 Globulin 3.1 gm/dL 06/19/18 06:00 Albumin/Globulin Ratio 1.1 (1.1-1.8) 06/19/18 06:00 Triglycerides 141 mg/dL (35-160) 06/16/18 06:00 Cholesterol 136 mg/dL (130-200) 06/16/18 06:00 LDL Cholesterol Direct 71 mg/dL (0-129) 06/16/18 06:00 HDL Cholesterol 37 mg/dL (29-60) 06/16/18 06:00 TSH 3rd Generation 0.93 mIU/mL (0.46-4.68) 06/16/18 06:00 Urine Color Yellow (YELLOW) 06/15/18 13:16 Urine Appearance Clear (CLEAR) 06/15/18 13:16 Urine pH 6.0 (4.7-8.0) 06/15/18 13:16 Ur Specific [place] 1.010 (1.005-1.035) 06/15/18 13:16 Urine Protein Trace mg/dL (<30 mg/dL) H 06/15/18 13:16 Urine Glucose (UA) Negative mg/dL (NEGATIVE) 06/15/18 13:16 Urine Ketones Negative mg/dL (NEGATIVE) 06/15/18 13:16 Urine Blood Trace-intact (NEGATIVE) H 06/15/18 13:16 Urine Nitrate Negative (NEGATIVE) 06/15/18 13:16 Urine Bilirubin Negative (NEGATIVE) 06/15/18 13:16 Urine Urobilinogen 0.2 E.U./dL (<1 E.U./dL) 06/15/18 13:16 Ur Leukocyte Esterase Negative Anderw/uL (NEGATIVE) 06/15/18 13:16 Urine RBC 0 - 2 /hpf (0-2) 06/15/18 13:16 Urine WBC 0 - 2 /hpf (0-6) 06/15/18 13:16 Ur Epithelial Cells 1 - 3 /hpf (0-5) 06/15/18 13:16 Urine Bacteria Neg (NEG) 06/15/18 13:16 Blood Type A POSITIVE 06/15/18 15:00 Antibody Screen Negative 06/15/18 15:00 BBK History Checked Patient has bt 06/15/18 15:00 - Hospital Course Hospital Course: PGY-[address] Sams Ms Krueger, 77F with a hx of HTN, COPD/EDD on home O2 and Bipap at night, DM, chronic anemia who present with slurr speech, sob, and leg pain. She had slurred speech at rehab s/p R hip ORIF from mechanical fall. Code stroke was called. She was found to have acute stroke, RLE DVT. Due to elevated trops and tachycardia, she was treated for presumed PE vs r/o ACS. She recently had a cardiac cath which showed mod disease vessels but no critical lesions. Ef 60%. Normal RV size. CTA chest (06/17): no evidence of pulmonary embolism. diffuse subpleural fibrosis. PE had been ruled out. Pt is admitted to ICU for tachycardia, ACS, DVT. Pt slurring improves, tachycardia improves, hemodynamically stable, and downgraded to telemetry. Details of her hospitalization is as follows: Acute cerebrovascular accident, no TPA due to recent surgery and questionable out of 3-hr windows Slurred speech - resolved - Head CT shows no significant interval change, no acute intracranial abnormality - Echo bubble study: mild LVH, EF of 58%, moderate TR, mild pulmonic vascular regurgitation, moderate to severe pulmonary hypertension with RVSP of 62 - carotid US: B/L 20-39% proximal ICA stenosis - MRI/MRA cannot be obtained due to her prosthetic metal - ASA, lipitor - soft regular consistency diet with thin liquids due to improve dysphagia - PT/OT/[facility] when ready DVT R leg likely provoked, from her recent surgery and immobilization HAD RULED OUT pulmonary embolism - Duplex LE: isolated right tibial DVT - on heparin gtt for DVT, will start eliquis NSTEMI likely type II demand ischemia Positive troponin, R/O SC Persistant sinus tachycardia - cardio consult - Add metoprolol to maximize cardiac status COPD, on home O2, advanced Pulmonary fibrosis, advanced EDD on CAPA - Budesonide, xopenex Recent ORIF - dressing change. Rehab DM2 - levemir 10 units HS; ISSS-med Thyroid nodule - Chest CT (06/15): thyroid with peripheral calcification (f/u U/ S outpatient) Prophylaxis - protonix, lovenox Discharge planning: VS stable. HR controlled. Pt will be transferred to [facility] for continual rehab. She was started on eliquis today. s/r/d/w Dr. Sams Discharge Exam - Head Exam Head Exam: ATRAUMATIC, NORMAL INSPECTION, NORMOCEPHALIC - Eye Exam Eye Exam: EOMI, Normal appearance, PERRL. absent: Scleral icterus Pupil Exam: NORMAL ACCOMODATION - ENT Exam ENT Exam: Mucous Membranes Moist - Neck Exam Additional comments: supple - Respiratory Exam Respiratory Exam: Decreased Breath Sounds (b/l lung bases), Clear to PA & Lateral, NORMAL BREATHING PATTERN, UNREMARKABLE. absent: Rhonchi, Wheezes, Respiratory Distress - Cardiovascular Exam Cardiovascular Exam: REGULAR RHYTHM, +S1, +S2, Systolic Murmur - GI/Abdominal Exam GI & Abdominal Exam: Normal Bowel Sounds, Soft, Unremarkable. absent: Distended , Firm, Guarding - Extremities Exam Extremities exam: normal capillary refill, pedal edema, pedal pulses present Additional comments: no calf tenderness b/l - Back Exam Back exam: absent: CVA tenderness (L), CVA tenderness (R) - Neurological Exam Neurological exam: Alert, CN II-XII Intact, Oriented x3 Additional comments: move all extremities equally. sensation intact - Psychiatric Exam Psychiatric exam: Normal Affect, Normal Mood - Skin Skin Exam: Dry, Warm Discharge Plan - Follow Up Plan Condition: FAIR Disposition: HOME/ ROUTINE Instructions: Stroke, Deep Vein Thrombosis (Blood Clots in the Legs), Heart Failure, Adult, Diabetes Exchange Diet, Exacerbation of COPD, Apixaban Additional Instructions: Patient will be on Eliquis 10mg twice daily for 7 days, and then taper to 5mg twice daily for 3-6 months for provoked DVT Follow up with Dr Duron for heart rate control and cardiac function. Follow up with Dr Reno, Neurologist for stroke Follow up with hand dry cleaner outpatient for COPD with home O2, pulmonary fibrosis, and pulmonary hypertension Follow up with orthopedics doctor for dressing change, wound care, and post-op follow up Follow up with primary care doctor for the followin. This hospitalization 2. Need follow-up ultrasound doppler of R lower extremity in 1 week to monitor the clot. 3. Lesion is detected in the spleen. Follow up with primary care doctor to repeat CT abdomen and pelvis to monitor for possible growth or resolution. 4. Detected thyroid nodules with calcification, follow up with primary care doctor for referral of ocean fishing guide for fine needle biopsy and nuclear uptake scan Referrals: Marion Rubalcava MD [Staff Provider] - 4 Week Jose David Martinez DO [Staff Provider] - 1 Week Luis Carlos Ansari MD [Staff Provider] - 4 Week Latisha Jacobs MD [Primary Care Provider] - 1 Week Mark Duron MD [Staff Provider] - 2 Week <Mitchel Sams - Last Filed: 06/19/18 15:38> Provider - Provider Date of Admission: 06/15/18 16:01 Attending physician: Mitchel Sams MD Primary care physician: Latisha Jacobs MD Hospital Course - Lab Results Lab Results: Micro Results 06/15/18 17:28 Naris MRSA Culture (Admit) - Final MRSA NOT DETECTED Most Recent Lab Values WBC 5.1 10^3/ul (4.5-11.0) 06/19/18 06:00 RBC 3.00 10^6/uL (3.5-6.1) L 06/19/18 06:00 Hgb 8.6 g/dL (12.0-16.0) L 06/19/18 06:00 Hct 27.0 % (36.0-48.0) L 06/19/18 06:00 MCV 90.0 fl (80.0-105.0) 06/19/18 06:00 MCH 28.7 pg (25.0-35.0) 06/19/18 06:00 MCHC 31.9 g/dl (31.0-37.0) 06/19/18 06:00 RDW 19.1 % (11.5-14.5) H 06/19/18 06:00 Plt Count 151 10^3/uL (120.0-450.0) 06/19/18 06:00 MPV 10.1 fl (7.0-11.0) 06/19/18 06:00 Gran % 64.4 % (50.0-68.0) 06/19/18 06:00 Lymph % (Auto) 17.3 % (22.0-35.0) L 06/19/18 06:00 Craig % (Auto) 10.6 % (1.0-6.0) H 06/19/18 06:00 Eos % (Auto) 7.3 % (1.5-5.0) H 06/19/18 06:00 Baso % (Auto) 0.4 % (0.0-3.0) 06/19/18 06:00 Gran # 3.27 (1.4-6.5) 06/19/18 06:00 Lymph # (Auto) 0.9 (1.2-3.4) L 06/19/18 06:00 Craig # (Auto) 0.5 (0.1-0.6) 06/19/18 06:00 Eos # (Auto) 0.4 (0.0-0.7) 06/19/18 06:00 Baso # (Auto) 0.02 K/mm3 (0.0-2.0) 06/19/18 06:00 PT 11.9 SECONDS (9.4-12.5) 06/15/18 12:30 INR 1.03 06/15/18 12:30 APTT 81.4 Seconds (25.1-36.5) H 06/19/18 06:00 Sodium 138 mmol/L (132-148) 06/19/18 06:00 Potassium 4.0 mmol/L (3.6-5.0) 06/19/18 06:00 Chloride 100 mmol/L (98-107) 06/19/18 06:00 Carbon Dioxide 29 mmol/L (21-33) 06/19/18 06:00 Anion Gap 13 (10-20) 06/19/18 06:00 BUN 18 mg/dL (7-21) 06/19/18 06:00 Creatinine 1.1 mg/dl (0.7-1.2) 06/19/18 06:00 Est GFR ( Amer) 58 06/19/18 06:00 Est GFR (Non-Af Amer) 48 06/19/18 06:00 POC Glucose (mg/dL) 213 mg/dL (65-110) H 06/19/18 11:01 Random Glucose 152 mg/dL (70-110) H 06/19/18 06:00 Hemoglobin A1c 5.8 % (4.2-6.5) 06/16/18 06:00 Calcium 8.9 mg/dL (8.4-10.5) 06/19/18 06:00 Phosphorus 3.0 mg/dL (2.5-4.5) 06/15/18 19:15 Magnesium 1.8 mg/dL (1.7-2.2) 06/19/18 06:00 Total Bilirubin 1.1 mg/dL (0.2-1.3) 06/19/18 06:00 AST 45 U/L (14-36) H D 06/19/18 06:00 ALT 49 U/L (7-56) 06/19/18 06:00 Alkaline Phosphatase 78 U/L (38-126) 06/19/18 06:00 Troponin I 0.14 ng/mL H* 06/16/18 06:00 NT-Pro-B Natriuret Pep 2800 pg/mL (0-450) H 06/15/18 12:30 Total Protein 6.7 g/dL (5.8-8.3) 06/19/18 06:00 Albumin 3.6 g/dL (3.0-4.8) 06/19/18 06:00 Globulin 3.1 gm/dL 06/19/18 06:00 Albumin/Globulin Ratio 1.1 (1.1-1.8) 06/19/18 06:00 Triglycerides 141 mg/dL (35-160) 06/16/18 06:00 Cholesterol 136 mg/dL (130-200) 06/16/18 06:00 LDL Cholesterol Direct 71 mg/dL (0-129) 06/16/18 06:00 HDL Cholesterol 37 mg/dL (29-60) 06/16/18 06:00 TSH 3rd Generation 0.93 mIU/mL (0.46-4.68) 06/16/18 06:00 Urine Color Yellow (YELLOW) 06/15/18 13:16 Urine Appearance Clear (CLEAR) 06/15/18 13:16 Urine pH 6.0 (4.7-8.0) 06/15/18 13:16 Ur Specific [place] 1.010 (1.005-1.035) 06/15/18 13:16 Urine Protein Trace mg/dL (<30 mg/dL) H 06/15/18 13:16 Urine Glucose (UA) Negative mg/dL (NEGATIVE) 06/15/18 13:16 Urine Ketones Negative mg/dL (NEGATIVE) 06/15/18 13:16 Urine Blood Trace-intact (NEGATIVE) H 06/15/18 13:16 Urine Nitrate Negative (NEGATIVE) 06/15/18 13:16 Urine Bilirubin Negative (NEGATIVE) 06/15/18 13:16 Urine Urobilinogen 0.2 E.U./dL (<1 E.U./dL) 06/15/18 13:16 Ur Leukocyte Esterase Negative Andrew/uL (NEGATIVE) 06/15/18 13:16 Urine RBC 0 - 2 /hpf (0-2) 06/15/18 13:16 Urine WBC 0 - 2 /hpf (0-6) 06/15/18 13:16 Ur Epithelial Cells 1 - 3 /hpf (0-5) 06/15/18 13:16 Urine Bacteria Neg (NEG) 06/15/18 13:16 Blood Type A POSITIVE 06/15/18 15:00 Antibody Screen Negative 06/15/18 15:00 BBK History Checked Patient has bt 06/15/18 15:00 - Hospital Course Hospital Course: Pt seen and examined by me. Medications and labs have been reviewed. I have reviewed the note of the medical residents and agree with the note. Pt with DVT. Will D/C her heparin. Started on Eliquis. Will send to [facility] at [facility]. DM- [address] Duron and no plans for cath.
--- NOTE | 2018-06-19 08:04 | PN ---
Copied To: Luis Carlos Ansari MD Attending MD: Luis Carlos Ansari MD DATE: 06/19/2018 PULMONARY NOTE SUBJECTIVE: The patient appears comfortable this morning. She is not short of breath at rest. PHYSICAL EXAMINATION: VITAL SIGNS: Temperature is 98, pulse 83, respirations 20, blood pressure 149/58. Oxygen saturation on nasal cannula is 100%. HEENT: Normocephalic, atraumatic. NECK: No JVD. CARDIOVASCULAR: Systolic ejection murmur at the lower left sternal border. No S3 gallop. LUNGS: Minimal crackles at the bases - chronic. Much less/minimal rhonchi. No wheezing. EXTREMITIES: Less edema is noted in both lower extremities. No cyanosis or clubbing. Calves are nontender to palpation. GI: Abdomen is soft, nontender and nondistended. Bowel sounds are positive. SKIN: No acute rash. NEUROLOGIC: Exam limited at the present time. IMPRESSION: 1. Acute cerebrovascular accident. 2. Advanced chronic obstructive pulmonary disease. 3. Advanced pulmonary fibrosis. 4. Extensive coronary artery disease. 5. Probable non-ST elevation myocardial infarction. 6. Obstructive sleep apnea. 7. Right tibial deep venous thrombosis. PLAN: The patient appears much more comfortable this morning. She is not short of breath at rest. She does state to feeling much better overall. I did discuss the case with the night nurse at length. The night nurse stated the patient had a good night. The patient is now on telemetry. On physical exam, there is certainly less bronchospasm noted. In addition, the alveolar-arterial gradient is also much less. I will continue the current nebulizer treatments and inhaled steroids for now. Input by Cardiology is also noted. Clinical status of the patient is certainly improved - compared to the initial presentation. However, again, the future status/prognosis for this patient does remain guarded. I will discuss the above with the attending physician. Luis Carlos Ansari MD MTDElbert
[2018-06-19] MEDS: Insulin Reg-MEDIUM-Coverage SC SCH ×4 (08:39→17:18)
[2018-06-19] MEDS ORDERED: OPTH OU SCH ×2 (10:00→10:07)
[2018-06-19] MEDS ORDERED: BIMATOPROST 0.01% OU SCH ×2 (10:00→10:07)
[2018-06-19] MEDS ORDERED: Home Med 1 UNIT OU SCH (10:05)
[2018-06-19 12:00] VITALS: RESP 18
[2018-06-19 17:22] VITALS: BP 130/60
[2018-06-19 18:18] VITALS: PULSE 57; TEMP 97; O2SAT 97
== END 2018-06-19 19:05 | DRG 64 ==
LOC: ED 12:04 → ERH 16:01 → CCU 17:12 → 2RSO 06-18 22:30
PROVIDERS: ADMIT Internal Medicine Nephrology; ATTEND Internal Medicine Nephrology
DX: I63.9 Cerebral infarction, unspecified (principal); I21.4 Non-ST elevation (NSTEMI) myocardial infarction; I21.A1 Myocardial infarction type 2; I82.441 Acute embolism and thrombosis of right tibial vein; I97.821 Postprocedural cerebrovascular infarction following other surgery; K50.90 Crohn's disease, unspecified, without complications; E03.9 Hypothyroidism, unspecified; E04.1 Nontoxic single thyroid nodule; E11.9 Type 2 diabetes mellitus without complications; E78.5 Hyperlipidemia, unspecified; G47.33 Obstructive sleep apnea (adult) (pediatric); H40.9 Unspecified glaucoma; I07.1 Rheumatic tricuspid insufficiency; I11.0 Hypertensive heart disease with heart failure; I25.10 Atherosclerotic heart disease of native coronary artery without angina pectoris; I25.2 Old myocardial infarction; I27.20 Pulmonary hypertension, unspecified; I50.9 Heart failure, unspecified; I65.29 Occlusion and stenosis of unspecified carotid artery; J84.10 Pulmonary fibrosis, unspecified; K75.81 Nonalcoholic steatohepatitis (NASH); N28.1 Cyst of kidney, acquired; D50.9 Iron deficiency anemia, unspecified; R13.10 Dysphagia, unspecified; Z79.4 Long term (current) use of insulin; Z87.891 Personal history of nicotine dependence; Z90.49 Acquired absence of other specified parts of digestive tract; Z95.5 Presence of coronary angioplasty implant and graft; Z96.653 Presence of artificial knee joint, bilateral; Z99.81 Dependence on supplemental oxygen

== ENCOUNTER 2019-02-16 12:54 | Inpatient (IN) | payer MEDICARE, OTHER ==
[2019-02-16 12:57] VITALS: BMI 30.2
--- NOTE | 2019-02-16 13:39 | ED PDOC ---
Arrival/HPI - General Chief Complaint: Shortness Of Breath Time Seen by Provider: 02/16/19 12:56 Historian: Patient - History of Present Illness Narrative History of Present Illness (Text): 02/16/19 13:22 78 year old F with pmh of COPD on 2L NC Home O2, Diabetes and Anemia presents with chief complaint of shortness of breath x2wks but worse this morning. Patient also complains of dyspnea w/exertion and generalized weakness since this morning. Patient's daughter reports patient's 02 level's at 54 this morning on RA. On 02/09/2019, patient visited Dr. Ansari for shortness of breath and treated with prednisone taper and doxycycline. Patient is complaint with duoneb medication and nasal cannula at home. Patient denies any fevers, chills, headache, dizziness, chest pain, cough, abdominal pain, nausea, vomiting, diarrhea, back pain, neck pain, or any other complaint. PMD: Dr. Jacobs Final Tester: Dr. Ansari Time/Duration: > week Symptom Onset: Sudden Symptom Course: Unchanged Activities at Onset: Light Context: Home Past Medical History - Provider Review Nursing Documentation Reviewed: Yes - Infectious Disease Hx of Infectious Diseases: None - Reproductive Menopause: Yes - Cardiac Hx Cardiac Disorders: Yes Hx Congestive Heart Failure: Yes Hx Hypertension: Yes - Pulmonary Hx Respiratory Disorders: Yes Hx Chronic Obstructive Pulmonary Disease (COPD): Yes (O2 IN USE AT HOME) Hx Pneumonia: Yes Hx Sleep Apnea: Yes - Neurological Hx Neurological Disorder: No - HEENT Hx HEENT Disorder: Yes Hx Cataracts: Yes Hx Glaucoma: Yes - Renal Hx Renal Disorder: No - Endocrine/Metabolic Hx Diabetes Mellitus Type 2: Yes - Hematological/Oncological Hx Blood Disorders: Yes Hx Anemia: Yes - Integumentary Hx Dermatological Disorder: No - Musculoskeletal/Rheumatological Hx Musculoskeletal Disorders: Yes Hx Arthritis: Yes Hx Falls: No - Gastrointestinal Hx Gastrointestinal Disorders: Yes (APPENDECTOMY,COLITIS) Hx Crohn's Disease: Yes - Genitourinary/Gynecological Hx Genitourinary Disorders: Yes (incontinent) Hx Incontinence: Yes - Psychiatric Hx Emotional Abuse: No Hx Physical Abuse: No Hx Substance Use: No - Surgical History Hx Appendectomy: Yes Other/Comment: Right Hip Surgery - Anesthesia Hx Anesthesia: Yes Hx Anesthesia Reactions: No Hx Malignant Hyperthermia: No - Suicidal Assessment Feels Threatened In Home Enviroment: No Family/Social History - Physician Review Nursing Documentation Reviewed: Yes Family/Social History: Unknown Family HX Smoking Status: Former Smoker Hx Alcohol Use: No Hx Substance Use: No Allergies/Home Meds Allergies/Adverse Reactions: Allergies No Known Allergies Allergy (Verified 02/16/19 13:08) Home Medications: Home Meds Medication Instructions Recorded Confirmed Balsalazide Disodium 3 cap PO TID 05/20/13 02/16/19 Metformin HCl 500 mg PO BID 05/20/13 02/16/19 Losartan Potassium 100 mg PO DAILY 06/07/18 02/16/19 Albuterol/Ipratropium [Duoneb 3 3 ml IH QID 07/20/18 02/16/19 mg/0.5 mg (3 ml) UD] Bimatoprost [Lumigan] 1 drop OU HS 07/20/18 02/16/19 Colestipol HCl [Colestid] 2 gm PO BID 07/20/18 02/16/19 GlipiZIDE [Glucotrol] 5 mg PO ACB 07/20/18 02/16/19 Isosorbide Mononitrate [Isosorbide 60 mg PO DAILY 07/20/18 02/16/19 Mononitrate ER] Metoprolol Tartrate [Lopressor] 50 mg PO BID 07/20/18 02/16/19 Multivit-Minerals/Folic Acid 1 tab PO DAILY 07/20/18 02/16/19 [Centrum Multigummies] Omeprazole 40 mg PO DAILY 07/20/18 02/16/19 Simvastatin [Zocor] 40 mg PO HS 07/20/18 02/16/19 Iron,Carbonyl [Carbonyl Iron] 45 mg PO DAILY 07/21/18 02/16/19 Vitamin E [Vitamin E 400 Units Cap] 400 iu PO DAILY 07/21/18 02/16/19 Review of Systems - Review of Systems Constitutional: absent: Fevers Respiratory: SOB. absent: Cough, Wheezing Cardiovascular: absent: Chest Pain, Syncope Gastrointestinal: absent: Abdominal Pain, Diarrhea, Nausea, Vomiting Genitourinary Female: absent: Dysuria, Hematuria Musculoskeletal: absent: Back Pain Neurological: absent: Headache, Dizziness Physical Exam Vital Signs Reviewed: Yes Vital Signs Temp Pulse Resp BP Pulse Ox 02/16/19 13:09 97.6 F 126 H 18 127/78 93 L Temperature: Afebrile Blood Pressure: Normal Pulse: Tachycardic Respiratory Rate: Normal Appearance: Positive for: Well-Appearing, Non-Toxic, Comfortable Pain Distress: Mild Mental Status: Positive for: Alert and Oriented X 3 - Systems Exam Head: Present: Atraumatic, Normocephalic Pupils: Present: PERRL Extroacular Muscles: Present: EOMI Conjunctiva: Present: Normal Mouth: Present: Moist Mucous Membranes Neck: Present: Normal Range of Motion Respiratory/Chest: Present: Rales, Other (coarse breath sounds). No: Respiratory Distress, Accessory Muscle Use Cardiovascular: Present: Normal S1, S2, Irregular Rhythm, Other. No: Murmurs Abdomen: No: Tenderness, Distention, Peritoneal Signs Back: Present: Normal Inspection Upper Extremity: Present: Normal Inspection. No: Cyanosis, Edema Lower Extremity: Present: Normal Inspection. No: Edema Neurological: Present: GCS=15, CN II-XII Intact, Speech Normal Skin: Present: Warm, Dry, Normal Color. No: Rashes Psychiatric: Present: Alert, Oriented x 3, Normal Insight, Normal Concentration Medical Decision Making ED Course and Treatment: 02/16/19 13:21 Impression: 78 year old F presents with chief complaint of shortness of breath x2wks but worse this morning. Patient also complains of dyspnea w/exertion and generalized weakness since this morning. Patient's daughter reports patient's 02 level's at 54 this morning. On 02/09/2019, patient visited Dr. Ansari for shortness of breath and treated with prednisone taper and doxycycline. Plan: -- Labs -- EKG -- Chest X-ray -- Duoneb -- Solu-Medrol -- 02 via Nasal Cannula -- Reassess and disposition Prior Visits: Notes and results from previous visits were reviewed. Patient was last seen in the emergency department on Progress Notes: 02/16/19 13:56 Lactate elevated but does not have SIRS criteria 02/16/19 14:46 IMPRESSION: Moderate cardiomegaly. Mild vascular and interstitial congestion 02/16/19 15:24 EKG: Ordered, reviewed, and independently interpreted the EKG. Rate: 126 BPM, A Fib 02/16/19 15:[address] Sams who accepts to admit patient. Cardizem given for afib with good response. Lasix and aspirin given for elevated bnp and cxray concerning for chf. Duonebs and steroids given for COPD. 02/16/19 18:12 - Scribe Statement The provider has reviewed the documentation as recorded by the Earnest Montilla All medical record entries made by the Earnest were at my direction and personally dictated by me. I have reviewed the chart and agree that the record accurately reflects my personal performance of the history, physical exam, medical decision making, and the department course for this patient. I have also personally directed, reviewed, and agree with the discharge instructions and disposition. Disposition/Present on Arrival - Present on Arrival Any Indicators Present on Arrival: No History of DVT/PE: No History of Uncontrolled Diabetes: No Urinary Catheter: No History of Decub. Ulcer: No History Surgical Site Infection Following: None - Disposition Have Diagnosis and Disposition been Completed?: Yes Diagnosis: Afib, COPD (chronic obstructive pulmonary disease), CHF (congestive heart kaity lure) Disposition: HOSPITALIZED Disposition Time: 14:47 Patient Plan: Observation Patient Problems: Current Active Problems Problem Status Onset Afib Acute CHF (congestive heart failure) Acute COPD (chronic obstructive pulmonary disease) Acute Condition: FAIR
[2019-02-16] MEDS: Albuterol-Ipratrop 3 mg / 0.5 (3 ml) UD IH SCH ×4 (13:40→19:59)
[2019-02-16 13:43] LABS: BASO # 0.02 K/mm3 (0.0-2.0); BASO % 0.2 % (0.0-3.0); EOS # 0.4 (0.0-0.7); EOS % 4.1 % (1.5-5.0); HEMOGLOBIN 11.3 g/dL (12.0-16.0); LYMPH # 0.8 (1.2-3.4); LYMPH % 7.5 % (22.0-35.0); MEAN CELL VOLUME 93.8 fl (80.0-105.0); MEAN PLATELET VOLUME 9.8 fl (7.0-11.0); MONO # 0.5 (0.1-0.6); RBC 3.89 10^6/uL (3.5-6.1); RED CELL DISTRIBUTION WIDTH 15.4 % (11.5-14.5)
[2019-02-16 13:50] LABS: VENOUS BLOOD GAS BASE EXCESS -0.6 mmol/L (0.0-2.0); VENOUS BLOOD GAS PO2 27 mm/Hg (30-55); VENOUS BLOOD PH 7.35 (7.32-7.43)
[2019-02-16 13:52] LABS: INR 1.35; PARTIAL THROMBOPLASTIN TIME 27.2 Seconds (26.9-38.3); PROTHROMBIN TIME 15.3 SECONDS (9.4-12.5)
[2019-02-16 13:53] LABS: ALB/GLOB RATIO 1.3 (1.1-1.8); ALBUMIN 4.1 g/dL (3.0-4.8); ALT/SGPT 16 U/L (7-56); AST/SGOT 26 U/L (14-36); BLOOD UREA NITROGEN 26 mg/dL (7-21); CALCIUM 9.2 mg/dL (8.4-10.5); GFR NON-AFRICAN AMERICAN 44
[2019-02-16 14:05] LABS: B-TYPE NATRIURETIC PEPTIDE 6360 pg/mL (0-450); TROPONIN I < 0.01 ng/mL
[2019-02-16] MEDS ORDERED: Sodium Chloride 0.9% 1,000 ML IV STA (14:22)
[2019-02-16] MEDS ORDERED: Magnesium Sulfate 1 gm in D5W 1 GM/100 ML BAG IVPB ONE (14:23)
[2019-02-16] MEDS ORDERED: Sodium Chloride 0.9% 500 ML IV STA (14:23)
--- NOTE | 2019-02-16 14:33 | RAD ---
Date of service: 02/16/2019 HISTORY: shortness of breath COMPARISON: 07/20/2018 TECHNIQUE: 1 view obtained. FINDINGS: LUNGS: No active pulmonary disease. PLEURA: No significant pleural effusion identified, no pneumothorax apparent. CARDIOVASCULAR: Aortic calcification Moderate cardiomegaly mild vascular and interstitial congestion OSSEOUS STRUCTURES: No significant abnormalities. VISUALIZED UPPER ABDOMEN: Normal. OTHER FINDINGS: None. IMPRESSION: Moderate cardiomegaly. Mild vascular and interstitial congestion
[2019-02-16] MEDS: Sodium Chloride 0.9% 1,000 ML IV SCH (16:02)
[2019-02-16] MEDS: Insulin Reg-MEDIUM-Coverage SC SCH (16:46)
[2019-02-16] MEDS: Insulin Regular 1 UNITS/0.01 ML ML ONE ×2 (16:48→16:49)
[2019-02-16 17:28] LABS: VENOUS BLOOD GAS BASE EXCESS -1.8 mmol/L (0.0-2.0); VENOUS BLOOD GAS PO2 51 mm/Hg (30-55); VENOUS BLOOD PH 7.32 (7.32-7.43)
[2019-02-16] MEDS: COLESTIPOL HCL 2 GM PO SCH (18:45)
[2019-02-16] MEDS ORDERED: Digoxin 500 mcg/2ml (0.5 mg/2ml) Inj IVP STA (21:28)
--- NOTE | 2019-02-16 21:33 | CARD ---
APPROVED REPORT Date of service: 02/16/2019 EKG Measurement Heart [id number] <Conclusion> Atrial fibrillation with rapid ventricular response Low voltage QRS Inferior infarct, age undetermined NDSTT abnormalities Abnormal ECG
[2019-02-16] MEDS: diltiaZEM IVPB 100mg in NS 100 ML IV PRN (22:03)
[2019-02-16] MEDS: Latanoprost 2.5 ml Opht Soln OU SCH (23:42)
--- NOTE | 2019-02-17 00:43 | CP.PCM.PCO ---
Addendum Addendum: 02/17/19 00:42 House Doctor: Received page regarding heart rate in 140's sustained after cardizem (total of 45mg IVP) administered previously in the day. Ordered Digoxin 0.5mg IVP. Continue to monitor. Noah Barajas PGY1
[2019-02-17] MEDS: Insulin Reg-MEDIUM-Coverage SC SCH ×5 (05:52→22:00)
[2019-02-17] MEDS: Sodium Chloride 0.9% 1,000 ML IV SCH (05:54)
[2019-02-17] MEDS: diltiaZEM IVPB 100mg in NS 100 ML IV PRN ×2 (07:00→17:00)
[2019-02-17 08:10] LABS: LYMPH # 0.5 (1.2-3.4); LYMPH % 7.7 % (22.0-35.0); MEAN CELL VOLUME 91.7 fl (80.0-105.0); MEAN CORPUSCULAR HEMOGLOBIN 28.7 pg (25.0-35.0); MEAN CORPUSCULAR HGB CONC 31.3 g/dl (31.0-37.0); MEAN PLATELET VOLUME 9.9 fl (7.0-11.0); MONO # 0.4 (0.1-0.6); MONO % 7.2 % (1.0-6.0); RBC 3.48 10^6/uL (3.5-6.1); RED CELL DISTRIBUTION WIDTH 15.2 % (11.5-14.5)
[2019-02-17] MEDS: Albuterol-Ipratrop 3 mg / 0.5 (3 ml) UD IH SCH ×3 (08:15→19:27)
[2019-02-17] MEDS: Budesonide 0.5 mg/2 ml Inhal Susp UD IH SCH ×2 (08:15→19:27)
[2019-02-17 08:23] LABS: ALB/GLOB RATIO 1.3 (1.1-1.8); ALBUMIN 3.8 g/dL (3.0-4.8); ALT/SGPT 21 U/L (7-56); AST/SGOT 27 U/L (14-36); BLOOD UREA NITROGEN 24 mg/dL (7-21); CALCIUM 9.1 mg/dL (8.4-10.5); GFR NON-AFRICAN AMERICAN 54
[2019-02-17] MEDS ORDERED: Digoxin 500 mcg/2ml (0.5 mg/2ml) Inj IVP ONE (09:28)
[2019-02-17] MEDS ORDERED: Digoxin 500 mcg/2ml (0.5 mg/2ml) Inj IV ONE ×2 (09:28→15:30)
[2019-02-17] MEDS: COLESTIPOL HCL 2 GM PO SCH ×2 (10:09→17:02)
[2019-02-17] MEDS: MethylPREDNISolone 40 mg Vial IVP SCH ×2 (10:24→21:39)
[2019-02-17 10:25] LABS: TOTAL IRON BINDING CAPACITY 374 ug/dL (265-497)
[2019-02-17 10:26] LABS: IRON 29 ug/dL (45-180)
[2019-02-17 10:29] LABS: % IRON SATURATION 8 % (20-55)
--- NOTE | 2019-02-17 10:48 | CP.PCM.HP ---
<PranavBabita - Last Filed: 02/17/19 10:38> History of Present Illness - History of Present Illness History of Present Illness: H&P for Dr. Sams service CC: Progressively worsening shortness of breath x 2 weeks 78 F with a past medical history of COPD on home 02, CAD, HLD, DM2, CHF, Afib and anemia presented to the [facility] ED with complaints of progressively worsening shortness of breath x 2 weeks. Patient did see her tub operator recently and was started on a steroid taper and antibiotics as per pt. She also complains of dyspnea worse upon exertion and generalized weakness since yesterday morning. Patient is complaint with her home medications, including duoneb medication and nasal cannula at home. Patient was seen and examined at bedside. Patient noted that her respiratory status has improved. As per nursing staff, patient has been in afib with RVR overnight and treated with cardizem ivp x 3 and iv digoxin overnight. Patient started on cardizem drip this morning. Patient denies any fevers, chills, headache, dizziness, chest pain, cough, abdominal pain, nausea, vomiting, diarrhea, back pain, neck pain, or any other complaint. PMHx: COPD on home 02, DM2, CHF, HLD, HTN, Afib and anemia PSHx: appendectomy, rt hip, b/l knee repair SHx: Former smoker, denied etoh or illicit drugs FamHx: Noncontributory Meds: MAR Reviewed Allergies: NKDA Present on Admission - Present on Admission Any Indicators Present on Admission: No Review of Systems - Review of Systems Review of Systems: as per HPI otherwise negative Past Patient History - Infectious Disease Hx of Infectious Diseases: None - Past Medical History & Family History Past Medical History?: Yes - Past Social History Smoking Status: Former Smoker - CARDIAC Hx Cardiac Disorders: Yes Hx Hypertension: Yes - PULMONARY Hx Respiratory Disorders: Yes Hx Chronic Obstructive Pulmonary Disease (COPD): Yes - NEUROLOGICAL Hx Neurological Disorder: No - HEENT Hx HEENT Problems: No - RENAL Hx Chronic Kidney Disease: No - ENDOCRINE/METABOLIC Hx Endocrine Disorders: Yes Hx Diabetes Mellitus Type 1: Yes - HEMATOLOGICAL/ONCOLOGICAL Hx Blood Disorders: Yes Hx Anemia: Yes - INTEGUMENTARY Hx Dermatological Problems: No - MUSCULOSKELETAL/RHEUMATOLOGICAL Hx Musculoskeletal Disorders: Yes Hx Falls: Yes - GASTROINTESTINAL Hx Gastrointestinal Disorders: Yes - GENITOURINARY/GYNECOLOGICAL Hx Genitourinary Disorders: No - PSYCHIATRIC Hx Psychophysiologic Disorder: No - SURGICAL HISTORY Hx Surgeries: Yes Hx Appendectomy: Yes - ANESTHESIA Hx Anesthesia: Yes Hx Anesthesia Reactions: No Hx Malignant Hyperthermia: No Meds Allergies/Adverse Reactions: Allergies Allergy/AdvReac Type Severity Reaction Status Date / Time No Known Allergies Allergy Verified 02/16/19 13:08 Physical Exam - Constitutional Appears: No Acute Distress - Head Exam Head Exam: ATRAUMATIC, NORMAL INSPECTION, NORMOCEPHALIC - Eye Exam Eye Exam: EOMI, Normal appearance, PERRL - ENT Exam ENT Exam: Mucous Membranes Dry - Respiratory Exam Respiratory Exam: Wheezes, NORMAL BREATHING PATTERN - Cardiovascular Exam Cardiovascular Exam: Tachycardia, Irregular Rhythm, +S1, +S2 - GI/Abdominal Exam GI & Abdominal Exam: Normal Bowel Sounds, Soft. absent: Tenderness - Neurological Exam Neurological exam: Alert, CN II-XII Intact, Oriented x3, Reflexes Normal - Psychiatric Exam Psychiatric exam: Normal Affect, Normal Mood - Skin Skin Exam: Dry, Intact, Normal Color, Warm Results - Vital Signs Recent Vital Signs: Last Vital Signs Temp 97.8 F 02/17/19 06:00 Pulse 135 H 02/17/19 10:24 Resp 20 02/17/19 06:00 BP 118/67 02/17/19 10:24 Pulse Ox 93 L 02/16/19 16:07 - Labs Result Diagrams: 02/17/19 07:55 02/17/19 07:55 Labs: Laboratory Results - last 24 hr 02/16/19 02/16/19 02/16/19 13:11 13:11 13:11 WBC 10.0 RBC 3.89 Hgb 11.3 L Hct 36.5 MCV 93.8 MCH 29.0 MCHC 31.0 RDW 15.4 H Plt Count 206 MPV 9.8 Neut % (Auto) 83.2 H Lymph % (Auto) 7.5 L [place] % (Auto) 5.0 Eos % (Auto) 4.1 Baso % (Auto) 0.2 Lymph # (Auto) 0.8 L [place] # (Auto) 0.5 Eos # (Auto) 0.4 Baso # (Auto) 0.02 Absolute Neuts (auto) 8.32 H PT 15.3 H INR 1.35 APTT 27.2 pO2 VBG pH VBG pCO2 VBG HCO3 VBG Total CO2 VBG O2 Sat (Calc) VBG Base Excess VBG Potassium Glucose Lactate FiO2 Crit Value Called To Crit Value Called By Blood Gas Notified Time Sodium 138 Potassium 4.4 Chloride 103 Carbon Dioxide 23 Anion Gap 16 BUN 26 H Creatinine 1.2 Est GFR ( Amer) 53 Est GFR (Non-Af Amer) 44 POC Glucose (mg/dL) Random Glucose 165 H Calcium 9.2 Phosphorus 3.9 Magnesium 1.6 L Iron TIBC % Saturation Total Bilirubin 0.7 AST 26 ALT 16 Alkaline Phosphatase 51 Total Creatine Kinase 37 Troponin I < 0.01 D NT-Pro-B Natriuret Pep 6360 H Total Protein 7.4 Albumin 4.1 Globulin 3.2 Albumin/Globulin Ratio 1.3 TSH 3rd Generation Venous Blood Potassium 02/16/19 02/16/19 02/16/19 13:11 13:40 16:04 WBC RBC Hgb Hct MCV MCH MCHC RDW Plt Count MPV Neut % (Auto) Lymph % (Auto) [place] % (Auto) Eos % (Auto) Baso % (Auto) Lymph # (Auto) [place] # (Auto) Eos # (Auto) Baso # (Auto) Absolute Neuts (auto) PT INR APTT pO2 27 L VBG pH 7.35 VBG pCO2 46.0 VBG HCO3 25.4 VBG Total CO2 26.8 VBG O2 Sat (Calc) 42.3 VBG Base Excess -0.6 L VBG Potassium 5.1 Glucose 175 H Lactate 3.1 H FiO2 21.0 Crit Value Called To radha Melendez Crit Value Called By Ec Blood Gas Notified Time 1350 Sodium 137.0 Potassium Chloride 106.0 Carbon Dioxide Anion Gap BUN Creatinine Est GFR ( Amer) Est GFR (Non-Af Amer) POC Glucose (mg/dL) 231 H Random Glucose Calcium Phosphorus Magnesium Iron TIBC % Saturation Total Bilirubin AST ALT Alkaline Phosphatase Total Creatine Kinase Troponin I NT-Pro-B Natriuret Pep Total Protein Albumin Globulin Albumin/Globulin Ratio TSH 3rd Generation 1.54 Venous Blood Potassium 5.1 02/16/19 02/16/19 02/17/19 17:15 21:33 06:00 WBC RBC Hgb Hct MCV MCH MCHC RDW Plt Count MPV Neut % (Auto) Lymph % (Auto) [place] % (Auto) Eos % (Auto) Baso % (Auto) Lymph # (Auto) [place] # (Auto) Eos # (Auto) Baso # (Auto) Absolute Neuts (auto) PT INR APTT pO2 51 VBG pH 7.32 VBG pCO2 48.0 VBG HCO3 24.7 VBG Total CO2 26.2 VBG O2 Sat (Calc) 83.5 H VBG Base Excess -1.8 L VBG Potassium 4.5 Glucose 284 H Lactate 3.1 H FiO2 21.0 Crit Value Called To Alexi cai Crit Value Called By Atc Blood Gas Notified Time 1725 Sodium 137.0 Potassium Chloride 102.0 Carbon Dioxide Anion Gap BUN Creatinine Est GFR ( Amer) Est GFR (Non-Af Amer) POC Glucose (mg/dL) 233 H Random Glucose Calcium Phosphorus Magnesium Iron TIBC % Saturation Total Bilirubin AST ALT Alkaline Phosphatase Total Creatine Kinase Troponin I 0.02 D NT-Pro-B Natriuret Pep Total Protein Albumin Globulin Albumin/Globulin Ratio TSH 3rd Generation Venous Blood Potassium 4.5 02/17/19 02/17/19 02/17/19 07:55 07:55 09:50 WBC 6.0 D RBC 3.48 L Hgb 10.0 L Hct 31.9 L MCV 91.7 MCH 28.7 MCHC 31.3 RDW 15.2 H Plt Count 163 MPV 9.9 Neut % (Auto) 85.1 H Lymph % (Auto) 7.7 L [place] % (Auto) 7.2 H Eos % (Auto) 0.0 L Baso % (Auto) 0.0 Lymph # (Auto) 0.5 L [place] # (Auto) 0.4 Eos # (Auto) 0.0 Baso # (Auto) 0.00 Absolute Neuts (auto) 5.09 PT INR APTT pO2 VBG pH VBG pCO2 VBG HCO3 VBG Total CO2 VBG O2 Sat (Calc) VBG Base Excess VBG Potassium Glucose Lactate FiO2 Crit Value Called To Crit Value Called By Blood Gas Notified Time Sodium 137 Potassium 4.1 Chloride 104 Carbon Dioxide 24 Anion Gap 13 BUN 24 H Creatinine 1.0 Est GFR ( Amer) > 60 Est GFR (Non-Af Amer) 54 POC Glucose (mg/dL) Random Glucose 132 H Calcium 9.1 Phosphorus 4.2 Magnesium 1.6 L Iron 29 L TIBC 374 % Saturation 8 L Total Bilirubin 0.6 AST 27 ALT 21 Alkaline Phosphatase 45 Total Creatine Kinase Troponin I NT-Pro-B Natriuret Pep Total Protein 6.7 Albumin 3.8 Globulin 2.9 Albumin/Globulin Ratio 1.3 TSH 3rd Generation Venous Blood Potassium Assessment & Plan - Assessment and Plan (Free Text) Assessment: - copd exacerbation - afib with rvr - anemia - chf - cad - dm2 - hld - htn - hypomagnesemia Plan: patient is comfortable. Patient started on cardizem drip 10mg/hr as per Cardiology for afib with rvr, cardizem 30mg QID as well as eliquis 5mg bid. Patient on digoxin 0.125mg daily for chf and afib. Patient will continue cozaar and imdur for HTN. Patient anemic, will fu studies and supplement as needed. Patient on 02, solumdedrol, duonebs and pulmicort for COPD, continue to taper steroids as tolerated as per Dice Dealer Dr Ansari. Fu CXR. Medium ISS and glypizide for DM2 coverage in setting of steroid therapy. Hypomagnesemia supplemented Continue to monitor. <Mitchel Sams S - Last Filed: 02/17/19 14:21> Results - Vital Signs Recent Vital Signs: Last Vital Signs Temp 98 F 02/17/19 12:00 Pulse 68 02/17/19 13:29 Resp 20 02/17/19 12:00 BP 125/70 02/17/19 13:29 Pulse Ox 93 L 02/16/19 16:07 - Labs Result Diagrams: 02/17/19 07:55 02/17/19 07:55 Labs: Laboratory Results - last 24 hr 02/16/19 02/16/19 02/16/19 13:11 16:04 17:15 WBC RBC Hgb Hct MCV MCH MCHC RDW Plt Count MPV Neut % (Auto) Lymph % (Auto) [place] % (Auto) Eos % (Auto) Baso % (Auto) Lymph # (Auto) [place] # (Auto) Eos # (Auto) Baso # (Auto) Absolute Neuts (auto) pO2 51 VBG pH 7.32 VBG pCO2 48.0 VBG HCO3 24.7 VBG Total CO2 26.2 VBG O2 Sat (Calc) 83.5 H VBG Base Excess -1.8 L VBG Potassium 4.5 Sodium 137.0 Chloride 102.0 Glucose 284 H Lactate 3.1 H FiO2 21.0 Crit Value Called To Alexi cai Crit Value Called By [facility] Blood Gas Notified Time 1725 Potassium Carbon Dioxide Anion Gap BUN Creatinine Est GFR ( Amer) Est GFR (Non-Af Amer) POC Glucose (mg/dL) 231 H Random Glucose Calcium Phosphorus Magnesium Iron TIBC % Saturation Total Bilirubin AST ALT Alkaline Phosphatase Troponin I Total Protein Albumin Globulin Albumin/Globulin Ratio TSH 3rd Generation 1.54 Venous Blood Potassium 4.5 02/16/19 02/17/19 02/17/19 21:33 06:00 07:37 WBC RBC Hgb Hct MCV MCH MCHC RDW Plt Count MPV Neut % (Auto) Lymph % (Auto) [place] % (Auto) Eos % (Auto) Baso % (Auto) Lymph # (Auto) [place] # (Auto) Eos # (Auto) Baso # (Auto) Absolute Neuts (auto) pO2 VBG pH VBG pCO2 VBG HCO3 VBG Total CO2 VBG O2 Sat (Calc) VBG Base Excess VBG Potassium Sodium Chloride Glucose Lactate FiO2 Crit Value Called To Crit Value Called By Blood Gas Notified Time Potassium Carbon Dioxide Anion Gap BUN Creatinine Est GFR ( Amer) Est GFR (Non-Af Amer) POC Glucose (mg/dL) 233 H 117 H Random Glucose Calcium Phosphorus Magnesium Iron TIBC % Saturation Total Bilirubin AST ALT Alkaline Phosphatase Troponin I 0.02 D Total Protein Albumin Globulin Albumin/Globulin Ratio MERGED WITH [facility] 3rd Generation Venous Blood Potassium 02/17/19 02/17/19 02/17/19 07:55 07:55 09:50 WBC 6.0 D RBC 3.48 L Hgb 10.0 L Hct 31.9 L MCV 91.7 MCH 28.7 MCHC 31.3 RDW 15.2 H Plt Count 163 MPV 9.9 Neut % (Auto) 85.1 H Lymph % (Auto) 7.7 L [place] % (Auto) 7.2 H Eos % (Auto) 0.0 L Baso % (Auto) 0.0 Lymph # (Auto) 0.5 L [place] # (Auto) 0.4 Eos # (Auto) 0.0 Baso # (Auto) 0.00 Absolute Neuts (auto) 5.09 pO2 VBG pH VBG pCO2 VBG HCO3 VBG Total CO2 VBG O2 Sat (Calc) VBG Base Excess VBG Potassium Sodium 137 Chloride 104 Glucose Lactate FiO2 Crit Value Called To Crit Value Called By Blood Gas Notified Time Potassium 4.1 Carbon Dioxide 24 Anion Gap 13 BUN 24 H Creatinine 1.0 Est GFR ( Amer) > 60 Est GFR (Non-Af Amer) 54 POC Glucose (mg/dL) Random Glucose 132 H Calcium 9.1 Phosphorus 4.2 Magnesium 1.6 L Iron 29 L TIBC 374 % Saturation 8 L Total Bilirubin 0.6 AST 27 ALT 21 Alkaline Phosphatase 45 Troponin I Total Protein 6.7 Albumin 3.8 Globulin 2.9 Albumin/Globulin Ratio 1.3 TSH 3rd Generation Venous Blood Potassium 02/17/19 11:11 WBC RBC Hgb Hct MCV MCH MCHC RDW Plt Count MPV Neut % (Auto) Lymph % (Auto) [place] % (Auto) Eos % (Auto) Baso % (Auto) Lymph # (Auto) [place] # (Auto) Eos # (Auto) Baso # (Auto) Absolute Neuts (auto) pO2 VBG pH VBG pCO2 VBG HCO3 VBG Total CO2 VBG O2 Sat (Calc) VBG Base Excess VBG Potassium Sodium Chloride Glucose Lactate FiO2 Crit Value Called To Crit Value Called By Blood Gas Notified Time Potassium Carbon Dioxide Anion Gap BUN Creatinine Est GFR ( Amer) Est GFR (Non-Af Amer) POC Glucose (mg/dL) 98 Random Glucose Calcium Phosphorus Magnesium Iron TIBC % Saturation Total Bilirubin AST ALT Alkaline Phosphatase Troponin I Total Protein Albumin Globulin Albumin/Globulin Ratio TSH 3rd Generation Venous Blood Potassium Assessment & Plan - Assessment and Plan (Free Text) Assessment: Patient was seen and examined by me. I have reviewed the note of the adjunct faculty for medical terminology and have gone over the plan of care. I agree with the note. I have reviewed the medications and the last labs.
[2019-02-17] MEDS ORDERED: Iron Sucrose 100 mg/5 ml Inj IVP ONE (11:04)
--- NOTE | 2019-02-17 11:27 | RAD ---
Date of service: 02/17/2019 HISTORY: copd/chf COMPARISON: 02/16/2019. FINDINGS: LUNGS: The lungs are well inflated. There is severe pulmonary venous congestion and mild interstitial pulmonary edema. PLEURA: Suspect small effusions. No pneumothorax CARDIOVASCULAR: Severe cardiomegaly with prominent central vasculature. There are aortic atherosclerotic calcifications present. OSSEOUS STRUCTURES: Within normal limits for the patient's age. VISUALIZED UPPER ABDOMEN: Normal. OTHER FINDINGS: None. IMPRESSION: Constellation of findings are most compatible with worsening congestive heart failure.
[2019-02-17] MEDS: Magnesium Oxide 400 mg Tab UD PO SCH ×3 (12:00→17:13)
--- NOTE | 2019-02-17 12:00 | CON ---
DATE: 02/17/2019 PULMONARY CONSULTATION REASON FOR CONSULTATION: Chronic obstructive pulmonary disease. REFERRING PHYSICIAN: Dr. Mitchel Sams. HISTORY OF PRESENT ILLNESS: The patient is a chronically-ill, 78-year-old female, with past medical history significant for advanced chronic obstructive pulmonary disease, on home oxygen, pulmonary fibrosis, extensive coronary artery disease, status post multiple cardiac stents, congestive heart failure, ulcerative colitis, myocardial infarction in the past, diabetes mellitus, who presents to [facility] with worsening shortness of breath at rest, dyspnea on exertion, and cough for the past 3 days. These pulmonary symptoms have actually been going on for approximately 2 weeks, but became much worse over the past 3 days. I did see the patient in the office last week and offered her admission to the hospital. She refused. There is no history of significant sputum production. There is no history of chest pain, coughing up of blood, or chest pain - made worse with deep respirations. There is no history of temperatures, chills, or infectious exposure. There is no history of night sweats, weight loss, or appetite change prior to the above events. No history of calf pains. No history of syncope or diaphoresis. No history of recent travel or trauma. REVIEW OF SYSTEMS: GASTROINTESTINAL: No history of nausea, vomiting, or diarrhea. UROLOGICAL: No acute urinary symptoms. Rest of the review of systems is negative. ALLERGIES: NO KNOWN ALLERGIES. SOCIAL HISTORY: Positive for extensive tobacco usage. No alcohol. FAMILY HISTORY: No inheritable diseases. HOME MEDICATIONS: Include aspirin, DuoNeb, budesonide, Zocor, Lopressor, metformin, Glucotrol. PHYSICAL EXAMINATION: GENERAL: The patient appears comfortable at rest. She is not short of breath. She is not using accessory muscles for breathing. VITAL SIGNS: Temperature is 97.5, pulse on the monitor is 108, respiratory rate 18/20, blood pressure 136/63. Oxygen saturation on nasal cannula 93-95%. HEENT: Normocephalic, atraumatic. No JVD. CARDIOVASCULAR: Systolic ejection murmur at the lower left sternal border. Positive S3 gallop. LUNGS: Crackles at both bases - chronic. Mild bilateral rhonchi and wheezing are also appreciated. EXTREMITIES: Positive edema, no cyanosis, no clubbing. Calves are nontender to palpation. GASTROINTESTINAL: Abdomen is soft, nontender, and nondistended. Bowel sounds are positive. SKIN: No acute rash. NEUROLOGIC: Exam limited at the present time. PERTINENT LABORATORY DATA: Chest x-ray was done yesterday and reviewed. The chest x-ray shows mild pulmonary vascular congestion, as well as mild cardiomegaly. CBC: White count 10.0K, hemoglobin 11.3, hematocrit 36.5, platelets of 206,000. Complete metabolic profile: BUN 26, glucose 165, magnesium 1.6. B-type natriuretic peptide 6360. Rest of the metabolic profile is within normal limits. EKG done in the emergency room consistent with rapid atrial fibrillation. IMPRESSION: 1. Acute bronchitis. 2. Advanced chronic obstructive pulmonary disease, on home oxygen. 3. Acute congestive heart failure. 4. Rapid atrial fibrillation. 5. Coronary artery disease. PLAN: The patient presents to [facility] with a 2-week history of pulmonary symptoms. As above, her pulmonary symptoms got much worse over the past 3 days. Again, I did see this patient in the office last week. I did offer her admission to the hospital. She refused. I did review the chest x-ray as above. This chest x-ray does show mild pulmonary vascular congestion, as well as mild cardiomegaly. I have also reviewed the laboratory data. A significant rise in the B-type natriuretic peptide is noted. The patient did receive intravenous Lasix in the emergency room. On physical exam, the patient is in [id number] bronchospasm. I will continue the current nebulizer treatments and add inhaled Pulmicort this morning. I will also add low-dose intravenous steroids. The patient was on prednisone at home. Lastly, the patient remains on a Cardizem drip. Consultation with Dr. Conner (Cardiology) has been ordered. The patient does state to feeling better this morning, is clinically improved. However, given the above, the future status/prognosis for this chronically-ill patient does remain guarded. I will discuss the above with the attending physician this morning. Thank you very much for this pulmonary consultation. Luis Carlos Ansari MD CHRISTINA
--- NOTE | 2019-02-17 19:14 | CON ---
DATE: 02/17/2019 REQUESTING PHYSICIAN: Mitchel Sams MD. REASON FOR CONSULTATION: Dyspnea and rapid atrial fibrillation. HISTORY OF PRESENT ILLNESS: This is a 78-year-old woman now well known to me with a history of coronary artery disease and pulmonary fibrosis, maintained on home oxygen therapy, who presented to the emergency room with worsening dyspnea over the past several weeks, appeared in the emergency room she was noted to be in atrial fibrillation with a rapid ventricular response. She was started on IV diltiazem. Her rate was not well controlled and she was given digoxin last evening. Her rate heart is now back up into the 120 to 130 range here. She continues to have some dyspnea at rest. She has a longstanding history of diabetes and coronary artery disease. She underwent prior PCI for her RCA many years ago. Followup stress test showed a remote inferior infarct and repeat catheterization revealed stent occlusion. Her left ventricular function has been preserved. PAST MEDICAL HISTORY: Notable for the problems mentioned above. She has a history of colitis and prior appendectomy. She also has a glaucoma and cataracts. She has obstructive sleep apnea as well. She has undergone prior right hip replacement after a fracture. MEDICATIONS AT HOME: Include omeprazole, metoprolol 50 mg b.i.d., Imdur 60 mg daily, glipizide, Colestipol 2 g b.i.d., Lumigan eye drops, DuoNeb inhaler, losartan 100 mg daily, metformin 500 mg b.i.d., and balsalazide. FAMILY HISTORY: Both parents are from a majorly illness. SOCIAL HISTORY: She is a former smoker. She denies alcohol use. She is . ALLERGIES: NONE. REVIEW OF SYSTEMS: A 10-point review of systems is notable mainly for problems mentioned above. PHYSICAL EXAMINATION: GENERAL: She is an overweight elderly woman. VITAL SIGNS: Her blood pressure is 122/66 with a pulse of 110 in atrial fibrillation; respirations are 16. She is currently afebrile. HEENT: Normocephalic and atraumatic. NECK: Supple. No JVD noted. CHEST: Bilateral scattered rhonchi noted with bibasilar crackles. HEART: Reveals the PMI to be displaced laterally. A soft systolic murmur is noted at the lower left sternal border. ABDOMEN: Soft and mildly obese, nontender, and normoactive bowel sounds. EXTREMITIES: No clubbing, cyanosis, or edema. SKIN: Warm and dry. PSYCHIATRIC: Normal mood and affect. NEUROLOGIC: Alert and oriented x3. No gross motor or sensory deficits notable. DIAGNOSTIC DATA: White count 6.0, hemoglobin and hematocrit 10.0 and 31.9 with a platelet count of 163,000. PT and PTT 15.3 and 27.2. Venous blood gas revealed pH 7.32, pCO2 of 48, pO2 of 51. Potassium 4.1, BUN and creatinine 24 and 1.0, glucose is 132. TSH 1.54. Chest x-ray reveals enlarged cardiac silhouette with increased interstitial markings greater at the bases. Electrocardiogram reveals atrial fibrillation with a rapid ventricular response, remote inferior wall myocardial infarction and low voltage criteria for LVH and nonspecific ST-T abnormalities. IMPRESSION: 1. Atrial fibrillation, rapid ventricular response, recent onset, likely precipitated by severe chronic obstructive pulmonary disease. 2. Coronary artery disease, status post remote inferior myocardial infarction of percutaneous coronary intervention for right coronary artery. 3. Severe chronic obstructive pulmonary disease with pulmonary fibrosis. 4. History of diabetes. 5. Intolerance to statin therapy in the past. 6. Rest of problems as noted. RECOMMENDATIONS: Digoxin will be given again today for full loading of 1 mg and then maintenance dose of 0.125 mg daily. Oral beta cortney has been resumed and low dose oral diltiazem is as well. Attempts will be made to reduce her IV diltiazem and discontinue this. Anticoagulant therapy is advised as well and Eliquis 5 mg b.i.d. will be instituted. Thank you for this consultation, we are happy to follow along for her hospital course. Maximiliano Ken MD
[2019-02-17] MEDS: MELATONIN 5 MG PO SCH (21:42)
[2019-02-17] MEDS: Latanoprost 2.5 ml Opht Soln OU SCH (21:43)
--- NOTE | 2019-02-17 22:41 | HP ---
DATE OF EXAM: 02/17/2019 HISTORY OF PRESENT ILLNESS: The patient was seen and examined. I do agree with the note of the medical assistant supervisor. I was involved in the plan of care. The patient was admitted to the hospital because of shortness of breath. The patient was seen by her preforming machine operator and was given steroids as well as antibiotics. The patient says that she was not feeling better. She was having worsening of her shortness of breath. When she came into the hospital, she was found to have atrial fibrillation with rapid rate. She was given multiple dose of Cardizem and placed on Cardizem drip. The patient has no complaints of any headaches or dizziness. No fevers. She says she is feeling better. She is going to be on Solu-Medrol and she was given a dose of digoxin for her atrial fibrillation. The patient is on oxygen. She is going to continue with glipizide, but I will hold the metformin. She has been placed on insulin sliding scale. She has low magnesium, this will be replaced. The patient is going to be seen by Dr. Conner from Cardiology and Dr. Ansari. Dr. Ansari did evaluate the patient this morning. We will continue the patient on telemetry to monitor her heart rate. The patient is on losartan for her hypertension. She is going to be placed on iron for iron deficiency. She had hemoglobin of 10. She has a saturation of . Mitchel Sams MD
[2019-02-18] MEDS: diltiaZEM IVPB 100mg in NS 100 ML IV PRN ×2 (03:30→13:59)
[2019-02-18] MEDS ORDERED: metOLazone 5 MG TAB PO ONE (08:12)
[2019-02-18] MEDS: Budesonide 0.5 mg/2 ml Inhal Susp UD IH SCH ×2 (08:13→19:36)
[2019-02-18] MEDS: Albuterol-Ipratrop 3 mg / 0.5 (3 ml) UD IH SCH ×3 (08:13→19:36)
[2019-02-18] MEDS: Insulin Reg-MEDIUM-Coverage SC SCH ×4 (08:32→22:53)
[2019-02-18 08:50] LABS: LYMPH # 0.5 (1.2-3.4); LYMPH % 5.6 % (22.0-35.0); MEAN CELL VOLUME 93.2 fl (80.0-105.0); MEAN CORPUSCULAR HEMOGLOBIN 28.7 pg (25.0-35.0); MEAN CORPUSCULAR HGB CONC 30.8 g/dl (31.0-37.0); MEAN PLATELET VOLUME 9.7 fl (7.0-11.0); MONO # 0.2 (0.1-0.6); MONO % 2.5 % (1.0-6.0); PLATELET COUNT 198 10^3/uL (120.0-450.0); RBC 3.83 10^6/uL (3.5-6.1); RED CELL DISTRIBUTION WIDTH 15.1 % (11.5-14.5); WHITE BLOOD COUNT 8.3 10^3/uL (4.5-11.0)
[2019-02-18 09:00] LABS: ALB/GLOB RATIO 1.3 (1.1-1.8); CALCIUM 9.2 mg/dL (8.4-10.5)
[2019-02-18] MEDS: Magnesium Oxide 400 mg Tab UD PO SCH ×2 (09:23→17:22)
[2019-02-18] MEDS: COLESTIPOL HCL 2 GM PO SCH ×2 (09:26→17:40)
[2019-02-18] MEDS: MethylPREDNISolone 40 mg Vial IVP SCH ×2 (09:26→22:52)
--- NOTE | 2019-02-18 09:47 | RAD ---
Date of service: 02/18/2019 HISTORY: copd/chf COMPARISON: 02/17/2019 TECHNIQUE: 1 view obtained. FINDINGS: LUNGS: No active pulmonary disease. PLEURA: No significant pleural effusion identified, no pneumothorax apparent. CARDIOVASCULAR: Aortic calcification Mild cardiomegaly. Mild vascular congestion OSSEOUS STRUCTURES: No significant abnormalities. VISUALIZED UPPER ABDOMEN: Normal. OTHER FINDINGS: None. IMPRESSION: Mild cardiomegaly and mild vascular congestion
[2019-02-18 10:09] LABS: LYMPHOCYTE 5 % (22.0-35.0); MONOCYTE 3 % (1.0-6.0); NEUTROPHIL 92 % (50.0-70.0); PLATELET ESTIMATE NORMAL (NORMAL)
[2019-02-18] MEDS: Pantoprazole 40 mg EC Tab PO SCH (11:01)
--- NOTE | 2019-02-18 11:18 | PN ---
DATE: 02/18/2019 PULMONARY NOTE SUBJECTIVE: The patient appears comfortable this morning. She is not short of breath at rest. PHYSICAL EXAMINATION: VITAL SIGNS: Temperature is 97.4, pulse 74, respirations 19, blood pressure 137/69. Oxygen saturation on nasal cannula - 98%. HEENT: Normocephalic, atraumatic. No JVD. CARDIOVASCULAR: Systolic ejection murmur at the lower left sternal border. Positive S3 gallop. LUNGS: Crackles at both bases - chronic. Much less rhonchi. No wheezing this morning. GASTROINTESTINAL: Abdomen is soft, nontender and nondistended. Bowel sounds are positive. EXTREMITIES: Less edema, no cyanosis, no clubbing. Calves are nontender to palpation. SKIN: No acute rash. NEUROLOGIC: Exam limited at the present time. IMPRESSION: 1. Acute bronchitis. 2. Advanced chronic obstructive pulmonary disease, on home oxygen. 3. Acute congestive heart failure. 4. Rapid atrial fibrillation. 5. Coronary artery disease. PLAN: The patient appears much more comfortable this morning. She is not short of breath at rest. She does state to feeling much better overall. On physical exam, there is much less bronchospasm noted. In addition, the oxygen saturation on nasal cannula is now 98%. I will continue the current nebulizer treatments and decrease the intravenous steroids this morning. I would continue with the treatment for congestive heart failure and atrial fibrillation as per Cardiology. Input by Dr. Ken is noted. The patient remains on a Cardizem drip, as well as intravenous Lasix. Clinical status of the patient has definitely improved - compared to the initial presentation. However, given the above, the future status/prognosis for this elderly patient does remain guarded. I will discuss the above with the attending physician. Luis Carlos Ansari MD MTDD
--- NOTE | 2019-02-18 12:59 | CP.PCM.PN ---
<Babita Rock - Last Filed: 02/18/19 12:56> Subjective - Date & Time of Evaluation Date of Evaluation: 02/18/19 Time of Evaluation: 08:30 - Subjective Subjective: Progress Note for Dr. Sams Patient seen and examined at bedside. No acute complaints at this time. Patient states her breathing status has improved and would like to attempt PT today. patient denied fever, chills, shortness of breath, chest pains,abdominal pains, nausea, vomiting, diarrhea, constipation, dysuria. Objective - Vital Signs/Intake and Output Vital Signs (last 24 hours): Temp Pulse Resp BP Pulse Ox 97.5 F L 77 20 146/66 98 02/18/19 12:00 02/18/19 12:00 02/18/19 12:00 02/18/19 12:00 02/18/19 05:54 Intake and Output: 02/18/19 02/18/19 06:59 18:59 Intake Total 2002 Output Total 850 Balance 1152 - Medications Medications: Current Medications Albuterol/Ipratropium (Duoneb 3 Mg/0.5 Mg (3 Ml) Ud) 3 ml IH TIDRESP [facility] Last Admin: 02/18/19 08:13 Dose: 3 ml Apixaban (Eliquis) 5 mg PO BID [facility]; Protocol Last Admin: 02/18/19 09:25 Dose: 5 mg Aspirin (Aspirin Chewable) 81 mg PO DAILY [facility] Last Admin: 02/18/19 09:23 Dose: 81 mg Balsalazide (Colazal) 2,250 mg PO TID [facility] Last Admin: 02/18/19 09:25 Dose: 2,250 mg Budesonide (Pulmicort Respules) 0.5 mg IH [id number] [facility] Last Admin: 02/18/19 08:13 Dose: 0.5 mg Digoxin (Digoxin) 0.125 mg PO 1400 MARIELENA Diltiazem HCl (Cardizem) 30 mg PO QID [facility] Last Admin: 02/18/19 09:24 Dose: 30 mg Furosemide (Lasix) 40 mg IVP Q12 [facility] Last Admin: 02/18/19 09:25 Dose: 40 mg Glipizide (Glucotrol) 10 mg PO ACB [facility] Last Admin: 02/18/19 08:32 Dose: 10 mg Home Med (Home Med) 1 unit PO HS [facility] Last Admin: 02/17/19 21:42 Dose: 1 unit diltiaZEM IVPB 100mg in NS (Cardizem 100mg In Ns) 100 mls @ 10 mls/hr IV .Q10H PRN; Protocol PRN Reason: TITRATE PER MD ORDER Last Admin: 02/18/19 03:30 Dose: 10 mg/hr, 10 mls/hr Insulin Human Regular (Humulin R Med) 0 units SC [facility]; Protocol Last Admin: 02/18/19 12:42 Dose: 7 units Isosorbide Mononitrate (Imdur) 60 mg PO DAILY [facility] Last Admin: 02/18/19 09:24 Dose: 60 mg Latanoprost (Xalatan Opht) 0 ml OU HS [facility] Last Admin: 02/17/19 21:43 Dose: 2.5 ml Losartan Potassium (Cozaar) 100 mg PO DAILY [facility] Last Admin: 02/18/19 09:24 Dose: 100 mg Magnesium Oxide (Mag-Ox) 400 mg PO BID [facility] Last Admin: 02/18/19 09:23 Dose: 400 mg Methylprednisolone (Solu-Medrol) 30 mg IVP Q12 [facility] Last Admin: 02/18/19 09:26 Dose: 30 mg Metoprolol Tartrate (Lopressor) 50 mg PO BID [facility] Last Admin: 02/18/19 09:24 Dose: 50 mg Non-Formulary Medication (Colestipol Hcl [Colestid]) 2 gm PO BID [facility] Last Admin: 02/18/19 09:26 Dose: Not Given Pantoprazole Sodium (Protonix Ec Tab) 40 mg PO 0600 [facility] Last Admin: 02/18/19 11:01 Dose: 40 mg - Labs Labs: 02/18/19 08:35 02/18/19 08:35 PT 15.3 SECONDS (9.4-12.5) H 02/16/19 13:11 INR 1.35 02/16/19 13:11 APTT 27.2 Seconds (26.9-38.3) 02/16/19 13:11 - Constitutional Appears: No Acute Distress - Head Exam Head Exam: ATRAUMATIC, NORMAL INSPECTION, NORMOCEPHALIC - Eye Exam Eye Exam: EOMI, Normal appearance, PERRL Pupil Exam: NORMAL ACCOMODATION, PERRL - ENT Exam ENT Exam: Mucous Membranes Moist, Normal Exam - Respiratory Exam Respiratory Exam: Rales, NORMAL BREATHING PATTERN - Cardiovascular Exam Cardiovascular Exam: Irregular Rhythm, +S1, +S2. absent: Murmur - GI/Abdominal Exam GI & Abdominal Exam: Soft, Normal Bowel Sounds. absent: Tenderness - Extremities Exam Extremities Exam: Full ROM, Normal Capillary Refill, Normal Inspection. absent: Joint Swelling, Pedal Edema - Neurological Exam Neurological Exam: Alert, Awake, CN II-XII Intact, Normal Gait, Oriented x3 - Psychiatric Exam Psychiatric exam: Normal Affect, Normal Mood - Skin Skin Exam: Dry, Intact, Normal Color, Warm Assessment and Plan - Assessment and Plan (Free Text) Assessment: - copd exacerbation - afib with rvr - anemia - chf - cad - dm2 - hld - htn - hypomagnesemia Plan: patient is comfortable. Patient tolerating cardizem drip 10mg/hr as per Cardiology for afib with rvr, cardizem 30mg QID as well as eliquis 5mg bid. HR in the 80s now. Patient on digoxin 0.125mg daily for chf and afib. Patient will continue cozaar and imdur for HTN. Patient supplemented Iron. Bessie ent on 02, solumdedrol, duonebs and pulmicort for COPD, continue to taper steroids as tolerated as per Taker Off Dr Ansari. Fu CXR. Medium ISS and glypizide for DM2 coverage in setting of steroid therapy. Hypomagnesemia supplemented Continue to monitor. PT recommended TCU. Patient for TCU dispo. Seen reviewed and discussed with Dr. Sams <Mitchel Sams S - Last Filed: 02/18/19 14:53> Objective - Vital Signs/Intake and Output Vital Signs (last 24 hours): Temp Pulse Resp BP Pulse Ox 97.5 F L 77 20 146/66 98 02/18/19 12:00 02/18/19 12:00 02/18/19 12:00 02/18/19 12:00 02/18/19 05:54 Intake and Output: 02/18/19 02/18/19 06:59 18:59 Intake Total 2001 100 Output Total 850 Balance 1152 100 - Medications Medications: Current Medications Albuterol/Ipratropium (Duoneb 3 Mg/0.5 Mg (3 Ml) Ud) 3 ml IH TIDRESP [facility] Last Admin: 02/18/19 13:58 Dose: 3 ml Apixaban (Eliquis) 5 mg PO BID [facility]; Protocol Last Admin: 02/18/19 09:25 Dose: 5 mg Aspirin (Aspirin Chewable) 81 mg PO DAILY [facility] Last Admin: 02/18/19 09:23 Dose: 81 mg Balsalazide (Colazal) 2,250 mg PO TID [facility] Last Admin: 02/18/19 09:25 Dose: 2,250 mg Budesonide (Pulmicort Respules) 0.5 mg IH [id number] [facility] Last Admin: 02/18/19 08:13 Dose: 0.5 mg Digoxin (Digoxin) 0.125 mg PO 1400 MARIELENA Diltiazem HCl (Cardizem) 30 mg PO QID [facility] Last Admin: 02/18/19 09:24 Dose: 30 mg Furosemide (Lasix) 40 mg IVP Q12 [facility] Last Admin: 02/18/19 09:25 Dose: 40 mg Glipizide (Glucotrol) 10 mg PO ACB [facility] Last Admin: 02/18/19 08:32 Dose: 10 mg Home Med (Home Med) 1 unit PO HS [facility] Last Admin: 02/17/19 21:42 Dose: 1 unit diltiaZEM IVPB 100mg in NS (Cardizem 100mg In Ns) 100 mls @ 10 mls/hr IV .Q10H PRN; Protocol PRN Reason: TITRATE PER MD ORDER Last Admin: 02/18/19 13:59 Dose: 10 mg/hr, 10 mls/hr Insulin Human Regular (Humulin R Med) 0 units SC ACHS [facility]; Protocol Last Admin: 02/18/19 12:42 Dose: 7 units Isosorbide Mononitrate (Imdur) 60 mg PO DAILY [facility] Last Admin: 02/18/19 09:24 Dose: 60 mg Latanoprost (Xalatan Opht) 0 ml OU HS [facility] Last Admin: 02/17/19 21:43 Dose: 2.5 ml Losartan Potassium (Cozaar) 100 mg PO DAILY [facility] Last Admin: 02/18/19 09:24 Dose: 100 mg Magnesium Oxide (Mag-Ox) 400 mg PO BID [facility] Last Admin: 02/18/19 09:23 Dose: 400 mg Methylprednisolone (Solu-Medrol) 30 mg IVP Q12 [facility] Last Admin: 02/18/19 09:26 Dose: 30 mg Metoprolol Tartrate (Lopressor) 50 mg PO BID [facility] Last Admin: 02/18/19 09:24 Dose: 50 mg Non-Formulary Medication (Colestipol Hcl [Colestid]) 2 gm PO BID [facility] Last Admin: 02/18/19 09:26 Dose: Not Given Pantoprazole Sodium (Protonix Ec Tab) 40 mg PO 0600 [facility] Last Admin: 02/18/19 11:01 Dose: 40 mg - Labs Labs: 02/18/19 08:35 02/18/19 08:35 PT 15.3 SECONDS (9.4-12.5) H 02/16/19 13:11 INR 1.35 02/16/19 13:11 APTT 27.2 Seconds (26.9-38.3) 02/16/19 13:11 Assessment and Plan - Assessment and Plan (Free Text) Assessment: Pt seen and examined by me. I have reviewed the note of the vp medical and I agree with it. I have discussed the assessment and plan with the resident. I have reviewed the medications and the last labs. Pt with acute COPD and A fib with rapid rate. The pt is on Solumedrol and Duoneb treatments. Will continue with Dig and Cardizem. She is on Glypizide for her DM-2. She is on on Cozaar for her HTN. She states that she is breathing better. She is willing to go to TCU for rehab. Hypomagnesemia was supplemented. CHF- is stable due to diastolic dysfunction.
[2019-02-18] MEDS ORDERED: Digoxin 125 mcg (0.125 mg) Tab PO SCH (14:00)
[2019-02-18] MEDS: MELATONIN 5 MG PO SCH (22:53)
[2019-02-18] MEDS: Latanoprost 2.5 ml Opht Soln OU SCH (23:41)
--- NOTE | 2019-02-18 23:59 | PN ---
DATE: 02/18/2019 SUBJECTIVE: The patient is seen sitting in chair on telemetry. She is feeling somewhat better. Heart rate is better controlled. Her dyspnea is about the same. She is seen in the presence of her daughter. CURRENT MEDICATIONS: Include aspirin, diltiazem 30 mg q.i.d., Colazal, Colestid, Cozaar, DuoNeb inhaler, Eliquis 5 mg b.i.d., Glucotrol, Imdur, insulin, Lasix 40 mg IV every 12 hours, metoprolol 25 mg b.i.d., Protonix, Pulmicort inhaler, and Solu-Medrol as well as digoxin. OBJECTIVE: GENERAL: She is an elderly woman who appears comfortable at rest. VITAL SIGNS: Blood pressure is 140/60 with a pulse of 84, respirations 14 and 16, and she is afebrile. NECK: No JVD. CHEST: Bilateral scattered rhonchi with bibasilar crackles. HEART: PMI displaced laterally with systolic murmur at the lower left sternal border. ABDOMEN: Soft, mildly obese, and nontender with normoactive bowel sounds. EXTREMITIES: No edema. DIAGNOSTIC DATA: Potassium 4.3, BUN and creatinine 26 and 1.1. Glucose is 238. White count is 8.3, hemoglobin and hematocrit 11 and 35.7 with platelet count 198,000. IMPRESSION: 1. Recent onset atrial fibrillation initially with rapid ventricular response with improvement in heart rate control. 2. Coronary artery disease, status post remote percutaneous coronary intervention clinically stable. 3. Severe chronic obstructive pulmonary disease with pulmonary fibrosis. 4. History of diabetes. RECOMMENDATIONS: 1. Her heart rate had previously dropped into the 40s and as a result digoxin will be withheld and metoprolol dose reduced. Of note, she did not tolerate higher dose of beta-cortney in the past with excessive fatigue and depression symptoms. 2. Chronic anticoagulation with Eliquis appears appropriate. 3. At this time, rate control therapy appears most appropriate given the high likelihood of recurrence of atrial fibrillation given her clinical condition should attempts to be made to convert to sinus rhythm. Her rate control therapy will be adjusted as needed. Possible transfer to Transitional Care Unit has been planned. We will continue to follow and make further recommendations as appropriate. Maximiliano Ken MD [facility] # [phone]
[2019-02-19] MEDS: Pantoprazole 40 mg EC Tab PO SCH (05:37)
[2019-02-19] MEDS: Insulin Reg-MEDIUM-Coverage SC SCH ×3 (08:37→18:24)
[2019-02-19 08:39] LABS: HEMOGLOBIN 12.4 g/dL (12.0-16.0); LYMPH # 0.5 (1.2-3.4); LYMPH % 4.2 % (22.0-35.0); MEAN CELL VOLUME 92.3 fl (80.0-105.0); MEAN CORPUSCULAR HGB CONC 31.4 g/dl (31.0-37.0); MEAN PLATELET VOLUME 9.4 fl (7.0-11.0); MONO # 0.4 (0.1-0.6); MONO % 3.3 % (1.0-6.0); RBC 4.28 10^6/uL (3.5-6.1); RED CELL DISTRIBUTION WIDTH 14.8 % (11.5-14.5); WHITE BLOOD COUNT 12.2 10^3/uL (4.5-11.0)
[2019-02-19 09:06] LABS: ALB/GLOB RATIO 1.3 (1.1-1.8); ALBUMIN 4.4 g/dL (3.0-4.8); CALCIUM 9.8 mg/dL (8.4-10.5)
--- NOTE | 2019-02-19 09:32 | PN ---
DATE: 02/19/2019 SUBJECTIVE: The patient appears comfortable this morning. She is not short of breath at rest. PHYSICAL EXAMINATION: VITAL SIGNS (Last noted in the computer): Temperature 97.5, pulse 93, respirations 18/20, blood pressure 131/64. Oxygen saturation on nasal cannula - 95%. HEENT: Normocephalic, atraumatic. No JVD. CARDIOVASCULAR: Systolic ejection murmur at the lower left sternal border. Positive S3 gallop. LUNGS: Crackles at both bases - chronic. Minimal/less rhonchi. No wheezing. EXTREMITIES: Less edema. No cyanosis. No clubbing. Calves are nontender to palpation. GASTROINTESTINAL: Abdomen is soft, nontender and nondistended. Bowel sounds are positive. SKIN: No acute rash. NEUROLOGIC: Exam limited at the present time. IMPRESSION: 1. Acute bronchitis. 2. Advanced chronic obstructive pulmonary disease, on home oxygen. 3. Acute congestive heart failure. 4. Rapid atrial fibrillation. 5. Coronary artery disease. PLAN: The patient appears comfortable this morning. She is not short of breath at rest. She does state to feeling much better overall. I did discuss the case with the night nurse at length. The night nurse stated the patient had a good night. On physical exam, the patient's bronchospasm is certainly less. In addition, the alveolar-arterial gradient is also less. I will continue with the current nebulizer treatments and decrease the intravenous steroids this morning. I would continue with the treatment for congestive heart failure and the arrhythmias as per Cardiology. Input by Dr. Conner is noted. Clinical status of the patient appears significantly improved - compared to the initial presentation. However, again, the future status/prognosis for this chronically ill, elderly patient does remain guarded. I will discuss the above with Dr. Sams. Luis Carlos Ansari MD MTDD
[2019-02-19] MEDS: Budesonide 0.5 mg/2 ml Inhal Susp UD IH SCH ×2 (09:37→19:52)
[2019-02-19] MEDS: Albuterol-Ipratrop 3 mg / 0.5 (3 ml) UD IH SCH ×3 (09:37→19:52)
[2019-02-19] MEDS: Magnesium Oxide 400 mg Tab UD PO SCH ×2 (10:55→18:23)
[2019-02-19] MEDS: MethylPREDNISolone 40 mg Vial IVP SCH ×2 (10:56→21:41)
[2019-02-19] MEDS: COLESTIPOL HCL 2 GM PO SCH ×2 (11:02→17:15)
--- NOTE | 2019-02-19 12:09 | RAD ---
Date of service: 02/19/2019 HISTORY: copd chf COMPARISON: 02/18/2019 TECHNIQUE: Chest PA and lateral views FINDINGS: LUNGS: No active pulmonary disease. PLEURA: No significant pleural effusion identified. No pneumothorax apparent. CARDIOVASCULAR: Aortic calcification Mild cardiomegaly. Mild vascular and interstitial congestion OSSEOUS STRUCTURES: No significant abnormalities. VISUALIZED UPPER ABDOMEN: Normal. OTHER FINDINGS: None. IMPRESSION: Mild cardiomegaly. Mild vascular and interstitial congestion
--- NOTE | 2019-02-19 14:38 | PN ---
DATE: 02/19/2019 SUBJECTIVE: The patient was seen sitting in bed in telemetry. She just recently walked back from the bathroom and her heart rate accelerated to the 130 range and she has been ranging between 90 and 110 at rest. She denies any chest pain. CURRENT MEDICATIONS: Include aspirin, diltiazem 30 mg four times a day, Colazal, Colestipol, Cozaar, DuoNeb inhalers, Eliquis, Glucotrol, insulin, Imdur, Lasix 40 mg IV every 12 hours, metoprolol 25 mg b.i.d., Protonix, Pulmicort inhaler, Solu-Medrol. OBJECTIVE: GENERAL: She is an elderly woman who appears comfortable at the present time. VITAL SIGNS: Her blood pressure is 150/50 with a pulse of 100 in atrial fibrillation, respirations are 14, she is afebrile. HEENT: No JVD. CHEST: Bilateral scattered rhonchi with crackles at both bases. PMI is displaced laterally with systolic murmur in the left sternal border. ABDOMEN: Soft, obese, nontender. Normoactive bowel sounds. EXTREMITIES: No edema. DIAGNOSTIC DATA: Potassium 4.1, BUN and creatinine 32 and 1.1, glucose 261. White count 12.2, hemoglobin and hematocrit 12.4 and 39.5 with a platelet count of 236,000. IMPRESSION: 1. Recent onset atrial fibrillation with suboptimal rate control, likely secondary to severe lung disease. 2. Coronary artery disease, status post remote percutaneous coronary intervention, stable at present. 3. Severe chronic obstructive pulmonary disease with pulmonary fibrosis. 4. History of diabetes and hypertension. RECOMMENDATIONS: Her diltiazem dose will be increased to 60 mg four times a day for better rate control. If needed, digoxin can be resumed. Plans will be made for transfer to a transitional care unit which appears appropriate at this time. Follow along as needed. Maximiliano Ken MD
[2019-02-19 17:52] VITALS: O2SAT 96
--- NOTE | 2019-02-19 19:44 | CP.PCM.PN ---
<Babita Rock - Last Filed: 02/19/19 19:45> Subjective - Date & Time of Evaluation Date of Evaluation: 02/19/19 Time of Evaluation: 07:30 - Subjective Subjective: Progress Note for Dr. Sams Patient seen and examined in chair. No acute complaints at this time. Patient states her breathing status has continued to improve. Patient is tolerating diet, and moving bowels and bladder regularly. Patient denied fever, chills, shortness of breath, chest pains,abdominal pains, nausea, vomiting, diarrhea, constipation, dysuria. Objective - Vital Signs/Intake and Output Vital Signs (last 24 hours): Temp Pulse Resp BP Pulse Ox 97.9 F 100 H 18 113/67 96 02/19/19 17:50 02/19/19 18:24 02/19/19 17:50 02/19/19 18:24 02/19/19 17:50 Intake and Output: 02/19/19 02/20/19 18:59 06:59 Intake Total 1680 Output Total 1350 Balance 330 - Medications Medications: Current Medications Albuterol/Ipratropium (Duoneb 3 Mg/0.5 Mg (3 Ml) Ud) 3 ml IH TIDRESP [facility] Last Admin: 02/19/19 13:45 Dose: 3 ml Apixaban (Eliquis) 5 mg PO BID [facility]; Protocol Last Admin: 02/19/19 18:24 Dose: 5 mg Aspirin (Aspirin Chewable) 81 mg PO DAILY [facility] Last Admin: 02/19/19 10:55 Dose: 81 mg Balsalazide (Colazal) 2,250 mg PO TID [facility] Last Admin: 02/19/19 18:24 Dose: 2,250 mg Budesonide (Pulmicort Respules) 0.5 mg IH [id number] [facility] Last Admin: 02/19/19 09:37 Dose: Not Given Diltiazem HCl (Cardizem) 60 mg PO QID [facility] Last Admin: 02/19/19 18:24 Dose: 60 mg Furosemide (Lasix) 40 mg IVP Q12 [facility] Last Admin: 02/19/19 10:56 Dose: 40 mg Glipizide (Glucotrol) 10 mg PO ACB [facility] Last Admin: 02/19/19 08:37 Dose: 10 mg Home Med (Home Med) 1 unit PO HS [facility] Last Admin: 02/18/19 22:53 Dose: 1 unit Insulin Human Regular (Humulin R Med) 0 units SC ACHS [facility]; Protocol Last Admin: 02/19/19 18:24 Dose: 8 units Isosorbide Mononitrate (Imdur) 60 mg PO DAILY [facility] Last Admin: 02/19/19 10:56 Dose: 60 mg Latanoprost (Xalatan Opht) 0 ml OU HS [facility] Last Admin: 02/18/19 23:41 Dose: 2.5 ml Losartan Potassium (Cozaar) 100 mg PO DAILY [facility] Last Admin: 02/19/19 10:55 Dose: 100 mg Magnesium Oxide (Mag-Ox) 400 mg PO BID [facility] Last Admin: 02/19/19 18:23 Dose: 400 mg Methylprednisolone (Solu-Medrol) 20 mg IVP Q12 [facility] Last Admin: 02/19/19 10:56 Dose: 20 mg Metoprolol Tartrate (Lopressor) 25 mg PO BID [facility] Last Admin: 02/19/19 18:24 Dose: 25 mg Non-Formulary Medication (Colestipol Hcl [Colestid]) 2 gm PO BID [facility] Last Admin: 02/19/19 17:15 Dose: Not Given Pantoprazole Sodium (Protonix Ec Tab) 40 mg PO 0600 [facility] Last Admin: 02/19/19 05:37 Dose: 40 mg - Labs Labs: 02/19/19 08:25 02/19/19 08:25 PT 15.3 SECONDS (9.4-12.5) H 02/16/19 13:11 INR 1.35 02/16/19 13:11 APTT 27.2 Seconds (26.9-38.3) 02/16/19 13:11 - Constitutional Appears: No Acute Distress, Chronically Ill - Head Exam Head Exam: ATRAUMATIC, NORMAL INSPECTION, NORMOCEPHALIC - Eye Exam Eye Exam: EOMI, Normal appearance, PERRL - ENT Exam ENT Exam: Mucous Membranes Dry - Neck Exam Neck Exam: Full ROM, Normal Inspection. absent: Lymphadenopathy - Respiratory Exam Respiratory Exam: Clear to Ausculation Bilateral, NORMAL BREATHING PATTERN. absent: Rales, Wheezes - Cardiovascular Exam Cardiovascular Exam: Tachycardia, Irregular Rhythm, +S1, +S2 - GI/Abdominal Exam GI & Abdominal Exam: Soft, Normal Bowel Sounds. absent: Tenderness - Extremities Exam Extremities Exam: Full ROM, Normal Capillary Refill, Normal Inspection. absent: Joint Swelling, Pedal Edema - Neurological Exam Neurological Exam: Alert, Awake, CN II-XII Intact, Normal Gait, Oriented x3 - Psychiatric Exam Psychiatric exam: Normal Affect, Normal Mood - Skin Skin Exam: Dry, Intact, Normal Color, Warm Assessment and Plan - Assessment and Plan (Free Text) Assessment: 1. Afib with RVR 2. Acute Bronchitis 3. Advanced COPD on home 02 4. CHF 2/2 diastolic dysfunction 5. HTN 6. HLD 7. CAD 8. Hypomagnesemia 9. leukocytosis likely 2/2 steroid therapy 10. hyperglycemia 2/2 DM and in setting of steroid therapy 11. Anemia Plan: Patient is comfortable. Her respiratory status with advanced COPD has improved with solumedrol, duonebs and pulmicort. Dr. Ansari Pulmonology following. Continue to taper steroid therapy. Patient Cardizem dosage increased to 60mg QID as per Cardiology, Dr. Ken for afib with rvr. Her CHF due to diastolic dysfunction is stable, continue lasix 40mg BID. She is on Glypizide for her DM-2, having episodes of hyperglycemia likely 2/2 steroid therapy, will increase to high ISS. She is on on Cozaar for her HTN. Hypomagnesemia was supplemented. Patient anemia has improved. She is willing to go to TCU for rehab. Seen reviewed and discussed with Dr. Sams <Mitchel Sams - Last Filed: 02/19/19 20:43> Objective - Vital Signs/Intake and Output Vital Signs (last 24 hours): Temp Pulse Resp BP Pulse Ox 97.9 F 100 H 18 113/67 96 02/19/19 17:50 02/19/19 18:24 02/19/19 17:50 02/19/19 18:24 02/19/19 17:50 Intake and Output: 02/19/19 02/20/19 18:59 06:59 Intake Total 1680 Output Total 1350 Balance 330 - Medications Medications: Current Medications Albuterol/Ipratropium (Duoneb 3 Mg/0.5 Mg (3 Ml) Ud) 3 ml IH TIDRESP [facility] Last Admin: 02/19/19 19:52 Dose: 3 ml Apixaban (Eliquis) 5 mg PO BID [facility]; Protocol Last Admin: 02/19/19 18:24 Dose: 5 mg Aspirin (Aspirin Chewable) 81 mg PO DAILY [facility] Last Admin: 02/19/19 10:55 Dose: 81 mg Balsalazide (Colazal) 2,250 mg PO TID [facility] Last Admin: 02/19/19 18:24 Dose: 2,250 mg Budesonide (Pulmicort Respules) 0.5 mg IH [id number] [facility] Last Admin: 02/19/19 19:52 Dose: 0.5 mg Diltiazem HCl (Cardizem) 60 mg PO QID [facility] Last Admin: 02/19/19 18:24 Dose: 60 mg Furosemide (Lasix) 40 mg IVP Q12 [facility] Last Admin: 02/19/19 10:56 Dose: 40 mg Glipizide (Glucotrol) 10 mg PO ACB [facility] Last Admin: 02/19/19 08:37 Dose: 10 mg Home Med (Home Med) 1 unit PO HS [facility] Last Admin: 02/18/19 22:53 Dose: 1 unit Insulin Human Lispro (Humalog High) 0 units SC [facility]; Protocol Isosorbide Mononitrate (Imdur) 60 mg PO DAILY [facility] Last Admin: 02/19/19 10:56 Dose: 60 mg Latanoprost (Xalatan Opht) 0 ml OU HS [facility] Last Admin: 02/18/19 23:41 Dose: 2.5 ml Losartan Potassium (Cozaar) 100 mg PO DAILY [facility] Last Admin: 02/19/19 10:55 Dose: 100 mg Magnesium Oxide (Mag-Ox) 400 mg PO BID [facility] Last Admin: 02/19/19 18:23 Dose: 400 mg Methylprednisolone (Solu-Medrol) 20 mg IVP Q12 [facility] Last Admin: 02/19/19 10:56 Dose: 20 mg Metoprolol Tartrate (Lopressor) 25 mg PO BID [facility] Last Admin: 02/19/19 18:24 Dose: 25 mg Non-Formulary Medication (Colestipol Hcl [Colestid]) 2 gm PO BID [facility] Last Admin: 02/19/19 17:15 Dose: Not Given Pantoprazole Sodium (Protonix Ec Tab) 40 mg PO 0600 [facility] Last Admin: 02/19/19 05:37 Dose: 40 mg - Labs Labs: 02/19/19 08:25 02/19/19 08:25 PT 15.3 SECONDS (9.4-12.5) H 02/16/19 13:11 INR 1.35 02/16/19 13:11 APTT 27.2 Seconds (26.9-38.3) 02/16/19 13:11 Assessment and Plan - Assessment and Plan (Free Text) Assessment: Pt seen and examined by me. I have reviewed the note of the medical records secretary and I agree with it. I have discussed the assessment and plan with the resident. I have reviewed the medications and the last labs.
[2019-02-19] MEDS: Latanoprost 2.5 ml Opht Soln OU SCH (21:42)
[2019-02-19] MEDS: MELATONIN 5 MG PO SCH (21:43)
[2019-02-19] MEDS: Insulin Lispro (HUMAlog) HIGH Coverage SC SCH (22:09)
--- NOTE | 2019-02-19 22:36 | PN ---
DATE: 02/19/2019 SUBJECTIVE: The patient has no complaints of any chest pain, shortness of breath, headache, or dizziness. PHYSICAL EXAMINATION: VITAL SIGNS: Temperature is 97.9, pulse of 100, blood pressure 113/67, and respirations 18. GENERAL: The patient is lying in bed, flat, comfortable. HEENT: No oral lesion. Anicteric sclerae. Moist mucosa. NECK: No JVD, adenopathy, or thyromegaly. CARDIOVASCULAR: S1 and S2, regular. No murmurs, rubs, or gallops. LUNGS: Clear to auscultation bilaterally. No wheeze, rales, or rhonchi. ABDOMEN: Bowel sounds are positive, soft, nontender and nondistended. EXTREMITIES: No cyanosis, clubbing or edema. LABORATORY DATA: White count 12.2, hemoglobin 12.4, and creatinine is 1.1. ASSESSMENT AND PLAN: The patient was seen and examined. I do agree with the note of the medical staffing coordinator. I was involved in the plan of care. The patient had atrial fibrillation with rapid rate that has improved. She is waiting to go to the Transitional Care Unit. The patient is on glipizide for diabetes. She is going to continue with Cardizem for her atrial fibrillation that has been increased to 60 mg. The patient is on Lasix for her CHF secondary to diastolic dysfunction, which is acute that has improved. The patient has chronic obstructive pulmonary disease and is on DuoNeb treatments. She states that she is eating well. I did speak to the social media sr strategy manager and the insurance case manager regarding the case. Now, the patient is on Glucotrol for her diabetes. She is on magnesium replacement. She is on Solu-Medrol for her chronic obstructive pulmonary disease. She is on a heart-healthy diet. Mitchel Sams MD
[2019-02-20] MEDS: Pantoprazole 40 mg EC Tab PO SCH (05:11)
[2019-02-20 07:46] VITALS: RESP 19
[2019-02-20] MEDS: Insulin Lispro (HUMAlog) HIGH Coverage SC SCH ×3 (08:14→17:26)
[2019-02-20] MEDS: Albuterol-Ipratrop 3 mg / 0.5 (3 ml) UD IH SCH ×2 (08:55→14:50)
[2019-02-20] MEDS: Budesonide 0.5 mg/2 ml Inhal Susp UD IH SCH (08:55)
[2019-02-20 08:56] LABS: HEMOGLOBIN 13.2 g/dL (12.0-16.0); LYMPH # 0.6 (1.2-3.4); LYMPH % 4.2 % (22.0-35.0); MEAN CELL VOLUME 90.7 fl (80.0-105.0); MEAN CORPUSCULAR HEMOGLOBIN 29.2 pg (25.0-35.0); MEAN CORPUSCULAR HGB CONC 32.2 g/dl (31.0-37.0); MEAN PLATELET VOLUME 9.6 fl (7.0-11.0); MONO # 0.7 (0.1-0.6); MONO % 4.6 % (1.0-6.0); RBC 4.52 10^6/uL (3.5-6.1); RED CELL DISTRIBUTION WIDTH 14.5 % (11.5-14.5)
[2019-02-20 09:02] LABS: WHITE BLOOD COUNT 14.8 10^3/uL (4.5-11.0)
[2019-02-20 09:33] LABS: ALB/GLOB RATIO 1.3 (1.1-1.8); ALBUMIN 4.3 g/dL (3.0-4.8); CALCIUM 9.6 mg/dL (8.4-10.5)
[2019-02-20] MEDS ORDERED: diltiaZEM 300 mg/24 Hours CD Cap PO SCH (10:00)
--- NOTE | 2019-02-20 10:15 | PN ---
DATE: 02/20/2019 PULMONARY NOTE SUBJECTIVE: The patient appears comfortable this morning. She is not short of breath at rest. PHYSICAL EXAMINATION: VITAL SIGNS: (Last noted in the computer): Temperature is 98.1, pulse 90, respirations 18/20, blood pressure 119/60. Oxygen saturation on nasal cannula - 97%. HEENT: Normocephalic, atraumatic. No JVD. CARDIOVASCULAR: Systolic ejection murmur at the lower left sternal border. Positive S3 gallop. LUNGS: Crackles at both bases - chronic. Minimal/less rhonchi. No wheezing. GASTROINTESTINAL: Abdomen is soft, nontender and nondistended. Bowel sounds are positive. EXTREMITIES: Less edema, no cyanosis, no clubbing. Calves are nontender to palpation. SKIN: No acute rash. NEUROLOGIC: Exam limited at the present time. IMPRESSION: 1. Acute bronchitis. 2. Advanced chronic obstructive pulmonary disease, on home oxygen. 3. Acute congestive heart failure. 4. Rapid atrial fibrillation. 5. Coronary artery disease. PLAN: The patient appears comfortable this morning. She is not short of breath at rest. She does state to feeling much better overall. On physical exam, her bronchospasm is certainly less. In addition, the alveolar arterial gradient is also less. I will continue the current nebulizer treatments and low-dose intravenous steroids (decreased yesterday) for now. I would continue with the treatment for congestive heart failure and the cardiac arrhythmias as per Cardiology. Input by Dr. Ken is noted. The patient is no longer on the Cardizem drip. She remains on intravenous Lasix. Clinical status of the patient has significantly improved - compared to the initial presentation. However, given the above, the future status/prognosis for this chronically ill elderly patient does remain guarded I will discuss the above with Dr. Sams. Luis Carlos Ansari MD MTDD
[2019-02-20] MEDS: MethylPREDNISolone 40 mg Vial IVP SCH (10:19)
[2019-02-20] MEDS: Magnesium Oxide 400 mg Tab UD PO SCH ×2 (10:20→17:26)
[2019-02-20] MEDS: COLESTIPOL HCL 2 GM PO SCH ×2 (10:21→17:27)
--- NOTE | 2019-02-20 10:37 | PN ---
DATE: 02/20/2019 SUBJECTIVE: The patient was seen lying in bed on telemetry. She is comfortable. Resting heart rate stays in the 90s to low 100's with occasional increases into the 130s. She states her breathing is improved. CURRENT MEDICATIONS: Include Diltiazem 60 mg q.i.d., aspirin, Colazal, colestipol, Cozaar 100 mg daily, DuoNeb inhaler, Eliquis 5 mg b.i.d., Glucotrol, insulin, Imdur 60 mg daily, Lasix, metoprolol 25 mg b.i.d., Protonix, Pulmicort, Solu-Medrol and Xalatan eye drops. OBJECTIVE: GENERAL: She is a overweight middle age woman. VITAL SIGNS: Her blood pressure is 145/90 with the pulse of 118 and respirations are 16. She is afebrile. HEENT: No JVD. CHEST: Few scattered rhonchi heard with bibasilar crackles. HEART: Systolic ejection murmur at the lower left sternal border. ABDOMEN: Soft and nontender with normoactive bowel sounds. EXTREMITIES: No edema. DIAGNOSTIC DATA: Glucose 315. Morning blood work pending. IMPRESSION: 1. Recent onset atrial fibrillation with fair heart rate control. 2. Severe chronic obstructive pulmonary disease with pulmonary fibrosis. 3. Coronary artery disease, status post remote percutaneous coronary intervention. 4. History of hypertension and diabetes. RECOMMENDATIONS: Diltiazem will be increased and switch to long acting preparation at 300 mg daily. Diuretic therapy can be withheld at this time as she is not in congestive heart failure. Her basilar lung sounds are secondary to pulmonary fibrosis and not CHF. If her heart rate control is not improved, a low dose digoxin can be added back to her regimen as well. From cardiac standpoint, she appears stable for transfer to Transitional Care Unit. I will continue to follow and make further recommendations as needed. Maximiliano Ken MD
--- NOTE | 2019-02-20 12:05 | CP.PCM.DIS ---
<Babita Rock - Last Filed: 02/20/19 12:02> Provider - Provider Date of Admission: 02/16/19 14:49 Attending physician: Mitchel Sams MD Primary care physician: Latisha Jacobs MD Consults: 02/16/19 14:47 Cardiology Consult Stat Comment: Consulting Provider: Maximiliano Ken Consulting Physician: Maximiliano Ken Reason for Consult: tachycardia 02/16/19 14:48 Pulmonology Consult Stat Comment: Consulting Provider: Luis Carlos Ansari Consulting Physician: Luis Carlos Ansari Reason for Consult: sob 02/18/19 12:51 TCU [Evaluation for TRCU] Routine Comment: Physician Instructions: Reason For Exam: PT RECOMMENDATION Time Spent in preparation of Discharge (in minutes): 45 Hospital Course - Lab Results Lab Results: Most Recent Lab Values WBC 14.8 10^3/uL (4.5-11.0) H D 02/20/19 08:30 RBC 4.52 10^6/uL (3.5-6.1) 02/20/19 08:30 Hgb 13.2 g/dL (12.0-16.0) 02/20/19 08:30 Hct 41.0 % (36.0-48.0) 02/20/19 08:30 MCV 90.7 fl (80.0-105.0) 02/20/19 08:30 MCH 29.2 pg (25.0-35.0) 02/20/19 08:30 MCHC 32.2 g/dl (31.0-37.0) 02/20/19 08:30 RDW 14.5 % (11.5-14.5) 02/20/19 08:30 Plt Count 250 10^3/uL (120.0-450.0) 02/20/19 08:30 MPV 9.6 fl (7.0-11.0) 02/20/19 08:30 Neut % (Auto) 91.2 % (50.0-68.0) H 02/20/19 08:30 Lymph % (Auto) 4.2 % (22.0-35.0) L 02/20/19 08:30 Iroquois % (Auto) 4.6 % (1.0-6.0) 02/20/19 08:30 Eos % (Auto) 0.0 % (1.5-5.0) L 02/20/19 08:30 Baso % (Auto) 0.0 % (0.0-3.0) 02/20/19 08:30 Lymph # (Auto) 0.6 (1.2-3.4) L 02/20/19 08:30 [place]ois # (Auto) 0.7 (0.1-0.6) H 02/20/19 08:30 Eos # (Auto) 0.0 (0.0-0.7) 02/20/19 08:30 Baso # (Auto) 0.00 K/mm3 (0.0-2.0) 02/20/19 08:30 Absolute Neuts (auto) 13.51 (1.4-6.5) H 02/20/19 08:30 Neutrophils % (Manual) 92 % (50.0-70.0) H 02/18/19 08:35 Lymphocytes % (Manual) 5 % (22.0-35.0) L 02/18/19 08:35 Monocytes % (Manual) 3 % (1.0-6.0) 02/18/19 08:35 Platelet Evaluation Normal (NORMAL) 02/18/19 08:35 PT 15.3 SECONDS (9.4-12.5) H 02/16/19 13:11 INR 1.35 02/16/19 13:11 APTT 27.2 Seconds (26.9-38.3) 02/16/19 13:11 pO2 51 mm/Hg (30-55) 02/16/19 17:15 VBG pH 7.32 (7.32-7.43) 02/16/19 17:15 VBG pCO2 48.0 (40-60) 02/16/19 17:15 VBG HCO3 24.7 mmol/l (21-28) 02/16/19 17:15 VBG Total CO2 26.2 mmol.L (22-28) 02/16/19 17:15 VBG O2 Sat (Calc) 83.5 % (40-65) H 02/16/19 17:15 VBG Base Excess -1.8 mmol/L (0.0-2.0) L 02/16/19 17:15 VBG Potassium 4.5 mmol/L (3.6-5.2) 02/16/19 17:15 Sodium 137.0 mmol/L (132-148) 02/16/19 17:15 Chloride 102.0 mmol/L (98-107) 02/16/19 17:15 Glucose 284 mg/dl (65-105) H 02/16/19 17:15 Lactate 3.1 mmol/L (0.7-2.1) H 02/16/19 17:15 FiO2 21.0 % 02/16/19 17:15 Crit Value Called To Alexi cai 02/16/19 17:15 Crit Value Called By Atc 02/16/19 17:15 Blood Gas Notified Time 1725 02/16/19 17:15 Sodium 134 mmol/L (132-148) 02/20/19 08:30 Potassium 4.3 mmol/L (3.6-5.0) 02/20/19 08:30 Chloride 87 mmol/L (98-107) L 02/20/19 08:30 Carbon Dioxide 35 mmol/L (21-33) H 02/20/19 08:30 Anion Gap 17 (10-20) 02/20/19 08:30 BUN 39 mg/dL (7-21) H 02/20/19 08:30 Creatinine 1.1 mg/dl (0.7-1.2) 02/20/19 08:30 Est GFR ( Amer) 58 02/20/19 08:30 Est GFR (Non-Af Amer) 48 02/20/19 08:30 POC Glucose (mg/dL) 315 mg/dL (65-110) H 02/20/19 07:32 Random Glucose 310 mg/dL (70-110) H* 02/20/19 08:30 Calcium 9.6 mg/dL (8.4-10.5) 02/20/19 08:30 Phosphorus 4.5 mg/dL (2.5-4.5) 02/20/19 08:30 Magnesium 1.7 mg/dL (1.7-2.2) 02/20/19 08:30 Iron 29 ug/dL (45-180) L 02/17/19 09:50 TIBC 374 ug/dL (265-497) 02/17/19 09:50 % Saturation 8 % (20-55) L 02/17/19 09:50 Ferritin 15.9 ng/mL 02/17/19 09:50 Total Bilirubin 0.8 mg/dL (0.2-1.3) 02/20/19 08:30 AST 25 U/L (14-36) 02/20/19 08:30 ALT 13 U/L (7-56) 02/20/19 08:30 Alkaline Phosphatase 49 U/L (38-126) 02/20/19 08:30 Total Creatine Kinase 37 U/L (35-230) 02/16/19 13:11 Troponin I 0.02 ng/mL D 02/17/19 06:00 NT-Pro-B Natriuret Pep 6360 pg/mL (0-450) H 02/16/19 13:11 Total Protein 7.6 g/dL (5.8-8.3) 02/20/19 08:30 Albumin 4.3 g/dL (3.0-4.8) 02/20/19 08:30 Globulin 3.3 gm/dL 02/20/19 08:30 Albumin/Globulin Ratio 1.3 (1.1-1.8) 02/20/19 08:30 TSH 3rd Generation 1.54 mIU/mL (0.46-4.68) 02/16/19 13:11 Venous Blood Potassium 4.5 mmol/L (3.6-5.2) 02/16/19 17:15 - Hospital Course Hospital Course: 78 F with a past medical history of COPD on home 02, CAD, HLD, DM2, CHF, Afib and anemia presented to the [facility] ED with complaints of progressively worsening shortness of breath x 2 weeks. Patient did see her foreign languages professor recently and was started on a steroid taper and antibiotics as per pt. Patient is complaint with her home medications, including duoneb medication and nasal cannula at home. Patient is comfortable. Her respiratory status with advanced COPD has improved with solumedrol, duonebs and pulmicort. Dr. Ansari Pulmonology following. Continue to taper steroid therapy. Patient Cardizem dosage increased to 3000mg daily (Digoxin may be re-added to regimen if needed) as per Cardiology, Dr. Ken for afib with rvr. Her CHF due to diastolic dysfunction is stable, continue lasix 40mg BID. She is on Glypizide for her DM- 2, having episodes of hyperglycemia likely 2/2 steroid therapy, will increase to high ISS. She is on on Cozaar for her HTN. Hypomagnesemia was supplemented. Patient anemia has improved. She is willing to go to TCU for rehab. Discharge Exam - Head Exam Head Exam: ATRAUMATIC, NORMAL INSPECTION, NORMOCEPHALIC - Eye Exam Eye Exam: EOMI, Normal appearance, PERRL Pupil Exam: NORMAL ACCOMODATION, PERRL - Respiratory Exam Respiratory Exam: Clear to PA & Lateral, NORMAL BREATHING PATTERN, UNREMARKABLE - Cardiovascular Exam Cardiovascular Exam: Irregular Rhythm, +S1, +S2 - GI/Abdominal Exam GI & Abdominal Exam: Normal Bowel Sounds, Soft, Unremarkable. absent: Tenderness - Neurological Exam Neurological exam: Alert, CN II-XII Intact, Oriented x3, Reflexes Normal - Psychiatric Exam Psychiatric exam: Normal Affect, Normal Mood - Skin Skin Exam: Dry, Intact, Normal Color, Warm Discharge Plan - Follow Up Plan Condition: FAIR Disposition: REHAB FACILITY/REHAB UNIT Instructions: Atrial Fibrillation (DC), Heart Failure, Adult (DC), Heart Failure and Atrial Fibrillation, Exacerbation of COPD (DC), Heart Failure (DC), Heart Failure (GEN), Pacemaker (DC), Pacemaker (GEN), Pulmonary Edema (DC), Pulmonary Edema (GEN), Ascites (DC), Ascites (GEN) Additional Instructions: 1. Patient is to be DC to TCU Referrals: Latisha Jacobs MD [Primary Care Provider] - Mitchel Sams MD [Staff Provider] - Maximiliano Ken MD [Staff Provider] - <Mitchel Sams - Last Filed: 02/20/19 15:42> Provider - Provider Date of Admission: 02/16/19 14:49 Attending physician: Mitchel Sams MD Primary care physician: Latisha Jacobs MD Consults: 02/16/19 14:47 Cardiology Consult Stat Comment: Consulting Provider: Maximiliano Ken Consulting Physician: Maximiliano Ken Reason for Consult: tachycardia 02/16/19 14:48 Pulmonology Consult Stat Comment: Consulting Provider: Luis Carlos Ansari Consulting Physician: Luis Carlos Ansari Reason for Consult: sob 02/18/19 12:51 TCU [Evaluation for TRCU] Routine Comment: Physician Instructions: Reason For Exam: PT RECOMMENDATION Hospital Course - Lab Results Lab Results: Most Recent Lab Values WBC 14.8 10^3/uL (4.5-11.0) H D 02/20/19 08:30 RBC 4.52 10^6/uL (3.5-6.1) 02/20/19 08:30 Hgb 13.2 g/dL (12.0-16.0) 02/20/19 08:30 Hct 41.0 % (36.0-48.0) 02/20/19 08:30 MCV 90.7 fl (80.0-105.0) 02/20/19 08:30 MCH 29.2 pg (25.0-35.0) 02/20/19 08:30 MCHC 32.2 g/dl (31.0-37.0) 02/20/19 08:30 RDW 14.5 % (11.5-14.5) 02/20/19 08:30 Plt Count 250 10^3/uL (120.0-450.0) 02/20/19 08:30 MPV 9.6 fl (7.0-11.0) 02/20/19 08:30 Neut % (Auto) 91.2 % (50.0-68.0) H 02/20/19 08:30 Lymph % (Auto) 4.2 % (22.0-35.0) L 02/20/19 08:30 [place]ois % (Auto) 4.6 % (1.0-6.0) 02/20/19 08:30 Eos % (Auto) 0.0 % (1.5-5.0) L 02/20/19 08:30 Baso % (Auto) 0.0 % (0.0-3.0) 02/20/19 08:30 Lymph # (Auto) 0.6 (1.2-3.4) L 02/20/19 08:30 [place] # (Auto) 0.7 (0.1-0.6) H 02/20/19 08:30 Eos # (Auto) 0.0 (0.0-0.7) 02/20/19 08:30 Baso # (Auto) 0.00 K/mm3 (0.0-2.0) 02/20/19 08:30 Absolute Neuts (auto) 13.51 (1.4-6.5) H 02/20/19 08:30 Neutrophils % (Manual) 92 % (50.0-70.0) H 02/18/19 08:35 Lymphocytes % (Manual) 5 % (22.0-35.0) L 02/18/19 08:35 Monocytes % (Manual) 3 % (1.0-6.0) 02/18/19 08:35 Platelet Evaluation Normal (NORMAL) 02/18/19 08:35 PT 15.3 SECONDS (9.4-12.5) H 02/16/19 13:11 INR 1.35 02/16/19 13:11 APTT 27.2 Seconds (26.9-38.3) 02/16/19 13:11 pO2 51 mm/Hg (30-55) 02/16/19 17:15 VBG pH 7.32 (7.32-7.43) 02/16/19 17:15 VBG pCO2 48.0 (40-60) 02/16/19 17:15 VBG HCO3 24.7 mmol/l (21-28) 02/16/19 17:15 VBG Total CO2 26.2 mmol.L (22-28) 02/16/19 17:15 VBG O2 Sat (Calc) 83.5 % (40-65) H 02/16/19 17:15 VBG Base Excess -1.8 mmol/L (0.0-2.0) L 02/16/19 17:15 VBG Potassium 4.5 mmol/L (3.6-5.2) 02/16/19 17:15 Sodium 137.0 mmol/L (132-148) 02/16/19 17:15 Chloride 102.0 mmol/L (98-107) 02/16/19 17:15 Glucose 284 mg/dl (65-105) H 02/16/19 17:15 Lactate 3.1 mmol/L (0.7-2.1) H 02/16/19 17:15 FiO2 21.0 % 02/16/19 17:15 Crit Value Called To Alexi cai 02/16/19 17:15 Crit Value Called By Atc 02/16/19 17:15 Blood Gas Notified Time 8265 02/16/19 17:15 Sodium 134 mmol/L (132-148) 02/20/19 08:30 Potassium 4.3 mmol/L (3.6-5.0) 02/20/19 08:30 Chloride 87 mmol/L (98-107) L 02/20/19 08:30 Carbon Dioxide 35 mmol/L (21-33) H 02/20/19 08:30 Anion Gap 17 (10-20) 02/20/19 08:30 BUN 39 mg/dL (7-21) H 02/20/19 08:30 Creatinine 1.1 mg/dl (0.7-1.2) 02/20/19 08:30 Est GFR ( Amer) 58 02/20/19 08:30 Est GFR (Non-Af Amer) 48 02/20/19 08:30 POC Glucose (mg/dL) 315 mg/dL (65-110) H 02/20/19 07:32 Random Glucose 310 mg/dL (70-110) H* 02/20/19 08:30 Calcium 9.6 mg/dL (8.4-10.5) 02/20/19 08:30 Phosphorus 4.5 mg/dL (2.5-4.5) 02/20/19 08:30 Magnesium 1.7 mg/dL (1.7-2.2) 02/20/19 08:30 Iron 29 ug/dL (45-180) L 02/17/19 09:50 TIBC 374 ug/dL (265-497) 02/17/19 09:50 % Saturation 8 % (20-55) L 02/17/19 09:50 Ferritin 15.9 ng/mL 02/17/19 09:50 Total Bilirubin 0.8 mg/dL (0.2-1.3) 02/20/19 08:30 AST 25 U/L (14-36) 02/20/19 08:30 ALT 13 U/L (7-56) 02/20/19 08:30 Alkaline Phosphatase 49 U/L (38-126) 02/20/19 08:30 Total Creatine Kinase 37 U/L (35-230) 02/16/19 13:11 Troponin I 0.02 ng/mL D 02/17/19 06:00 NT-Pro-B Natriuret Pep 6360 pg/mL (0-450) H 02/16/19 13:11 Total Protein 7.6 g/dL (5.8-8.3) 02/20/19 08:30 Albumin 4.3 g/dL (3.0-4.8) 02/20/19 08:30 Globulin 3.3 gm/dL 02/20/19 08:30 Albumin/Globulin Ratio 1.3 (1.1-1.8) 02/20/19 08:30 TSH 3rd Generation 1.54 mIU/mL (0.46-4.68) 02/16/19 13:11 Venous Blood Potassium 4.5 mmol/L (3.6-5.2) 02/16/19 17:15 - Hospital Course Hospital Course: Pt seen and examined by me. I have reviewed the note of the medical review specialist and I agree with it. I have discussed the assessment and plan with the resident. I have reviewed the medications and the last labs.
[2019-02-20] MEDS ORDERED: Digoxin 500 mcg/2ml (0.5 mg/2ml) Inj IVP ONE (13:34)
[2019-02-20] MEDS ORDERED: Digoxin 125 mcg (0.125 mg) Tab PO SCH (14:00)
[2019-02-20 14:17] VITALS: PULSE 91
[2019-02-20] MEDS ORDERED: Insulin Regular 1 UNITS/0.01 ML ML SC ONE (16:30)
[2019-02-20 17:29] VITALS: BP 135/66; PULSE 121; TEMP 97.1
--- NOTE | 2019-02-20 22:32 | DS ---
HOSPITAL COURSE: The patient was seen and examined. I do agree with a note of medical device engineer. I was involved in the plan of care. The patient has acute CHF secondary to systolic dysfunction. The patient was , she is feeling better. She was placed on Lasix. She is on glipizide for diabetes. Her steroids have been tapered. She also has COPD. She is being followed by Cardiology and Pulmonary. The patient is on Cozaar for her hypertension. She is receiving insulin. She is on insulin sliding scale with coverage. She has atrial fibrillation, her rate is controlled. The patient is on latanoprost for his eyes for glaucoma. She is going to be transitional care unit today for rehab. Mitchel Sams MD
[2019-02-21] MEDS ORDERED: Digoxin 125 mcg (0.125 mg) Tab PO SCH (14:00)
== END 2019-02-20 18:58 | DRG 190 ==
LOC: ED 12:54 → ERH 14:49 → 2RSO 18:14
PROVIDERS: ADMIT Internal Medicine Nephrology; ATTEND Internal Medicine Nephrology
PROC: 3E0F7GC Introduction of Other Therapeutic Substance into Respiratory Tract, Via Natural or Artificial Opening (ICD-10-PCS; principal; 2019-02-16)
DX: J44.1 Chronic obstructive pulmonary disease with (acute) exacerbation (principal); I50.41 Acute combined systolic (congestive) and diastolic (congestive) heart failure; K51.90 Ulcerative colitis, unspecified, without complications; I11.0 Hypertensive heart disease with heart failure; J44.0 Chronic obstructive pulmonary disease with (acute) lower respiratory infection; J20.9 Acute bronchitis, unspecified; I48.91 Unspecified atrial fibrillation; J84.10 Pulmonary fibrosis, unspecified; G47.33 Obstructive sleep apnea (adult) (pediatric); I25.10 Atherosclerotic heart disease of native coronary artery without angina pectoris; E83.42 Hypomagnesemia; E78.5 Hyperlipidemia, unspecified; E11.65 Type 2 diabetes mellitus with hyperglycemia; T38.0X5A Adverse effect of glucocorticoids and synthetic analogues, initial encounter; D50.9 Iron deficiency anemia, unspecified; H40.9 Unspecified glaucoma; I25.2 Old myocardial infarction; Z79.899 Other long term (current) drug therapy; Z79.84 Long term (current) use of oral hypoglycemic drugs; Z99.81 Dependence on supplemental oxygen; Z87.891 Personal history of nicotine dependence; Z95.5 Presence of coronary angioplasty implant and graft; Z96.641 Presence of right artificial hip joint

== ENCOUNTER 2019-02-20 19:02 | Inpatient (IN) | payer OTHER ==
[2019-02-20 14:17] VITALS: PULSE 91
[2019-02-20] MEDS: Insulin Lispro (HUMAlog) HIGH Coverage SC SCH (21:29)
[2019-02-20] MEDS ORDERED: MethylPREDNISolone 40 mg Vial IVP SCH (22:00)
[2019-02-20] MEDS: MELATONIN 5 MG PO SCH (22:19)
[2019-02-20] MEDS: Latanoprost 2.5 ml Opht Soln OU SCH (22:20)
[2019-02-21] MEDS: Pantoprazole 40 mg EC Tab PO SCH (05:32)
[2019-02-21 06:16] VITALS: BMI 31.2
[2019-02-21] MEDS: Insulin Lispro (HUMAlog) HIGH Coverage SC SCH ×4 (07:06→22:37)
[2019-02-21] MEDS: Arformoterol 15 mcg/2 ml Inh Sol IH SCH ×2 (07:21→19:56)
[2019-02-21] MEDS: Budesonide 0.5 mg/2 ml Inhal Susp UD IH SCH ×2 (07:22→19:57)
--- NOTE | 2019-02-21 09:24 | PN ---
DATE: 02/21/2019 SUBJECTIVE: The patient appears very comfortable this morning. She is not short of breath at rest. PHYSICAL EXAMINATION: VITAL SIGNS: The last temperature recorded is 98, pulse this morning approximately 88, respiratory rate 18, blood pressure 139/86. Oxygen saturation on nasal cannula - 96%. HEENT: Normocephalic, atraumatic. No JVD. CARDIOVASCULAR: Systolic ejection murmur at the lower left sternal border. Positive S3 gallop. LUNGS: Crackles at both bases - chronic. Much less/minimal rhonchi. No wheezing. EXTREMITIES: Less edema. No cyanosis. No clubbing. Calves are nontender to palpation. GASTROINTESTINAL: Abdomen is soft, nontender and nondistended. Bowel sounds are positive. SKIN: No acute rash. NEUROLOGIC: Exam limited at the present time. IMPRESSION: 1. Acute bronchitis. 2. Advanced chronic obstructive pulmonary disease, on home oxygen. 3. Acute congestive heart failure. 4. Rapid atrial fibrillation. 5. Coronary artery disease. PLAN: The patient appears very comfortable this morning. She is not short of breath at rest. She does state to feeling much better overall. I did discuss the case with the night nurse at length. The night nurse stated the patient had an uneventful night. On physical exam, her bronchospasm is certainly much less. In addition, the alveolar-arterial gradient is also much less. I will continue with the current nebulizer treatments and low-dose intravenous steroids for now. I would continue with the treatment for congestive heart failure and cardiac arrhythmias as per Cardiology. Input by Dr. Conner is noted. Clinical status of the patient is significantly improved overall. However, again, the future status/prognosis for this chronically ill elderly patient does remain guarded. The patient is now on the transitional unit - where she will participate with physical therapy. I will continue to follow the patient closely. Luis Carlos Ansari MD MTDD
--- NOTE | 2019-02-21 10:18 | PN ---
DATE: 02/21/2019 SUBJECTIVE: The patient is seen sitting in chair on transitional care unit. She is fairly comfortable. She denies any worsening dyspnea. She is unaware of any palpitations. CURRENT MEDICATIONS: Include' aspirin, Brovana, Cardizem CD 300 mg daily, Colazal, colestipol, losartan 100 mg daily, albuterol inhaler, Eliquis 5 mg b.i.d., Glucotrol, insulin coverage, Imdur 60 mg daily, metoprolol 25 mg b.i.d., Protonix 40 mg daily, Pulmicort and Solu-Medrol and Xalatan eyedrops. OBJECTIVE: GENERAL: She is a overweight elderly woman. VITAL SIGNS: Her blood pressure is 140/86 with pulse of 100 to 110 and respirations are 16. She is afebrile. HEENT: No JVD. CHEST: Bibasilar crackles. HEART: PMI displaced laterally with systolic murmur at lower left sternal border. ABDOMEN: Soft and nontender with normoactive bowel sounds. EXTREMITIES: No edema. DIAGNOSTIC DATA: No blood work pending from this morning. IMPRESSION: 1. Atrial fibrillation with fair heart rate control. Diltiazem dose was increased yesterday and digoxin was resumed. 2. Severe chronic obstructive pulmonary disease with pulmonary fibrosis. 3. Coronary disease with known occluded right coronary artery, clinically stable. 4. History of hypertension and diabetes. RECOMMENDATIONS: Her current medical regimen will be continued for now. If her heart rate is not adequately controlled, a higher dose of diltiazem and/or metoprolol can be planned. However, she did not feel well with large dose of beta-blockers in the past. Increased activity is advised. I will follow along as needed. Maximiliano Ken MD
[2019-02-21] MEDS: diltiaZEM 300 mg/24 Hours CD Cap PO SCH (10:27)
[2019-02-21] MEDS: Magnesium Oxide 400 mg Tab UD PO SCH ×2 (10:28→17:12)
[2019-02-21] MEDS: Albuterol-Ipratrop 3 mg / 0.5 (3 ml) UD IH SCH ×4 (11:14→22:00)
--- NOTE | 2019-02-21 11:25 | HP ---
DATE OF EXAM: 02/21/2019 HISTORY OF PRESENT ILLNESS: The patient is a 78-year-old female who initially came to the hospital because of shortness of breath and increased CHF exacerbation. The patient then was transferred to the transitional care unit for rehab. She has a history of coronary artery disease, dyslipidemia, diabetes type 2, atrial fibrillation. She has no points of any chest pain. She says the shortness of breath is improving. She has no nausea, no vomiting, no abdominal pain, no back pain, no dysuria, frequency or nocturia. No weakness in the arms or legs. All other review of symptoms are within normal limits except what is mentioned. ALLERGIES: NO KNOWN DRUG ALLERGIES. PAST MEDICAL HISTORY: COPD on home O2, diabetes type 2, dyslipidemia, CHF, hypertension, atrial fibrillation. PAST SURGICAL HISTORY: Appendectomy, right hip surgery as well as bilateral knee repair. FAMILY HISTORY: Noncontributory. SOCIAL HISTORY: She is a former smoker. Denies alcohol or drugs. MEDICATIONS: Has been reviewed in the medical records. OBJECTIVE VITAL SIGNS: Temperature is 98, pulse 119, blood pressure 139/86, respirations 18, height is 5 feet. Weight is 159 pounds. BMI is 31.2. GENERAL: The patient is lying in bed, comfortable, and in no acute distress. HEENT: Atraumatic and normocephalic. Anicteric sclerae. Moist mucosa. [place] conjunctivae. No oral lesions. NECK: No JVD, anterior and posterior adenopathy, thyromegaly, or bruits. CARDIOVASCULAR: S1 and S2 regular. No murmurs, rubs or gallops. LUNGS: Clear to auscultation bilaterally. No wheezes, rales, or rhonchi. ABDOMEN: Bowel sounds are positive. Soft, nontender and nondistended. No hepatosplenomegaly. No rebound and no guarding. EXTREMITIES: No cyanosis, clubbing, or edema. NEUROLOGIC: No facial asymmetry. Tongue is midline. No uvula deviation. Power is 5/5 upper extremities and lower extremities. Sensation intact in upper extremities and lower extremities. PSYCHIATRIC: She is awake, alert and oriented x3. No anxiety or depression. She has normal affect. GENITOURINARY: No CVA tenderness. VASCULAR: 2+ pulses in the carotid pulses and pedal pulses. SKIN: No erythema or nodules. SPINE: Shows normal curvature. ASSESSMENT: 1. Acute congestive heart failure secondary to systolic dysfunction, improving. 2. Atrial fibrillation on anticoagulation. 3. Congestive heart failure secondary to systolic dysfunction. 4. Chronic obstructive pulmonary disease exacerbation, stable. 5. Dyslipidemia. 6. Hypertension. PLAN: The patient is on Brovana for the COPD. She is going to continue with Cardizem for atrial fibrillation. Mitchel Sams MD
[2019-02-21] MEDS: COLESTIPOL HCL 2 GM PO SCH ×2 (12:02→17:11)
[2019-02-21] MEDS: MELATONIN 5 MG PO SCH (22:38)
[2019-02-21] MEDS: Latanoprost 2.5 ml Opht Soln OU SCH (22:41)
[2019-02-22] MEDS: Pantoprazole 40 mg EC Tab PO SCH (05:59)
[2019-02-22] MEDS: Insulin Lispro (HUMAlog) HIGH Coverage SC SCH ×4 (06:57→22:26)
[2019-02-22] MEDS: Arformoterol 15 mcg/2 ml Inh Sol IH SCH ×3 (07:18→20:40)
[2019-02-22] MEDS: Budesonide 0.5 mg/2 ml Inhal Susp UD IH SCH ×3 (07:19→20:40)
--- NOTE | 2019-02-22 09:05 | PN ---
DATE: 02/22/2019 PULMONARY NOTE SUBJECTIVE: The patient appears quite comfortable this morning. She is not short of breath at rest. OBJECTIVE: VITAL SIGNS: (Last noted in the computer): Last temperature recorded is 97.0. Pulse this morning 88. Respiratory rate 18/20. Blood pressure 131/69. Oxygen saturation on nasal cannula - 98%. HEENT: Normocephalic, atraumatic. NECK: No JVD. CARDIOVASCULAR: Systolic ejection murmur at the lower left sternal border. Positive S3 gallop. LUNGS: Crackles at both bases - chronic. Minimal/less rhonchi. No wheezing. EXTREMITIES: Less edema, no cyanosis, no clubbing. Calves are nontender to palpation. GASTROINTESTINAL: Abdomen is soft, nontender and nondistended. Bowel sounds are positive. SKIN: No acute rash. NEUROLOGIC: Limited at the present time. IMPRESSION: 1. Acute bronchitis. 2. Advanced chronic obstructive pulmonary disease, on home oxygen. 3. Acute congestive heart failure. 4. Rapid atrial fibrillation. 5. Coronary artery disease. PLAN: The patient appears very comfortable this morning. She is not short of breath at rest. She does state to feeling much better overall. On physical exam, her bronchospasm continues to resolve. In addition, the oxygen saturation on nasal cannula is now 98%. I will continue the current nebulizer treatments and oral steroids (changed yesterday) for now. I would continue with the treatment for congestive heart failure and cardiac arrhythmias as per Cardiology. Input by Dr. Ken is noted. Clinical status of the patient is significantly improved - compared to the initial presentation. However, again, given the above, the future status/prognosis for this chronically ill elderly patient does remain very guarded. I will discuss the above with Dr. Sams. Luis Carlos Ansari MD CHRISTINA
[2019-02-22] MEDS: diltiaZEM 300 mg/24 Hours CD Cap PO SCH (09:33)
[2019-02-22] MEDS: Magnesium Oxide 400 mg Tab UD PO SCH ×2 (09:34→17:41)
[2019-02-22] MEDS: COLESTIPOL HCL 2 GM PO SCH ×2 (09:34→17:41)
[2019-02-22] MEDS: Albuterol-Ipratrop 3 mg / 0.5 (3 ml) UD IH SCH ×5 (09:59→22:00)
--- NOTE | 2019-02-22 20:57 | PN ---
DATE: 02/22/2019 SUBJECTIVE: Patient is 78-year-old, seen and examined, sitting with her visitors. Denies any chest pain. No shortness of breath. No nausea or vomiting. No diarrhea. Patient's nurse brought to my attention that her blood sugar is running high. Patient was recently switched to p.o. steroid. Currently, she is not wheezing. No chest pain. No shortness of breath. PHYSICAL EXAMINATION: VITAL SIGNS: She is afebrile. Pulse 94, respirations 20, blood pressure 123/62. LUNGS: Bilateral fair airflow. No rhonchi or crackles. HEART: S1 and S2 audible. ABDOMEN: Soft, nontender. No rebound. No guarding. NEUROLOGIC: Patient is awake and alert, able to communicate. LABORATORY DATA: Blood sugar is more than 500. ASSESSMENT: 1. Uncontrolled blood sugar secondary to steroids. 2. Chronic obstructive pulmonary disease. 3. History of Crohn's disease. 4. Chronic atrial fibrillation. 5. Hyperglycemia. 6. History of congestive heart failure, acute on chronic, systolic. PLAN: I will cut down her steroids. There is no active wheezing or respiratory distress. Increase her glipizide to 10 mg before breakfast and before dinner. Otherwise, we will keep her on aspirin 81 daily. She is on Brovana. She is on diltiazem. She is on colestipol and losartan. She is getting nebulizer treatment. She is on Eliquis 5 mg twice a day for atrial fibrillation. We will monitor her blood sugar. Continue her beta cortney and nitrates. She is on GI prophylaxis. Symone Lopez MD
[2019-02-22] MEDS: Latanoprost 2.5 ml Opht Soln OU SCH (22:24)
[2019-02-22] MEDS: MELATONIN 5 MG PO SCH (22:27)
[2019-02-23] MEDS: Pantoprazole 40 mg EC Tab PO SCH (05:29)
[2019-02-23] MEDS: Insulin Lispro (HUMAlog) HIGH Coverage SC SCH ×4 (06:47→21:27)
[2019-02-23] MEDS: Arformoterol 15 mcg/2 ml Inh Sol IH SCH ×2 (07:25→20:00)
[2019-02-23] MEDS: Albuterol-Ipratrop 3 mg / 0.5 (3 ml) UD IH SCH ×4 (07:26→22:00)
[2019-02-23] MEDS: Budesonide 0.5 mg/2 ml Inhal Susp UD IH SCH ×2 (07:26→20:00)
[2019-02-23 07:52] LABS: EOS # 0.2 (0.0-0.7); EOS % 1.3 % (1.5-5.0); HEMOGLOBIN 12.9 g/dL (12.0-16.0); LYMPH # 1.5 (1.2-3.4); LYMPH % 10.8 % (22.0-35.0); MEAN CELL VOLUME 91.7 fl (80.0-105.0); MEAN CORPUSCULAR HEMOGLOBIN 28.9 pg (25.0-35.0); MEAN CORPUSCULAR HGB CONC 31.5 g/dl (31.0-37.0); MEAN PLATELET VOLUME 9.4 fl (7.0-11.0); MONO # 0.6 (0.1-0.6); MONO % 4.4 % (1.0-6.0); RBC 4.46 10^6/uL (3.5-6.1); RED CELL DISTRIBUTION WIDTH 14.7 % (11.5-14.5); WHITE BLOOD COUNT 13.5 10^3/uL (4.5-11.0)
[2019-02-23 08:51] LABS: ALB/GLOB RATIO 1.4 (1.1-1.8); ALBUMIN 3.7 g/dL (3.0-4.8); ALT/SGPT 17 U/L (7-56); AST/SGOT 36 U/L (14-36); BLOOD UREA NITROGEN 31 mg/dL (7-21); CALCIUM 8.9 mg/dL (8.4-10.5); GFR NON-AFRICAN AMERICAN > 60
--- NOTE | 2019-02-23 10:42 | PN ---
DATE: 02/23/2019 PULMONARY NOTE SUBJECTIVE: The patient appears very comfortable this morning. She is not short of breath at rest. OBJECTIVE: VITALS: Last temperature recorded is 97.8, pulse this morning 88, respiratory rate 18, blood pressure 120/55. Oxygen saturation on nasal cannula - 98%. HEENT: Normocephalic, atraumatic. No JVD. CARDIOVASCULAR: Systolic ejection murmur at the lower left sternal border. Positive S3 gallop. LUNGS: Crackles at both bases - chronic. Minimal/less rhonchi. No wheezing. EXTREMITIES: Less edema. No cyanosis, no clubbing. Calves are nontender to palpation. GASTROINTESTINAL: Abdomen is soft, nontender, and nondistended. Bowel sounds are positive. SKIN: No acute rash. NEUROLOGIC: Limited at the present time. IMPRESSION: 1. Acute bronchitis. 2. Advanced chronic obstructive pulmonary disease, on home oxygen. 3. Acute congestive heart failure. 4. Rapid atrial fibrillation. 5. Coronary artery disease. PLAN: The patient appears very comfortable this morning. She is not short of breath at rest. She does state to feeling much better overall. On physical exam, her bronchospasm is considerably less. In addition, the alveolar arterial gradient is also less. I will continue the current nebulizer treatments and oral steroids (decreased earlier) for now. I would continue with the treatment for congestive heart failure and cardiac arrhythmias as per Cardiology. Input by Dr. Ken is noted. Clinical status of the patient is significantly improved - compared to the initial presentation. However, given the above, the future status/prognosis for this chronically ill elderly patient does remain guarded. I will discuss the above with Dr. Genao. Luis Carlos Ansari MD CHRISTINA
[2019-02-23] MEDS: diltiaZEM 300 mg/24 Hours CD Cap PO SCH (10:46)
[2019-02-23] MEDS: Magnesium Oxide 400 mg Tab UD PO SCH ×2 (10:49→17:16)
[2019-02-23] MEDS: COLESTIPOL HCL 2 GM PO SCH ×2 (10:51→17:14)
--- NOTE | 2019-02-23 13:33 | PN ---
DATE: 02/23/2019 SUBJECTIVE: The patient is seen lying in bed in transitional care unit. She is comfortable at rest. She continues to have accelerated heart rate with exertion. Her blood sugar remains poorly controlled due to steroid administration. CURRENT MEDICATIONS: Include aspirin, Brovana, Cardizem CD 300 mg daily, Colestid, Colazal, Cozaar, DuoNeb inhaler, Eliquis 5 mg b.i.d., Glucotrol insulin coverage, Imdur, metoprolol 25 mg b.i.d., prednisone 20 mg daily, Protonix, Pulmicort, and Xalatan eye drops. OBJECTIVE: GENERAL: She is an elderly woman who is comfortable at rest. VITAL SIGNS: Her BP was 130/80 and the pulse was 80-110 and irregularly irregular, respirations are 14. She is afebrile. HEENT: No JVD. CHEST: Bibasilar crackles. HEART: PMI displaced laterally with systolic murmur at the left sternal border. ABDOMEN: Soft, nontender. Normoactive bowel sounds. EXTREMITIES: No edema. DIAGNOSTIC DATA: Potassium is 4.4, BUN and creatinine 31 and 0.9, glucose is 172. White count 13.5, hemoglobin and hematocrit 12.9 and 40.9 with platelet count of 200,000. IMPRESSION: 1. Atrial fibrillation with fair heart rate control. On diltiazem, metoprolol, and digoxin. 2. Severe chronic obstructive pulmonary disease with pulmonary fibrosis. 3. Coronary artery disease with an occluded right coronary artery, clinically stable. 4. History of hypertension and diabetes. RECOMMENDATIONS: Her metoprolol dose will be increased to 50 mg twice daily in an attempt to improve her heart rate control with exertion. The rest of her medications will continue unchanged. Increased activity is advised. I will continue to follow and make further recommendations as appropriate. Maximiliano Ken MD CHRISTINA
--- NOTE | 2019-02-23 21:47 | PN ---
DATE: 02/23/2019 SUBJECTIVE: The patient has no complaints of any chest pain, no shortness of breath, no headaches, or dizziness. PHYSICAL EXAMINATION VITAL SIGNS: Temperature is 97.8, pulse of 113, blood pressure 116/73, respiration is 20. GENERAL: The patient is lying in bed, flat, comfortable. HEENT: No oral lesions. Anicteric sclerae. Moist mucosa. NECK: No JVD, adenopathy, or thyromegaly. CARDIOVASCULAR: S1 and S2, regular. No murmurs, rubs, or gallops. LUNGS: Clear to auscultation bilaterally. No wheeze, rales, or rhonchi. ABDOMEN: Bowel sounds are positive, soft, nontender and nondistended. EXTREMITIES: no cyanosis, clubbing or edema. LABORATORY DATA: White count of 13.5, hemoglobin 12.9, creatinine 0.9. ASSESSMENT: 1. Acute congestive heart failure secondary to systolic dysfunction, chronic. 2. Atrial fibrillation. 3. Chronic obstructive pulmonary disease. 4. Diabetes type 2, uncontrolled. PLAN: The patient is currently on aspirin daily. She is on Brovana for her chronic obstructive pulmonary disease. The patient is going to be on Eliquis for anticoagulation. She is on metformin and glipizide. She is going to have her steroids decreased. The patient is on insulin coverage as well. She is on latanoprost for her glaucoma. Mitchel Sams MD
[2019-02-23] MEDS: Latanoprost 2.5 ml Opht Soln OU SCH (21:50)
[2019-02-23] MEDS: MELATONIN 5 MG PO SCH (21:51)
[2019-02-24] MEDS: Pantoprazole 40 mg EC Tab PO SCH (05:26)
[2019-02-24] MEDS: Insulin Lispro (HUMAlog) HIGH Coverage SC SCH ×4 (06:47→22:50)
[2019-02-24] MEDS: Arformoterol 15 mcg/2 ml Inh Sol IH SCH ×2 (07:03→20:15)
[2019-02-24] MEDS: Budesonide 0.5 mg/2 ml Inhal Susp UD IH SCH ×2 (07:03→20:14)
[2019-02-24] MEDS: diltiaZEM 300 mg/24 Hours CD Cap PO SCH (10:02)
[2019-02-24] MEDS: Magnesium Oxide 400 mg Tab UD PO SCH ×2 (10:04→17:35)
[2019-02-24] MEDS: COLESTIPOL HCL 2 GM PO SCH ×2 (10:11→17:29)
--- NOTE | 2019-02-24 10:23 | PN ---
DATE: 02/24/2019 PULMONARY NOTE SUBJECTIVE: The patient appears quite comfortable this morning. She is not short of breath at rest. PHYSICAL EXAMINATION: VITAL SIGNS: Last temperature recorded is 97.8, pulse this morning is approximately 88, respiratory rate 18/20, blood pressure 116/73. Oxygen saturation on room air - 98%. HEENT: Normocephalic, atraumatic. No JVD. CARDIOVASCULAR: Systolic ejection murmur at the lower left sternal border. Positive S3 gallop. LUNGS: Crackles at both bases - chronic. Minimal/less rhonchi. No wheezing. GASTROINTESTINAL: Abdomen is soft, nontender and nondistended. Bowel sounds are positive. EXTREMITIES: Less edema, no cyanosis, no clubbing. Calves are nontender to palpation. SKIN: No acute rash. NEUROLOGIC: Exam limited at the present time. IMPRESSION: 1. Acute bronchitis. 2. Advanced chronic obstructive pulmonary disease, on home oxygen. 3. Acute congestive heart failure. 4. Rapid atrial fibrillation. 5. Coronary artery disease. PLAN: The patient appears very comfortable this morning. She is not short of breath at rest. She does state to feeling much, much better overall. On physical exam, her bronchospasm continues to slowly resolve. In addition, the alveolar arterial gradient is also much less. I will continue the current nebulizer treatments and oral steroids (decreased yesterday) for now. I would continue with the treatment for congestive heart failure and cardiac arrhythmias as per Cardiology. Input by Dr. Ken is noted. Clinical status of the patient has significantly improved overall. However, given the above, the future status/prognosis for this chronically ill elderly patient does remain guarded. I will discuss the above with the attending physician. Luis Carlos Ansari MD MTDElbert
--- NOTE | 2019-02-24 10:57 | PN ---
DATE: 02/24/2019 SUBJECTIVE: The patient is seen sitting on the bed in transitional care unit. She is feeling better. She feels that her stamina has improved. She denies any chest pain. Her current medications include aspirin, Brovana, Cardizem CD 300 mg daily, Colazal, Colestid, Cozaar, DuoNeb inhaler, Eliquis 5 mg b.i.d., Glucophage, Glucotrol, Imdur 60 mg daily, metoprolol 50 mg b.i.d., prednisone 20 mg daily, Protonix 40 mg daily, Pulmicort, and Xalatan eye drop. OBJECTIVE: GENERAL: She is an elderly woman who is comfortable at rest. VITAL SIGNS: Blood pressure 130/74, pulse of 90, respirations are 14, rhythm is irregularly regular. She is afebrile. HEENT: No JVD. CHEST: Bibasilar dry crackles. HEART: PMI displaced laterally. Systolic murmur at left sternal border. ABDOMEN: Soft, nontender. Normoactive bowel sounds. EXTREMITIES: No edema. DIAGNOSTIC DATA: No blood work pending from this morning. IMPRESSION: 1. Atrial fibrillation with recent onset treated with rate control therapy and anticoagulants, clinically stable. 2. Coronary artery disease status post remote percutaneous coronary intervention, stable at present. 3. Severe chronic obstructive pulmonary disease with pulmonary fibrosis, oxygen dependent. 4. History of hypertension and diabetes. RECOMMENDATIONS: Her current medications will be continued for now. Increase activity as tolerated is recommended. She does require continuous oxygen therapy on a chronic basis and will continue to follow along and make further recommendations as appropriate. Maximiliano Ken MD
[2019-02-24] MEDS: Albuterol-Ipratrop 3 mg / 0.5 (3 ml) UD IH SCH ×3 (11:09→20:15)
--- NOTE | 2019-02-24 13:56 | PN ---
DATE: 02/24/2019 SUBJECTIVE: The patient has no complaints of any chest pain. No shortness of breath. No headaches or dizziness. PHYSICAL EXAMINATION: VITAL SIGNS: Temperature is 97.7, pulse is 73, blood pressure 108/62 and respirations 16. GENERAL: The patient is lying in bed, flat, comfortable. HEENT: No oral lesion. Anicteric sclerae. Moist mucosa. NECK: No JVD, adenopathy, or thyromegaly. CARDIOVASCULAR: S1 and S2, regular. No murmurs, rubs, or gallops. LUNGS: Clear to auscultation bilaterally. No wheeze, rales, or rhonchi. ABDOMEN: Bowel sounds are positive, soft, nontender and nondistended. EXTREMITIES: No cyanosis, clubbing or edema. LABORATORY DATA: White count is 13.5 and hemoglobin is 12.9. Creatinine is 0.9. ASSESSMENT: 1. Acute congestive heart failure secondary to systolic dysfunction. 2. Atrial fibrillation. 3. Chronic obstructive pulmonary disease. 4. Diabetes type 2. PLAN: The patient has better controlled of her diabetes. Her metformin is back on her medication list. She is on prednisone and this is being tapered, she is on 20 mg once a day. The patient is on Protonix daily. She is on Isosorbide. The patient is on glipizide for her diabetes as well. She is on Eliquis for her atrial fibrillation. She is on losartan for her hypertension. She is doing well with physical therapy and ambulating better. Her heart rate is controlled. She is also being followed by Dr. Ken and Dr. Ansari from Cardiology and Pulmonary. Mitchel Sams MD
[2019-02-24] MEDS: MELATONIN 5 MG PO SCH (21:51)
[2019-02-24] MEDS: Latanoprost 2.5 ml Opht Soln OU SCH (21:51)
[2019-02-25] MEDS: Pantoprazole 40 mg EC Tab PO SCH (05:27)
[2019-02-25] MEDS: Insulin Lispro (HUMAlog) HIGH Coverage SC SCH ×4 (06:38→22:31)
[2019-02-25] MEDS: Arformoterol 15 mcg/2 ml Inh Sol IH SCH ×2 (07:10→20:32)
[2019-02-25] MEDS: Budesonide 0.5 mg/2 ml Inhal Susp UD IH SCH ×2 (07:10→20:32)
[2019-02-25] MEDS: Albuterol-Ipratrop 3 mg / 0.5 (3 ml) UD IH SCH ×4 (07:10→20:33)
--- NOTE | 2019-02-25 07:30 | HP ---
DATE OF EXAM: 02/21/2019 The patient was seen on 02/21/2019 on the Transitional Care Unit. HISTORY OF PRESENT ILLNESS: The patient is a 78-year-old female who has a history of COPD, coronary artery disease, dyslipidemia, CHF, atrial fibrillation and anemia, was admitted through the Transitional Care Unit for rehabilitation and gait dysfunction with assistance of physical therapy. She was initially admitted to the hospital because of acute CHF exacerbation. She also had COPD. She had improvement of her symptoms. The patient is currently comfortable. She has no complaints of any headaches or dizziness. No nausea, no vomiting. No fever, headaches or chills. She is feeling better, walking better. She had AFib with rapid rate that was controlled with Cardizem. I did review the old records from the hospital as well as the H and P and discharge summary. REVIEW OF SYSTEMS: All the reviewed symptoms are within normal limits except as mentioned. PAST MEDICAL HISTORY: As above. PAST SURGICAL HISTORY: Appendectomy, right hip surgery, bilateral knee repair. SOCIAL HISTORY: The patient is a former smoker, does not use drugs or alcohol. ALLERGIES: NO KNOWN DRUG ALLERGIES. MEDICATIONS: Her medications were reviewed in the MAR. PHYSICAL EXAMINATION VITAL SIGNS: Temperature is 98, pulse of 119, blood pressure is 139/86, respirations 18. GENERAL: The patient is lying in bed, comfortable, and in no acute distress. HEENT: Atraumatic and normocephalic. Anicteric sclerae. Moist mucosa. [place] conjunctivae. No oral lesions. NECK: No JVD, anterior and posterior adenopathy, thyromegaly, or bruits. CARDIOVASCULAR: Heart is irregular. No murmurs, rubs or gallops. LUNGS: Clear to auscultation bilaterally. No wheezes, rales, or rhonchi. ABDOMEN: Bowel sounds are positive. Soft, nontender and nondistended. No hepatosplenomegaly. No rebound and no guarding. EXTREMITIES: No cyanosis, clubbing, or edema. NEUROLOGIC: No facial asymmetry. Tongue is midline. No uvula deviation. Power is 5/5 upper extremities and lower extremities. Sensation intact in upper extremities and lower extremities. PSYCHIATRIC: She is awake, alert and oriented x3. No anxiety or depression. She has a normal affect. GENITOURINARY: No CVA tenderness. VASCULAR: 2+ pulses in the carotid pulses and pedal pulses. SKIN: No erythema or nodules SPINE: Shows normal curvature. LABORATORY DATA: The patient's last labs were reviewed. The hemoglobin on 02/20/2019 was 13.2. The creatinine was 1.1 on 02/20/2019. There was a chest x-ray done on 02/19/2019 that showed mild cardiomegaly, mild vascular and interstitial congestion. ASSESSMENT: 1. Chronic obstructive pulmonary disease, chronic. 2. Congestive heart failure secondary to systolic dysfunction, chronic. 3. Diabetes type 2. 4. Dyslipidemia. 5. Hypertension. 6. Atrial fibrillation on anticoagulation. 7. Anemia, chronic. PLAN: The patient is currently comfortable. She is going to get physical therapy. She is on Brovana for her COPD. The patient is receiving aspirin daily. She is on losartan for her hypertension. She is on Eliquis for her anticoagulation. She is going to be on metformin for diabetes as well as glipizide. She is on prednisone. She is on Solu-Medrol and she is going to be on prednisone. She is on Protonix daily. She is on latanoprost 0.05% eyedrops for her glaucoma. She is on a heart-healthy diet. Mitchel Sams MD
--- NOTE | 2019-02-25 08:12 | PN ---
DATE: 02/25/2019 SUBJECTIVE: The patient appears very comfortable this morning. She is not short of breath at rest. PHYSICAL EXAMINATION: VITAL SIGNS: Temperature is 97.7, pulse 88, respirations 18, blood pressure 108/65. Oxygen saturation on nasal cannula - 99%. HEENT: Normocephalic, atraumatic. No JVD. CARDIOVASCULAR: Systolic ejection murmur at the lower left sternal border. Positive S3 gallop. LUNGS: Crackles at both bases - chronic. Very minimal/less rhonchi. No wheezing. EXTREMITIES: Less edema, no cyanosis, no clubbing. Calves are nontender to palpation. GASTROINTESTINAL: Abdomen is soft, nontender and nondistended. Bowel sounds are positive. SKIN: No acute rash. NEUROLOGIC: Exam limited at the present time. IMPRESSION: 1. Acute bronchitis. 2. Advanced chronic obstructive pulmonary disease, on home oxygen. 3. Acute congestive heart failure. 4. Rapid atrial fibrillation. 5. Coronary artery disease. PLAN: The patient appears quite comfortable this morning. She is not short of breath at rest. She does state to feeling much better overall. On physical exam, her bronchospasm continues to slowly resolve. In addition, the alveolar arterial gradient also continues to resolve. I will continue the current nebulizer treatments and low-dose oral steroids for now. I would continue with the treatment for congestive heart failure and cardiac arrhythmias as per Cardiology. Input by Dr. Ken is noted. Clinical status of the patient has significantly improved overall. However, unfortunately, the future status/prognosis for this chronically ill elderly patient does remain guarded. I will discuss the above with the attending physician. Luis Carlos Ansari MD MTDElbert
[2019-02-25] MEDS: diltiaZEM 300 mg/24 Hours CD Cap PO SCH (09:50)
[2019-02-25] MEDS: COLESTIPOL HCL 2 GM PO SCH ×2 (09:52→18:06)
[2019-02-25] MEDS: Magnesium Oxide 400 mg Tab UD PO SCH ×2 (09:53→18:10)
[2019-02-25 11:34] VITALS: RESP 20
[2019-02-25] MEDS: Latanoprost 2.5 ml Opht Soln OU SCH (21:12)
[2019-02-25] MEDS: MELATONIN 5 MG PO SCH (21:14)
--- NOTE | 2019-02-25 21:31 | PN ---
DATE: 02/25/2019 SUBJECTIVE: The patient has no complaints of any chest pain. No shortness of breath. No headaches or dizziness. PHYSICAL EXAMINATION: VITAL SIGNS: Temperature is 98.3, pulse of 92, blood pressure is 120/72, respirations 20. GENERAL: The patient is lying in bed, flat, comfortable. HEENT: No oral lesion. Anicteric sclerae. Moist mucosa. NECK: No JVD, adenopathy, or thyromegaly. CARDIOVASCULAR: S1 and S2, regular. No murmurs, rubs, or gallops. LUNGS: Clear to auscultation bilaterally. No wheeze, rales, or rhonchi. ABDOMEN: Bowel sounds are positive, soft, nontender and nondistended. EXTREMITIES: No cyanosis, clubbing or edema. LABORATORY DATA: White count is 14.5, hemoglobin 12.9. Creatinine 0.9. ASSESSMENT: 1. Acute congestive heart failure secondary to systolic dysfunction. 2. Atrial fibrillation. 3. Chronic obstructive pulmonary disease. 4. Diabetes type 2. PLAN: The patient is currently comfortable. She is on home O2. She will continue oxygen. She is discharged. She has anemia of chronic disease. The patient is currently getting physical therapy. She is on Brovana, this will be continued. She is on Cardizem for her atrial fibrillation. She is on metformin for diabetes. She is on insulin sliding scale. She is on metoprolol, this will be continued. She is on albuterol inhaler. She is going to continue on aspirin. Her sugars are better controlled than they were a few days ago. Her steroids have been weaned. Mitchel Sams MD
[2019-02-26] MEDS: Pantoprazole 40 mg EC Tab PO SCH (05:43)
[2019-02-26] MEDS: Insulin Lispro (HUMAlog) HIGH Coverage SC SCH ×4 (06:38→21:46)
[2019-02-26] MEDS: Albuterol-Ipratrop 3 mg / 0.5 (3 ml) UD IH SCH ×4 (07:37→20:06)
[2019-02-26] MEDS: Arformoterol 15 mcg/2 ml Inh Sol IH SCH ×2 (07:37→20:06)
[2019-02-26] MEDS: Budesonide 0.5 mg/2 ml Inhal Susp UD IH SCH ×2 (07:38→20:06)
--- NOTE | 2019-02-26 08:05 | PN ---
DATE: 02/26/2019 SUBJECTIVE: The patient appears very comfortable this morning. She is not short of breath at rest. PHYSICAL EXAMINATION: VITAL SIGNS: (Last noted in the computer): Temperature is 97.8, pulse 77, respirations 18, blood pressure 116/72. Oxygen saturation on nasal cannula - 99%. HEENT: Normocephalic, atraumatic. No JVD. CARDIOVASCULAR: Systolic ejection murmur at the lower left sternal border. Positive S3 gallop. LUNGS: Crackles at both bases - chronic. No rhonchi or wheezing this morning. EXTREMITIES: Less edema, no cyanosis, no clubbing. Calves are nontender to palpation. GASTROINTESTINAL: Abdomen is soft, nontender and nondistended. Bowel sounds are positive. SKIN: No acute rash. NEUROLOGIC: Exam limited at the present time. IMPRESSION: 1. Acute bronchitis. 2. Advanced chronic obstructive pulmonary disease, on home oxygen. 3. Acute congestive heart failure. 4. Rapid atrial fibrillation. 5. Coronary artery disease. PLAN: The patient appears very comfortable this morning. She is not short of breath at rest. She does state to feeling much, much better overall. On physical exam, her bronchospasm continues to resolve. In addition, the alveolar arterial gradient also continues to resolve. I will continue the current nebulizer treatments and decrease the oral steroids this morning. Input by Cardiology (Dr. Conner) is also noted. Clinical status of the patient is significantly improved overall. However, given the above, the future status/prognosis for this chronically ill elderly patient does remain guarded. I will discuss the above with the attending physician. Luis Carlos Ansari MD MTDD
[2019-02-26] MEDS: diltiaZEM 300 mg/24 Hours CD Cap PO SCH (10:28)
[2019-02-26] MEDS: COLESTIPOL HCL 2 GM PO SCH ×2 (10:29→17:51)
[2019-02-26] MEDS: Magnesium Oxide 400 mg Tab UD PO SCH ×2 (10:30→18:18)
[2019-02-26 10:32] VITALS: PULSE 87
[2019-02-26 11:01] VITALS: TEMP 97.3; O2SAT 97
[2019-02-26] MEDS: Latanoprost 2.5 ml Opht Soln OU SCH (21:48)
[2019-02-26] MEDS: MELATONIN 5 MG PO SCH (21:53)
--- NOTE | 2019-02-27 00:10 | PN ---
DATE: 02/26/2019 SUBJECTIVE: The patient has no complaints of any chest pain. No shortness of breath. No headaches or dizziness. PHYSICAL EXAMINATION: VITAL SIGNS: Temperature is 97.3, pulse of 87, blood pressure 120/67, respirations 20. GENERAL: The patient is lying in bed, flat, comfortable. HEENT: No oral lesion. Anicteric sclerae. Moist mucosa. NECK: No JVD, adenopathy, or thyromegaly. CARDIOVASCULAR: S1 and S2, regular. No murmurs, rubs, or gallops. LUNGS: Clear to auscultation bilaterally. No wheeze, rales, or rhonchi. ABDOMEN: Bowel sounds are positive, soft, nontender and nondistended. EXTREMITIES: No cyanosis, clubbing or edema. LABORATORY DATA: White count of 13.5, hemoglobin 12.9, creatinine 0.9. ASSESSMENT: 1. Acute congestive heart failure secondary to systolic dysfunction, chronic, stable. 2. Atrial fibrillation. 3. Chronic obstructive pulmonary disease. 4. Diabetes type 2. PLAN: The patient is currently on Eliquis for her anticoagulation. She is on metformin for diabetes. She is on Glucotrol. The patient's sugars have been better controlled. She is currently on metformin and Glucotrol. I will increase her metformin to 1000 mg to help better control her diabetes. She is getting better with physical therapy. She is on Brovana for her COPD. She is on aspirin daily. She is receiving magnesium replacement. We will discontinue the magnesium at this point. She is on Protonix daily. She said she is walking better with physical therapy. Mitchel Sams MD
[2019-02-27] MEDS: Insulin Lispro (HUMAlog) HIGH Coverage SC SCH ×2 (06:32→12:10)
[2019-02-27] MEDS: Pantoprazole 40 mg EC Tab PO SCH (06:36)
[2019-02-27 07:03] LABS: HEMOGLOBIN 12.4 g/dL (12.0-16.0); MEAN CELL VOLUME 92.8 fl (80.0-105.0); MEAN CORPUSCULAR HEMOGLOBIN 28.7 pg (25.0-35.0); MEAN CORPUSCULAR HGB CONC 30.9 g/dl (31.0-37.0); RBC 4.32 10^6/uL (3.5-6.1); RED CELL DISTRIBUTION WIDTH 14.4 % (11.5-14.5); WHITE BLOOD COUNT 8.1 10^3/uL (4.5-11.0)
[2019-02-27 07:31] LABS: ALB/GLOB RATIO 1.3 (1.1-1.8); ALBUMIN 3.5 g/dL (3.0-4.8); ALT/SGPT 26 U/L (7-56); AST/SGOT 27 U/L (14-36); BLOOD UREA NITROGEN 33 mg/dL (7-21); CALCIUM 9.1 mg/dL (8.4-10.5); GFR NON-AFRICAN AMERICAN 54
--- NOTE | 2019-02-27 07:35 | PN ---
DATE: 02/27/2019 PULMONARY NOTE SUBJECTIVE: The patient appears quite comfortable this morning. She is not short of breath at rest. OBJECTIVE: VITAL SIGNS: Temperature is 97.3, pulse 87, respirations 18, blood pressure 120/67. Oxygen saturation on nasal cannula - 97%. HEENT: Normocephalic, atraumatic. No JVD. CARDIOVASCULAR: Systolic ejection murmur at the lower left sternal border. Positive S3 gallop. LUNGS: Crackles at both bases - chronic. No rhonchi. No wheezing. EXTREMITIES: Less edema, no cyanosis, no clubbing. Calves are nontender to palpation. GASTROINTESTINAL: Abdomen is soft, nontender and nondistended. Bowel sounds are positive. SKIN: No acute rash. NEUROLOGIC: Exam limited at the present time. IMPRESSION: 1. Acute bronchitis. 2. Advanced chronic obstructive pulmonary disease, on home oxygen. 3. Acute congestive heart failure. 4. Rapid atrial fibrillation. 5. Coronary artery disease. PLAN The patient appears very comfortable this morning. She is not short of breath at rest. She does state to feeling much, much better overall. On physical exam, her bronchospasm has primarily resolved. In addition, the alveolar arterial gradient is also much less. I will continue the current nebulizer treatments and low-dose oral steroids (decreased yesterday) for now. I would continue with the treatment for congestive heart failure and cardiac arrhythmias as per Cardiology. Clinical status of the patient is significantly improved - compared to the initial presentation. However, given the above, the future status/prognosis for this chronically ill elderly patient does remain guarded. I will discuss the above with the attending physician. Luis Carlos Ansari MD CHRISTINA
--- NOTE | 2019-02-27 08:33 | PN ---
DATE: 02/27/2019 SUBJECTIVE: The patient has no complaint of any chest pain or shortness of breath. No headaches or dizziness. OBJECTIVE: VITAL SIGNS: Temperature is 97.3, pulse of 87, blood pressure 120/67, respirations 20. GENERAL: The patient is lying in bed, flat, comfortable. HEENT: No oral lesion. Anicteric sclerae. Moist mucosa. NECK: No JVD, adenopathy, or thyromegaly. CARDIOVASCULAR: S1 and S2, regular. No murmurs, rubs, or gallops. LUNGS: Clear to auscultation bilaterally. No wheeze, rales, or rhonchi. ABDOMEN: Bowel sounds are positive, soft, nontender and nondistended. EXTREMITIES: no cyanosis, clubbing or edema. LABS: White count of 8.1, hemoglobin 12.4, creatinine is 1.0. ASSESSMENT: 1. Congestive heart failure secondary to systolic dysfunction, chronic stable. 2. Atrial fibrillation. 3. Chronic obstructive pulmonary disease. 4. Diabetes type 2. PLAN: The patient is currently on a Brovana for COPD. The patient is on losartan for hypertension. She is going to continue with the nebulizer treatments. The patient is on Eliquis for anticoagulation, is on metformin and glipizide for her diabetes. Her sugars are controlled. I did increase the patient's metformin. She is receiving Protonix daily. She is on Pulmicort, she is on heart healthy diet. Mitchel Sams MD
[2019-02-27] MEDS: Arformoterol 15 mcg/2 ml Inh Sol IH SCH (08:34)
[2019-02-27] MEDS: Albuterol-Ipratrop 3 mg / 0.5 (3 ml) UD IH SCH ×2 (08:34→11:08)
[2019-02-27] MEDS: Budesonide 0.5 mg/2 ml Inhal Susp UD IH SCH (08:34)
--- NOTE | 2019-02-27 08:59 | PN ---
DATE: 02/27/2019 SUBJECTIVE: The patient is seen sitting in bed on transitional care unit. She is comfortable at the present time. Her stamina is improved. She is unaware of any exertional palpitations or tachycardia. CURRENT MEDICATIONS: Include aspirin, Brovana, Cardizem CD 300 mg daily, Colazal, Colestid, Cozaar, DuoNeb inhaler, Eliquis 5 mg b.i.d., Glucophage, Glucotrol, Imdur 60 mg daily, metoprolol 50 mg b.i.d., prednisone 10 mg daily, Protonix 40 mg daily, and Pulmicort inhaler. OBJECTIVE: GENERAL: She is an elderly woman who is comfortable at the present time. VITAL SIGNS: Blood pressure is 120/76 with a pulse of 84, respirations of 14. She is afebrile. HEENT: No JVD. CHEST: Chest reveals dry crackles at both bases. HEART: PMI displaced laterally with systolic murmur in the left sternal border. ABDOMEN: Soft, obese, nontender with bowel sounds. EXTREMITIES: No edema. DIAGNOSTIC DATA: Potassium is 4.3, BUN and creatinine are 33 and 1. White count 8.1, hemoglobin and hematocrit of 12.4 and 40.1 with platelet count of 151,000. IMPRESSION: 1. Atrial fibrillation, recent onset, now with adequate rate control. 2. Coronary artery disease, status post remote percutaneous coronary intervention and myocardial fraction, clinically stable at present. 3. Severe chronic obstructive pulmonary disease with pulmonary fibrosis, remains oxygen dependent. 4. History of hypertension, diabetes. RECOMMENDATIONS: Her current medications should be continued for now. From a cardiac standpoint, she appears stable for discharge home tomorrow as planned. Her current rate control therapy will continue at this time. Outpatient followup will be arranged. Maximiliano Ken MD
[2019-02-27] MEDS: diltiaZEM 300 mg/24 Hours CD Cap PO SCH (11:01)
[2019-02-27] MEDS: COLESTIPOL HCL 2 GM PO SCH (11:02)
[2019-02-27 11:04] VITALS: BP 124/69
--- NOTE | 2019-02-27 14:34 | CP.PCM.DIS ---
<PranavBabita - Last Filed: 02/27/19 14:27> Provider - Provider Date of Admission: 02/20/19 19:02 Attending physician: Mitchel Sams MD Primary care physician: Latisha Jacobs MD Consults: 02/20/19 20:33 Social Work Referral Routine Comment: Eval Physician Instructions: Reason For Exam: NEW ADMISSION 02/20/19 20:37 Physician Consult Routine Comment: Consulting Provider: Maximiliano Ken Consulting Physician: Maximiliano Ken Reason for Consult: Tachycardia 02/20/19 20:38 Physician Consult Routine Comment: Consulting Provider: Luis Carlos Ansari Consulting Physician: Luis Carlos Ansari Reason for Consult: SOB Time Spent in preparation of Discharge (in minutes): 45 Hospital Course - Lab Results Lab Results: Most Recent Lab Values WBC 8.1 10^3/uL (4.5-11.0) D 02/27/19 06:30 RBC 4.32 10^6/uL (3.5-6.1) 02/27/19 06:30 Hgb 12.4 g/dL (12.0-16.0) 02/27/19 06:30 Hct 40.1 % (36.0-48.0) 02/27/19 06:30 MCV 92.8 fl (80.0-105.0) 02/27/19 06:30 MCH 28.7 pg (25.0-35.0) 02/27/19 06:30 MCHC 30.9 g/dl (31.0-37.0) L 02/27/19 06:30 RDW 14.4 % (11.5-14.5) 02/27/19 06:30 Plt Count 151 10^3/uL (120.0-450.0) 02/27/19 06:30 MPV 10.0 fl (7.0-11.0) 02/27/19 06:30 Neut % (Auto) 83.5 % (50.0-68.0) H 02/23/19 07:30 Lymph % (Auto) 10.8 % (22.0-35.0) L 02/23/19 07:30 Hickman % (Auto) 4.4 % (1.0-6.0) 02/23/19 07:30 Eos % (Auto) 1.3 % (1.5-5.0) L 02/23/19 07:30 Baso % (Auto) 0.0 % (0.0-3.0) 02/23/19 07:30 Lymph # (Auto) 1.5 (1.2-3.4) 02/23/19 07:30 Hickman # (Auto) 0.6 (0.1-0.6) 02/23/19 07:30 Eos # (Auto) 0.2 (0.0-0.7) 02/23/19 07:30 Baso # (Auto) 0.00 K/mm3 (0.0-2.0) 02/23/19 07:30 Absolute Neuts (auto) 11.32 (1.4-6.5) H 02/23/19 07:30 Sodium 137 mmol/L (132-148) 02/27/19 06:30 Potassium 4.3 mmol/L (3.6-5.0) 02/27/19 06:30 Chloride 95 mmol/L (98-107) L 02/27/19 06:30 Carbon Dioxide 35 mmol/L (21-33) H 02/27/19 06:30 Anion Gap 11 (10-20) 02/27/19 06:30 BUN 33 mg/dL (7-21) H 02/27/19 06:30 Creatinine 1.0 mg/dl (0.7-1.2) 02/27/19 06:30 Est GFR ( Amer) > 60 02/27/19 06:30 Est GFR (Non-Af Amer) 54 02/27/19 06:30 POC Glucose (mg/dL) 320 mg/dL (65-110) H 02/27/19 11:43 Random Glucose 107 mg/dL (70-110) 02/27/19 06:30 Calcium 9.1 mg/dL (8.4-10.5) 02/27/19 06:30 Phosphorus 2.8 mg/dL (2.5-4.5) 02/23/19 07:30 Magnesium 1.8 mg/dL (1.7-2.2) 02/27/19 06:30 Total Bilirubin 0.6 mg/dL (0.2-1.3) 02/27/19 06:30 AST 27 U/L (14-36) 02/27/19 06:30 ALT 26 U/L (7-56) 02/27/19 06:30 Alkaline Phosphatase 46 U/L (38-126) 02/27/19 06:30 Total Protein 6.2 g/dL (5.8-8.3) 02/27/19 06:30 Albumin 3.5 g/dL (3.0-4.8) 02/27/19 06:30 Globulin 2.7 gm/dL 02/27/19 06:30 Albumin/Globulin Ratio 1.3 (1.1-1.8) 02/27/19 06:30 - Hospital Course Hospital Course: 78 F with a past medical history of COPD on home 02, CAD, HLD, DM2, CHF, Afib and anemia that was treated for COPD exacerbation and recent onset of rapid afib and subsequently transitioned to the rehab unit for further physical therapy and management. Patient is comfortable. Her respiratory status with advanced COPD has improved with, steroid therapy, duonebs, brovana, and pulmicort. Dr. Ansari Pulmonology following.. Patient Cardizem CD 3000mg daily, metoprolol 50mg BID as per Cardiology, Dr. Ken for afib with rvr, now with adequate rate control, on Eliquis 5mg BID. Patient on asa for CAD. She is on an increased dose of metformin and Glypizide for her DM-2 with better hyperglycemic control. She is on on Cozaar for her HTN. Upon Discharge, patient to follow up with Dr. Jacobs, PMD, Dr. Ken, Cardiology, Dr. Ansari Apparel Patternmaker. Discharge Exam - Head Exam Head Exam: ATRAUMATIC, NORMAL INSPECTION, NORMOCEPHALIC - Eye Exam Eye Exam: EOMI, Normal appearance, PERRL Pupil Exam: NORMAL ACCOMODATION, PERRL - Respiratory Exam Respiratory Exam: Decreased Breath Sounds. absent: Wheezes - Cardiovascular Exam Cardiovascular Exam: Irregular Rhythm, +S1, +S2 - GI/Abdominal Exam GI & Abdominal Exam: Normal Bowel Sounds - Neurological Exam Neurological exam: Alert, CN II-XII Intact, Oriented x3, Reflexes Normal - Psychiatric Exam Psychiatric exam: Normal Affect, Normal Mood Discharge Plan - Discharge Medications Prescriptions: GlipiZIDE [Glucotrol] 10 mg PO BID #60 tab MetFORMIN [glucoPHAGE] 1,000 mg PO BID #60 tab - Follow Up Plan Condition: GOOD Disposition: HOME/ ROUTINE Instructions: Atrial Fibrillation, Exacerbation of COPD Referrals: Latisha Jacobs MD [Primary Care Provider] - <Mitchel Sams - Last Filed: 02/27/19 18:37> Provider - Provider Date of Admission: 02/20/19 19:02 Attending physician: Mitchel Sams MD Primary care physician: Latisha Jacobs MD Consults: 02/20/19 20:33 Social Work Referral Routine Comment: Eval Physician Instructions: Reason For Exam: NEW ADMISSION 02/20/19 20:37 Physician Consult Routine Comment: Consulting Provider: Maximiliano Ken Consulting Physician: Maximiliano Ken Reason for Consult: Tachycardia 02/20/19 20:38 Physician Consult Routine Comment: Consulting Provider: Luis Carlos Ansari Consulting Physician: Luis Carlos Ansari Reason for Consult: SOB Hospital Course - Lab Results Lab Results: Most Recent Lab Values WBC 8.1 10^3/uL (4.5-11.0) D 02/27/19 06:30 RBC 4.32 10^6/uL (3.5-6.1) 02/27/19 06:30 Hgb 12.4 g/dL (12.0-16.0) 02/27/19 06:30 Hct 40.1 % (36.0-48.0) 02/27/19 06:30 MCV 92.8 fl (80.0-105.0) 02/27/19 06:30 MCH 28.7 pg (25.0-35.0) 02/27/19 06:30 MCHC 30.9 g/dl (31.0-37.0) L 02/27/19 06:30 RDW 14.4 % (11.5-14.5) 02/27/19 06:30 Plt Count 151 10^3/uL (120.0-450.0) 02/27/19 06:30 MPV 10.0 fl (7.0-11.0) 02/27/19 06:30 Neut % (Auto) 83.5 % (50.0-68.0) H 02/23/19 07:30 Lymph % (Auto) 10.8 % (22.0-35.0) L 02/23/19 07:30 Hickman % (Auto) 4.4 % (1.0-6.0) 02/23/19 07:30 Eos % (Auto) 1.3 % (1.5-5.0) L 02/23/19 07:30 Baso % (Auto) 0.0 % (0.0-3.0) 02/23/19 07:30 Lymph # (Auto) 1.5 (1.2-3.4) 02/23/19 07:30 Hickman # (Auto) 0.6 (0.1-0.6) 02/23/19 07:30 Eos # (Auto) 0.2 (0.0-0.7) 02/23/19 07:30 Baso # (Auto) 0.00 K/mm3 (0.0-2.0) 02/23/19 07:30 Absolute Neuts (auto) 11.32 (1.4-6.5) H 02/23/19 07:30 Sodium 137 mmol/L (132-148) 02/27/19 06:30 Potassium 4.3 mmol/L (3.6-5.0) 02/27/19 06:30 Chloride 95 mmol/L (98-107) L 02/27/19 06:30 Carbon Dioxide 35 mmol/L (21-33) H 02/27/19 06:30 Anion Gap 11 (10-20) 02/27/19 06:30 BUN 33 mg/dL (7-21) H 02/27/19 06:30 Creatinine 1.0 mg/dl (0.7-1.2) 02/27/19 06:30 Est GFR ( Amer) > 60 02/27/19 06:30 Est GFR (Non-Af Amer) 54 02/27/19 06:30 POC Glucose (mg/dL) 320 mg/dL (65-110) H 02/27/19 11:43 Random Glucose 107 mg/dL (70-110) 02/27/19 06:30 Calcium 9.1 mg/dL (8.4-10.5) 02/27/19 06:30 Phosphorus 2.8 mg/dL (2.5-4.5) 02/23/19 07:30 Magnesium 1.8 mg/dL (1.7-2.2) 02/27/19 06:30 Total Bilirubin 0.6 mg/dL (0.2-1.3) 02/27/19 06:30 AST 27 U/L (14-36) 02/27/19 06:30 ALT 26 U/L (7-56) 02/27/19 06:30 Alkaline Phosphatase 46 U/L (38-126) 02/27/19 06:30 Total Protein 6.2 g/dL (5.8-8.3) 02/27/19 06:30 Albumin 3.5 g/dL (3.0-4.8) 02/27/19 06:30 Globulin 2.7 gm/dL 02/27/19 06:30 Albumin/Globulin Ratio 1.3 (1.1-1.8) 02/27/19 06:30 - Hospital Course Hospital Course: Pt seen and examined by me. I have reviewed the note of the medical concierge and I agree with it. I have discussed the assessment and plan with the resident. I have reviewed the medications and the last labs.
== END 2019-02-27 13:28 | disposition home or self-care (01) | DRG 92 ==
LOC: TRCU 19:02
PROVIDERS: ADMIT Internal Medicine Nephrology; ATTEND Internal Medicine Nephrology
PROC: F07Z9FZ Gait Training/Functional Ambulation Treatment using Assistive, Adaptive, Supportive or Protective Equipment (ICD-10-PCS; principal; 2019-02-21)
PROC: F08Z4FZ Home Management Treatment using Assistive, Adaptive, Supportive or Protective Equipment (ICD-10-PCS; 2019-02-21)
PROC: 3E0F7GC Introduction of Other Therapeutic Substance into Respiratory Tract, Via Natural or Artificial Opening (ICD-10-PCS; 2019-02-21)
DX: R26.89 Other abnormalities of gait and mobility (principal); J44.0 Chronic obstructive pulmonary disease with (acute) lower respiratory infection; I50.22 Chronic systolic (congestive) heart failure; K50.90 Crohn's disease, unspecified, without complications; J20.9 Acute bronchitis, unspecified; Z99.81 Dependence on supplemental oxygen; I11.0 Hypertensive heart disease with heart failure; I25.10 Atherosclerotic heart disease of native coronary artery without angina pectoris; I48.2 Chronic atrial fibrillation; J84.10 Pulmonary fibrosis, unspecified; E11.65 Type 2 diabetes mellitus with hyperglycemia; E78.5 Hyperlipidemia, unspecified; T38.0X5A Adverse effect of glucocorticoids and synthetic analogues, initial encounter; D64.9 Anemia, unspecified; Z87.891 Personal history of nicotine dependence

== ENCOUNTER 2019-03-06 16:39 | Inpatient (IN) | payer MEDICARE, OTHER ==
[2019-03-06 16:40] VITALS: PULSE 91; BMI 31.2
[2019-03-06 17:47] LABS: BASO # 0.03 K/mm3 (0.0-2.0); BASO % 0.4 % (0.0-3.0); EOS # 0.2 (0.0-0.7); EOS % 2.8 % (1.5-5.0); HEMOGLOBIN 10.5 g/dL (12.0-16.0); LYMPH # 0.7 (1.2-3.4); LYMPH % 8.6 % (22.0-35.0); MEAN CORPUSCULAR HEMOGLOBIN 29.4 pg (25.0-35.0); MEAN CORPUSCULAR HGB CONC 31.6 g/dl (31.0-37.0); MEAN PLATELET VOLUME 10.4 fl (7.0-11.0); MONO # 0.5 (0.1-0.6); RBC 3.57 10^6/uL (3.5-6.1); WHITE BLOOD COUNT 7.6 10^3/uL (4.5-11.0)
[2019-03-06] MEDS: Sodium Chloride 0.9% 1,000 ML IV SCH (17:50)
[2019-03-06 17:56] LABS: INR 1.33; PARTIAL THROMBOPLASTIN TIME 31.3 Seconds (26.9-38.3); PROTHROMBIN TIME 14.8 SECONDS (9.4-12.5)
[2019-03-06 18:07] LABS: ALB/GLOB RATIO 1.4 (1.1-1.8); CALCIUM 8.9 mg/dL (8.4-10.5)
[2019-03-06 18:08] LABS: TROPONIN I 0.02 ng/mL
[2019-03-06 18:26] LABS: VENOUS BLOOD GAS BASE EXCESS 0.7 mmol/L (0.0-2.0); VENOUS BLOOD GAS PO2 91 mm/Hg (30-55); VENOUS BLOOD PH 7.41 (7.32-7.43)
[2019-03-06 18:50] LABS: URINE APPEARANCE CLEAR (CLEAR); URINE BILIRUBIN NEGATIVE (NEGATIVE); URINE BLOOD NEGATIVE (NEGATIVE); URINE COLOR YELLOW (YELLOW); URINE GLUCOSE (UA) NEGATIVE (NEGATIVE); URINE LEUKOCYTE ESTERASE NEGATIVE Leu/uL (NEGATIVE); URINE PROTEIN NEGATIVE mg/dL (<30 mg/dL); URINE UROBILINOGEN 0.2 E.U./dL (<1 E.U./dL)
--- NOTE | 2019-03-06 19:02 | RAD ---
Date of service: 03/06/2019 PROCEDURE: CHEST RADIOGRAPH, 1 VIEW HISTORY: upper abdominal pain COMPARISON: 02/19/2019 FINDINGS: LUNGS: Low lung volumes accentuated interstitial markings, similar findings identified on the prior study. PLEURA: No pneumothorax or pleural fluid seen. CARDIOVASCULAR: Stable cardiomegaly. Atherosclerotic calcifications identified primarily aortic arch. OSSEOUS STRUCTURES: No significant abnormalities. VISUALIZED UPPER ABDOMEN: Normal. OTHER FINDINGS: None. IMPRESSION: No significant interval change compared to the prior examination(s).
--- NOTE | 2019-03-06 19:03 | ED PDOC ---
Arrival/HPI - General Chief Complaint: Abdominal Pain Historian: Patient, Family - History of Present Illness Narrative History of Present Illness (Text): 03/06/19 19:01 Patient is a 78 yo female, past medical history of atrial fibrillation, COPD, Chrohn's disease, presents to the Emergency Department with sudden onset of nausea and upper abdominal pain last night approximately 930. At that time she "vomited bile" once. Patient states she has had intermittent squeezing abdominal pain in the upper quadrants with nausea, although did eat this morning and had "half a grilled cheese" for lunch which did not worse pain or nausea. She denies chest pain or new shortness of breath. Denies calf pain or swelling. Denies pleuritic pain. Denies bloody urine or stool. Denies acute back pain. Symptom Onset: Sudden Symptom Course: Intermittent Past Medical History - Infectious Disease Hx of Infectious Diseases: None - Reproductive Menopause: Yes - Cardiac Hx Cardiac Disorders: Yes Hx Congestive Heart Failure: Yes Hx Hypertension: Yes - Pulmonary Hx Chronic Obstructive Pulmonary Disease (COPD): Yes (oxygen @ home 2 lit/min) - Neurological Hx Neurological Disorder: No - HEENT Hx HEENT Disorder: No - Renal Hx Renal Disorder: No - Endocrine/Metabolic Hx Diabetes Mellitus Type 2: Yes - Hematological/Oncological Hx Blood Disorders: Yes Hx Anemia: Yes - Integumentary Hx Dermatological Disorder: No - Musculoskeletal/Rheumatological Hx Falls: Yes - Gastrointestinal Hx Gastrointestinal Disorders: Yes - Genitourinary/Gynecological Hx Genitourinary Disorders: No - Psychiatric Hx Substance Use: No - Surgical History Hx Appendectomy: Yes Other/Comment: Right Hip Surgery - Anesthesia Hx Anesthesia: Yes Hx Anesthesia Reactions: No Hx Malignant Hyperthermia: No - Suicidal Assessment Feels Threatened In Home Enviroment: No Family/Social History Smoking Status: Former Smoker Hx Alcohol Use: No Hx Substance Use: No Allergies/Home Meds Allergies/Adverse Reactions: Allergies No Known Allergies Allergy (Verified 02/16/19 13:08) Home Medications: Home Meds Medication Instructions Recorded Confirmed Balsalazide Disodium 3 cap PO TID 05/20/13 03/06/19 Metformin HCl 500 mg PO BID 05/20/13 03/06/19 Losartan Potassium 100 mg PO DAILY 06/07/18 03/06/19 Albuterol/Ipratropium [Duoneb 3 3 ml IH QID 07/20/18 03/06/19 mg/0.5 mg (3 ml) UD] Bimatoprost [Lumigan] 1 drop OU HS 07/20/18 03/06/19 Colestipol HCl [Colestid] 2 tab PO BID 07/20/18 03/06/19 Isosorbide Mononitrate [Isosorbide 60 mg PO DAILY 07/20/18 03/06/19 Mononitrate ER] Metoprolol Tartrate [Lopressor] 50 mg PO BID 07/20/18 03/06/19 Multivit-Minerals/Folic Acid 1 tab PO DAILY 07/20/18 03/06/19 [Centrum Multigummies] Omeprazole 40 mg PO DAILY 07/20/18 03/06/19 Simvastatin [Zocor] 40 mg PO HS 07/20/18 03/06/19 Vitamin E [Vitamin E 400 Units Cap] 2 tab PO DAILY 07/21/18 03/06/19 Apixaban [Eliquis] 1 tab PO BID 03/06/19 03/06/19 Diltiazem HCl [Cardizem] 1 tab PO DAILY 03/06/19 03/06/19 Furosemide [Lasix] 1 tab PO DAILY 03/06/19 03/06/19 Review of Systems - Review of Systems Constitutional: Fatigue. absent: Fevers Eyes: absent: Vision Changes ENT: absent: Hearing Changes Respiratory: SOB. absent: Cough Cardiovascular: Palpitations. absent: Chest Pain, Edema, Calf Pain Gastrointestinal: Abdominal Pain, Nausea, Vomiting. absent: Constipation, Diarrhea, Hematemesis Genitourinary Female: absent: Dysuria, Frequency Musculoskeletal: absent: Back Pain Skin: absent: Rash Neurological: absent: Headache, Dizziness, Focal Weakness Endocrine: absent: Polyuria Hemo/Lymphatic: absent: Easy Bleeding Psychiatric: absent: Depression Physical Exam Vital Signs Reviewed: Yes Vital Signs Temp Pulse Resp BP Pulse Ox 03/06/19 18:18 98.2 F 03/06/19 16:40 98 F 128 H 20 116/64 94 L Temperature: Afebrile Pulse: Irregular Appearance: Positive for: Uncomfortable Pain Distress: Mild Mental Status: Positive for: Alert and Oriented X 3 Finger Stick Blood Glucose: 90 - Systems Exam Head: Present: Atraumatic Pupils: Present: PERRL Extroacular Muscles: Present: EOMI Conjunctiva: No: Icteric Mouth: Present: Dry Pharnyx: No: ERYTHEMA Nose (Internal): Present: Normal Inspection Neck: Present: Normal Range of Motion. No: Meningeal Signs Respiratory/Chest: Present: Decreased Breath Sounds. No: Respiratory Distress, Accessory Muscle Use, Retracting, Rhonchi Cardiovascular: Present: Murmurs, Irregular Rhythm, Peripheal Pulses Present, Tachycardic Abdomen: Present: Tenderness, Other (diffuse upper abdominal pain). No: Peritoneal Signs, Hernias Rectal: No: Gross Blood Back: No: CVA Tenderness Upper Extremity: No: Cyanosis Lower Extremity: No: Edema, CALF TENDERNESS Neurological: Present: Motor Func Grossly Intact, Normal Sensory Function Skin: Present: Warm Psychiatric: Present: Alert Medical Decision Making ED Course and Treatment: 03/06/19 19:05 Patient's history reviewed with family on initial evaluation. On exam, pain is palpable, localized to upper quadrants. No lower abdominal pain noted with initial exam. EKG reveals atrial fibrillation. She denies currently any acute s hortness of breath, is in nasal cannula oxygen chronically. Initial lactate slightly elevated, but afebrile and initial WBC unremarkable. IV fluids ordered. Ultrasound and CT pending at this time. No melena or active bleeding noted or reported. 03/06/19 20:03 Abdomen Ultrasound IMPRESSION: No mass or biliary duct dilatation within the liver. Gallbladder within normal limits. Right renal cysts. Patient re-evaluated with family present. She again denies any acute chest pain or sob. Lopressor given for rapid atrial fibrillation. She is currently on anticoagulation. She takes nebulizers regularly, duoneb ordered. On re-exam, she has persistent upper abdominal pain. CT pending. Case d.w Dr. Sams, covering for PMD. Will admit for management of abdominal pain, atrial fibrillation, serial exams. 03/06/19 20:[address] Holm is pending. Patient remains in rapid atrial fibrillation. Denies acute chest pain or shortness of breath. Lopressor administered. - Lab Interpretations Lab Results: pO2 91 mm/Hg (30-55) H 03/06/19 18:21 VBG pH 7.41 (7.32-7.43) 03/06/19 18:21 VBG pCO2 40.0 (40-60) 03/06/19 18:21 VBG HCO3 25.4 mmol/l (21-28) 03/06/19 18:21 VBG Total CO2 26.6 mmol.L (22-28) 03/06/19 18:21 VBG O2 Sat (Calc) 98.7 % (40-65) H 03/06/19 18:21 VBG Base Excess 0.7 mmol/L (0.0-2.0) 03/06/19 18:21 VBG Potassium 4.2 mmol/L (3.6-5.2) 03/06/19 18:21 Sodium 137.0 mmol/L (132-148) 03/06/19 18:21 Chloride 104.0 mmol/L (98-107) 03/06/19 18:21 Glucose 91 mg/dl (65-105) 03/06/19 18:21 Lactate 2.3 mmol/L (0.7-2.1) H 03/06/19 18:21 FiO2 21.0 % 03/06/19 18:21 Crit Value Called To Aura krishnamurthy 03/06/19 18:21 Crit Value Called By Kimani 03/06/19 18:21 Blood Gas Notified Time 1825 03/06/19 18:21 PT 14.8 SECONDS (9.4-12.5) H 03/06/19 17:42 INR 1.33 03/06/19 17:42 APTT 31.3 Seconds (26.9-38.3) 03/06/19 17:42 Troponin I 0.02 ng/mL 03/06/19 17:42 Total Bilirubin 0.6 mg/dL (0.2-1.3) 03/06/19 17:42 AST 31 U/L (14-36) 03/06/19 17:42 ALT 24 U/L (7-56) 03/06/19 17:42 Alkaline Phosphatase 62 U/L (38-126) 03/06/19 17:42 Total Protein 6.8 g/dL (5.8-8.3) 03/06/19 17:42 Albumin 4.0 g/dL (3.0-4.8) 03/06/19 17:42 Globulin 2.8 gm/dL 03/06/19 17:42 Albumin/Globulin Ratio 1.4 (1.1-1.8) 03/06/19 17:42 Amylase 55 U/L (35-125) 03/06/19 17:42 Urine Color Yellow (YELLOW) 03/06/19 18:42 Urine Appearance Clear (CLEAR) 03/06/19 18:42 Urine pH 6.0 (4.7-8.0) 03/06/19 18:42 Ur Specific Gibbon 1.010 (1.005-1.035) 03/06/19 18:42 Urine Protein Negative mg/dL (<30 mg/dL) 03/06/19 18:42 Urine Glucose (UA) Negative mg/dL (NEGATIVE) 03/06/19 18:42 Urine Ketones Negative mg/dL (NEGATIVE) 03/06/19 18:42 Urine Blood Negative (NEGATIVE) 03/06/19 18:42 Urine Nitrate Negative (NEGATIVE) 03/06/19 18:42 Urine Bilirubin Negative (NEGATIVE) 03/06/19 18:42 Urine Urobilinogen 0.2 E.U./dL (<1 E.U./dL) 03/06/19 18:42 Ur Leukocyte Esterase Negative Andrew/uL (NEGATIVE) 03/06/19 18:42 - RAD Interpretation Radiology Orders: 03/06/19 17:37 ABD & PELVIS W/O PO OR IV CONT [CT] Stat 03/06/19 17:40 ABDOMEN COMPLETE [US] Stat 03/06/19 18:53 CHEST ONE VIEW [RAD] Stat - EKG Interpretation EKG Interpretation (Text): 03/06/19 19:04 EKG at 1718 atrial fibrillation with rapid ventricular response rate of 111 Interpreted by ED Physician: Yes Type: 12 lead EKG - Medication Orders Current Medication Orders: Sodium Chloride (Sodium Chloride 0.9%) 1,000 mls @ 100 mls/hr IV .Q10H MARIELENA Last Admin: 03/06/19 17:50 Dose: 100 mls/hr eMAR Start Stop Document 03/06/19 17:50 SRE (Rec: 03/06/19 17:50 SRE [id number]) Intravenous Solution Start Date 03/06/19 Start Time 17:50 Discontinued Medications Pantoprazole Sodium (Protonix Inj) 40 mg IVP ONCE STA Stop: 03/06/19 17:36 Last Admin: 03/06/19 17:50 Dose: 40 mg IVP Administration Document 03/06/19 17:50 SRE (Rec: 03/06/19 17:50 SRE [id number]) Charges for Administration # of IVP Administrations 1 Disposition/Present on Arrival - Present on Arrival Any Indicators Present on Arrival: Yes History of DVT/PE: No History of Uncontrolled Diabetes: Yes Urinary Catheter: No History of Decub. Ulcer: No History Surgical Site Infection Following: None - Disposition Have Diagnosis and Disposition been Completed?: Yes Diagnosis: Anemia, Abdominal pain, Atrial fibrillation Disposition: HOSPITALIZED Disposition Time: 19:30 Patient Plan: Admission, Telemetry Patient Problems: Current Active Problems Problem Status Onset Abdominal pain Acute Afib Acute Anemia Acute Condition: FAIR
[2019-03-06] MEDS ORDERED: Albuterol-Ipratrop 3 mg / 0.5 (3 ml) UD IH STA (20:21)
[2019-03-06] MEDS ORDERED: Albuterol-Ipratrop 3 mg / 0.5 (3 ml) UD ONE (20:26)
[2019-03-06 21:32] VITALS: O2SAT 95
[2019-03-06 21:43] LABS: VENOUS BLOOD GAS BASE EXCESS 1.8 mmol/L (0.0-2.0); VENOUS BLOOD GAS PO2 119 mm/Hg (30-55); VENOUS BLOOD PH 7.45 (7.32-7.43)
--- NOTE | 2019-03-06 22:03 | CARD ---
APPROVED REPORT Date of service: 03/06/2019 EKG Measurement Heart [id number] <Conclusion> Atrial fibrillation with rapid ventricular response Nonspecific T wave abnormalities Abnormal ECG
[2019-03-06] MEDS: Insulin Reg-LOW-Coverage SC SCH (22:31)
[2019-03-07] MEDS: Sodium Chloride 0.9% 1,000 ML IV SCH (03:30)
[2019-03-07 05:47] VITALS: TEMP 98.1
[2019-03-07] MEDS: Insulin Reg-LOW-Coverage SC SCH (08:27)
[2019-03-07] MEDS ORDERED: Albuterol-Ipratrop 3 mg / 0.5 (3 ml) UD IH ONE (09:24)
--- NOTE | 2019-03-07 09:34 | CP.PCM.PCO ---
Physician Communication Note - Physician Communication Note Physician Communication Note: Pt uses neb at home and would like a treatment this morning. tara sims
--- NOTE | 2019-03-07 10:47 | CT ---
Date of service: 03/06/2019 PROCEDURE: CT Abdomen and Pelvis without intravenous contrast HISTORY: abdominal pain COMPARISON: None. TECHNIQUE: Without contrast.. Contrast dose: 0 Radiation dose: Total exam DLP = 614.64 mGy-cm. This CT exam was performed using one or more of the following dose reduction techniques: Automated exposure control, adjustment of the mA and/or kV according to patient size, and/or use of iterative reconstruction technique. FINDINGS: LOWER THORAX: Reticular interstitial infiltrate seen at both lung bases of questionable chronicity. Cardiomegaly. Coronary arterial calcification. Small right pleural effusion. LIVER: Nodular contour consistent with hepatic cirrhosis. Normal size. Normal attenuation. No mass. No biliary dilatation. Punctate calcification in right hepatic lobe likely calcified granuloma. GALLBLADDER AND BILE DUCTS: Unremarkable. PANCREAS: Unremarkable. No gross lesion or ductal dilatation. SPLEEN: Unremarkable. ADRENALS: Unremarkable. No mass. KIDNEYS AND URETERS: 3.3 cm low-attenuation exophytic mass upper pole right kidney, measuring -1 Hounsfield units, consistent with cyst. This can be seen on prior CT angiogram chest examination of 07/20/2018, without interval change. Second similar cyst mid right kidney, again unchanged, 2.2 cm diameter. No renal calculus or hydronephrosis. Mild atrophy of right kidney, uncertain significance. VASCULATURE: Unremarkable. No aortic aneurysm. There is atherosclerotic calcification of the abdominal aorta BOWEL: Mild sigmoid diverticulosis without evidence of diverticulitis. No bowel obstruction. APPENDIX: Not positively identified. No secondary findings. PERITONEUM: Unremarkable. No free fluid. No free air. LYMPH NODES: Unremarkable. No enlarged lymph nodes. BLADDER: Unremarkable. REPRODUCTIVE: Unremarkable postmenopausal uterus BONES: No acute fracture. Grade 1 anterolisthesis at L4-5 without spondylolysis. Status post right hip arthroplasty. OTHER FINDINGS: None. IMPRESSION: Small right pleural effusion. Bibasilar interstitial infiltrates of undetermined chronicity.. Probable hepatic cirrhosis. No ascites. Mild right renal atrophy. Two right renal cortical cysts unchanged from 07/20/2018. Additional nonacute findings as above. The preliminary findings for this examination were reported by [facility] at 8:43 p.m. on 03/06/2019.. There is concurrence of this report with the preliminary findings.
--- NOTE | 2019-03-07 11:23 | US ---
Date of service: 03/06/2019 HISTORY: upper abdominal pain COMPARISON: None. TECHNIQUE: Sonographic evaluation of the abdomen. FINDINGS: LIVER: Measures 14.3 cm. Diffusely increased echogenicity of the liver parenchyma. Consistent with fatty infiltration. No mass. No biliary ductal dilatation. Normal hepatopetal portal venous flow. Hepatic veins are grossly patent. GALLBLADDER: Unremarkable. No gallstones. COMMON BILE DUCT: Measures 5 mm. No stones. No dilatation. PANCREAS: Unremarkable as visualized. No mass. No ductal dilatation. RIGHT KIDNEY: Measures 10.4cm. Normal echogenicity. No calculus or hydronephrosis. Two upper pole cortical cyst, 2.6 x 2.9 x 3.1 cm and 1.4 x 2.1 x 2.3 cm. No solid mass. LEFT KIDNEY: Measures 11.9cm. Normal echogenicity. No calculus, mass, or hydronephrosis. SPLEEN: Normal in size and contour. No mass. AORTA: No aneurysmal dilatation. IVC: Unremarkable. OTHER FINDINGS: None. IMPRESSION: Fatty infiltration of the liver. No evidence of cholelithiasis or cholecystitis. 2 simple right renal cortical cysts. Otherwise unremarkable. The preliminary findings for this examination were reported by [facility] at 7:58 p.m. on 03/06/2019. There is concurrence of this report with the preliminary findings.
[2019-03-07 12:48] VITALS: BP 107/53; PULSE 89; RESP 20
--- NOTE | 2019-03-07 21:49 | CON ---
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 She denies any fevers or chills. The patient describes the pain as a squeezing pain in the upper abdomen. She denies any chest pain, heartburn, shortness of breath or palpitations. She has not had any further abdominal pain or vomiting. She denies constipation or diarrhea. 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 PAST SURGICAL HISTORY: Notable for right hip replacement and appendectomy. FAMILY HISTORY: Noncontributory. SOCIAL HISTORY: She is a former cigarette smoker. She quit several years ago. She denies alcohol use. MEDICATIONS AT HOME: Furosemide, apixaban, vitamin E, diltiazem, budesonide, Lumigan, aspirin, DuoNeb inhaler, Zocor, omeprazole, losartan, Isordil, metoprolol, metformin, glipizide, Colestid, and balsalazide 20/250 mg three times a day. REVIEW OF SYSTEMS: A 14-point review of systems is notable for abdominal pain in the upper abdomen, nausea and vomiting. PHYSICAL EXAMINATION: GENERAL: Elderly female lying in bed in no acute distress. VITAL SIGNS: Temperature of 98.1, blood pressure 119/72, heart rate of 100. HEENT: Reveals sclerae to be white. Conjunctivae pink. NECK: Supple. CHEST: Lungs are clear. HEART: Irregularly irregular rate. There is no murmur. ABDOMEN: Soft, flabby, nontender. EXTREMITIES: No edema. LABORATORY DATA: White blood cell count 7.6, hemoglobin 10.5. Chemistries reveal BUN 26, creatinine 1.3. AST, ALT, and alk phos were all normal. Ultrasound of the abdomen shows an echogenic liver consistent with fatty liver. No gallstones. CT scan of the abdomen and pelvis revealed no evidence of intestinal obstruction. No abscess or inflammatory changes. Again, there is fatty infiltration of the liver with two right renal cysts. 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 Her symptoms have resolved. Ultrasound and CT scan of the abdomen were negative for any acute changes. Etiology of her abdominal pain and vomiting are unclear, but may have been related to some food-borne illness or gastroenteritis. She did have grilled cheese sandwich prior to the onset of her symptoms. Her symptoms have resolved. RECOMMENDATIONS: The patient is tolerating solid food and is stable from a GI standpoint to be discharged home. She can resume her medications. No GI workup is planned at this time. She has been asked to follow up with me in the office. Brian Timmons MD
--- NOTE | 2019-03-08 00:49 | HP ---
DATE OF EXAM: 03/07/2019 HISTORY OF PRESENT ILLNESS: The patient is a 78-year-old female who came in to the hospital because of abdominal pain. The patient's primary care doctor, Dr. Jacobs called me yesterday stating that the patient was having abdominal pain. The patient has a history of atrial fibrillation, COPD, Crohn's disease. She stated she had vomiting prior to her admission. She was complaining of intermittent squeezing in the upper part of the abdomen. She states that she had lunch and started having these symptoms. Nothing made the pain better. She came in for further evaluation. She denies any chest pain or shortness of breath. No dysuria, frequency or nocturia. She denies any back pain or weakness in the arms or the legs. REVIEW OF SYSTEMS: All of the review of systems are within normal limits except as mentioned. ALLERGIES: SHE HAS NO KNOWN DRUG ALLERGIES. HOME MEDICATIONS: Reviewed on the JAN. PAST MEDICAL HISTORY: 1. COPD. 2. Coronary artery disease. 3. Dyslipidemia. 4. CHF secondary to systolic dysfunction. 5. Atrial fibrillation. PAST SURGICAL HISTORY: 1. Appendectomy. 2. Right hip surgery. 3. Bilateral knee repair. FAMILY HISTORY: Noncontributory. SOCIAL HISTORY: She is a former smoker. She does not currently drink or use drugs. PHYSICAL EXAMINATION VITAL SIGNS: Temperature is 98.1, pulse is 89, blood pressure is 107/53, respiration is 20, height is 5 feet, weight is 164 pounds, BMI is 32.1. GENERAL: The patient is lying in bed, comfortable, and in no acute distress. HEENT: Atraumatic and normocephalic. Anicteric sclerae. Moist mucosa. Senath conjunctivae. No oral lesions. NECK: No JVD, anterior and posterior adenopathy, thyromegaly, or bruits. CARDIOVASCULAR: S1 and S2 regular. No murmurs, rubs or gallops. LUNGS: Clear to auscultation bilaterally. No wheezes, rales, or rhonchi. ABDOMEN: Bowel sounds are positive. Soft, nontender and nondistended. No hepatosplenomegaly. No rebound and no guarding. EXTREMITIES: No cyanosis, clubbing, or edema. NEUROLOGIC: No facial asymmetry. Tongue is midline. No uvula deviation. Power is 5/5 upper extremities and lower extremities. Sensation intact in upper extremities and lower extremities. PSYCHIATRIC: She is awake, alert and oriented x3. No anxiety or depression. She has normal affect. GENITOURINARY: No CVA tenderness. VASCULAR: 2+ pulses in the carotid pulses and pedal pulses. SKIN: No erythema or nodules SPINE: Shows normal curvature. LABORATORY DATA: White count of 7.6, hemoglobin 10.5, platelet count is 135, INR is 1.3. Chemistry shows a creatinine of 1.3. She has alk phos of 62, amylase is 55, troponin is 0.02. Urine; ketones are negative, blood is negative, bilirubin is negative, esterase is negative. There is a CT of the abdomen and pelvis, shows small right pleural effusion, bibasilar interstitial infiltrates of undetermined chronicity. There is a problem of hepatic cirrhosis. There is no ascites. There is mild right renal atrophy. EKG shows a heart rate of 111, atrial fibrillation with rapid rate, nonspecific ST changes. Chest x-ray done, shows no significant changes from previous chest x-ray. Abdominal ultrasound done, shows fatty infiltration of the liver. There are 2 simple renal cysts in the right kidney. ASSESSMENT: 1. Abdominal pain, resolved. 2. Right renal cyst x2. 3. Fatty liver. 4. Obesity, BMI of 32. 5. Diabetes type 2. 6. Hypertension. 7. Atrial fibrillation, on anticoagulation. 8. Congestive heart failure secondary to systolic dysfunction, chronic, stable. 9. Chronic obstructive pulmonary disease, stable. 10. Anemia, chronic. PLAN: The patient was brought in as an observation. She was seen by GI and cleared for the discharge. She is on glipizide for her diabetes. She is on continued Lasix. She is receiving apixaban for her anticoagulation, this will be continued. She is on metoprolol and losartan for her hypertension. She is going to follow up with her primary care doctor, Dr. Jacobs. CONDITION: Stable. ACTIVITIES: Increase as tolerated. Mitchel Sams MD
== END 2019-03-07 14:20 | disposition home or self-care (01) | DRG 392 ==
LOC: ED 16:39 → ERH 20:37 → 2RNO 21:54 → ERH 22:41 → 2RNO 22:44
PROVIDERS: ADMIT Internal Medicine Nephrology; ATTEND Internal Medicine Nephrology
DX: R10.9 Unspecified abdominal pain (principal); K50.10 Crohn's disease of large intestine without complications; I50.22 Chronic systolic (congestive) heart failure; I48.91 Unspecified atrial fibrillation; J44.9 Chronic obstructive pulmonary disease, unspecified; I25.10 Atherosclerotic heart disease of native coronary artery without angina pectoris; E78.5 Hyperlipidemia, unspecified; E11.9 Type 2 diabetes mellitus without complications; E66.9 Obesity, unspecified; Z68.32 Body mass index [BMI] 32.0-32.9, adult; I11.0 Hypertensive heart disease with heart failure; K74.60 Unspecified cirrhosis of liver; K75.81 Nonalcoholic steatohepatitis (NASH); M19.90 Unspecified osteoarthritis, unspecified site; D64.9 Anemia, unspecified; N28.1 Cyst of kidney, acquired; Z79.01 Long term (current) use of anticoagulants; Z87.891 Personal history of nicotine dependence; Z90.49 Acquired absence of other specified parts of digestive tract; Z96.641 Presence of right artificial hip joint; Z99.81 Dependence on supplemental oxygen; R11.2 Nausea with vomiting, unspecified